=== PATIENT | female | born 1945 | race Caucasian/White ===

== ENCOUNTER 2018-11-18 08:35 | Emergency (ER) | payer MEDICARE, OTHER ==
[~2018-11-18] VITALS: Ht 157.5 cm; Wt 64.9 kg
--- NOTE | 2018-11-18 09:03 | ED General ---
General Chief Complaint: Dizziness/Syncope Stated Complaint: DIZZINESS,HIGH BP - SENT FROM [facility] Source of Information: Patient History of Present Illness Date Seen by Provider: Nov 18, 2018 Time Seen by Provider: 08:45 Initial Comments 73 yo female who presents with "dizziness" pt describes dizziness as being off balance. she reports she awoke with it. worse with standing. improves with sitting/lying. not changed by rapid head movement. no associated vision changes, focal weakness, chest pain or other systemic complaints. Allergies and Home Medications Allergies Coded Allergies: Sulfa (Sulfonamide Antibiotics) (Verified Allergy, Unknown, ITCHING, ) codeine (Verified Allergy, Unknown, HALLUCINATION, 11/18/18) Patient Home Medication List Home Medication List Reviewed: Yes Review of Systems Review of Systems Constitutional: No chills, No diaphoresis; dizziness; No fever EENTM: No hearing loss, No ear pain, No blurred vision, No double vision, No eye pain, No vision loss Respiratory: No cough, No short of breath Cardiovascular: No chest pain, No edema, No palpitations Gastrointestinal: no symptoms reported; No abdominal pain, No diarrhea, No nausea, No vomiting Genitourinary: no symptoms reported Musculoskeletal: no symptoms reported Skin: no symptoms reported Psychiatric/Neurological: No Symptoms Reported Past Zezdzgh-Uscltn-Cazcdk Hx Past Med/Social Hx: Reviewed Nursing Past Med/Soc Hx Patient Social History Recent Foreign Travel: No (N) Contact w/Someone Who Travel: No (N) Physical Exam Vital Signs Vital Signs - First Documented 11/18/18 08:40 Temp 98.5 Pulse 95 Resp 18 B/P (MAP) 184/86 (118) Pulse Ox 98 Capillary Refill : Height, Weight, BMI Height: '" Weight: lbs. oz. kg; BMI Method: General Appearance: No Apparent Distress, WD/WN Eyes: Bilateral Eye Normal Inspection HEENT: PERRL/EOMI, TMs Normal Neck: Full Range of Motion, Normal Inspection, Non Tender Respiratory: Lungs Clear, Normal Breath Sounds Cardiovascular: Regular Rate, Rhythm, No Edema, Normal Peripheral Pulses Gastrointestinal: Normal Bowel Sounds, Non Tender, Soft Back: Normal Inspection Extremity: Normal Capillary Refill, Normal Range of Motion, Non Tender Neurologic/Psychiatric: Oriented x3, No Motor/Sensory Deficits, Normal Mood/ Affect, intensive care nurse II-XII Norm as Tested Skin: Normal Color, Warm/Dry Focused Exam Lactate Level 11/18/18 09:23: Lactic Acid Level 1.12 Lactic Acid Level Laboratory Tests Test 11/18/18 09:23 Lactic Acid Level 1.12 MMOL/L (0.50-2.00) Progress/Results/Core Measures Suspected Sepsis SIRS Temperature: Pulse: Respiratory Rate: Laboratory Tests 11/18/18 08:57: White Blood Count 6.7 Blood Pressure / Mean: 11/18/18 09:23: Lactic Acid Level 1.12 Laboratory Tests 11/18/18 08:57: Creatinine 0.78, Platelet Count 252, Total Bilirubin 1.0 Results/Orders Lab Results Laboratory Tests Test 11/18/18 08:57 11/18/18 09:09 11/18/18 09:23 Range/Units White Blood Count 6.7 4.3-11.0 10^3/uL Red Blood Count 4.88 4.35-5.85 10^6/uL Hemoglobin 15.1 11.5-16.0 G/DL Hematocrit 45 35-52 % Mean Corpuscular Volume 91 80-99 FL Mean Corpuscular Hemoglobin 31 25-34 PG Mean Corpuscular Hemoglobin Concent 34 32-36 G/DL Red Cell Distribution Width 12.3 10.0-14.5 % Platelet Count 252 130-400 10^3/uL Mean Platelet Volume 8.3 7.4-10.4 FL Sodium Level 141 135-145 MMOL/L Potassium Level 4.1 3.6-5.0 MMOL/L Chloride Level 104 98-107 MMOL/L Carbon Dioxide Level 17 L 21-32 MMOL/L Anion Gap 20 H 5-14 MMOL/L Blood Urea Nitrogen 9 7-18 MG/DL Creatinine 0.78 0.60-1.30 MG/DL Estimat Glomerular Filtration Rate > 60 BUN/Creatinine Ratio 12 Glucose Level 123 H 70-105 MG/DL Calcium Level 9.9 8.5-10.1 MG/DL Corrected Calcium 9.6 8.5-10.1 MG/DL Magnesium Level 1.8 1.8-2.4 MG/DL Total Bilirubin 1.0 0.1-1.0 MG/DL Aspartate Amino Transf (AST/SGOT) 15 5-34 U/L Alanine Aminotransferase (ALT/SGPT) 17 0-55 U/L Alkaline Phosphatase 67 40-136 U/L Troponin T < 10 <=10 NG/L Total Protein 7.0 6.4-8.2 GM/DL Albumin 4.4 3.2-4.5 GM/DL Urine Color YELLOW Urine Clarity CLEAR Urine pH 6.0 5-9 Urine Specific [place] 1.015 L 1.016-1.022 Urine Protein NEGATIVE NEGATIVE Urine Glucose (UA) NEGATIVE NEGATIVE Urine Ketones NEGATIVE NEGATIVE Urine Nitrite NEGATIVE NEGATIVE Urine Bilirubin NEGATIVE NEGATIVE Urine Urobilinogen 0.2 NORMAL MG/DL Urine Leukocyte Esterase NEGATIVE NEGATIVE Urine RBC (Auto) NEGATIVE NEGATIVE Urine RBC NONE /HPF Urine WBC NONE /HPF Urine Squamous Epithelial Cells 2-5 /HPF Urine Crystals NONE /LPF Urine Bacteria NONE /HPF Urine Casts NONE /LPF Urine Mucus NEGATIVE /LPF Urine Culture Indicated NO Lactic Acid Level 1.12 0.50-2.00 MMOL/L My Orders Orders - JANUSZ SANCHEZ L DO Ct Head Wo (11/18/18 08:47) Ekg Tracing (11/18/18 08:47) Cbc No Diff (11/18/18 08:47) Comprehensive Metabolic Panel (11/18/18 08:47) Lactic Acid Analyzer (11/18/18 08:47) Magnesium (11/18/18 08:47) Ua Culture If Indicated (11/18/18 08:47) Troponin T (11/18/18 08:47) Vital Signs/I&O 11/18/18 08:40 Temp 98.5 Pulse 95 Resp 18 B/P (MAP) 184/86 (118) Pulse Ox 98 Capillary Refill : ECG Initial ECG Impression Date: Nov 18, 2018 Initial ECG Impression Time: 08:57 Initial ECG Rate: 89 Initial ECG Rhythm: Normal Sinus, PVC (occasional ) Initial ECG Intervals: Normal Initial ECG Intervals pr 136ms, qrs 86 Initial ECG Impression: Normal Consults Consults : Consults Notes Called and discussed case with neurology doctors Ashley, neurologist and neurosurgeon. After they reviewed the CT imaging, they requested the patient be transferred to for further management. Discussed risk and benefits with patient who agrees to transfer. Patient will be transferred in stable condition to . Departure Impression Primary Impression: Abnormal head CT Additional Impressions: Mass, brain Dizziness Disposition: 02 XFER SHT-TRM HOSP Condition: Stable Transfer Time Spoke to Accepting Phy: 10:30 Transfer Progress Notes Patient accepted for transfer to to the neurosurgeon Dr Jimenez Method of Transfer: EMS Departure-Patient Inst. Referrals: LANDY MARQUEZ DO (PCP/Family) Primary Care Physician JANUSZ SANCHEZ DO Nov 18, 2018 09:03
[2018-11-18 09:06] LABS: HEMOGLOBIN 15.1 G/DL (11.5-16.0); WHITE BLOOD COUNT 6.7 10^3/uL (4.3-11.0)
[2018-11-18 09:07] LABS: MEAN PLATELET VOLUME 8.3 FL (7.4-10.4); RED CELL DISTRIBUTION WIDTH 12.3 % (10.0-14.5)
[2018-11-18 09:19] LABS: BILIRUBIN,URINE NEGATIVE (NEGATIVE); CLARITY,URINE CLEAR; COLOR,URINE YELLOW; GLUCOSE, URINE (UA) NEGATIVE (NEGATIVE); KETONES,URINE NEGATIVE (NEGATIVE); LEUKOCYTE ESTERASE ,URINE NEGATIVE (NEGATIVE); NITRITE,URINE NEGATIVE (NEGATIVE); PROTEIN,URINE NEGATIVE (NEGATIVE); UROBILINOGEN,URINE 0.2 MG/DL (NORMAL)
[2018-11-18] MEDS ORDERED: LISI10TA2 (09:19)
[2018-11-18] MEDS ORDERED: VENL75CA93 (09:19)
[2018-11-18] MEDS ORDERED: ATOR20TA66 (09:19)
[2018-11-18 09:27] LABS: ALKALINE PHOSPHATASE 67 U/L (40-136); BUN/CREATININE RATIO 12; CALCIUM 9.9 MG/DL (8.5-10.1); CARBON DIOXIDE 17 MMOL/L (21-32); CHLORIDE 104 MMOL/L (98-107); CREATININE SERUM 0.78 MG/DL (0.60-1.30); GFR ESTIMATED > 60; GLUCOSE 123 MG/DL (70-105); MAGNESIUM 1.8 MG/DL (1.8-2.4); POTASSIUM 4.1 MMOL/L (3.6-5.0); SODIUM 141 MMOL/L (135-145)
--- NOTE | 2018-11-18 09:27 | Diagnostic Imaging Report ---
PROCEDURE: CT head without contrast. TECHNIQUE: Multiple contiguous axial images were obtained through the brain without the use of intravenous contrast. Auto Exposure Controls were utilized during the CT exam to meet ALARA standards for radiation dose reduction. DATE: November 18, 2018. COMPARISON: None. INDICATION: 73-year-old female, dizziness. FINDINGS: There is a partially calcified round mass adjacent to the left cerebellum which may be extra-axial in location measuring 4.0 x 4.1 cm in axial dimension. There is associated mass effect and adjacent areas of low attenuation in the left cerebellum. Comparison imaging is not available to assess for possible stability. There is no identified abnormal extra-axial fluid collection. There is no evidence of acute intracranial hemorrhage. The visualized portions of the mastoid air cells, middle ears, and paranasal sinuses are well aerated. There is pneumatization of the Maged apices. IMPRESSION: 1. Partially calcified mass adjacent to the left cerebellum which measures 4.1 x 4.0 cm in size. This appears likely extra-axial in location and may relate to meningioma. Comparison imaging is not available to assess for stability. Recommend dedicated MRI brain without and with intravenous contrast for further assessment in comparison to prior imaging if available. Dictated by: Dictated on workstation # [id number]
[2018-11-18 09:28] LABS: ALANINE AMINOTRANSFERASE 17 U/L (0-55); ALBUMIN 4.4 GM/DL (3.2-4.5)
--- NOTE | 2018-11-18 10:50 | NUR ---
Vitals, labs, and CT report faxed to [facility] at this time.
[2018-11-18 11:40] VITALS: BP 171/87
--- NOTE | 2018-11-18 12:25 | NUR ---
Report given to Kareen ARZOLA at this time.
--- NOTE | 2018-11-18 13:39 | NUR ---
patient transferred at this time via [facility].
== END 2018-11-18 13:39 | disposition short-term general hospital (02) ==
LOC: EDUNIT# 08:35 → ER FS 08:37
DX: R93.0 Abnormal findings on diagnostic imaging of skull and head, not elsewhere classified (principal); G93.9 Disorder of brain, unspecified; R42 Dizziness and giddiness; Z88.2 Allergy status to sulfonamides; Z88.5 Allergy status to narcotic agent
CPT/HCPCS: 36415; 70450; 80053; 81000; 83605; 83735; 84484; 85027; 93005

== ENCOUNTER → 2019-01-22 | Outpatient (CLI) | payer MEDICARE, OTHER ==
[~2019-01-22] VITALS: Ht 157.5 cm; Wt 68.9 kg
[~2019-01-22] MED LIST: ATOR20TA66; DENOSUMAB 60 MG/1 ML (PROLIA) SQ ONE; LISI10TA2; VENL75CA93
[2019-01-22 09:42] VITALS: BP 146/76
== END ==
LOC: SDC 08:59
PROVIDERS: ATTEND Family Medicine
DX: M81.0 Age-related osteoporosis without current pathological fracture (principal)
CPT/HCPCS: 96372

== ENCOUNTER 2019-02-15 06:07 | Emergency (ER) | payer MEDICARE, OTHER ==
[~2019-02-15] VITALS: Ht 157.5 cm; Wt 64.9 kg
[~2019-02-15 06:07] MED LIST changes: -DENOSUMAB 60 MG/1 ML (PROLIA) SQ ONE
--- OUTSIDE RECORDS SUMMARY | 2019-02-15 06:12 | XMS REPORT | Continuity of Care Document ---
Author Organization Unknown Address Unknown Allergies Active Description Code Type Severity Reaction Onset Reported/Identified Relationship to Patient Clinical Status Yes codeine [id number] Drug Allergy Unknown HALLUCINATION 11/18/2018 Yes Sulfa (Sulfonamide Antibiotics) [id number] Drug Allergy Unknown ITCHING 11/18/2018 Medications There is no data. Problems Date Dx Coded Attending Type Code Diagnosis Diagnosed By 11/18/2018 SANCHEZ DO, JANUSZ L Ot G93.9 DISORDER OF BRAIN, UNSPECIFIED 11/18/2018 SANCHEZ DO, JANUSZ L Ot R42 DIZZINESS AND GIDDINESS 11/18/2018 SANCHEZ DO, JANUSZ L Ot R93.0 ABNORMAL FINDINGS ON DX IMAGING OF SKULL 11/18/2018 SANCHEZ DO, JANUSZ L Ot Z88.2 ALLERGY STATUS TO SULFONAMIDES STATUS 11/18/2018 SANCHEZ DO, JANUSZ L Ot Z88.5 ALLERGY STATUS TO NARCOTIC AGENT STATUS 11/20/2018 SANCHEZ DO, JANUSZ L Ot G93.9 DISORDER OF BRAIN, UNSPECIFIED 11/20/2018 SANCHEZ DO, JANUSZ L Ot R42 DIZZINESS AND GIDDINESS 11/20/2018 SANCHEZ DO, JANUSZ L Ot R93.0 ABNORMAL FINDINGS ON DX IMAGING OF SKULL 11/20/2018 SANCHEZ DO, JANUSZ L Ot Z88.2 ALLERGY STATUS TO SULFONAMIDES STATUS 11/20/2018 SANCHEZ DO, JANUSZ L Ot Z88.5 ALLERGY STATUS TO NARCOTIC AGENT STATUS 12/23/2018 SANCHEZ DO, JANUSZ L Ot G93.9 DISORDER OF BRAIN, UNSPECIFIED 12/23/2018 SANCHEZ DO, JANUSZ L Ot R42 DIZZINESS AND GIDDINESS 12/23/2018 SANCHEZ DO, JANUSZ L Ot R93.0 ABNORMAL FINDINGS ON DX IMAGING OF SKULL 12/23/2018 SANCHEZ DO, JANUSZ L Ot Z88.2 ALLERGY STATUS TO SULFONAMIDES STATUS 12/23/2018 SANCHEZ DO, JANUSZ L Ot Z88.5 ALLERGY STATUS TO NARCOTIC AGENT STATUS 01/23/2019 LANDY MARQUEZ DO Ot M81.0 AGE-RELATED OSTEOPOROSIS W/O CURRENT PAT Procedures There is no data. Results Test Result Range Automated blood complete blood count (hemogram) panel - 11/18/18 08:57 Blood leukocytes automated count (number/volume) 6.7 10*3/uL 4.3-11.0 Blood erythrocytes automated count (number/volume) 4.88 10*6/uL 4.35-5.85 Venous blood hemoglobin measurement (mass/volume) 15.1 g/dL 11.5-16.0 Blood hematocrit (volume fraction) 45 % 35-52 Automated erythrocyte mean corpuscular volume 91 [foz_us] 80-99 Automated erythrocyte mean corpuscular hemoglobin (mass per erythrocyte) 31 pg 25-34 Automated erythrocyte mean corpuscular hemoglobin concentration measurement (mass/volume) 34 g/dL 32-36 Automated erythrocyte distribution width ratio 12.3 % 10.0- 14.5 Automated blood platelet count (count/volume) 252 10*3/uL 130-400 Automated blood platelet mean volume measurement 8.3 [foz_us] 7.4-10.4 Comprehensive metabolic panel - 11/18/18 08:57 Serum or plasma sodium measurement (moles/volume) 141 mmol/L 135-145 Serum or plasma potassium measurement (moles/volume) 4.1 mmol/L 3.6-5.0 Serum or plasma chloride measurement (moles/volume) 104 mmol/L 98-107 Carbon dioxide 17 mmol/L 21-32 Serum or plasma anion gap determination (moles/volume) 20 mmol/L 5-14 Serum or plasma urea nitrogen measurement (mass/volume) 9 mg/dL 7-18 Serum or plasma creatinine measurement (mass/volume) 0.78 mg/dL 0.60-1.30 Serum or plasma urea nitrogen/creatinine mass ratio 12 NRG Serum or plasma creatinine measurement with calculation of estimated glomerular filtration rate > NRG Serum or plasma glucose measurement (mass/volume) 123 mg/dL 70-105 Serum or plasma calcium measurement (mass/volume) 9.9 mg/dL 8.5-10.1 Serum or plasma total bilirubin measurement (mass/volume) 1.0 mg/dL 0.1-1.0 Serum or plasma alkaline phosphatase measurement (enzymatic activity/volume) 67 U/L 40-136 Serum or plasma aspartate aminotransferase measurement (enzymatic activity/volume) 15 U/L 5-34 Serum or plasma alanine aminotransferase measurement (enzymatic activity/volume) 17 U/L 0-55 Serum or plasma protein measurement (mass/volume) 7.0 g/dL 6.4-8.2 Serum or plasma albumin measurement (mass/volume) 4.4 g/dL 3.2-4.5 CALCIUM CORRECTED 9.6 mg/dL 8.5-10.1 Magnesium - 11/18/18 08:57 Magnesium 1.8 mg/dL 1.8-2.4 TROPONIN T - 11/18/18 08:57 TROPONIN T < 10 <=10 Complete urinalysis with reflex to culture - 11/18/18 09:09 Urine color determination YELLOW NRG Urine clarity determination CLEAR NRG Urine pH measurement by test strip 6.0 5-9 Specific gravity of urine by test strip 1.015 1.016-1.022 Urine protein assay by test strip, semi-quantitative NEGATIVE NEGATIVE Urine glucose detection by automated test strip NEGATIVE NEGATIVE Erythrocytes detection in urine sediment by light microscopy NEGATIVE NEGATIVE Urine ketones detection by automated test strip NEGATIVE NEGATIVE Urine nitrite detection by test strip NEGATIVE NEGATIVE Urine total bilirubin detection by test strip NEGATIVE NEGATIVE Urine urobilinogen measurement by automated test strip (mass/volume) 0.2 mg/dL NORMAL Urine leukocyte esterase detection by dipstick NEGATIVE NEGATIVE Automated urine sediment erythrocyte count by microscopy (number/high power field) NONE NRG Automated urine sediment leukocyte count by microscopy (number/high power field) NONE NRG Bacteria detection in urine sediment by light microscopy NONE NRG Squamous epithelial cells detection in urine sediment by light microscopy 2-5 NRG Crystals detection in urine sediment by light microscopy NONE NRG Casts detection in urine sediment by light microscopy NONE NRG Mucus detection in urine sediment by light microscopy NEGATIVE NRG Complete urinalysis with reflex to culture NO NRG Blood lactic acid measurement (moles/volume) - 11/18/18 09:23 Blood lactic acid measurement (moles/volume) 1.12 mmol/L 0.50- 2.00 Encounters ACCT No. Visit Date/Time Discharge Status Pt. Type Provider Facility Loc./Unit Complaint [id number] 02/04/2019 07:00:00 02/04/2019 23:59:59 [facility] Outpatient Landy Marquez [facility] [id number] 01/27/2019 00:15:06 01/27/2019 23:59:59 [facility] Outpatient [id number] 01/22/2019 08:59:00 01/22/2019 23:59:59 [facility] Outpatient LANDY MARQUEZ DO Via [facility] SEVERE OSTEOPOROSIS OF FEMURS [id number] 11/18/2018 08:37:00 11/18/2018 13:39:00 DIS Emergency JANUSZ SANCHEZ DO Via [facility] ER FS DIZZINESS,HIGH BP - SENT FROM [facility] [id number] 11/18/2018 08:51:00 Document Registration
--- NOTE | 2019-02-15 06:45 | ED Fall/Injury ---
General Chief Complaint: Trauma-Non Activation Stated Complaint: FELL HIT HEAD;POSSIBLE SPRAIN RT ANKLE Nursing Triage Note: FALL, WITH INJURY TO THE RIGHT ANKLE, RIGHT KNEE, AND THE BACK OF HER HEAD. Source: patient, RN notes reviewed Exam Limitations: no limitations History of Present Illness Date Seen by Provider: Feb 15, 2019 Time Seen by Provider: 06:32 Initial Comments Patient presents c/ c/o injuries to her head and RLE p/ slipping and falling last PM. Was reportedly wearing Crocs that got wet causing her to slip and fall forward (injuring her RLE), and then backwards causing her to hit the back of her head. Denies any LOC. Neck is a little sore. Also sustained some abrasions to her right knee and ankle as well. States her tetanus is UTD. Location Injury Occurred: HOME Occurred: yesterday Severity: moderate Injuries/Pain Location: head, lower extremity (right knee and ankl) Context: slipped Loss of Consciousness: no loss of consciousness Modifying Factors: Worse With Movement; Improves With Rest Associated Symptoms (Fall): Denies Symptoms (x/ as noted.), Neck Pain (slight), Trouble Walking (secondary to right knee and ankle injury/pain) Allergies and Home Medications Allergies Coded Allergies: Sulfa (Sulfonamide Antibiotics) (Verified Allergy, Unknown, ITCHING, 02/15/19) codeine (Verified Allergy, Unknown, HALLUCINATION, 02/15/19) Patient Home Medication List Home Medication List Reviewed: Yes Review of Systems Review of Systems Constitutional: see HPI : No Musculoskeletal: see HPI, other (right knee and ankle pain/swelling) Skin: see HPI, other (abrasion right knee and ankle) All Other Systems Reviewed Negative Unless Noted: Yes (Negative excepted noted.) Past Vfjkweh-Uckunm-Waoogv Hx Patient Social History 2nd Hand Smoke Exposure: No Recent Foreign Travel: No Contact w/Someone Who Travel: No Recent Infectious Disease Expo: No Recent Hopitalizations: No Physical Abuse: No Sexual Abuse: No Mistreated: No Fear: No Seasonal Allergies Seasonal Allergies: No Past Medical History Surgeries: Yes (D&C) Tonsillectomy Cardiac: Yes High Cholesterol, Hypertension Psychosocial: Yes Anxiety Integumentary: No Physical Exam Vital Signs Vital Signs - First Documented 02/15/19 06:22 Temp 98.6 Pulse 97 Resp 20 B/P (MAP) 163/92 (115) Pulse Ox 95 O2 Delivery Room Air Capillary Refill : Less Than 3 Seconds Height, Weight, BMI Height: 5'2.00" Weight: 143lbs. 0.0oz. 64.424637ug; BMI Method:Stated General Appearance: WD/WN, mild distress HEENT: normal ENT inspection, other (tender just to right of her occipital apex) Neck: normal inspection Cardiovascular: regular rate, rhythm Respiratory: no respiratory distress Rectal: deferred Extremities: pelvis stable, other (right knee is tender and a little swollen appearing, but has FROM. (+) abrasion noted as well. Right ankle is the same as her right knee. No obvious visual, or palpable deformity, or pathos. ) Neurologic/Psychiatric: no motor/sensory deficits, alert, normal mood/affect, oriented x 3 Skin: warm/dry, other (abrasions to both her right knee and ankles) Estefania Coma Score Best Eye Response: (4) Open Spontaneously Best Verbal Response: (5) Oriented Best Motor Response: (6) Obeys Commands [place] Total: 15 Progress/Results/Core Measures Results/Orders My Orders Orders - GINGER MEDRANO DO Ct Head/Cervical Spine Wo (02/15/19 06:42) Ankle 3 View Right (02/15/19 06:42) Knee 3 View Right (02/15/19 06:42) Edwin Bandage (02/15/19 08:31) Vital Signs/I&O 02/15/19 06:22 Temp 98.6 Pulse 97 Resp 20 B/P (MAP) 163/92 (115) Pulse Ox 95 O2 Delivery Room Air Blood Pressure Mean: 115 Diagnostic Imaging Diagonstic Imaging: Xray, CT Plain Films/CT/US/NM/MRI: c-spine (NAD), knee (right- no Fx.), ankle (right- no Fx), head (NAD) Departure Impression Primary Impression: Fall Additional Impressions: Sprain of ankle, right Sprain of right knee Multiple abrasions Contusion of head Disposition: HOME, SELF-CARE Condition: Stable Departure-Patient Inst. Referrals: LANDY MARQUEZ DO (PCP/Family) Primary Care Physician Patient Instructions: Minor Head Injury (DC), Ankle Sprain (DC), Knee Sprain (DC), Skin Abrasions (DC) Add. Discharge Instructions: All discharge instructions reviewed with patient and/or family. Voiced understanding. RECOMMEND 400 mg OF IBUPROFEN AND/ OR 1000 mg OF TYLENOL EVERY 6 HOURS NEEDED FOR PAIN. DO NOT EXCEED 4000 mg OF TYLENOL IN A 24 HOUR PERIOD. DO NEED TO CONTACT YOUR PCP IN ORDER TO GET SET UP FOR AN OUTPATIENT ULTRASOUND OF YOUR THYROID RECOMMENDED BY THE RADIOLOGIST. GINGER MEDRANO DO Feb 15, 2019 06:45
--- NOTE | 2019-02-15 07:57 | Diagnostic Imaging Report ---
Indication: Fall, pain. Comparison: None available. Technique: Three radiographs of the right ankle dated 02/15/2019. Findings: No acute fracture or dislocation. No destructive osseous process. Talar dome is unremarkable. Ankle mortise is symmetric. Tiny posterior and plantar calcaneal enthesophytes. Impression: No acute osseous abnormality with mild degenerative changes. Dictated by: Dictated on workstation # [id number]
--- NOTE | 2019-02-15 08:00 | Diagnostic Imaging Report ---
PROCEDURE: CT head and CT cervical spine without contrast. TECHNIQUE: Multiple contiguous axial images were obtained through the brain and cervical spine without the use of intravenous contrast. Sagittal and coronal reformations through the cervical spine were then performed. Auto Exposure Controls were utilized during the CT exam to meet ALARA standards for radiation dose reduction. INDICATION: Fall COMPARISON: 11/18/2018 FINDINGS: No intracranial hemorrhage. 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 No new intracranial mass, mass effect, midline shift, herniation, hydrocephalus, or suspicious extra-axial fluid collection. The bilateral ocular lenses are absent. Otherwise, the orbits are unremarkable. The paranasal sinuses are clear. Besides the postsurgical changes, the calvarium and extracalvarial soft tissues are unremarkable. Alignment of the cervical spine is well maintained. Alignment of the atlantooccipital joint is well maintained. Vertebral body heights and disc spaces are well-maintained. No acute fracture or dislocation. No destructive osseous process. Scattered facet joint degenerative changes and uncovertebral joint hypertrophy. No high-grade osseous central canal stenosis. Multilevel neuroforaminal stenosis, greatest on the right at C4/C5 and C5/C6 where it is moderate in severity. Biapical pleural parenchymal scarring. Nodularity and heterogeneity of the thyroid gland. The paraspinal soft tissues are otherwise unremarkable. IMPRESSION: No acute intracranial abnormality. No acute osseous abnormalities within the cervical spine with scattered degenerative changes. Interval postsurgical changes involving the left cerebellar region with removal of previously noted meningioma. Additional findings as above, including heterogeneity and nodularity of the thyroid gland for which a thyroid ultrasound is recommended. Dictated by: Dictated on workstation # [id number]
--- NOTE | 2019-02-15 08:20 | Diagnostic Imaging Report ---
Indication: Fall, pain Comparison: None available. Technique: Three radiographs of the right knee dated 02/15/2019. Findings: No acute fracture or dislocation. No destructive osseous process. Minimal chondrocalcinosis involving the medial and lateral menisci. Linear sclerotic regions are noted within the distal femoral shaft as well as proximal tibia. No joint effusion. No suspicious radiopaque foreign body. Impression: No acute osseous abnormality. Small regions of sclerosis, particularly within the distal femoral shaft, likely related to prior bone infarction versus low-grade chondroid lesion. Minimal chondrocalcinosis of menisci which may relate to CPPD deposition disease or simply osteoarthritis. Dictated by: Dictated on workstation # [id number]
[2019-02-15 08:50] VITALS: BP 163/92
== END 2019-02-15 08:50 | disposition home or self-care (01) ==
LOC: EDUNIT# 06:07 → ER FS 06:09
DX: S00.93XA Contusion of unspecified part of head, initial encounter (principal); S83.92XA Sprain of unspecified site of left knee, initial encounter; S93.401A Sprain of unspecified ligament of right ankle, initial encounter; I10 Essential (primary) hypertension; E78.00 Pure hypercholesterolemia, unspecified; F41.9 Anxiety disorder, unspecified; R40.2142 Coma scale, eyes open, spontaneous, at arrival to emergency department; R40.2252 Coma scale, best verbal response, oriented, at arrival to emergency department; R40.2362 Coma scale, best motor response, obeys commands, at arrival to emergency department; Z88.2 Allergy status to sulfonamides; Z88.5 Allergy status to narcotic agent; Z90.89 Acquired absence of other organs; W01.198A Fall on same level from slipping, tripping and stumbling with subsequent striking against other object, initial encounter
CPT/HCPCS: 70450; 72125; 73562; 73610

== ENCOUNTER → 2019-04-08 | Outpatient (CLI) | payer MEDICARE, OTHER ==
[~2019-04-08] VITALS: Ht 157.5 cm; Wt 66.2 kg
[~2019-04-08] MED LIST changes: +LIDOCAINE 1% INJ 20 ML 20 ML VIAL INJ ONE
--- NOTE | 2019-04-08 09:59 | Diagnostic Imaging Report ---
INDICATION: Right thyroid nodule. Patient presents for ultrasound-guided fine needle aspiration. DETAILS OF PROCEDURE: Patient was brought to the procedure room and placed on the table in supine position. Ultrasound imaging over the right neck was performed to evaluate appropriate entry site. The right neck was then prepped and draped in usual sterile fashion. Small amount of 1% lidocaine was utilized for local anesthesia. A total of four passes were made into the solid nodule in the upper pole of right lobe of the thyroid utilizing 25-gauge needles. Fine-needle aspiration technique was utilized. Hemostasis was obtained using manual compression. Patient tolerated the procedure well and left the department in stable condition. IMPRESSION: Ultrasound-guided fine needle aspiration of a solid nodule in upper pole of right lobe of the thyroid. Cytology results are currently pending. Dictated by: Dictated on workstation # [id number]
== END ==
LOC: RAD 08:42
PROVIDERS: ATTEND Family Medicine
DX: E04.1 Nontoxic single thyroid nodule (principal)

== ENCOUNTER 2019-04-14 22:18 | Emergency (ER) | payer MEDICARE, OTHER ==
[~2019-04-14] VITALS: Ht 157.5 cm; Wt 65.8 kg
[~2019-04-14 22:18] MED LIST changes: -LIDOCAINE 1% INJ 20 ML 20 ML VIAL INJ ONE
--- NOTE | 2019-04-14 22:43 | ED Headache ---
General Stated Complaint: HIGH BLOOD PRESSURE Source: patient, other Exam Limitations: no limitations History of Present Illness Date Seen by Provider: Apr 14, 2019 Time Seen by Provider: 22:25 Initial Comments The patient presents to the ER by private conveyance with chief complaint that all day she's felt a little cough she describes it as dizzy but says that she feels off like she is just not well. No fevers or chills. She said she felt like the orifice she is to get before she had a migraine headache back in her 30s. She's been expressing a lot of stress lately with a friend of hers recently being diagnosed with cancer and she herself had a biopsy of a nodule on her thyroid and has not received the results yet. She has a lot of anxiety. She says the symptoms of her headache started around 11:00 this morning it's occipital mom pulsating and nonradiating and she has not had migraine headache for several decades. She took Tylenol and Benadryl fell sleep for 4 hours and when she woke up again the headache began to come back. By [facility] she checked her blood pressure and found that it was high 190/100. She called her friend who is a nurse who came over who did some breathing exercises some meditation and went through her blood pressure medications with her. She swells to be taking 40 mg of lisinopril as per her visit last week with her primary care doctor. At that time her blood pressure was running in the 140s systolic range. After they reviewed her medications her friend the nurse decided that she was probably only taking 20 mg of lisinopril instead of 40 so they called the on-call doctor for Dr. Garcia and were instructed to take another 20 mg and if the blood pressure did not come down within an hour below 180 systolic they were to go to the ER. The blood pressure did not change in 1 hour. The patient is not expressing any chest pain shortness of breath. She says her headache has pretty much resolved to a 1 out of 10 at this time. She is not having any imbalance, falls, near-syn cope, weakness, numbness, tingling, slurred speech, facial droop, cough, fevers, chills, dysuria, discharge, constipation or diarrhea. Allergies and Home Medications Allergies Coded Allergies: Sulfa (Sulfonamide Antibiotics) (Verified Allergy, Unknown, ITCHING, 02/15/19) codeine (Verified Allergy, Unknown, HALLUCINATION, 02/15/19) Patient Home Medication List Home Medication List Reviewed: Yes Review of Systems Review of Systems Constitutional: see HPI; No chills, No diaphoresis; dizziness; No fever, No malaise Eyes: Denies Blindness, Denies Blurred Vision, Denies Drainage, Denies Pain Ears, Nose, Mouth, Throat: denies ear pain, denies ear discharge, denies nose pain, denies nose discharge, denies throat pain, denies throat swelling Respiratory: No cough, No dyspnea on exertion, No phlegm Cardiovascular: No chest pain, No Hx of Intervention, No palpitations, No syncope, No vascular heart diseas Gastrointestinal: No abdominal pain, No constipation, No nausea, No vomiting Genitourinary: No discharge, No dysuria Musculoskeletal: No back pain, No joint pain Past Exqfmvs-Buknik-Pmytdi Hx Patient Social History Alcohol Use: Denies Use Recreational Drug Use: No Smoking Status: Never a Smoker 2nd Hand Smoke Exposure: No Recent Foreign Travel: No Contact w/Someone Who Travel: No Recent Hopitalizations: No Seasonal Allergies Seasonal Allergies: No Past Medical History Surgeries: Yes (D&C) Tonsillectomy Cardiac: Yes High Cholesterol, Hypertension Genitourinary: No Gastrointestinal: No Musculoskeletal: No Endocrine: No HEENT: No Cancer: No Psychosocial: Yes Anxiety Integumentary: No Blood Disorders: No Physical Exam Vital Signs Vital Signs - First Documented 04/14/19 22:44 Temp 97.0 Pulse 94 Resp 20 B/P (MAP) 199/102 (134) Pulse Ox 96 O2 Delivery Room Air Capillary Refill : Height, Weight, BMI Height: 5'2.00" Weight: 146lbs. 0.0oz. 66.216551ol; 26.7 BMI Method:Stated General Appearance: WD/WN, other (anxious affect) HEENT: PERRL/EOMI, normal ENT inspection, TMs normal, pharynx normal Neck: non-tender, full range of motion, supple, normal inspection Cardiovascular: normal peripheral pulses, regular rate, rhythm, no edema, no gallop, no murmur Respiratory: lungs clear, normal breath sounds, no respiratory distress, no accessory muscle use Extremities: normal range of motion, normal inspection, no pedal edema, normal capillary refill Psychiatric: alert, oriented x 3, other (anxious affect) Crainal Nerves: normal hearing, normal speech, PERRL Coordination/Gait: normal gait Motor/Sensory: no motor deficit, no sensory deficit Skin: normal color, warm/dry Lymphatic: no adenopathy Progress/Results/Core Measures Results/Orders Lab Results Laboratory Tests Test 04/14/19 22:44 Range/Units White Blood Count 8.8 4.3-11.0 10^3/uL Red Blood Count 4.78 4.35-5.85 10^6/uL Hemoglobin 14.6 11.5-16.0 G/DL Hematocrit 44 35-52 % Mean Corpuscular Volume 91 80-99 FL Mean Corpuscular Hemoglobin 31 25-34 PG Mean Corpuscular Hemoglobin Concent 34 32-36 G/DL Red Cell Distribution Width 12.2 10.0-14.5 % Platelet Count 305 130-400 10^3/uL Mean Platelet Volume 8.1 7.4-10.4 FL Neutrophils (%) (Auto) 74 42-75 % Lymphocytes (%) (Auto) 19 12-44 % Monocytes (%) (Auto) 5 0-12 % Eosinophils (%) (Auto) 1 0-10 % Basophils (%) (Auto) 1 0-10 % Neutrophils # (Auto) 6.5 1.8-7.8 X 10^3 Lymphocytes # (Auto) 1.7 1.0-4.0 X 10^3 Monocytes # (Auto) 0.5 0.0-1.0 X 10^3 Eosinophils # (Auto) 0.0 0.0-0.3 10^3/uL Basophils # (Auto) 0.0 0.0-0.1 10^3/uL Sodium Level 139 135-145 MMOL/L Potassium Level 4.0 3.6-5.0 MMOL/L Chloride Level 99 98-107 MMOL/L Carbon Dioxide Level 24 21-32 MMOL/L Anion Gap 16 H 5-14 MMOL/L Blood Urea Nitrogen 9 7-18 MG/DL Creatinine 0.74 0.60-1.30 MG/DL Estimat Glomerular Filtration Rate > 60 BUN/Creatinine Ratio 12 Glucose Level 125 H 70-105 MG/DL Calcium Level 10.1 8.5-10.1 MG/DL Corrected Calcium 8.5-10.1 MG/DL Total Bilirubin 0.6 0.1-1.0 MG/DL Aspartate Amino Transf (AST/SGOT) 15 5-34 U/L Alanine Aminotransferase (ALT/SGPT) 16 0-55 U/L Alkaline Phosphatase 68 40-136 U/L Total Protein 7.1 6.4-8.2 GM/DL Albumin 4.6 H 3.2-4.5 GM/DL My Orders Orders - SHERRILL BRAVO Cbc With Automated Diff (04/14/19 22:38) Comprehensive Metabolic Panel (04/14/19 22:38) Ct Head Wo (04/14/19 22:38) Ed Iv/Invasive Line Start (04/14/19 22:38) Acetaminophen Tablet (Tylenol Tablet) (04/14/19 22:45) Medications Given in ED Current Medications Medications Dose Ordered Sig/Jr Route Start Time Stop Time Status Last Admin Dose Admin Acetaminophen 1,000 mg ONCE ONCE PO 04/14/19 22:45 04/14/19 22:46 DC 04/14/19 22:56 1,000 MG Vital Signs/I&O 04/14/19 22:44 Temp 97.0 Pulse 94 Resp 20 B/P (MAP) 199/102 (134) Pulse Ox 96 O2 Delivery Room Air Progress Progress Note : Time: 22:52 Progress Note Hypertension, asymptomatic. Could be from the headache which is resolving or could be from her anxiety about all of her recent life stressors. We'll obtain a basic set of labs and CT scan and observe her. Already her blood pressure has dropped significantly to 160 systolic just after we talked to her and distracting her. Could also be her lisinopril finally kicking in. Either way it seems like this blood pressure probably has gone up over a day or 2 so we probably shouldn't work to get it down over a day or 2. We'll give her Tylenol for her headache and see if that plus some rest in a darkened room will help her blood pressure and anxiety. Diagnostic Imaging Diagonstic Imaging: CT (noncontrast) Plain Films/CT/US/NM/MRI: head Comments No acute findings. Evidence of prior suboccipital craniotomy. Reviewed: Reviewed [place] Study, Reviewed by Me Departure Impression Primary Impression: Hypertension Qualified Codes: I10 - Essential (primary) hypertension Additional Impression: Headache, occipital Disposition: 01 HOME, SELF-CARE Condition: Improved Departure-Patient Inst. Decision time for Depature: 23:15 Referrals: LANDY GARCIA DO (PCP/Family) Primary Care Physician Patient Instructions: High Blood Pressure (DC), Headache, Adult Add. Discharge Instructions: You may use Tylenol 1000 mg every 8 hours in addition to ibuprofen 600 mg every 8 hours for headache. Trying get some sleep and continue to take the medications as they're prescribed you. If you have further concerns about your high blood pressure then you should follow-up with your primary care doctor within the next 1-2 weeks. SHERRILL BRAVO Apr 14, 2019 22:43
[2019-04-14] MEDS ORDERED: ACETAMINOPHEN 500 MG TAB (TYLENOL) PO ONE (22:45)
[2019-04-14 23:00] LABS: BASOPHILS % (AUTO) 1 % (0-10); EOSINOPHILS % (AUTO) 1 % (0-10); HEMATOCRIT 44 % (35-52); HEMOGLOBIN 14.6 G/DL (11.5-16.0); LYMPHOCYTES % (AUTO) 19 % (12-44); MEAN CORPUSCULAR HEMOGLOBIN 31 PG (25-34); MEAN CORPUSCULAR HGB CONC 34 G/DL (32-36); MEAN CORPUSCULAR VOLUME 91 FL (80-99); MEAN PLATELET VOLUME 8.1 FL (7.4-10.4); MONOCYTES % (AUTO) 5 % (0-12); NEUTROPHILS % (AUTO) 74 % (42-75); PLATELET COUNT 305 10^3/uL (130-400); RED CELL DISTRIBUTION WIDTH 12.2 % (10.0-14.5); WHITE BLOOD COUNT 8.8 10^3/uL (4.3-11.0)
[2019-04-14 23:01] LABS: LYMPHOCYTES # (AUTO) 1.7 X 10^3 (1.0-4.0); MONOCYTES # (AUTO) 0.5 X 10^3 (0.0-1.0); NEUTROPHILS # (AUTO) 6.5 X 10^3 (1.8-7.8)
[2019-04-14 23:13] LABS: ALANINE AMINOTRANSFERASE 16 U/L (0-55); ALKALINE PHOSPHATASE 68 U/L (40-136); BILIRUBIN,TOTAL 0.6 MG/DL (0.1-1.0); BUN/CREATININE RATIO 12; CALCIUM 10.1 MG/DL (8.5-10.1); CARBON DIOXIDE 24 MMOL/L (21-32); CHLORIDE 99 MMOL/L (98-107); CREATININE SERUM 0.74 MG/DL (0.60-1.30); GFR ESTIMATED > 60; GLUCOSE 125 MG/DL (70-105); SODIUM 139 MMOL/L (135-145); TOTAL PROTEIN 7.1 GM/DL (6.4-8.2)
[2019-04-14 23:14] LABS: ALBUMIN 4.6 GM/DL (3.2-4.5)
[2019-04-14 23:23] VITALS: BP 183/99
--- NOTE | 2019-04-15 06:06 | Diagnostic Imaging Report ---
PROCEDURE: CT head without contrast. TECHNIQUE: Multiple contiguous axial images were obtained through the brain without the use of intravenous contrast. Auto Exposure Controls were utilized during the CT exam to meet ALARA standards for radiation dose reduction. INDICATION: Headache with nausea and hypertension. Comparison is made to study of 02/15/2019. FINDINGS: Ventricles and sulci are within normal limits for size. Surgical findings are again noted in the left posterior fossa without evidence of hemorrhage in the surgical bed. There is no evidence of intracranial hemorrhage seen elsewhere. There is no evidence of calvarial fracture. IMPRESSION: Stable surgical findings in left posterior fossa without acute intracranial abnormality detected. Dictated by: Dictated on workstation # [id number]
== END 2019-04-14 23:23 | disposition home or self-care (01) ==
LOC: EDUNIT# 22:18 → ER FS 22:19
DX: I10 Essential (primary) hypertension (principal); R51 Headache; E78.00 Pure hypercholesterolemia, unspecified; F41.9 Anxiety disorder, unspecified; Z88.5 Allergy status to narcotic agent; Z88.2 Allergy status to sulfonamides; Z90.89 Acquired absence of other organs
CPT/HCPCS: 36415; 70450; 80053; 85025

== ENCOUNTER 2019-06-09 09:14 | Emergency (ER) | payer MEDICARE, OTHER ==
[~2019-06-09] VITALS: Ht 157.4 cm; Wt 68.7 kg
[~2019-06-09 09:14] MED LIST changes: -ATOR20TA66; +ATOR20TA66 PO
[2019-06-09] MEDS ORDERED: NS IV 1000 ML 1,000 ML IV ONE (09:27)
[2019-06-09 09:38] LABS: BASOPHILS % (AUTO) 1 % (0-10); EOSINOPHILS % (AUTO) 3 % (0-10); HEMATOCRIT 43 % (35-52); HEMOGLOBIN 14.6 G/DL (11.5-16.0); LYMPHOCYTES % (AUTO) 23 % (12-44); MEAN CORPUSCULAR HEMOGLOBIN 31 PG (25-34); MEAN CORPUSCULAR HGB CONC 34 G/DL (32-36); MEAN CORPUSCULAR VOLUME 92 FL (80-99); MEAN PLATELET VOLUME 8.2 FL (7.4-10.4); MONOCYTES % (AUTO) 6 % (0-12); NEUTROPHILS % (AUTO) 67 % (42-75); PLATELET COUNT 277 10^3/uL (130-400); RED CELL DISTRIBUTION WIDTH 12.9 % (10.0-14.5)
[2019-06-09 09:39] LABS: BASOPHILS # (AUTO) 0.1 10^3/uL (0.0-0.1); EOSINOPHILS # (AUTO) 0.2 10^3/uL (0.0-0.3); LYMPHOCYTES # (AUTO) 1.4 X 10^3 (1.0-4.0); MONOCYTES # (AUTO) 0.4 X 10^3 (0.0-1.0)
--- NOTE | 2019-06-09 09:41 | ED General ---
General Chief Complaint: Dizziness/Syncope Stated Complaint: DIZZINESS Nursing Triage Note: Pt ambulatory to ED reporting feeling dizzy when awakened and walking to toilet began to loose balance to the side. Pt reports on new BP medication but began drinking less fluids lately and concerned if BP is now too low. Pt reports she is very anxious in light up having brain surgery for a tumor this yr. Nursing Sepsis Screen: No Definite Risk History of Present Illness Date Seen by Provider: Jun 09, 2019 Time Seen by Provider: 09:30 Initial Comments 74-year-old female presents with an episode of dizziness. Patient reports that when she got up this morning she had a little bit dizzy and fell little bit to the side. Patient reports that she is on a new blood pressure medication and that she hasn't drank as much fluids lately. She is concerned her blood pressure may be getting a little bit too low. The last few home blood pressure readings have been around a systolic to 100 206. Patient also reports significant amount of anxiety and is very anxious at this time. Patient had a surgery to remove a brain tumor earlier this year. She is not having any focal weaknesses, no slurred speech, difficulty swallowing or any other systemic complaints. Allergies and Home Medications Allergies Coded Allergies: Sulfa (Sulfonamide Antibiotics) (Verified Allergy, Unknown, ITCHING, 02/15/19) codeine (Verified Allergy, Unknown, HALLUCINATION, 02/15/19) Home Medications Atorvastatin Calcium 20 Mg Tablet, 20 MG PO HS, (Reported) Lisinopril 40 Mg Tablet, 40 MG PO DAILY, (Reported) Venlafaxine HCl 150 Mg Cap.er.24h, 150 MG PO DAILY, (Reported) Patient Home Medication List Home Medication List Reviewed: Yes Review of Systems Review of Systems Constitutional: No chills; dizziness; No fever EENTM: no symptoms reported Respiratory: no symptoms reported; No cough Cardiovascular: No chest pain, No edema, No palpitations Gastrointestinal: no symptoms reported Genitourinary: no symptoms reported Skin: no symptoms reported Psychiatric/Neurological: Anxiety Past Rnieiqa-Jjztqb-Tzbcxn Hx Past Med/Social Hx: Reviewed Nursing Past Med/Soc Hx Patient Social History Alcohol Use: Denies Use Recreational Drug Use: No Smoking Status: Never a Smoker 2nd Hand Smoke Exposure: No Recent Foreign Travel: No Contact w/Someone Who Travel: No Recent Infectious Disease Expo: No Recent Hopitalizations: No Physical Abuse: No Sexual Abuse: No Mistreated: No Fear: No Seasonal Allergies Seasonal Allergies: No Past Medical History Surgeries: Yes (Suboccipital craniotomy, Meningioma removal, Thyroid needle biopsy) Tonsillectomy Respiratory: No Cardiac: Yes Hypertension Neurological: Yes Headaches /Migraines Genitourinary: No Gastrointestinal: No Musculoskeletal: No Endocrine: No HEENT: No Cancer: No Psychosocial: Yes Anxiety Integumentary: No Blood Disorders: No Physical Exam Vital Signs Vital Signs - First Documented 06/09/19 09:15 Temp 36.1 Pulse 97 Resp 22 B/P (MAP) 191/100 (130) Pulse Ox 98 O2 Delivery Room Air Capillary Refill : Less Than 3 Seconds Height, Weight, BMI Height: 5'2.00" Weight: 145lbs. 0oz. 65.212489mc; 27.00 BMI Method:Stated General Appearance: Anxious Eyes: Bilateral Eye Normal Inspection, Bilateral Eye PERRL, Bilateral Eye EOMI HEENT: Pharynx Normal Neck: Full Range of Motion, Normal Inspection, Supple Respiratory: Chest Non Tender, Lungs Clear, Normal Breath Sounds Cardiovascular: Regular Rate, Rhythm Gastrointestinal: Non Tender, Soft Extremity: Normal Capillary Refill, Normal Inspection Neurologic/Psychiatric: Alert, Oriented x3, No Motor/Sensory Deficits, instrument checker II- XII Norm as Tested, Other (Visibly very anxious) Skin: Normal Color, Warm/Dry Progress/Results/Core Measures Suspected Sepsis Recent Fever Within 48 Hours: No Infection Criteria Present: None New/Unexplained Altered Menta: No Sepsis Screen: No Definite Risk SIRS Temperature: Pulse: 97 Respiratory Rate: 22 Laboratory Tests 06/09/19 09:30: White Blood Count 6.0 Blood Pressure 191 /100 Mean: 130 Laboratory Tests 06/09/19 09:30: Creatinine 0.69, Platelet Count 277, Total Bilirubin 0.5 Results/Orders Lab Results Laboratory Tests Test 06/09/19 09:30 06/09/19 10:03 Range/Units White Blood Count 6.0 4.3-11.0 10^3/uL Red Blood Count 4.67 4.35-5.85 10^6/uL Hemoglobin 14.6 11.5-16.0 G/DL Hematocrit 43 35-52 % Mean Corpuscular Volume 92 80-99 FL Mean Corpuscular Hemoglobin 31 25-34 PG Mean Corpuscular Hemoglobin Concent 34 32-36 G/DL Red Cell Distribution Width 12.9 10.0-14.5 % Platelet Count 277 130-400 10^3/uL Mean Platelet Volume 8.2 7.4-10.4 FL Neutrophils (%) (Auto) 67 42-75 % Lymphocytes (%) (Auto) 23 12-44 % Monocytes (%) (Auto) 6 0-12 % Eosinophils (%) (Auto) 3 0-10 % Basophils (%) (Auto) 1 0-10 % Neutrophils # (Auto) 4.0 1.8-7.8 X 10^3 Lymphocytes # (Auto) 1.4 1.0-4.0 X 10^3 Monocytes # (Auto) 0.4 0.0-1.0 X 10^3 Eosinophils # (Auto) 0.2 0.0-0.3 10^3/uL Basophils # (Auto) 0.1 0.0-0.1 10^3/uL Sodium Level 140 135-145 MMOL/L Potassium Level 4.3 3.6-5.0 MMOL/L Chloride Level 107 98-107 MMOL/L Carbon Dioxide Level 22 21-32 MMOL/L Anion Gap 11 5-14 MMOL/L Blood Urea Nitrogen 8 7-18 MG/DL Creatinine 0.69 0.60-1.30 MG/DL Estimat Glomerular Filtration Rate > 60 BUN/Creatinine Ratio 12 Glucose Level 121 H 70-105 MG/DL Calcium Level 9.3 8.5-10.1 MG/DL Corrected Calcium 9.2 8.5-10.1 MG/DL Magnesium Level 2.0 1.6-2.4 MG/DL Total Bilirubin 0.5 0.1-1.0 MG/DL Aspartate Amino Transf (AST/SGOT) 18 5-34 U/L Alanine Aminotransferase (ALT/SGPT) 18 0-55 U/L Alkaline Phosphatase 67 40-136 U/L Troponin I < 0.30 <0.30 NG/ML Total Protein 6.6 6.4-8.2 GM/DL Albumin 4.1 3.2-4.5 GM/DL Urine Color YELLOW Urine Clarity CLEAR Urine pH 7.0 5-9 Urine Specific [place] 1.010 L 1.016-1.022 Urine Protein NEGATIVE NEGATIVE Urine Glucose (UA) NEGATIVE NEGATIVE Urine Ketones NEGATIVE NEGATIVE Urine Nitrite NEGATIVE NEGATIVE Urine Bilirubin NEGATIVE NEGATIVE Urine Urobilinogen 0.2 NORMAL MG/DL Urine Leukocyte Esterase NEGATIVE NEGATIVE Urine RBC (Auto) NEGATIVE NEGATIVE Urine RBC NONE /HPF Urine WBC 0-2 /HPF Urine Squamous Epithelial Cells 0-2 /HPF Urine Crystals NONE /LPF Urine Bacteria NEGATIVE /HPF Urine Casts NONE /LPF Urine Mucus NONE /LPF Urine Culture Indicated NO My Orders Orders - SANCHEZ,JANUSZ L DO Ed Iv/Invasive Line Start (06/09/19 09:27) Ekg Tracing (06/09/19:27) Orthostatic Vital Signs (Adult (06/09/19 09:27) Cbc With Automated Diff (06/09/19:) Comprehensive Metabolic Panel (06/09/19:) Magnesium (06/09/19:) Ua Culture If Indicated (06/09/19:) Troponin I Fs (06/09/19:27) Ed Iv/Invasive Line Start (06/09/19 09:27) Ns Iv 1000 Ml (Sodium Chloride 0.9%) (06/09/19 09:27) Medications Given in ED Current Medications Medications Dose Ordered Sig/Jr Route Start Time Stop Time Status Last Admin Dose Admin Sodium Chloride 1,000 ml @ 0 mls/hr Q0M ONCE IV 06/09/19 09:27 06/09/19 09:30 DC 06/09/19 09:51 999 MLS/HR Vital Signs/I&O 06/09/19 06/09/19 09:15 09:47 Temp 36.1 Pulse 97 91 96 101 Resp 22 B/P (MAP) 191/100 (130) 174/90 (118) 176/98 (124) 182/105 (130) Pulse Ox 98 O2 Delivery Room Air Capillary Refill : Less Than 3 Seconds Blood Pressure Mean: 130 Progress Note : Progress Note Patient with severe anxiousness during her stay. However there is no acute findings on EKG her labs. Her blood pressure is elevated here but is because she is extremely anxious. We discussed CT versus no CT. At this time felt that no CT was warranted since she had a negative CT back in March. She has no symptoms at this time. She denies any focal weakness or other indications indicate a stroke. Patient may be having issues with her blood pressure medication. I recommend she continues to keep her blood pressure log, follows up with her primary care provider in the next few days for medication review. Patient is otherwise stabl e. She should return to the ER if needed. Patient is stable upon discharge. ECG Initial ECG Impression Date: Jun 09, 2019 Initial ECG Impression Time: 09:41 Initial ECG Rhythm: Normal Sinus Initial ECG Intervals: Normal Initial ECG Impression: Normal Departure Impression Primary Impression: Dizziness Disposition: 01 HOME, SELF-CARE Condition: Stable Departure-Patient Inst. Referrals: LANDY MARQUEZ DO (PCP/Family) Primary Care Physician Follow up 2-3 days Add. Discharge Instructions: Drink plenty of fluids to ensure that your hydrated. Follow-up with her primary care provider in the next 2 or 3 days for recheck of symptoms and medication review Return to the ER as needed All discharge instructions reviewed with patient and/or family. Voiced understanding. JANUSZ SANCHEZ DO Jun 09, 2019 09:41
[2019-06-09 09:47] VITALS: BP_SYST 174; BP_SYST 176; BP_SYST 182; BP_DIAS 105; BP_DIAS 90; BP_DIAS 98
[2019-06-09 10:01] LABS: ALANINE AMINOTRANSFERASE 18 U/L (0-55); ALKALINE PHOSPHATASE 67 U/L (40-136); BILIRUBIN,TOTAL 0.5 MG/DL (0.1-1.0); BUN/CREATININE RATIO 12; CALCIUM 9.3 MG/DL (8.5-10.1); CARBON DIOXIDE 22 MMOL/L (21-32); CHLORIDE 107 MMOL/L (98-107); CREATININE SERUM 0.69 MG/DL (0.60-1.30); GFR ESTIMATED > 60; GLUCOSE 121 MG/DL (70-105); POTASSIUM 4.3 MMOL/L (3.6-5.0); SODIUM 140 MMOL/L (135-145)
[2019-06-09 10:02] LABS: ALBUMIN 4.1 GM/DL (3.2-4.5); TOTAL PROTEIN 6.6 GM/DL (6.4-8.2)
[2019-06-09 10:14] LABS: BACTERIA,URINE NEGATIVE /HPF; BILIRUBIN,URINE NEGATIVE (NEGATIVE); CLARITY,URINE CLEAR; COLOR,URINE YELLOW; GLUCOSE, URINE (UA) NEGATIVE (NEGATIVE); KETONES,URINE NEGATIVE (NEGATIVE); LEUKOCYTE ESTERASE ,URINE NEGATIVE (NEGATIVE); NITRITE,URINE NEGATIVE (NEGATIVE); PROTEIN,URINE NEGATIVE (NEGATIVE); SQUAMOUS EPITHELIAL CELL,UR 0-2 /HPF; UROBILINOGEN,URINE 0.2 MG/DL (NORMAL); WBC,URINE 0-2 /HPF
[2019-06-09] MEDS ORDERED: VENL150C98 PO (10:35)
[2019-06-09] MEDS ORDERED: LISI40TA PO (10:35)
[2019-06-09 10:45] VITALS: BP 171/86
== END 2019-06-09 10:45 | disposition home or self-care (01) ==
LOC: EDUNIT# 09:14 → ER FS 09:15
DX: R42 Dizziness and giddiness (principal); I10 Essential (primary) hypertension; G43.909 Migraine, unspecified, not intractable, without status migrainosus; F41.9 Anxiety disorder, unspecified; Z88.2 Allergy status to sulfonamides; Z88.5 Allergy status to narcotic agent; Z90.89 Acquired absence of other organs
CPT/HCPCS: 36415; 80053; 81000; 83735; 84484; 85025; 93005

== ENCOUNTER → 2019-07-01 | Outpatient (CLI) | payer MEDICARE, OTHER ==
[~2019-07-01] MED LIST changes: +LISI40TA PO; +VENL150C98 PO
== END ==
LOC: CARD 08:24
PROVIDERS: ATTEND Family Medicine
DX: I08.0 Rheumatic disorders of both mitral and aortic valves (principal); I10 Essential (primary) hypertension
CPT/HCPCS: 93306

== ENCOUNTER → 2019-07-22 | Outpatient (CLI) | payer MEDICARE, OTHER ==
[~2019-07-22] MED LIST changes: +DENOSUMAB 60 MG/1 ML (PROLIA) SQ SCH
[2019-07-22 10:12] VITALS: BP 134/84
== END ==
LOC: SDC 09:43
PROVIDERS: ATTEND Family Medicine
DX: M81.0 Age-related osteoporosis without current pathological fracture (principal)
CPT/HCPCS: 96372

== ENCOUNTER → 2019-10-17 | Outpatient (CLI) | payer MEDICARE, OTHER ==
[~2019-10-17] MED LIST changes: -DENOSUMAB 60 MG/1 ML (PROLIA) SQ SCH
--- NOTE | 2019-10-18 10:21 | Diagnostic Imaging Report ---
PROCEDURE: US Thyroid. TECHNIQUE: Multiple real-time grayscale images were obtained of the thyroid in various projections. INDICATION: Thyroid nodules The previous thyroid ultrasound exam performed on 03/29/2019 noted that both lobes of the thyroid were heterogeneous. In the right lobe of the thyroid there was a solid nodule measuring 1.9 x 1.7 x 1.1 cm. There was a second solid nodule in the inferior portion of the right lobe measuring 0.8 x 0.9 x 0.6 cm. The larger of the 2 nodules was subsequently biopsied using ultrasound guidance on 04/08/2019. The results of that biopsy are not known to me. On this study, both of the nodules involving the right lobe of the thyroid seen on the prior study are again evident and appear stable. The larger nodule now measures 1.6 x 0.9 x 1.7 cm while the smaller nodule measures 0.8 x 0.5 x 0.8 cm. The right lobe of the thyroid itself is also similar in size measuring 4.2 x 2.3 x 1.9 cm. The left lobe of the thyroid remains heterogeneous without a discrete nodule. The left lobe is also unchanged in size measuring 4.4 x 2.2 x 2.0 cm. IMPRESSION: The appearance of the thyroid gland is stable when compared to the previous study. Specifically, the 2 nodules in the right lobe do not appear to have changed. Correlation with the patient's biopsy results would be recommended. Dictated by: Dictated on workstation # [id number]
== END ==
LOC: RAD 09:53
PROVIDERS: ATTEND Family Medicine
DX: Z12.31 Encounter for screening mammogram for malignant neoplasm of breast (principal); E04.2 Nontoxic multinodular goiter
CPT/HCPCS: 76536; 77067

== ENCOUNTER 2020-04-07 08:59 | Outpatient (CLI) | payer MEDICARE, OTHER ==
[2020-04-07] MEDS ORDERED: DENOSUMAB 60 MG/1 ML (PROLIA) SQ ONE (09:45)
[2020-04-07 11:26] VITALS: BP 142/89
== END 2020-04-07 10:06 | disposition home or self-care (01) ==
LOC: SDC 08:59
PROVIDERS: ATTEND Family Medicine
DX: M81.0 Age-related osteoporosis without current pathological fracture (principal); Z78.0 Asymptomatic menopausal state
CPT/HCPCS: 96372

== ENCOUNTER → 2020-10-05 | Outpatient (CLI) | payer MEDICARE, OTHER ==
--- NOTE | 2020-10-05 09:11 | Diagnostic Imaging Report ---
EXAMINATION: US Thyroid. TECHNIQUE: Multiple real-time grayscale images were obtained of the thyroid in various projections. HISTORY: MULTINODULAR GOITER COMPARISON: Thyroid ultrasound 10/17/2019 FINDINGS: The right lobe of the thyroid measures 5.0 x 2.4 x 1.7 cm. The right lobe is heterogeneous and hypervascular in appearance. There is a 1.3 x 1.2 x 1.0 cm solid, isoechoic, taller than wide nodule with indistinct margins which was not identified on the prior exam. There is a stable 1.7 x 1.3 x 0.7 cm solid, isoechoic, wider than tall nodule with smooth margins. There is also a stable subcentimeter solid, hypoechoic, wider than tall nodule with smooth margins. The left lobe of the thyroid measures 5.1 x 1.9 x 1.5 cm. The left lobe is heterogeneous and hypervascular without focal nodule. The isthmus is normal and measures 0.3 cm. No suspicious adenopathy within the visualized neck. IMPRESSION: 1. A newly visualized 1.3 cm solid nodule within the right lobe of the thyroid gland, TI-RADS 4. Recommend ultrasound followup at 1, 2, 3, and 5 years. 2. Stable 1.7 cm right thyroid nodule, TI-RADS 3. Recommend continued followup. 3. Stable subcentimeter solid right thyroid nodule, TI-RADS 4. No specific followup or fine-needle aspiration of this lesion is indicated based on size. TIRADS 1: Benign No FNA or follow-up required TIRADS 2: Not Suspicious No FNA or follow-up required TIRADS 3: Mildly Suspicious FNA if ? 2.5 cm Follow if ? 1.5 cm (At 1, 3 and 5 years from initial scan) TIRADS 4: Moderately Suspicious FNA if ? 1.5 cm Follow if ? 1 cm (At 1, 2, 3 and 5 years from initial scan) TIRADS 5: Highly Suspicious FNA if ? 1 cm Follow if ? 0.5 cm (Annually for 5 years from initial scan) Dictated by: Dictated on workstation # [id number]
== END ==
LOC: RAD FS 07:56
PROVIDERS: ATTEND Otolaryngology Otolaryngology/Facial Plastic Surgery
DX: E04.2 Nontoxic multinodular goiter (principal)
CPT/HCPCS: 76536

== ENCOUNTER → 2021-01-12 | Outpatient (CLI) | payer MEDICARE, OTHER ==
[~2021-01-12] MED LIST changes: -LISI10TA2; +LISI10TA25; -LISI40TA PO; +LISI40TA9 PO
--- NOTE | 2021-01-12 16:09 | Diagnostic Imaging Report ---
INDICATION: Routine screening. COMPARISON: 10/17/2019 and 09/19/2017. TECHNIQUE: 2D and 3D bilateral screening mammography was performed with CAD. FINDINGS: Scattered fibroglandular densities are identified bilaterally. There are benign calcifications scattered throughout both breasts. The benign nodular density in the retroareolar left breast appears stable. No spiculated mass or malignant appearing microcalcifications are seen. The axillae are unremarkable. IMPRESSION: No mammographic features suspicious for malignancy are identified. ACR BI-RADS Category 2: Benign findings. Result letter will be mailed to the patient. Note: At least 10% of breast cancer is not imaged by mammography. Dictated by: Dictated on workstation # [id number]
== END ==
LOC: RAD 09:48
PROVIDERS: ATTEND Family Medicine
DX: Z12.31 Encounter for screening mammogram for malignant neoplasm of breast (principal)
CPT/HCPCS: 77063; 77067

== ENCOUNTER → 2021-07-05 | Outpatient (CLI) | payer MEDICARE, OTHER ==
--- NOTE | 2021-07-05 09:55 | Diagnostic Imaging Report ---
PROCEDURE: US Thyroid. TECHNIQUE: Multiple real-time grayscale images were obtained of the thyroid in various projections. INDICATION: Followup thyroid nodules. COMPARISON: 10/05/2020. FINDINGS: Both thyroid lobes demonstrate heterogeneous background echotexture. Increased color Doppler flow is seen throughout the thyroid. The right lobe measures 4.4 cm in length , 1.6 cm AP, and 1.8 cm transverse. The left lobe measures 5.4 cm in length , 1.3 cm AP, and 1.5 cm transverse. The isthmus measures 0.3 cm. A heterogeneous solid nodule seen in the superior pole of the right lobe of the thyroid measuring 1.3 x 0.9 x 1.0 cm, similar in size to the prior exam. A 2nd similar-appearing nodule in the mid aspect of the right lobe of the thyroid is stable measuring 1.6 x 1.3 x 0.8 cm. A new solid hyperechoic nodule seen in the inferior pole of the left lobe of the thyroid measuring 0.9 x 0.7 x 0.8 cm. IMPRESSION: 1. Stable dominant nodules in the right lobe of the thyroid which remain consistent with a TI RADS 4 nodules. Recommend continued followup with thyroid ultrasound in 12 months. 2. New solid nodule in the inferior pole of the left lobe of the thyroid representing a TI RADS 4 nodule. Recommend attention on followup. Dictated by: Dictated on workstation # [id number]
== END ==
LOC: RAD 08:00
PROVIDERS: ATTEND Otolaryngology Otolaryngology/Facial Plastic Surgery
DX: E04.2 Nontoxic multinodular goiter (principal)
CPT/HCPCS: 76536

== ENCOUNTER 2021-08-06 09:22 | Inpatient (IN) | payer MEDICARE, OTHER ==
[~2021-08-06] VITALS: Ht 157.4 cm; Wt 68.7 kg
[2021-08-06] VITALS (9 sets, daily range): BP systolic 145–167; BP diastolic 77–95
--- OUTSIDE RECORDS SUMMARY | 2021-08-06 09:30 | XMS REPORT | Clinical Summary ---
Author Author [facility] Organization [facility] Address Unknown Phone Unavailable Care Team Providers Care Ground Crew Linesman Name Role Phone Shayy Garcia MD PCP Source Comments Some departments are not documenting in the electronic medical record. If you d o not see the information that you expected, contact Release of Information in [facility] Information Management department at [phone] for further assistan ce in locating additional records.[facility] Allergies Comments Active Allergy Reactions Severity Noted Date Codeine HALLUCINATION High 11/18/2018 S Sulfa (Sulfonamide ITCHING Low 11/18/2018 Antibiotics) Medications End Date Status Medication Sig Dispensed Refills Start Date Active cholecalciferol(+) Take 5,000 0 (VITAMIN D-3) 5,000 unit Units by tablet mouth daily. Active atorvastatin (LIPITOR) 20 Take 20 mg by 0 mg tablet mouth daily. Active melatonin 5 mg tab Take by 0 mouth. Active levothyroxine (SYNTHROID) Take 25 mcg 0 02/26 25 mcg tablet by mouth 0 daily. Active lisinopriL (ZESTRIL) 20 Take 20 mg by 0 mg tablet mouth daily. 0 Active venlafaxine XR (EFFEXOR Take 150 mg 0 XR) 150 mg capsule by mouth 0 daily. Active metoprolol XL (TOPROL XL) Take 25 mg by 0 25 mg extended release mouth daily. tablet Active Problems Problem Noted Date Anxiety 11/22/2018 Meningioma 11/18/2018 Hypertension 11/18/2018 Hyperlipidemia 11/18/2018 Encounters Care Team Description Date Type Specialty Emery Jimenez MD Meningioma (HCC) (Primary Dx) 05/27/2021 Office Visit Neurosurgery Emery Jimenez MD 05/27/2021 Hospital Radiology Encounter 05/27/2021 Travel from Last 3 Months Surgical History Surgery Date Site/Laterality Comments TONSILLECTOMY at age 7 DILATION AND CURETTAGE in her 30s CRANIECTOMY 11/21/2018 Head/Left LEFT SUBOCCIPIT AL CRANIOTOMY WITH RESECTION OF POSTEIROR FOSSA TUMOR performed by Emery Veloz MD at [facility] OR/Periop Medical devices from this surgery are i n the Implants section. Medical History Medical History Date Comments HTN (hypertension) HLD (hyperlipidemia) Osteoporosis Anxiety Depression Family History Medical History Relation Name Comments Other Father heart issues Stroke Father Other Mother Heart issues Relation Name Status Comments Father Mother Social History Date Tobacco Use Types Packs/Day Years Used Never Smoker Smokeless Tobacco: Never Used Comments Alcohol Use Standard Drinks/Week Not Currently 0 (1 standard drink = 0.6 o z pure alcohol) Sex Assigned at Date Recorded Not on file Last Filed Vital Signs Reading Time Taken Comments Vital Sign 130/75 05/27/2021 2:29 PM CDT Blood Pressure 95 05/27/2021 2:29 PM CDT Pulse 36.6 C (97.8 F) 04/13/2020 3:02 PM CDT Temperature - - Respiratory Rate 99% 11/24/2018 7:58 AM CDT Oxygen Saturation - - Inhaled Oxygen Concentration 67.8 kg (149 lb 6.4 oz) 05/27/2021 2:29 PM CDT Weight 157.5 cm (5' 2") 05/27/2021 2:29 PM CDT Height 27.33 05/27/2021 2:29 PM CDT Body Mass Index Plan of Treatment Health Maintenance Due Date Last Done Comments MEDICARE ANNUAL WELLNESS 1945 VISIT DTAP/TDAP VACCINES (1 - 1964 Tdap) HEPATITIS C SCREENING 1964 PHYSICAL (COMPREHENSIVE) 1964 EXAM COLORECTAL CANCER 1996 SCREENING OSTEOPOROSIS 2011 SCREENING/MONITORING PNEUMONIA (PPSV23) 2011 VACCINE (1 of 1 - PPSV23) INFLUENZA VACCINE 03/28/2021 04/18/2018 SHINGLES RECOMBINANT Completed 02/25/2018, VACCINE 12/26/2017 Implants Device Identifier Shelf Expiration Date Model / Serial / L ot Implanted Type Area Manufactur er 06/27/2023 106 70 / [id number] / [id number] Patch Dural 2x2in Lyoplant Cranial Left: Cranial AE SCULAP Bovine Pericardium Onlay - [id number] Implanted: Qty: 1 on 11/21/2018 by DIVISION Emery Jimenez MD at [facility] Description: Lyoplant Onlay DIM 5x5cm [id number] [facility] [id number] / N/A / N/A Screw Bone Level One Titanium Left: Cranial KLS MAR TIN Craniomaxillofacial Drill Free - CMF Sn/A IMPLANTS Implanted: Qty: 4 on 11/21/2018 by Emery Jimenez MD at [facility] Description: Par 35 Description 1.5 x 4.0mm [id number] / N/A / N/A Mesh Cranial .6mm Large Temporal Left: Cranial UNID ENTIFI Titanium Latex Free - Sn/A ED MFG Implanted: Qty: 1 on 11/21/2018 by Emery Jimenez MD at [facility] Description: Plate 25 [id number] Procedures Comments Procedure Name Priority Date/Time Associated Diag nosis MRI HEAD WO/W CONTRAST Routine 05/27/2021 Meningi dale (HCC) 1:00 PM CDT from Last 3 Months Results * MRI HEAD WO/W CONTRAST (05/27/2021 1:00 PM CDT) Modality Anatomical Region Laterality Magnetic Resonance Head Specimen Impressions [facility] RESULTS - 05/27/2021 3:39 PM CDT 1. Prior left posterior fossa extra-ax ial mass resection without recurrent mass. 2. Unchanged right infratentorial meni ngioma. Approved by Kevan Slade MD on 05/27/2021 3:05 PM By my electronic signature, I attest that I have personally reviewed the images for this examination and formulated the interpretations and opinions expressed in this report Finalized by Diamond Shrestha D.O. on 05/27/2021 3:39 PM. Dictated by Kevan Slade MD on 05/27/2021 2:40 PM. Narrative [facility] RESULTS - 05/27/2021 3:39 PM CDT EXAM: MRI BRAIN HISTORY: Meningioma, follow-up TECHNIQUE: Multiplanar and multisequence MR imaging of the head was performed. This was done both before and after the administration of MultiHancecontrast. COMPARISON: MRI brain 04/13/2020 and 11/18/2018 FINDINGS: Prior left suboccipital craniectomy and posterior fossa mass resection. Unchanged left lateral cerebellar encephalomalacia, gliosis, and hemosiderin staining. No evidence of residual/recurrent extra-axial enhancing mass. Unchanged small enhancing dural based nodule inferiorly projecting along the right lateral tentorium again measuring 6 mm (series 16, image 50). The ventricles are normal in size. Major intracranial flow voids are preserved, with attention to the left transverse sinus and sigmoid sinus. No midline shift. Diffusion-weighted imaging is negative of acute or recent infarct. Unchanged mi ld supratentorial white matter and pontine FLAIR hyperintensities, likely chronic microvascular ischemic change. Prior bilateral lens surgery increase in mild nonobstructive left sphenoid mucosal thickening. The mastoid air cells are clear. Procedure Note Diamond Shrestha, DO - 05/27/2021 EXAM: MRI BRAIN HISTORY: Meningioma, follow-up TECHNIQUE: Multiplanar and multisequence MR imaging of the head was performed. This was done both before and after the administration of MultiHancecontrast. COMPARISON: MRI brain 04/13/2020 and 11/18/2018 FINDINGS: Prior left suboccipital craniectomy and posterior fossa mass resection. Unchanged left lateral cerebellar encephalomalacia, gliosis, and hemosiderin staining. No evidence of residual/recurrent extra-axial enhancing mass. Unchanged small enhancing dural based nodule inferiorly projecting along the right lateral tentorium again measuring 6 mm (series 16, image 50). The ventricles are normal in size. Major intracranial flow voids are preserved, with attention to the left transverse sinus and sigmoid sinus. No midline shift. Diffusion-weighted imaging is negative of acute or recent infarct. Unchanged mild supratentorial white matter and pontine FLAIR hyperintensities, likely chronic microvascular ischemic change. Prior bilateral lens surgery increase in mild nonobstructive left sphenoid mucosal thickening. The mastoid air cells are clear. IMPRESSION 1. Prior left posterior fossa extra-axi al mass resection without recurrent mass. 2. Unchanged right infratentorial menin gioma. Approved by Kevan Slade MD on 05/27/2021 3:05 PM By my electronic signature, I attest that I have personally reviewed the images for this examination and formulated the interpretations and opinions expressed in this report Finalized by Diamond Shrestha D.O. on 05/27/2021 3:39 PM. Dictated by Kevan Slade MD on 05/27/2021 2:40 PM. Performing Organization Address City/State/ZIP Code P kofi Number [facility] RESULTS from Last 3 Months Insurance Type Payer Benefit Subscriber ID Effective Phone Address Plan / Dates Group Medicare MEDICARE MEDICARE [id number] 2011-P [phone] [address] [place] [address] [employer] [id number] 2017- [phone] [employer] [place] [address] [id number] 1 Advance Directives Patient Center Maker Hand Explanation Type Date Recorded Advance 11/19/2018 1:59 PM Directive/DPOA Date Inactivated Comments Code Status Date Activated 11/24/2018 12:30 PM Full Code 11/23/2018 9:27 AM Provider has discussed Code Status Yes w/Patient or Family? 11/23/2018 9:27 AM Full Code 11/18/2018 9:20 PM Provider has discussed Code Status No, more discussi on w/Patient or Family? needed 11/18/2018 9:20 PM Full Code 11/18/2018 4:59 PM Provider has discussed Code Status Yes w/Patient or Family? Care Teams Start Date End Date Ground Crew Linesman Relationship Specialty 11/18/18 Shayy Garcia MD PCP - General Family [address] [place] [address]
--- OUTSIDE RECORDS SUMMARY | 2021-08-06 09:30 | XMS REPORT | CCD ---
Author Author Va Garcia D.O. Organization [facility] Address [address] [place] [address] Phone Care Team Providers Care Physician General Practice Name Role Phone PP Unavailable CCM Unavailable Summary Purpose Interface Exchange Insurance Providers Payer name Policy type / Coverage type Covered green party ID Effective Begin Date Effective End Date WPS MEDICARE PART B [place] Medicare Part B [id number] 2018 Unknown [employer] Medicare Part B [id number] 2018 Unknown Family History Family History data not found Social History Social History Element Codes Description Effective Dates Marital status Unknown 10/01/2018 Number of children Unknown 1 10/01/2018 Employment Unknown Retired [employer] 10/01/[address]: 7848529 Former smoker 10/01/[address]: 357254562 Never drinks alcohol 2018 Has the patient ever used illegal drugs? Unknown Has nev er used illegal drugs 10/01/2018 Allergies, Adverse Reactions, Alerts Substance Reaction Codes Entered Date Inactivated Date Status * NO KNOWN ENVIRONMENTAL ALLERGIES Unknown 10/01/2018 N o Inactive Date Active SULFA (SULFONAMIDES) reaction Unknown 10/01/2018 No Inactive Chris e Active CODEINE reaction, Unknown 10/01/2018 No Inactive Date Active * NO KNOWN FOOD ALLERGIES Unknown 10/01/2018 No Inactiv e Date Active Problems Condition Codes Effective Dates Condition Status Encounter for general adult medical examination withou t abnormal findings ICD- 10: Z00.00 ICD-9: V70.9 07/01/2021 Active Essential (primary) hypertension ICD-10: I10 ICD-9: 401.9 10/01/2018 Active Hypothyroidism ICD-10: E03.9 ICD-9: 244.9 07/07/2020 Active Mixed hyperlipidemia ICD-10: E78.2 ICD-9: 272.4 10/01/2018 Active 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 ICD-9: 225.2 12/27/2018 Active Hyperglycemia, unspecified ICD-10: R73.9 ICD-9: 790.29 03/27/2019 Active Thyroid nodule ICD-10: E04.1 ICD-9: 241.0 04/04/2019 Active Upper arm pain ICD-10: M79.629 ICD-9: 729.5 07/16/2020 Active Upper leg pain ICD-10: M79.659 ICD-9: 729.5 07/16/2020 Active Vitamin D deficiency ICD-10: E55.9 ICD-9: 268.9 07/16/2020 Active Muscle cramping ICD-10: R25.2 ICD-9: 729.82 07/07/2020 Active Dizziness and giddiness ICD-10: R42 ICD-9: 780.4 06/13/2019 Active Generalized anxiety disorder ICD-10: F41.1 ICD-9: 300.02 03/27/2019 Active Disorder of thyroid, unspecified ICD-10: E07.9 ICD-9: 246.9 03/27/2019 Active Headache ICD-10: R51 ICD-9: 784.0 03/27/2019 Active Other fatigue ICD-10: R53.83 ICD-9: 780.79 12/27/2018 Active Other specified abnormal findings of blood chemistry I CD-10: R79.89 ICD-9: 794.5 10/29/2018 Active Age-related osteoporosis without current pathological fracture ICD-10: M81.0 ICD-9: 733.00 10/01/2018 Active Follicular cyst of the skin and subcutaneous tissue, u nspecified ICD-10: L72.9 ICD-9: 706.2 10/02/2018 Active Hypertension Unknown 10/01/2018 Active Medications Medication Codes Instructions Start Date Stop Date Status Fill Instructions venlafaxine ER 150 mg capsule,extended release 24 hr RxNorm: 411770 Take 1 Capsule(s) Oral QD 06/17/2021 09/14/2021 Active atorvastatin 20 mg tablet RxNorm: 174906 Take 1 Tablet(s) Oral QD 1 09/06/2021 Active levothyroxine 50 mcg tablet RxNorm: 848039 Take 1 Tablet(s) Oral QD 06/09/2021 09/06/2021 Active metoprolol succinate ER 25 mg tablet,extended release 24 hr RxNorm: 743875 TAKE 1 TABLET BY MOUTH EVERY EVENING 06/09/2021 09/06/2021 Active lisinopril 20 mg tablet RxNorm: 386987 Take 1 Tablet(s) Oral QAM 06/25/2021 Inactive metoprolol succinate ER 25 mg tablet,extended release 24 hr RxNorm: 464165 TAKE 1 TABLET BY MOUTH EVERY EVENING 03/15/2021 03/15/2021 Inactive atorvastatin 20 mg tablet RxNorm: 115457 Take 1 Tablet(s) Oral QD 0 03/12/2021 03/12/2021 Inactive levothyroxine 50 mcg tablet RxNorm: 093926 Take 1 Tablet(s) Oral QD 2021 2021 Inactive venlafaxine ER 150 mg capsule,extended release 24 hr RxNorm: 718167 1 Capsule(s) Oral QD 12/23/2020 12/23/2020 Inactive atorvastatin 20 mg tablet RxNorm: 585925 TAKE 1 TABLET BY MOUTH EVERY DAY 12/14/2020 12/14/2020 Inactive levothyroxine 50 mcg tablet RxNorm: 831666 TAKE 1 TABLE T BY MOUTH DAILY. TO REPLACE THE 25MCG. NEED UPDATED LABS 12/10/2020 12/10/2020 Inactive Patient requests 90 days supply levothyroxine 50 mcg tablet RxNorm: 325454 TAKE 1 TABLE T BY MOUTH DAILY: TO REPLACE THE 25MCG Need updated Labs 12/10/2020 12/09/2020 Inactive lisinopril 20 mg tablet RxNorm: 399522 1 Tablet(s) Oral QAM Patient needs appointment before next refill 12/02/2020 12/02/2020 Inactive N eeds follow up appointment/updated fasting labs lisinopril 20 mg tablet RxNorm: 904082 1 Tablet(s) Oral QAM Patient needs appointment before next refill 12/02/2020 12/01/2020 Inactive N eeds follow up appointment/updated fasting labs lisinopril 20 mg tablet RxNorm: 419273 1 Tablet(s) Oral QAM Patient needs appointment before next refill 10/30/2020 12/01/2020 Inactive baclofen 10 mg tablet RxNorm: 358521 TAKE 1/2 TABLET BY MOUTH EVERY EVENING NEEDED FOR MUSCLE SPASM 10/23/2020 12/21/2020 Inactive baclofen 10 mg tablet RxNorm: 467606 TAKE 1/2 TABLET BY MOUTH EVERY EVENING NEEDED FOR MUSCLE SPASM 09/27/2020 10/22/2020 Inactive venlafaxine ER 150 mg capsule,extended release 24 hr RxNorm: 853240 TAKE 1 CAPSULE BY MOUTH EVERY DAY 09/24/2020 12/22/2020 Inactive meloxicam 7.5 mg tablet RxNorm: 443183 TAKE 1 TABLET BY MOUTH DAILY NEEDED FOR PAIN; REPLACES 15 MG DOSE 09/22/2020 12/20/2020 Inactive metoprolol succinate ER 25 mg tablet,extended release 24 hr RxNorm: 644198 TAKE 1 TABLET BY MOUTH EVERY EVENING 09/21/2020 09/21/2020 Inactive levothyroxine 50 mcg tablet RxNorm: 390251 TAKE 1 TABLE T BY MOUTH DAILY: TO REPLACE THE 25MCG 09/14/2020 12/09/2020 Inactive atorvastatin 20 mg tablet RxNorm: 469593 TAKE 1 TABLET BY MOUTH EVERY DAY 09/11/2020 12/09/2020 Inactive baclofen 10 mg tablet RxNorm: 873479 TAKE 1/2 TABLET BY MOUTH EVERY EVENING NEEDED FOR MUSCLE SPASM 08/30/2020 09/26/2020 Inactive meloxicam 7.5 mg tablet RxNorm: 136679 1 Tablet(s) Oral QD as needed for pain replaces 15mg dose 08/25/2020 08/24/2020 Inactive meloxicam 7.5 mg tablet RxNorm: 487956 1 Tablet(s) Oral QD as needed for pain replaces 15mg dose 08/25/2020 08/25/2020 Inactive baclofen 10 mg tablet RxNorm: 733436 TAKE 1/2 TABLET BY MOUTH EVERY EVENING NEEDED FOR MUSCLE SPASM 08/03/2020 08/29/2020 Inactive meloxicam 15 mg tablet RxNorm: 435216 TAKE 1 TABLET BY MOUTH EVERY MORNING FOR PAIN 08/03/2020 08/24/2020 Inactive baclofen 10 mg tablet RxNorm: 257489 1/2 Tablet(s) Oral QPM as needed for muscle spasm 07/07/2020 08/02/2020 Inactive meloxicam 15 mg tablet RxNorm: 545542 1 Tablet(s) Oral QAM for pain 07/07/2020 08/02/2020 Inactive venlafaxine ER 150 mg capsule,extended release 24 hr RxNorm: 887681 TAKE 1 CAPSULE BY MOUTH EVERY DAY 06/29/2020 09/23/2020 Inactive metoprolol succinate ER 25 mg tablet,extended release 24 hr RxNorm: 512933 TAKE 1 TABLET BY MOUTH EVERY EVENING 06/23/2020 09/20/2020 Inactive levothyroxine 50 mcg tablet RxNorm: 531467 TAKE 1 TABLE T BY MOUTH DAILY: TO REPLACE THE 25MCG 06/19/2020 09/13/2020 Inactive atorvastatin 20 mg tablet RxNorm: 673984 TAKE 1 TABLET BY MOUTH EVERY DAY 06/15/2020 09/10/2020 Inactive levothyroxine 50 mcg tablet RxNorm: 431112 1 Tablet(s) Oral QD replaces 25mcg 03/25/2020 06/18/2020 Inactive atorvastatin 20 mg tablet RxNorm: 429349 TAKE 1 TABLET BY MOUTH EVERY DAY 03/16/2020 06/13/2020 Inactive lisinopril 20 mg tablet RxNorm: 318807 1 Tablet(s) Oral QAM 020 10/29/2020 Inactive venlafaxine ER 150 mg capsule,extended release 24 hr RxNorm: 468537 TAKE 1 CAPSULE BY MOUTH EVERY DAY 01/06/2020 06/28/2020 Inactive metoprolol succinate ER 25 mg tablet,extended release 24 hr RxNorm: 664922 TAKE 1 TABLET BY MOUTH EVERY EVENING 12/30/2019 06/22/2020 Inactive atorvastatin 20 mg tablet RxNorm: 007000 1 Tablet(s) Oral QD 201907/06/2020 Inactive levothyroxine 25 mcg tablet RxNorm: 825233 1 Tablet(s) Oral QD 11/2703/24/2020 Inactive lisinopril 20 mg tablet RxNorm: 030056 1 Tablet(s) Oral QAM rep laces 40mg dose 11/18/2019 02/11/2020 Inactive levothyroxine 25 mcg tablet RxNorm: 273360 1 Tablet(s) Oral QD 12/201912/22/2019 Inactive levothyroxine 25 mcg tablet RxNorm: 983767 1 Tablet(s) Oral QD 12/201910/30/2019 Inactive lisinopril 20 mg tablet RxNorm: 848842 1 Tablet(s) Oral QAM rep laces 40mg dose 09/11/2019 02/12/2020 Inactive venlafaxine ER 150 mg capsule,extended release 24 hr RxNorm: 321727 1 CAPSULE(S) PO QD 07/15/2019 01/05/2020 Inactive atorvastatin 20 mg tablet RxNorm: 142469 1 Tablet(s) Oral QD 201812/22/2019 Inactive atorvastatin 20 mg tablet RxNorm: 126587 1 Tablet(s) Oral QD 201806/24/2019 Inactive metoprolol succinate ER 25 mg tablet,extended release 24 hr RxNorm: 415976 1 Tablet(s) Oral QPM 06/13/2019 06/12/2019 Inactive metoprolol succinate ER 25 mg tablet,extended release 24 hr RxNorm: 019434 1 TABLET(S) ORAL QPM 06/13/2019 12/10/2019 Inactive Patient req uests 90 days supply lisinopril 20 mg tablet RxNorm: 367475 1 Tablet(s) Oral QAM rep laces 40mg dose 06/13/2019 09/10/2019 Inactive lisinopril 40 mg tablet RxNorm: 978675 1 Tablet(s) PO QD 04/16/2019 1 Inactive venlafaxine ER 150 mg capsule,extended release 24 hr RxNorm: 912740 1 Capsule(s) PO QD 04/16/2019 07/14/2019 Inactive atorvastatin 20 mg tablet RxNorm: 740244 1 Tablet(s) PO QD 12/28/1912/26/2018 Inactive lisinopril 20 mg tablet RxNorm: 700049 1 Tablet(s) PO QD replac es 10mg dose 12/27/2018 04/03/2019 Inactive atorvastatin 20 mg tablet RxNorm: 149160 1 Tablet(s) PO QD 12/28/19 19 06/23/2019 Inactive venlafaxine ER 75 mg capsule,extended release 24 hr RxNorm: 120700 1 Capsule(s) PO QD 12/27/2018 04/15/2019 Inactive lisinopril 20 mg tablet RxNorm: 774694 1 Tablet(s) PO QD replac es 10mg dose 12/27/2018 12/26/2018 Inactive venlafaxine ER 75 mg capsule,extended release 24 hr RxNorm: 401389 1 Capsule(s) PO QD 12/27/2018 12/26/2018 Inactive Benadryl 25 mg capsule RxNorm: 8971999 Capsule(s) PO as needed 2018 Active melatonin 5 mg tablet RxNorm: 255111 1 Tablet(s) PO QHS 01/28/2019 Active docusate sodium 100 mg tablet RxNorm: 5584341 Tablet(s) PO as neede d 10/01/2018 Active Vitamin D3 5,000 unit tablet RxNorm: 243847 1 Tablet(s) PO QD 019 Active Prolia 60 mg/mL subcutaneous syringe RxNorm: 230831 1 M illiliter(s) SQ every 6 months 10/01/2018 Active lisinopril 10 mg tablet RxNorm: 865326 1 Tablet(s) PO QD 12/27/2018 0 12/26/2018 Inactive venlafaxine ER 75 mg capsule,extended release 24 hr RxNorm: 757033 1 Capsule(s) PO QD 12/27/2018 12/26/2018 Inactive lisinopril 20 mg tablet RxNorm: 538023 2 Tablet(s) PO QD 04/16/2019 0 04/15/2019 Inactive atorvastatin 20 mg tablet RxNorm: 901392 1 Tablet(s) PO QD 12/28/19 19 12/26/2018 Inactive Medication Administered No Medication Administered data Immunizations Vaccine Codes Date Status Shingrix CVX: 141 04/05/2019 Results Observation Observation Code Item Item Code Result Date S ervice Location COMPREHENSIVE METABOLIC 18629 AST 12 U/L 2019 Unknown COMPREHENSIVE METABOLIC 61995 ALT 11 U/L 2019 Unknown COMPREHENSIVE METABOLIC 69886 BUN 11 mg/dL 2019 Unknown COMPREHENSIVE METABOLIC 26277 ALBUMIN 4.3 g/dL 2019 Unknown COMPREHENSIVE METABOLIC 75694 CHLORIDE 100 mmol/L 07/16 Unknown COMPREHENSIVE METABOLIC 73640 Bili Total 0.4 mg/dL 07/16 Unknown COMPREHENSIVE METABOLIC 67710 ALK PHOS 75 U/L 2019 Unknown COMPREHENSIVE METABOLIC 04430 SODIUM 136 mmol/L 07/16 Unknown COMPREHENSIVE METABOLIC 76743 CREATININE 0.79 mg/dL 06/28 Unknown COMPREHENSIVE METABOLIC 39048 CALCIUM 9.6 mg/dL 2019 Unknown COMPREHENSIVE METABOLIC 22632 POTASSIUM 4.5 mmol/L 07/16 Unknown COMPREHENSIVE METABOLIC 33747 Total Protein 6.7 g/dL Unknown COMPREHENSIVE METABOLIC 41150 Glucose 74 mg/dL 2019 Unknown COMPREHENSIVE METABOLIC 94615 Bicarbonate 26 mmol/L 06/28 Unknown COMPREHENSIVE METABOLIC 06224 AGAP 10 mmol/L 2019 Unknown COMPLETE BLOOD COUNT 5634354 WBC 7.4 10e9/L 07/16/20 20 Unknown COMPLETE BLOOD COUNT [id number] RBC 4.29 10e12/L 2019 Unknown COMPLETE BLOOD COUNT [id number] HEMOGLOBIN 13.2 g/dL 07/16/20 20 Unknown COMPLETE BLOOD COUNT 9732541 HEMATOCRIT 40.2 % 07/16/20 20 Unknown COMPLETE BLOOD COUNT 0979228 MCV 93.7 fL 0 Unknown COMPLETE BLOOD COUNT 7050535 MCH 30.8 pg 0 Unknown COMPLETE BLOOD COUNT 1537287 MCHC 32.8 g/dL 0 Unknown COMPLETE BLOOD COUNT 5543771 PLATELET COUNT 294 10e9/L Unknown COMPLETE BLOOD COUNT 8690849 Mean Plt Volume 8.3 fL Unknown COMPLETE BLOOD COUNT 2499686 Neut Auto 64.6 % 0 Unknown COMPLETE BLOOD COUNT [id number] Lymph Auto 24.0 % 07/16/20 20 Unknown COMPLETE BLOOD COUNT 2928116 [place] Auto 9.5 % 0 Unknown COMPLETE BLOOD COUNT 4363931 RDW 12.6 % 0 Unknown COMPLETE BLOOD COUNT 1734101 Eos Auto 1.5 % 0 Unknown COMPLETE BLOOD COUNT 6547828 Baso Auto 0.4 % 0 Unknown COMPLETE BLOOD COUNT [id number] Neutrophil Abs 4.78 10e9/L Unknown COMPLETE BLOOD COUNT 4487096 Lymphocyte Abs 1.78 10e9/L Unknown COMPLETE BLOOD COUNT 7570804 Monocyte Abs 0.70 10e9/L 06/28 Unknown COMPLETE BLOOD COUNT 8045528 Eosinophil Abs 0.11 10e9/L Unknown COMPLETE BLOOD COUNT 2120543 RDW-SD 42.5 fL 0 Unknown COMPLETE BLOOD COUNT [id number] Basophil Abs 0.03 10e9/L 06/28 Unknown GFR CALC 1504778 GFR Non Afr Amr >60 mL/min 07/16/2020 Un known GFR CALC 5799394 GFR Afr Amr >60 mL/min 07/16/2020 Unknow n C-REACTIVE PROTEIN (CRP) QUANT 30587 C-Reactive Prot 0.3 mg/dL 07/16/2020 Unknown ERYTHROCYTE SEDIMENTATION RATE 00625 Sed Rate 9 mm/hr 07/16/2020 Unknown VITAMIN D TOTAL (25 HYDROXY) 87340 Vitamin D 25 [place] 72.1 ng/mL 07/16/2020 Unknown GLYCOSYLATED HEMOGLOBIN TEST 77614 Hgb A1c 78306-2 5.9 % 0 03/28/2019 Unknown MEAN GLUC 6622572 Calc Mean Gluc 123 mg/dL 03/28/2019 Unkn own GFR CALC 5921265 GFR Non Afr Amr >60 mL/min 03/27/2019 Un known GFR CALC 5936133 GFR Afr Amr >60 mL/min 03/27/2019 Unknow n ASSAY TRIIODOTHYRONINE (T3) 77032 T3 Total 0.98 ng/mL 0 03/27/2019 Unknown LIPID GROUP 73030 Cholesterol 175 mg/dL 03/27/2019 Unkno wn LIPID GROUP 43996 Triglyceride 61 mg/dL 03/27/2019 Unkn own LIPID GROUP 95206 HDL CHOLESTEROL 67 mg/dL 03/27/2019 U nknown LIPID GROUP 36287 Chol/HDL Ratio 2.61 ratio 03/27/2019 U nknown LIPID GROUP 44675 NON-HDL Chol 108 mg/dL 03/27/2019 Unkn own LIPID GROUP 92393 LDL Cholesterol 96 mg/dL 03/27/2019 U nknown FREE T4 33002 T4 Free 0.85 ng/dL 03/27/2019 Unknown COMPLETE BLOOD COUNT 4619027 WBC 8.8 10e9/L 03/27/20 19 Unknown COMPLETE BLOOD COUNT 6041317 RBC 4.76 10e12/L 2018 Unknown COMPLETE BLOOD COUNT 2222275 HEMOGLOBIN 14.7 g/dL 03/27/20 19 Unknown COMPLETE BLOOD COUNT 6787640 HEMATOCRIT 43.9 % 07/31/20 19 Unknown COMPLETE BLOOD COUNT 0082585 MCV 92.2 fL 9 Unknown COMPLETE BLOOD COUNT 1539032 MCH 30.9 pg 9 Unknown COMPLETE BLOOD COUNT 3318260 MCHC 33.5 g/dL 9 Unknown COMPLETE BLOOD COUNT 7528415 PLATELET COUNT 245 10e9/L Unknown COMPLETE BLOOD COUNT 6461501 Mean Plt Volume 8.3 fL Unknown COMPLETE BLOOD COUNT 3146844 Neut Auto 86.8 % 9 Unknown COMPLETE BLOOD COUNT 1989901 Lymph Auto 10.8 % 03/27/20 19 Unknown COMPLETE BLOOD COUNT 8299843 [place] Auto 2.1 % 9 Unknown COMPLETE BLOOD COUNT 6224058 RDW 12.9 % 9 Unknown COMPLETE BLOOD COUNT 7383675 Eos Auto 0.1 % 9 Unknown COMPLETE BLOOD COUNT 0386075 Baso Auto 0.2 % 9 Unknown COMPLETE BLOOD COUNT [id number] Neutrophil Abs 7.64 10e9/L Unknown COMPLETE BLOOD COUNT 9719173 Lymphocyte Abs 0.95 10e9/L Unknown COMPLETE BLOOD COUNT [id number] Monocyte Abs 0.18 10e9/L 02/27 Unknown COMPLETE BLOOD COUNT 7182737 Eosinophil Abs 0.01 10e9/L Unknown COMPLETE BLOOD COUNT 0210813 RDW-SD 42.6 fL 9 Unknown COMPLETE BLOOD COUNT [id number] Basophil Abs 0.02 10e9/L 02/27 Unknown COMPREHENSIVE METABOLIC 37811 AST 16 U/L 2018 Unknown COMPREHENSIVE METABOLIC 85469 ALT 17 U/L 2018 Unknown COMPREHENSIVE METABOLIC 01941 BUN 8 mg/dL 2018 Unknown COMPREHENSIVE METABOLIC 55439 ALBUMIN 4.5 g/dL 2018 Unknown COMPREHENSIVE METABOLIC 54975 CHLORIDE 105 mmol/L 03/27 Unknown COMPREHENSIVE METABOLIC 65983 Bili Total 1.0 mg/dL 03/27 Unknown COMPREHENSIVE METABOLIC 85373 ALK PHOS 64 U/L 2018 Unknown COMPREHENSIVE METABOLIC 64459 SODIUM 139 mmol/L 03/27 Unknown COMPREHENSIVE METABOLIC 79915 CREATININE 0.70 mg/dL 02/27 Unknown COMPREHENSIVE METABOLIC 14128 CALCIUM 9.8 mg/dL 2018 Unknown COMPREHENSIVE METABOLIC 39557 POTASSIUM 4.0 mmol/L 03/27 Unknown COMPREHENSIVE METABOLIC 47097 Total Protein 6.7 g/dL Unknown COMPREHENSIVE METABOLIC 48753 Glucose 134 mg/dL 2018 Unknown COMPREHENSIVE METABOLIC 21867 Bicarbonate 26 mmol/L 02/27 Unknown COMPREHENSIVE METABOLIC 67692 AGAP 8 mmol/L 2018 Unknown THYROID STIMULATING HORMONE 46639 TSH 3.564 uIU/mL 03/27/2019 Unknown FREE T4 54826 T4 Free 0.80 ng/dL 10/29/2018 Unknown THYROID STIMULATING HORMONE 90429 TSH 5.703 uIU/mL 10/29/2018 Unknown THYROID STIMULATING HORMONE 48306 TSH 4.956 uIU/mL 10/02/2018 Unknown LIPID GROUP 28261 Cholesterol 164 mg/dL 10/02/2018 Unkno wn LIPID GROUP 58720 Triglyceride 71 mg/dL 10/02/2018 Unkn own LIPID GROUP 65072 HDL CHOLESTEROL 65 mg/dL 10/02/2018 U nknown LIPID GROUP 53022 Chol/HDL Ratio 2.52 ratio 10/02/2018 U nknown LIPID GROUP 14136 NON-HDL Chol 99 mg/dL 10/02/2018 Unkn own LIPID GROUP 60539 LDL Cholesterol 85 mg/dL 10/02/2018 U nknown GFR CALC 1254856 GFR Non Afr Amr >60 mL/min 10/02/2018 Un known GFR CALC 9328031 GFR Afr Amr >60 mL/min 10/02/2018 Unknow n COMPREHENSIVE METABOLIC 28407 AST 16 U/L 2018 Unknown COMPREHENSIVE METABOLIC 47013 ALT 15 U/L 2018 Unknown COMPREHENSIVE METABOLIC 31780 BUN 13 mg/dL 2018 Unknown COMPREHENSIVE METABOLIC 07487 ALBUMIN 4.5 g/dL 2018 Unknown COMPREHENSIVE METABOLIC 56091 CHLORIDE 107 mmol/L 10/02 Unknown COMPREHENSIVE METABOLIC 44743 Bili Total 0.8 mg/dL 10/02 Unknown COMPREHENSIVE METABOLIC 40566 ALK PHOS 57 U/L 2018 Unknown COMPREHENSIVE METABOLIC 09011 SODIUM 143 mmol/L 10/02 Unknown COMPREHENSIVE METABOLIC 14146 CREATININE 0.79 mg/dL 12/2018 Unknown COMPREHENSIVE METABOLIC 94072 CALCIUM 9.6 mg/dL 2018 Unknown COMPREHENSIVE METABOLIC 75809 POTASSIUM 4.3 mmol/L 10/02 Unknown COMPREHENSIVE METABOLIC 93933 Total Protein 6.4 g/dL Unknown COMPREHENSIVE METABOLIC 67907 Glucose 86 mg/dL 2018 Unknown COMPREHENSIVE METABOLIC 08734 Bicarbonate 28 mmol/L 12/2018 Unknown COMPREHENSIVE METABOLIC 99456 AGAP 8 mmol/L 2018 Unknown FREE T4 31880 T4 Free 0.91 ng/dL 10/02/2018 Unknown COMPLETE BLOOD COUNT 9098443 WBC 6.1 10e9/L 10/02/19 19 Unknown COMPLETE BLOOD COUNT 7413276 RBC 4.80 10e12/L 2018 Unknown COMPLETE BLOOD COUNT 4447043 HEMOGLOBIN 14.8 g/dL 10/02/19 19 Unknown COMPLETE BLOOD COUNT 0487838 HEMATOCRIT 44.0 % 10/02/19 19 Unknown COMPLETE BLOOD COUNT 2175140 MCV 91.7 fL 9 Unknown COMPLETE BLOOD COUNT 6582195 MCH 30.8 pg 9 Unknown COMPLETE BLOOD COUNT 2779816 MCHC 33.6 g/dL 9 Unknown COMPLETE BLOOD COUNT 2996787 PLATELET COUNT 203 10e9/L 12/2018 Unknown COMPLETE BLOOD COUNT 1763826 Mean Plt Volume 8.9 fL 12/2018 Unknown COMPLETE BLOOD COUNT 9601766 Neut Auto 66.7 % 9 Unknown COMPLETE BLOOD COUNT 3719307 Lymph Auto 24.8 % 10/02/19 19 Unknown COMPLETE BLOOD COUNT 8590422 [place] Auto 4.4 % 9 Unknown COMPLETE BLOOD COUNT 6753942 RDW 12.8 % 9 Unknown COMPLETE BLOOD COUNT 3185725 Eos Auto 3.8 % 9 Unknown COMPLETE BLOOD COUNT 8102894 Baso Auto 0.3 % 9 Unknown COMPLETE BLOOD COUNT 8076301 Neutrophil Abs 4.07 10e9/L Unknown COMPLETE BLOOD COUNT 5038153 Lymphocyte Abs 1.51 10e9/L Unknown COMPLETE BLOOD COUNT 9925241 Monocyte Abs 0.27 10e9/L 12/2018 Unknown COMPLETE BLOOD COUNT 1572796 Eosinophil Abs 0.23 10e9/L Unknown COMPLETE BLOOD COUNT 3052825 RDW-SD 41.7 fL 02/05/201 9 Unknown COMPLETE BLOOD COUNT [id number] Basophil Abs 0.02 10e9/L 0 12/2018 Unknown VITAMIN D TOTAL (25 HYDROXY) 85653 Vitamin D 25 [place] 54.1 ng/mL 10/02/2018 Unknown Procedures Procedure Codes Date PPPS, subseq visit CPT-4: G0439 07/01/2021 ROUTINE VENIPUNCTURE CPT-4: 04543 07/16/2020 COMPREHEN METABOLIC PANEL CPT-4: 16684 07/16/2020 COMPLETE CBC W/AUTO DIFF WBC CPT-4: 57241 07/16/2020 RBC SED RATE AUTOMATED CPT-4: 98016 07/16/2020 VITAMIN D TOTAL (25 HYDROXY) CPT-4: 83387 07/16/2020 C-REACTIVE PROTEIN CPT-4: 76432 07/16/2020 ROUTINE VENIPUNCTURE CPT-4: 35681 03/27/2019 COMPLETE CBC W/AUTO DIFF WBC CPT-4: 90249 03/27/2019 COMPREHEN METABOLIC PANEL CPT-4: 56764 03/27/2019 ASSAY THYROID STIM HORMONE CPT-4: 20680 03/27/2019 ASSAY OF FREE THYROXINE CPT-4: 64927 03/27/2019 LIPID PANEL CPT-4: 45834 03/27/2019 ASSAY TRIIODOTHYRONINE (T3) CPT-4: 22148 03/27/2019 A1C HPLC CPT-4: 99590 03/27/2019 ROUTINE VENIPUNCTURE CPT-4: 67349 12/27/2018 ASSAY OF FREE THYROXINE CPT-4: 26501 12/27/2018 ASSAY THYROID STIM HORMONE CPT-4: 40167 12/27/2018 ROUTINE VENIPUNCTURE CPT-4: 41067 10/29/2018 ASSAY THYROID STIM HORMONE CPT-4: 33352 10/29/2018 ASSAY OF FREE THYROXINE CPT-4: 58868 10/29/2018 ROUTINE VENIPUNCTURE CPT-4: 89738 10/02/2018 ASSAY OF FREE THYROXINE CPT-4: 64919 10/02/2018 ASSAY THYROID STIM HORMONE CPT-4: 46952 10/02/2018 COMPREHEN METABOLIC PANEL CPT-4: 15480 10/02/2018 COMPLETE CBC W/AUTO DIFF WBC CPT-4: 26017 10/02/2018 LIPID PANEL CPT-4: 39359 10/02/2018 VITAMIN D TOTAL (25 HYDROXY) CPT-4: 83858 10/02/2018 Vital Signs Date Vital 07/01/2021 Blood Pressure 1: 126/72 Code: 8480-6 Heart Rate 1: 68 bpm Respiratory Rate: 20 bpm Temperature: 36.8 (C) / 98.2 (F) Weight: 150 lbs Code : 06742-5 12/22/2020 Blood Pressure 1: 125/62 Code: 8480-6 Heart Rate 1: 72 bpm Respiratory Rate: 15 bpm SpO2: 98% Temperature: 36.2 (C) / 97.1 (F) We ight: 150 lbs Code: 32341-0 07/16/2020 Blood Pressure 1: 136/82 Code: 8480-6 Heart Rate 1: 76 bpm Respiratory Rate: 20 bpm SpO2: 96% Temperature: 36.2 (C) / 97.2 (F) We ight: 152 lbs Code: 93798-3 03/25/2020 Blood Pressure 1: 116/76 Code: 8480-6 He art Rate 1: 79 bpm 10/08/2019 Blood Pressure 1: 124/80 Code: 8480-6 Heart Rate 1: 84 bpm Respiratory Rate: 20 bpm SpO2: 98% Temperature: 36.9 (C) / 98.4 (F) We ight: 158 lbs Code: 21224-4 08/19/2019 Blood Pressure 1: 126/80 Code: 8480-6 Heart Rate 1: 72 bpm Respiratory Rate: 20 bpm SpO2: 98% Temperature: 36.7 (C) / 98.1 (F) We ight: 156 lbs Code: 29113-0 07/22/2019 Blood Pressure 1: 126/76 Code: 8480-6 Heart Rate 1: 80 bpm Respiratory Rate: 18 bpm SpO2: 95% Temperature: 36.8 (C) / 98.2 (F) We ight: 153 lbs Code: 69073-7 07/01/2019 Blood Pressure 1: 124/82 Code: 8480-6 Heart Rate 1: 74 bpm SpO2: 99% 06/13/2019 Blood Pressure 1: 144/90 Code: 8480-6 Heart Rate 1: 96 bpm Respiratory Rate: 18 bpm SpO2: 96% Temperature: 36.8 (C) / 98.2 (F) We ight: 152 lbs Code: 74237-7 05/28/2019 Blood Pressure 1: 114/66 Code: 8480-6 Heart Rate 1: 100 bpm Respiratory Rate: 20 bpm SpO2: 95% Temperature: 36.7 (C) / 98.1 (F) We ight: 150 lbs Code: 47876-7 04/24/2019 Blood Pressure 1: 134/80 Code: 8480-6 Heart Rate 1: 96 bpm Respiratory Rate: 20 bpm SpO2: 97% Temperature: 36.6 (C) / 97.8 (F) We ight: 152 lbs Code: 03710-7 04/16/2019 Blood Pressure 1: 162/98 Code: 8480-6 Heart Rate 1: 95 bpm SpO2: 97% Temperature: 36.4 (C) / 97.6 (F) Weight: 149 lbs Code: 50381-6 04/04/2019 Blood Pressure 1: 142/78 Code: 8480-6 Heart Rate 1: 92 bpm Respiratory Rate: 20 bpm SpO2: 96% Temperature: 36.8 (C) / 98.2 (F) We ight: 152 lbs Code: 98013-7 03/29/2019 Blood Pressure 1: 142/98 Code: 8480-6 Heart Rate 1: 113 bpm SpO2: 97% Temperature: 36.8 (C) / 98.2 (F) 03/27/2019 Blood Pressure 1: 158/100 Code: 8480-6 Heart Rat e 1: 115 bpm SpO2: 93% Temperature: 36.8 (C) / 98.3 (F) Weight: 150 lbs Code : 72414-5 01/28/2019 Blood Pressure 1: 134/84 Code: 8480-6 Heart Rate 1: 92 bpm Respiratory Rate: 20 bpm SpO2: 96% Temperature: 36.7 (C) / 98.0 (F) We ight: 153 lbs Code: 03449-0 12/27/2018 Blood Pressure 1: 148/86 Code: 8480-6 Heart Rate 1: 84 bpm Respiratory Rate: 20 bpm SpO2: 95% Temperature: 36.7 (C) / 98.0 (F) We ight: 154 lbs Code: 61210-8 10/02/2018 Blood Pressure 1: 150/90 Code: 8480-6 Heart Rate 1: 93 bpm Respiratory Rate: 18 bpm SpO2: 98% Temperature: 36.2 (C) / 97.1 (F) We ight: 150 lbs Code: 43547-3 10/01/2018 Blood Pressure 1: 136/74 Code: 8480-6 BMI: 27.4 Code: 55907-9 Heart Rate 1: 92 bpm Height: 5'2" Code: 8302-2 Respiratory Rate: 20 bpm SpO2: 96% Temperature: 36.9 (C) / 98.4 (F) Weight: 150 lbs Code: 90210-3 Functional Status No Functional Status data Reason For Visit Reason For Visit Effective Dates Notes well woman exam (65+ years) 07/01/2021 Medicare Wel lness follow up 12/22/2020 follow up 07/16/2020 arthralgia(s) 07/07/2020 follow up 03/25/2020 follow up 12/23/2019 follow up 10/08/2019 follow up 08/19/2019 follow up 07/22/2019 blood pressure check 07/01/2019 follow up 06/13/2019 ER fwup follow up 05/28/2019 follow up 04/24/2019 follow up 04/16/2019 follow up 04/04/2019 blood pressure check 03/29/2019 headache 03/27/2019 follow up 01/28/2019 follow up 12/27/2018 Hospital fwup lab draw 10/29/2018 mole check 10/02/2018 unsure if this is a mole or just benign ~generic 10/01/2018 New Patient---establ ishing visit Encounters Encounter Performer Location Codes Date ([id number]) OFFICE/OUTPATIENT VISIT EST Diagnosis: Essential (primary) hypertension[ICD10: I10] Diagnosis: Hypothyroidism[ICD10: E03.9] Diagnosis: Hyperglycemia, unspecified[ICD10: R73.9] Diagnosis: Mixed hyperlipidemia[ICD10: E78.2] Diagnosis: Thyroid nodule[ICD10: E04.1] 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] Landy Dominguez [employer] CPT-4: 69994 12/22/2020 ([id number]) OFFICE/OUTPATIENT VISIT EST Diagnosis: Upper leg pain[ICD10: M79.659] Diagnosis: Upper arm pain[ICD10: M79.629] Diagnosis: Vitamin D deficiency[ICD10: E55.9] Landy Dominguez [employer] CPT-4: 35788 07/16/2020 ([id number]) OFFICE/OUTPATIENT VISIT EST Diagnosis: Muscle cramping[ICD10: R25.2] Diagnosis: Hypothyroidism[ICD10: E03.9] Landy GARCIA DO [facility] CPT-4: 37894 07/07/2020 ([id number]) OFFICE/OUTPATIENT VISIT EST Diagnosis: Essential hypertension[ICD10: I10] Diagnosis: Mixed hyperlipidemia[ICD10: E78.2] Landy Garcia [facility] CPT-4: 12599 03/25/2020 ([id number]) OFFICE/OUTPATIENT VISIT EST Diagnosis: Essential (primary) hypertension[ICD10: I10] Diagnosis: 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] Landy Garcia [facility] CPT-4: 34463 12/23/2019 ([id number]) OFFICE/OUTPATIENT VISIT EST Diagnosis: Essential (primary) hypertension[ICD10: I10] Diagnosis: Thyroid nodule[ICD10: E04.1] Landy GARCIA DO [facility] CPT-4: 00700 10/08/2019 ([id number]) OFFICE/OUTPATIENT VISIT EST Diagnosis: Essential (primary) hypertension[ICD10: I10] Landy GARCIA DO [facility] CPT-4: 19409 08/19/2019 ([id number]) OFFICE/OUTPATIENT VISIT EST Diagnosis: Essential (primary) hypertension[ICD10: I10] Landy GARCIA DO [facility] CPT-4: 09267 07/22/2019 ([id number]) NURSE/OUTPATIENT VISIT EST Diagnosis: Essential (primary) hypertension[ICD10: I10] Landy GARCIA DO [facility] CPT-4: 88974 07/01/2019 ([id number]) OFFICE/OUTPATIENT VISIT EST Diagnosis: Essential (primary) hypertension[ICD10: I10] Diagnosis: Dizziness and giddiness[ICD10: R42] Landy GARCIA DO [facility] CPT-4: 48347 06/13/2019 ([id number]) OFFICE/OUTPATIENT VISIT EST Diagnosis: Essential (primary) hypertension[ICD10: I10] Landy GARCIA DO [facility] CPT-4: 21033 05/28/2019 ([id number]) OFFICE/OUTPATIENT VISIT EST Diagnosis: Essential (primary) hypertension[ICD10: I10] Diagnosis: 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] Landy GARCIA DO [facility] CPT-4: 56278 04/24/2019 ([id number]) OFFICE/OUTPATIENT VISIT EST Diagnosis: Essential (primary) hypertension[ICD10: I10] Diagnosis: Generalized anxiety disorder[ICD10: F41.1] Alexia GARCIA DO [facility] CPT-4: 25427 04/16/2019 ([id number]) OFFICE/OUTPATIENT VISIT EST Diagnosis: Essential (primary) hypertension[ICD10: I10] Diagnosis: 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] Landy GARCIA DO [facility] CPT-4: 58056 04/04/2019 ([id number]) NURSE/OUTPATIENT VISIT EST Diagnosis: Essential (primary) hypertension[ICD10: I10] Landy GARCIA DO [facility] CPT-4: 15903 03/29/2019 ([id number]) OFFICE/OUTPATIENT VISIT EST Diagnosis: Essential (primary) hypertension[ICD10: I10] 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] Diagnosis: Mixed hyperlipidemia[ICD10: E78.2] Diagnosis: Headache[ICD10: R51] Diagnosis: Generalized anxiety disorder[ICD10: F41.1] Diagnosis: Disorder of thyroid, unspecified[ICD10: E07.9] Diagnosis: Hyperglycemia, unspecified[ICD10: R73.9] Alexia Theodore PIO KOHLI Alberto GARCIA [employer] [facility] CPT-4: 70306 03/27/2019 ([id number]) OFFICE/OUTPATIENT VISIT EST Diagnosis: Essential (primary) hypertension[ICD10: I10] Diagnosis: Mixed hyperlipidemia[ICD10: E78.2] Landy HERMOSILLO TEA Alberto GARCIA [employer] [facility] CPT-4: 59862 01/28/2019 ([id number]) OFFICE/OUTPATIENT VISIT EST Diagnosis: Essential (primary) hypertension[ICD10: I10] 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] Diagnosis: Other fatigue[ICD10: R53.83] Landy [employer] CPT-4: 83838 12/27/2018 ([id number]) NURSE/OUTPATIENT VISIT EST Diagnosis: Other specified abnormal findings of blood chemistry[ICD10: R79.89] Landy BILL [employer] CPT-4: 26431 10/29/2018 ([id number]) OFFICE/OUTPATIENT VISIT EST Diagnosis: Mixed hyperlipidemia[ICD10: E78.2] Diagnosis: Essential (primary) hypertension[ICD10: I10] Diagnosis: Age-related osteoporosis without current pathological fracture[ICD10: M81.0] Diagnosis: Follicular cyst of the skin and subcutaneous tissue, unspecified[ICD10: L72.9] Landy BILL [employer] CPT-4 : 03226 10/02/2018 OFFICE/OUTPATIENT VISIT NEW Diagnosis: Essential (primary) hypertension[ICD10: I10] Diagnosis: Mixed hyperlipidemia[ICD10: E78.2] Diagnosis: Age-related osteoporosis without current pathological fracture[ICD10: M81.0] Landy [employer] CPT-4: 13211 10/01/2018 Plan of Care Planned Activity Notes Codes Status Date Visit Diagnosis Plan: Essential (primary) hypertension Discussion: Stable ICD-9 : 401.9 ICD-10 : I10 07/01/2021 Visit Diagnosis Plan: Hypothyroidism Discussion: Incre ase levothyroxine to 50mcg daily and repeat labs in 3mos ICD-9 : 244.9 ICD-10 : E03.9 07/01/2021 Visit Diagnosis Plan: Encounter for gene [facility] adult medical examination without abnormal findings Discussion: Mediterranean diet Combinati on of cardio and weight bearing exercise Had COVID booster and flu shot Lab discussed ICD-9 : V70.9 ICD-10 : Z00.00 07/01/2021 Visit Diagnosis Plan: Mixed hyperlipidemia Discussion: Lifestyle change and continue current meds Follow Up: 6 months ICD-9 : 272.4 ICD-10 : E78.2 07/01/2021 Visit Diagnosis Plan: Hypothyroidism Discussion: Stabl e Repeat lab in 6mos ICD-9 : 244.9 ICD-10 : E03.9 12/22/2020 Visit Diagnosis Plan: Essential (primary) hypertension Discussion: Stable Follow Up: 6 months ICD-9 : 401.9 ICD-10 : I10 12/22/2020 Visit Diagnosis Plan: Hyperglycemia, unspecified Discu ssion: Mediterranean diet Combination of cardio and weight bearing exercise Check CMP and HbA1C in 6mos ICD-9 : 790.29 ICD-10 : R73.9 12/22/2020 Visit Diagnosis Plan: Benign neoplasm of cerebral junei ngwaldo Discussion: Following with doctor in --next fwup in February ICD-9 : 225.2 ICD-10 : D32.0 12/22/2020 Visit Diagnosis Plan: Thyroid nodule Discussion: Ranjana price with Dr. Munguia ICD-9 : 241.0 ICD-10 : E04.1 12/22/2020 Visit Diagnosis Plan: Mixed hyperlipidemia Discussion: Continue atorvastatin and repeat CMP, lipids in 6mos ICD-9 : 272.4 ICD-10 : E78.2 12/22/2020 Appointment: Landy Garcia WPtel: [address] [place] [address] US MEDICATION REVIEW 12/22/2020 Appointment: Landy Garcia WPtel: [address] [place], [place] [address] US RESCHEDULED 07/20/2020 Visit Diagnosis Plan: Upper leg pain Discussion: Updat e lab--CBC, CMP, ESR, CRP, Vitamin D ICD-9 : 729.5 ICD-10 : M79.659 07/16/2020 Appointment: Landy Garcia WPtel: [address] [place] [address] ACUTE ILLNESS 07/16/2020 Visit Diagnosis Plan: Muscle cramping Discussion: Tele phone visit completed due to unable to connect via video Baclofen low dose q PM Hydrate Mobic q AM Call if not improving and will need further lab ICD-9 : 729.82 ICD-10 : R25.2 07/07/2020 Visit Diagnosis Plan: Hypothyroidism Discussion: Decre ase levothyroxine to 50mcg 6 days a week and repeat thyroid lab in 2mos ICD-9 : 244.9 ICD-10 : E03.9 07/07/2020 Appointment: Landy Garcia WPtel: [address] [place] [address] TELEMEDICINE 07/07/2020 Patient Education: meloxicam- [employer] Coupon [phone] https://www.NeGoBuY/sampleBid Nerd/resources/getResource/61/3q17buja-t675-4834-m7 Completed 07/07/2020 Patient Education: baclofen- [employer] Coupon [phone] [id number] https://www.NeGoBuY/Screwpulp/resources/getResource/61/23915747-5ag7-0195-rx Completed 07/07/2020 Visit Diagnosis Plan: Mixed hyperlipidemia Discussion: Mediterranean diet Combination of cardio and weight bearing exercise Recheck lipids in 6mos ICD-9 : 272.4 ICD-10 : E78.2 03/25/2020 Visit Diagnosis Plan: Essential hypertension Discussio n: Stable Lab discussed ICD-9 : 401.9 ICD-10 : I10 03/25/2020 Appointment: Landy Garcia WPtel: [address] [place] [address] TELEMEDICINE 03/25/2020 Patient Education: levothyroxine- [employer] Coupon [id number] [phone] https://www.NeGoBuY/Screwpulp/resources/getResource/61/22699911-00u5-1905-xw Completed 03/25/2020 Visit Diagnosis Plan: Essential (primary) hypertension Discussion: Doxy.me video visit done Stable on current meds Follow Up: 3 months ICD-9 : 401.9 ICD-10 : I10 12/23/2019 Visit Diagnosis Plan: Nontoxic single thyroid nodule D iscussion: Feels better with the low dose thyroid--will check lab and fwup in 3mos ICD-9 : 241.0 ICD-10 : E04.1 12/23/2019 Appointment: Landy Garcia WPtel: [address] [place] [address] confirmed TELEMEDICINE 12/23/2019 Patient Education: levothyroxine- [employer] Coupon [id number] [phone] https://www.NeGoBuY/samplemd/resources/getResource/61/j0152792-au2z-4e3l-e7 Completed 12/23/2019 Referral: Mike Munguia WPtel: [address] [address] [place] Referral Initiated 10/26/2019 Visit Diagnosis Plan: Essential (primary) hypertension Discussion: Stable Recheck 2mos with lab ICD-9 : 401.9 ICD-10 : I10 10/08/2019 Visit Diagnosis Plan: Thyroid nodule Discussion: Updat e thyroid nodule ICD-9 : 241.0 ICD-10 : E04.1 10/08/2019 Appointment: Landy Garcia WPtel: [address] [place] [address] US MEDICATION REVIEW 10/08/2019 Care Plan: MAMMOGRAM SCREENING LOINC : 2 6347-5 Pending 10/08/2019 Appointment: Landy Garcia WPtel: [address] [place] [address] US CANCELED 09/09/2019 Visit Diagnosis Plan: Essential (primary) hypertension Discussion: Stable on current meds Lab in 2mos then fwup Follow Up: 2 months Discussion: Stable on current meds Follow Up: 2 months ICD-9 : 401.9 ICD-10 : I10 08/19/2019 Appointment: Landy Garcia WPtel: [address] [place] [address] US FOLLOW UP 08/19/2019 Visit Diagnosis Plan: Essential (primary) hypertension Discussion: Stable on current meds Recheck 1month ICD-9 : 401.9 ICD-10 : I10 07/22/2019 Appointment: Landy Garcia WPtel: [address] [place], [place] [phone] US FOLLOW UP 07/22/2019 Appointment: Landy Garcia WPtel: [address] [place] [address] US CANCELED 07/08/2019 Appointment: Landy Garciatel: [address] [place], [place] [address] US BP CHECK 07/01/2019 Visit Diagnosis Plan: Dizziness and giddiness Discussi on: 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 Discussed possible vestibular therapy ICD-9 : 780.4 ICD-10 : R42 06/13/2019 Visit Diagnosis Plan: Essential (primary) hypertension Discussion: Decrease Lisinopril 20mg q AM Add Metoprolol ER 25mg q PM Check 2-D ECHO BP Check when in town for ECHO ICD-9 : 401.9 ICD-10 : I10 06/13/2019 Appointment: Landy Garcia WPtel: [address] [place] [address] US ACUTE ILLNESS 06/13/2019 Patient Education: metoprolol succinate- [employer] Co upon [phone] https://www.NeGoBuY/Screwpulp/resources/getResource/61/tu9189v0-j0gq-9005-t3 Completed 06/13/2019 Visit Diagnosis Plan: Essential (primary) hypertension Discussion: Stable Monitor BP Recheck 3mos ICD-9 : 401.9 ICD-10 : I10 05/28/2019 Appointment: Landy Garcia WPtel: [address] [place] [address] US FOLLOW UP 05/28/2019 Visit Diagnosis Plan: Essential (primary) hypertension Discussion: Stable with increased dose Follow Up: 1 months ICD-9 : 401.9 ICD-10 : I10 04/24/2019 Visit Diagnosis Plan: Nontoxic single thyroid nodule D iscussion: Recheck US in 6mos ICD-9 : 241.0 ICD-10 : E04.1 04/24/2019 Appointment: Landy Garcia WPtel: [address] [place], [place] [address] US FOLLOW UP 04/24/2019 Appointment: [facility] [address] [facility] [place] [place] CANCELED 04/23/2019 Visit Diagnosis Plan: Essential (primary) hypertension Discussion: monitor bp once a day at home and keep a log. bring log in to f/u appt in 2 weeks. continue with lisinopril 40 mg. call office if bp remains high when at home and will add medication. discussed with patient that most likely caused from recent stressors of life and being in the ED recently. patient's bp check a couple weeks ago was wnl but patient is under high stress right now. will increase effexor dose to assist with stress. ICD-9 : 401.9 ICD-10 : I10 04/16/2019 Visit Diagnosis Plan: Generalized anxiety disorder Dis cussion: Effexor increased to 150 mg capsule. schedule f/u with dr in 2 weeks. ICD-9 : 300.02 ICD-10 : F41.1 04/16/2019 Appointment: Ladny Garcia [facility]el[facility] [address] [facility] [place] [place] CANCELED 04/16/2019 Appointment: Alexia Theodore [address] [facility] Follow Up 04/16/2019 Patient Education: venlafaxine- [employer] Coupon [phone] https://www.NeGoBuY/samplemd/resources/getResource/61/1g1n6336-215e-44ms-38 Completed 04/16/2019 Patient Education: lisinopril- [employer] Coupon [phone] https://www.Screwpulp.hubbuzz.com/samplemd/resources/getResource/61/cd733ytt-380t-41fu-pw Completed 04/16/2019 Patient Education: High Blood Pressure Co mpleted 04/16/2019 Visit Diagnosis Plan: Essential (primary) hypertension Discussion: Stable on higher dose of lisinopril Follow Up: 3 months ICD-9 : 401.9 ICD-10 : I10 04/04/2019 Visit Diagnosis Plan: Nontoxic single thyroid nodule D iscussion: Has thyroid biopsy scheduled next week Discussed that if is negative then will recheck thyroid US in 6mos to ascertain stability ICD-9 : 241.0 ICD-10 : E04.1 04/04/2019 Appointment: Landy Garcia WPtel: [phone] [facility] US FOLLOW UP 04/04/2019 Appointment: Landy Garcia WPtel: [address] [facility] US BP CHECK 03/29/2019 Visit Diagnosis Plan: Headache Discussion: discussed w ith patient that headache could be r/t htn vs anxiety but since headache is improved at visit, will continue to monitor. instructed patient to notify office tomorrow or later this week if headache returns or worsens and will proceed with updated ct. ICD-9 : 784.0 ICD-10 : R51 03/27/2019 Visit Diagnosis Plan: Mixed hyperlipidemia Discussion: updated labs to be completed. ICD-9 : 272.4 ICD-10 : E78.2 03/27/2019 Visit Diagnosis Plan: Essential (primary) hypertension Discussion: increase lisinopril to 40 mg daily. has scheduled follow up next week so will re-evaluate bp at that visit and assess if other medication is needed. instructed to notify office with any concerns. updated labs to be completed today ICD-9 : 401.9 ICD-10 : I10 03/27/2019 Visit Diagnosis Plan: Disorder of thyroid, unspecified Discussion: updated tsh, free t4, tt3 ordered. per patient's last ct scan, there was a thyroid nodule seen that should be evaluated by ultrasound. ultrasound ordered to be completed. ICD-9 : 246.9 ICD-10 : E07.9 03/27/2019 Appointment: Alexia Theodore [address] [place], [place] [id number] ACUTE ILLNESS 03/27/2019 Patient Education: High Blood Pressure Co mpleted 03/27/2019 Care Plan: US EXAM OF HEAD AND NECK thyroid NANI C : 53604-9 Pending 03/27/2019 Visit Diagnosis Plan: Essential (primary) hypertension Discussion: Stable ICD-9 : 401.9 ICD-10 : I10 01/28/2019 Visit Diagnosis Plan: Mixed hyperlipidemia Discussion: Mediterranean diet Combination of cardio and weight bearing exercise Check lipids with fwup in 2mos ICD-9 : 272.4 ICD-10 : E78.2 01/28/2019 Appointment: Landy Garcia WPtel: [address] [place] [address] FOLLOW UP 01/28/2019 Visit Diagnosis Plan: Essential (primary) hypertension Discussion: Increase lisinopril to 20mg daily Recheck 4 weeks ICD-9 : 401.9 ICD-10 : I10 12/27/2018 Visit Diagnosis Plan: Benign neoplasm of cerebral meni nges Discussion: Will be following with neurosurgery at ICD-9 : 225.2 ICD-10 : D32.0 12/27/2018 Appointment: Landy Garcia WPtel: [address] [place] [address] Follow Up 12/27/2018 Patient Education: venlafaxine- [employer] Coupon [phone] https://www.NeGoBuY/Screwpulp/resources/getResource/61/be6i8z61-2991-9b3k-04 Completed 12/27/2018 Appointment: Landy Garcia WPtel: [address] [place] [address] US CANCELED 12/24/2018 Appointment: Landy Garcia WPtel: [address] [place], [place] [phone] US LAB 10/29/2018 Visit Diagnosis Plan: Follicular cyst of the skin and subcutaneous tissue, unspecified Discussion: Reassurance given Will monit or Did offer dermatology referral ICD-9 : 706.2 ICD-10 : L72.9 10/02/2018 Appointment: Landy Garcia WPtel: [address] [place], [place] [phone] US LAB 10/02/2018 Appointment: Landy Garcia WPtel: [address] [place] [address] ACUTE ILLNESS 10/02/2018 Visit Diagnosis Plan: Mixed hyperlipidemia Discussion: Will return in AM for fasting lab ICD-9 : 272.4 ICD-10 : E78.2 10/01/2018 Visit Diagnosis Plan: Age-related osteop orosis without current pathological fracture Discussion: Continue prolia--next dose i n October and then 6mos later and recheck bone density in 1 year ICD-9 : 733.00 ICD-10 : M81.0 10/01/2018 Visit Diagnosis Plan: Essential (primary) hypertension Discussion: Stable on lisinopril Follow Up: 6 months ICD-9 : 401.9 ICD-10 : I10 10/01/2018 Appointment: Landy Garcia [facility] [phone] [facility] [place] NEW PATIENT 10/01/2018 Instructions No Instructions Medical Equipment No Medical Equipment data Health Concerns Section Health Concerns data not found Goals Section Goals data not found Interventions Section Interventions data not found Health Status Evaluations/Outcomes Section Health Status Evaluations/Outcomes data not found Advance Directives No Advance Directive data
--- OUTSIDE RECORDS SUMMARY | 2021-08-06 09:30 | XMS REPORT | CCD ---
Author Author Va Garcia D.O. 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 Name Role Phone PP Unavailable CCM Unavailable Summary Purpose Interface Exchange Insurance Providers Payer name Policy type / Coverage type Covered green party ID Effective Begin Date Effective End Date WPS MEDICARE PART B [place] Medicare Part B [id number] 2018 Unknown [employer] Medicare Part B [id number] 2018 Unknown Family History Family History data not found Social History Social History Element Codes Description Effective Dates Marital status Unknown 10/01/2018 Number of children Unknown 1 10/01/2018 Employment Unknown Retired [employer] classes 10/01/[address]: 4343394 Former smoker 10/01/[address]: 490733010 Never drinks alcohol 2018 Has the patient [...] 150 mg capsule,extended release 24 hr RxNorm: 592456 Take 1 Capsule(s) Oral QD 06/17/2021 09/14/2021 Active atorvastatin 20 mg tablet RxNorm: 848329 Take 1 Tablet(s) Oral QD 1 09/06/2021 Active levothyroxine 50 mcg tablet RxNorm: 440031 Take 1 Tablet(s) Oral QD 06/09/2021 09/06/2021 Active metoprolol succinate ER 25 mg tablet,extended release 24 hr RxNorm: 311216 TAKE 1 TABLET BY MOUTH EVERY EVENING 06/09/2021 09/06/2021 Active lisinopril 20 mg tablet RxNorm: 834013 Take 1 Tablet(s) Oral QAM 06/25/2021 Inactive metoprolol succinate ER 25 mg tablet,extended release 24 hr RxNorm: 379872 TAKE 1 TABLET BY MOUTH EVERY EVENING 03/15/2021 03/15/2021 Inactive atorvastatin 20 mg tablet RxNorm: 463906 Take 1 Tablet(s) Oral QD 0 03/12/2021 03/12/2021 Inactive levothyroxine 50 mcg tablet RxNorm: 707242 Take 1 Tablet(s) Oral QD 2021 2021 Inactive venlafaxine ER 150 mg capsule,extended release 24 hr RxNorm: 743445 1 Capsule(s) Oral QD 12/23/2020 12/23/2020 Inactive atorvastatin 20 mg tablet RxNorm: 754896 TAKE 1 TABLET BY MOUTH EVERY DAY 12/14/2020 12/14/2020 Inactive levothyroxine 50 mcg tablet RxNorm: 755175 TAKE 1 TABLE T BY MOUTH DAILY. TO REPLACE THE 25MCG. NEED UPDATED LABS 12/10/2020 12/10/2020 Inactive Patient requests 90 days supply levothyroxine 50 mcg tablet RxNorm: 998418 TAKE 1 TABLE T BY MOUTH DAILY: TO REPLACE THE 25MCG Need updated Labs 12/10/2020 12/09/2020 Inactive lisinopril 20 mg tablet RxNorm: 175576 1 Tablet(s) Oral QAM Patient needs appointment before next refill 12/02/2020 12/02/2020 Inactive N eeds follow up appointment/updated fasting labs lisinopril 20 mg tablet RxNorm: 253865 1 Tablet(s) Oral QAM Patient needs appointment before next refill 12/02/2020 12/01/2020 Inactive N eeds follow up appointment/updated fasting labs lisinopril 20 mg tablet RxNorm: 158478 1 Tablet(s) Oral QAM Patient needs appointment before next refill 10/30/2020 12/01/2020 Inactive baclofen 10 mg tablet RxNorm: 287364 TAKE 1/2 TABLET BY MOUTH EVERY EVENING NEEDED FOR MUSCLE SPASM 10/23/2020 12/21/2020 Inactive baclofen 10 mg tablet RxNorm: 332643 TAKE 1/2 TABLET BY MOUTH EVERY EVENING NEEDED FOR MUSCLE SPASM 09/27/2020 10/22/2020 Inactive venlafaxine ER 150 mg capsule,extended release 24 hr RxNorm: 123029 TAKE 1 CAPSULE BY MOUTH EVERY DAY 09/24/2020 12/22/2020 Inactive meloxicam 7.5 mg tablet RxNorm: 442573 TAKE 1 TABLET BY MOUTH DAILY NEEDED FOR PAIN; REPLACES 15 MG DOSE 09/22/2020 12/20/2020 Inactive metoprolol succinate ER 25 mg tablet,extended release 24 hr RxNorm: 075775 TAKE 1 TABLET BY MOUTH EVERY EVENING 09/21/2020 09/21/2020 Inactive levothyroxine 50 mcg tablet RxNorm: 240729 TAKE 1 TABLE T BY MOUTH DAILY: TO REPLACE THE 25MCG 09/14/2020 12/09/2020 Inactive atorvastatin 20 mg tablet RxNorm: 355688 TAKE 1 TABLET BY MOUTH EVERY DAY 09/11/2020 12/09/2020 Inactive baclofen 10 mg tablet RxNorm: 139400 TAKE 1/2 TABLET BY MOUTH EVERY EVENING NEEDED FOR MUSCLE SPASM 08/30/2020 09/26/2020 Inactive meloxicam 7.5 mg tablet RxNorm: 633874 1 Tablet(s) Oral QD as needed for pain replaces 15mg dose 08/25/2020 08/24/2020 Inactive meloxicam 7.5 mg tablet RxNorm: 942223 1 Tablet(s) Oral QD as needed for pain replaces 15mg dose 08/25/2020 08/25/2020 Inactive baclofen 10 mg tablet RxNorm: 150767 TAKE 1/2 TABLET BY MOUTH EVERY EVENING NEEDED FOR MUSCLE SPASM 08/03/2020 08/29/2020 Inactive meloxicam 15 mg tablet RxNorm: 746621 TAKE 1 TABLET BY MOUTH EVERY MORNING FOR PAIN 08/03/2020 08/24/2020 Inactive baclofen 10 mg tablet RxNorm: 987703 1/2 Tablet(s) Oral QPM as needed for muscle spasm 07/07/2020 08/02/2020 Inactive meloxicam 15 mg tablet RxNorm: 481630 1 Tablet(s) Oral QAM for pain 07/07/2020 08/02/2020 Inactive venlafaxine ER 150 mg capsule,extended release 24 hr RxNorm: 084927 TAKE 1 CAPSULE BY MOUTH EVERY DAY 06/29/2020 09/23/2020 Inactive metoprolol succinate ER 25 mg tablet,extended release 24 hr RxNorm: 712236 TAKE 1 TABLET BY MOUTH EVERY EVENING 06/23/2020 09/20/2020 Inactive levothyroxine 50 mcg tablet RxNorm: 460204 TAKE 1 TABLE T BY MOUTH DAILY: TO REPLACE THE 25MCG 06/19/2020 09/13/2020 Inactive atorvastatin 20 mg tablet RxNorm: 398750 TAKE 1 TABLET BY MOUTH EVERY DAY 06/15/2020 09/10/2020 Inactive levothyroxine 50 mcg tablet RxNorm: 345655 1 Tablet(s) Oral QD replaces 25mcg 03/25/2020 06/18/2020 Inactive atorvastatin 20 mg tablet RxNorm: 451451 TAKE 1 TABLET BY MOUTH EVERY DAY 03/16/2020 06/13/2020 Inactive lisinopril 20 mg tablet RxNorm: 671025 1 Tablet(s) Oral QAM 020 10/29/2020 Inactive venlafaxine ER 150 mg capsule,extended release 24 hr RxNorm: 224179 TAKE 1 CAPSULE BY MOUTH EVERY DAY 01/06/2020 06/28/2020 Inactive metoprolol succinate ER 25 mg tablet,extended release 24 hr RxNorm: 314023 TAKE 1 TABLET BY MOUTH EVERY EVENING 12/30/2019 06/22/2020 Inactive atorvastatin 20 mg tablet RxNorm: 932511 1 Tablet(s) Oral QD 201907/06/2020 Inactive levothyroxine 25 mcg tablet RxNorm: 577350 1 Tablet(s) Oral QD 11/2703/24/2020 Inactive lisinopril 20 mg tablet RxNorm: 252933 1 Tablet(s) Oral QAM rep laces 40mg dose 11/18/2019 02/11/2020 Inactive levothyroxine 25 mcg tablet RxNorm: 658212 1 Tablet(s) Oral QD 12/201912/22/2019 Inactive levothyroxine 25 mcg tablet RxNorm: 912726 1 Tablet(s) Oral QD 12/201910/30/2019 Inactive lisinopril 20 mg tablet RxNorm: 889066 1 Tablet(s) Oral QAM rep laces 40mg dose 09/11/2019 02/12/2020 Inactive venlafaxine ER 150 mg capsule,extended release 24 hr RxNorm: 238421 1 CAPSULE(S) PO QD 07/15/2019 01/05/2020 Inactive atorvastatin 20 mg tablet RxNorm: 786720 1 Tablet(s) Oral QD 201812/22/2019 Inactive atorvastatin 20 mg tablet RxNorm: 374847 1 Tablet(s) Oral QD 201806/24/2019 Inactive metoprolol succinate ER 25 mg tablet,extended release 24 hr RxNorm: 575389 1 Tablet(s) Oral QPM 06/13/2019 06/12/2019 Inactive metoprolol succinate ER 25 mg tablet,extended release 24 hr RxNorm: 847921 1 TABLET(S) ORAL QPM 06/13/2019 12/10/2019 Inactive Patient req uests 90 days supply lisinopril 20 mg tablet RxNorm: 113774 1 Tablet(s) Oral QAM rep laces 40mg dose 06/13/2019 09/10/2019 Inactive lisinopril 40 mg tablet RxNorm: 617959 1 Tablet(s) PO QD 04/16/2019 1 Inactive venlafaxine ER 150 mg capsule,extended release 24 hr RxNorm: 497977 1 Capsule(s) PO QD 04/16/2019 07/14/2019 Inactive atorvastatin 20 mg tablet RxNorm: 828253 1 Tablet(s) PO QD 12/28/1912/26/2018 Inactive lisinopril 20 mg tablet RxNorm: 139248 1 Tablet(s) PO QD replac es 10mg dose 12/27/2018 04/03/2019 Inactive atorvastatin 20 mg tablet RxNorm: 564496 1 Tablet(s) PO QD 12/28/19 19 06/23/2019 Inactive venlafaxine ER 75 mg capsule,extended release 24 hr RxNorm: 895267 1 Capsule(s) PO QD 12/27/2018 04/15/2019 Inactive lisinopril 20 mg tablet RxNorm: 082732 1 Tablet(s) PO QD replac es 10mg dose 12/27/2018 12/26/2018 Inactive venlafaxine ER 75 mg capsule,extended release 24 hr RxNorm: 462477 1 Capsule(s) PO QD 12/27/2018 12/26/2018 Inactive Benadryl 25 mg capsule RxNorm: 0570616 Capsule(s) PO as needed 2018 Active melatonin 5 mg tablet RxNorm: 174542 1 Tablet(s) PO QHS 01/28/2019 Active docusate sodium 100 mg tablet RxNorm: 9940767 Tablet(s) PO as neede d 10/01/2018 Active Vitamin D3 5,000 unit tablet RxNorm: 440075 1 Tablet(s) PO QD 019 Active Prolia 60 mg/mL subcutaneous syringe RxNorm: 206546 1 M illiliter(s) SQ every 6 months 10/01/2018 Active lisinopril 10 mg tablet RxNorm: 442755 1 Tablet(s) PO QD 12/27/2018 0 12/26/2018 Inactive venlafaxine ER 75 mg capsule,extended release 24 hr RxNorm: 766315 1 Capsule(s) PO QD 12/27/2018 12/26/2018 Inactive lisinopril 20 mg tablet RxNorm: 507885 2 Tablet(s) PO QD 04/16/2019 0 04/15/2019 Inactive atorvastatin 20 mg tablet RxNorm: 096730 1 Tablet(s) PO QD 12/28/19 19 12/26/2018 Inactive Medication Administered No Medication Administered data Immunizations Vaccine Codes Date Status Shingrix CVX: 141 04/05/2019 Results Observation Observation Code Item Item Code Result Date S ervice Location COMPREHENSIVE METABOLIC 70394 AST 12 U/L 2019 Unknown COMPREHENSIVE METABOLIC 64196 ALT 11 U/L 2019 Unknown COMPREHENSIVE METABOLIC 40414 BUN 11 mg/dL 2019 Unknown COMPREHENSIVE METABOLIC 84036 ALBUMIN 4.3 g/dL 2019 Unknown COMPREHENSIVE METABOLIC 62779 CHLORIDE 100 mmol/L 07/16 Unknown COMPREHENSIVE METABOLIC 74348 Bili Total 0.4 mg/dL 07/16 Unknown COMPREHENSIVE METABOLIC 44974 ALK PHOS 75 U/L 2019 Unknown COMPREHENSIVE METABOLIC 80028 SODIUM 136 mmol/L 07/16 Unknown COMPREHENSIVE METABOLIC 95801 CREATININE 0.79 mg/dL 06/28 Unknown COMPREHENSIVE METABOLIC 94602 CALCIUM 9.6 mg/dL 2019 Unknown COMPREHENSIVE METABOLIC 41915 POTASSIUM 4.5 mmol/L 07/16 Unknown COMPREHENSIVE METABOLIC 75817 Total Protein 6.7 g/dL Unknown COMPREHENSIVE METABOLIC 19681 Glucose 74 mg/dL 2019 Unknown COMPREHENSIVE METABOLIC 52241 Bicarbonate 26 mmol/L 06/28 Unknown COMPREHENSIVE METABOLIC 95478 AGAP 10 mmol/L 2019 Unknown COMPLETE BLOOD COUNT 9115933 WBC 7.4 10e9/L 07/16/20 20 Unknown COMPLETE BLOOD COUNT [id number] RBC 4.29 10e12/L 2019 Unknown COMPLETE BLOOD COUNT 9945011 HEMOGLOBIN 13.2 g/dL 07/16/20 20 Unknown COMPLETE BLOOD COUNT 0961531 HEMATOCRIT 40.2 % 07/16/20 20 Unknown COMPLETE BLOOD COUNT [id number] MCV 93.7 fL 0 Unknown COMPLETE BLOOD COUNT 2603791 MCH 30.8 pg 0 Unknown COMPLETE BLOOD COUNT 6189140 MCHC 32.8 g/dL 0 Unknown COMPLETE BLOOD COUNT 9375806 PLATELET COUNT 294 10e9/L Unknown COMPLETE BLOOD COUNT 2662741 Mean Plt Volume 8.3 fL Unknown COMPLETE BLOOD COUNT 4559214 Neut Auto 64.6 % 0 Unknown COMPLETE BLOOD COUNT 1313901 Lymph Auto 24.0 % 07/16/20 20 Unknown COMPLETE BLOOD COUNT 9204962 Mcminn Auto 9.5 % 0 Unknown COMPLETE BLOOD COUNT 1108125 RDW 12.6 % 0 Unknown COMPLETE BLOOD COUNT 0913451 Eos Auto 1.5 % 0 Unknown COMPLETE BLOOD COUNT 9596792 Baso Auto 0.4 % 0 Unknown COMPLETE BLOOD COUNT 3433483 Neutrophil Abs 4.78 10e9/L Unknown COMPLETE BLOOD COUNT 0147913 Lymphocyte Abs 1.78 10e9/L Unknown COMPLETE BLOOD COUNT 6205248 Monocyte Abs 0.70 10e9/L 06/28 Unknown COMPLETE BLOOD COUNT 3757090 Eosinophil Abs 0.11 10e9/L Unknown COMPLETE BLOOD COUNT 9161551 RDW-SD 42.5 fL 0 Unknown COMPLETE BLOOD COUNT 1247352 Basophil Abs 0.03 10e9/L 06/28 Unknown GFR CALC 6440950 GFR Non Afr Amr >60 mL/min 07/16/2020 Un known GFR CALC 1792649 GFR Afr Amr >60 mL/min 07/16/2020 Unknow n C-REACTIVE PROTEIN (CRP) QUANT 38861 C-Reactive Prot 0.3 mg/dL 07/16/2020 Unknown ERYTHROCYTE SEDIMENTATION RATE 93839 Sed Rate 9 mm/hr 07/16/2020 Unknown VITAMIN D TOTAL (25 HYDROXY) 77028 Vitamin D 25 [place] 72.1 ng/mL 07/16/2020 Unknown GLYCOSYLATED HEMOGLOBIN TEST 29974 Hgb A1c 33932-3 5.9 % 0 03/28/2019 Unknown MEAN GLUC 0130832 Calc Mean Gluc 123 mg/dL 03/28/2019 Unkn own GFR CALC 5129709 GFR Non Afr Amr >60 mL/min 03/27/2019 Un known GFR CALC 4199568 GFR Afr Amr >60 mL/min 03/27/2019 Unknow n ASSAY TRIIODOTHYRONINE (T3) 78116 T3 Total 0.98 ng/mL 0 03/27/2019 Unknown LIPID GROUP 64271 Cholesterol 175 mg/dL 03/27/2019 Unkno wn LIPID GROUP 50498 Triglyceride 61 mg/dL 03/27/2019 Unkn own LIPID GROUP 12676 HDL CHOLESTEROL 67 mg/dL 03/27/2019 U nknown LIPID GROUP 77261 Chol/HDL Ratio 2.61 ratio 03/27/2019 U nknown LIPID GROUP 70265 NON-HDL Chol 108 mg/dL 03/27/2019 Unkn own LIPID GROUP 51223 LDL Cholesterol 96 mg/dL 03/27/2019 U nknown FREE T4 74190 T4 Free 0.85 ng/dL 03/27/2019 Unknown COMPLETE BLOOD COUNT 0796308 WBC 8.8 10e9/L 03/27/20 19 Unknown COMPLETE BLOOD COUNT 2481388 RBC 4.76 10e12/L 2018 Unknown COMPLETE BLOOD COUNT 7924226 HEMOGLOBIN 14.7 g/dL 03/27/20 19 Unknown COMPLETE BLOOD COUNT 7554938 HEMATOCRIT 43.9 % 07/31/20 19 Unknown COMPLETE BLOOD COUNT 8457285 MCV 92.2 fL 9 Unknown COMPLETE BLOOD COUNT 9433122 MCH 30.9 pg 9 Unknown COMPLETE BLOOD COUNT 7755644 MCHC 33.5 g/dL 9 Unknown COMPLETE BLOOD COUNT 3695893 PLATELET COUNT 245 10e9/L Unknown COMPLETE BLOOD COUNT 0052981 Mean Plt Volume 8.3 fL Unknown COMPLETE BLOOD COUNT 6362591 Neut Auto 86.8 % 9 Unknown COMPLETE BLOOD COUNT 2650317 Lymph Auto 10.8 % 03/27/20 19 Unknown COMPLETE BLOOD COUNT 3114987 Mcminn Auto 2.1 % 9 Unknown COMPLETE BLOOD COUNT 7582157 RDW 12.9 % 9 Unknown COMPLETE BLOOD COUNT 6811553 Eos Auto 0.1 % 9 Unknown COMPLETE BLOOD COUNT 8139648 Baso Auto 0.2 % 9 Unknown COMPLETE BLOOD COUNT 2689292 Neutrophil Abs 7.64 10e9/L Unknown COMPLETE BLOOD COUNT 7584358 Lymphocyte Abs 0.95 10e9/L Unknown COMPLETE BLOOD COUNT 8981216 Monocyte Abs 0.18 10e9/L 02/27 Unknown COMPLETE BLOOD COUNT 2996367 Eosinophil Abs 0.01 10e9/L Unknown COMPLETE BLOOD COUNT 1440834 RDW-SD 42.6 fL 9 Unknown COMPLETE BLOOD COUNT 0100906 Basophil Abs 0.02 10e9/L 02/27 Unknown COMPREHENSIVE METABOLIC 14378 AST 16 U/L 2018 Unknown COMPREHENSIVE METABOLIC 64814 ALT 17 U/L 2018 Unknown COMPREHENSIVE METABOLIC 83785 BUN 8 mg/dL 2018 Unknown COMPREHENSIVE METABOLIC 16632 ALBUMIN 4.5 g/dL 2018 Unknown COMPREHENSIVE METABOLIC 44419 CHLORIDE 105 mmol/L 03/27 Unknown COMPREHENSIVE METABOLIC 88312 Bili Total 1.0 mg/dL 03/27 Unknown COMPREHENSIVE METABOLIC 84914 ALK PHOS 64 U/L 2018 Unknown COMPREHENSIVE METABOLIC 00760 SODIUM 139 mmol/L 03/27 Unknown COMPREHENSIVE METABOLIC 00172 CREATININE 0.70 mg/dL 02/27 Unknown COMPREHENSIVE METABOLIC 19895 CALCIUM 9.8 mg/dL 2018 Unknown COMPREHENSIVE METABOLIC 43985 POTASSIUM 4.0 mmol/L 03/27 Unknown COMPREHENSIVE METABOLIC 12698 Total Protein 6.7 g/dL Unknown COMPREHENSIVE METABOLIC 36132 Glucose 134 mg/dL 2018 Unknown COMPREHENSIVE METABOLIC 45255 Bicarbonate 26 mmol/L 02/27 Unknown COMPREHENSIVE METABOLIC 46283 AGAP 8 mmol/L 2018 Unknown THYROID STIMULATING HORMONE 21416 TSH 3.564 uIU/mL 03/27/2019 Unknown FREE T4 11235 T4 Free 0.80 ng/dL 10/29/2018 Unknown THYROID STIMULATING HORMONE 47378 TSH 5.703 uIU/mL 10/29/2018 Unknown THYROID STIMULATING HORMONE 89847 TSH 4.956 uIU/mL 10/02/2018 Unknown LIPID GROUP 66359 Cholesterol 164 mg/dL 10/02/2018 Unkno wn LIPID GROUP 29768 Triglyceride 71 mg/dL 10/02/2018 Unkn own LIPID GROUP 61460 HDL CHOLESTEROL 65 mg/dL 10/02/2018 U nknown LIPID GROUP 71745 Chol/HDL Ratio 2.52 ratio 10/02/2018 U nknown LIPID GROUP 95345 NON-HDL Chol 99 mg/dL 10/02/2018 Unkn own LIPID GROUP 35002 LDL Cholesterol 85 mg/dL 10/02/2018 U nknown GFR CALC 2618050 GFR Non Afr Amr >60 mL/min 10/02/2018 Un known GFR CALC 8067911 GFR Afr Amr >60 mL/min 10/02/2018 Unknow n COMPREHENSIVE METABOLIC 25016 AST 16 U/L 2018 Unknown COMPREHENSIVE METABOLIC 74013 ALT 15 U/L 2018 Unknown COMPREHENSIVE METABOLIC 39672 BUN 13 mg/dL 2018 Unknown COMPREHENSIVE METABOLIC 73754 ALBUMIN 4.5 g/dL 2018 Unknown COMPREHENSIVE METABOLIC 29902 CHLORIDE 107 mmol/L 10/02 Unknown COMPREHENSIVE METABOLIC 55888 Bili Total 0.8 mg/dL 10/02 Unknown COMPREHENSIVE METABOLIC 73107 ALK PHOS 57 U/L 2018 Unknown COMPREHENSIVE METABOLIC 88841 SODIUM 143 mmol/L 10/02 Unknown COMPREHENSIVE METABOLIC 79035 CREATININE 0.79 mg/dL 12/2018 Unknown COMPREHENSIVE METABOLIC 18927 CALCIUM 9.6 mg/dL 2018 Unknown COMPREHENSIVE METABOLIC 83989 POTASSIUM 4.3 mmol/L 10/02 Unknown COMPREHENSIVE METABOLIC 70179 Total Protein 6.4 g/dL Unknown COMPREHENSIVE METABOLIC 19609 Glucose 86 mg/dL 2018 Unknown COMPREHENSIVE METABOLIC 29309 Bicarbonate 28 mmol/L 12/2018 Unknown COMPREHENSIVE METABOLIC 06890 AGAP 8 mmol/L 2018 Unknown FREE T4 16176 T4 Free 0.91 ng/dL 10/02/2018 Unknown COMPLETE BLOOD COUNT 7430763 WBC 6.1 10e9/L 10/02/19 19 Unknown COMPLETE BLOOD COUNT 9159391 RBC 4.80 10e12/L 2018 Unknown COMPLETE BLOOD COUNT 7350425 HEMOGLOBIN 14.8 g/dL 10/02/19 19 Unknown COMPLETE BLOOD COUNT 0657980 HEMATOCRIT 44.0 % 10/02/19 19 Unknown COMPLETE BLOOD COUNT 9513985 MCV 91.7 fL 9 Unknown COMPLETE BLOOD COUNT 2438406 MCH 30.8 pg 9 Unknown COMPLETE BLOOD COUNT 9178593 MCHC 33.6 g/dL 9 Unknown COMPLETE BLOOD COUNT 0199944 PLATELET COUNT 203 10e9/L 12/2018 Unknown COMPLETE BLOOD COUNT 8878170 Mean Plt Volume 8.9 fL 12/2018 Unknown COMPLETE BLOOD COUNT 8007033 Neut Auto 66.7 % 9 Unknown COMPLETE BLOOD COUNT 4298724 Lymph Auto 24.8 % 10/02/19 19 Unknown COMPLETE BLOOD COUNT 4867548 Mcminn Auto 4.4 % 9 Unknown COMPLETE BLOOD COUNT 0082935 RDW 12.8 % 9 Unknown COMPLETE BLOOD COUNT 3510063 Eos Auto 3.8 % 9 Unknown COMPLETE BLOOD COUNT 5420967 Baso Auto 0.3 % 9 Unknown COMPLETE BLOOD COUNT 1831209 Neutrophil Abs 4.07 10e9/L Unknown COMPLETE BLOOD COUNT 0906039 Lymphocyte Abs 1.51 10e9/L Unknown COMPLETE BLOOD COUNT 5055427 Monocyte Abs 0.27 10e9/L 12/2018 Unknown COMPLETE BLOOD COUNT 3858232 Eosinophil Abs 0.23 10e9/L Unknown COMPLETE BLOOD COUNT 2971524 RDW-SD 41.7 fL 02/05/201 9 Unknown COMPLETE BLOOD COUNT 5233518 Basophil Abs 0.02 10e9/L 0 12/2018 Unknown VITAMIN D TOTAL (25 HYDROXY) 77380 Vitamin D 25 [place] 54.1 ng/mL 10/02/2018 Unknown Procedures Procedure Codes Date PPPS, subseq visit CPT-4: G0439 07/01/2021 ROUTINE VENIPUNCTURE CPT-4: 53086 07/16/2020 COMPREHEN METABOLIC PANEL CPT-4: 91405 07/16/2020 COMPLETE CBC W/AUTO DIFF WBC CPT-4: 35391 07/16/2020 RBC SED RATE AUTOMATED CPT-4: 60742 07/16/2020 VITAMIN D TOTAL (25 HYDROXY) CPT-4: 65878 07/16/2020 C-REACTIVE PROTEIN CPT-4: 59007 07/16/2020 ROUTINE VENIPUNCTURE CPT-4: 44520 03/27/2019 COMPLETE CBC W/AUTO DIFF WBC CPT-4: 26218 03/27/2019 COMPREHEN METABOLIC PANEL CPT-4: 70040 03/27/2019 ASSAY THYROID STIM HORMONE CPT-4: 85581 03/27/2019 ASSAY OF FREE THYROXINE CPT-4: 33075 03/27/2019 LIPID PANEL CPT-4: 22000 03/27/2019 ASSAY TRIIODOTHYRONINE (T3) CPT-4: 94826 03/27/2019 A1C HPLC CPT-4: 46033 03/27/2019 ROUTINE VENIPUNCTURE CPT-4: 55795 12/27/2018 ASSAY OF FREE THYROXINE CPT-4: 33154 12/27/2018 ASSAY THYROID STIM HORMONE CPT-4: 84839 12/27/2018 ROUTINE VENIPUNCTURE CPT-4: 94471 10/29/2018 ASSAY THYROID STIM HORMONE CPT-4: 60332 10/29/2018 ASSAY OF FREE THYROXINE CPT-4: 53257 10/29/2018 ROUTINE VENIPUNCTURE CPT-4: 08263 10/02/2018 ASSAY OF FREE THYROXINE CPT-4: 49940 10/02/2018 ASSAY THYROID STIM HORMONE CPT-4: 90907 10/02/2018 COMPREHEN METABOLIC PANEL CPT-4: 13066 10/02/2018 COMPLETE CBC W/AUTO DIFF WBC CPT-4: 34085 10/02/2018 LIPID PANEL CPT-4: 03437 10/02/2018 VITAMIN D TOTAL (25 HYDROXY) CPT-4: 64304 10/02/2018 Vital Signs Date Vital 07/01/2021 Blood Pressure 1: 126/72 Code: 8480-6 Heart Rate 1: 68 bpm Respiratory Rate: 20 bpm Temperature: 36.8 (C) / 98.2 (F) Weight: 150 lbs Code : 33815-7 12/22/2020 Blood Pressure 1: 125/62 Code: 8480-6 Heart Rate 1: 72 bpm Respiratory Rate: 15 bpm SpO2: 98% Temperature: 36.2 (C) / 97.1 (F) We ight: 150 lbs Code: 59408-8 07/16/2020 Blood Pressure 1: 136/82 Code: 8480-6 Heart Rate 1: 76 bpm Respiratory Rate: 20 bpm SpO2: 96% Temperature: 36.2 (C) / 97.2 (F) We ight: 152 lbs Code: 41868-0 03/25/2020 Blood Pressure 1: 116/76 Code: 8480-6 He art Rate 1: 79 bpm 10/08/2019 Blood Pressure 1: 124/80 Code: 8480-6 Heart Rate 1: 84 bpm Respiratory Rate: 20 bpm SpO2: 98% Temperature: 36.9 (C) / 98.4 (F) We ight: 158 lbs Code: 42321-2 08/19/2019 Blood Pressure 1: 126/80 Code: 8480-6 Heart Rate 1: 72 bpm Respiratory Rate: 20 bpm SpO2: 98% Temperature: 36.7 (C) / 98.1 (F) We ight: 156 lbs Code: 30510-6 07/22/2019 Blood Pressure 1: 126/76 Code: 8480-6 Heart Rate 1: 80 bpm Respiratory Rate: 18 bpm SpO2: 95% Temperature: 36.8 (C) / 98.2 (F) We ight: 153 lbs Code: 40281-9 07/01/2019 Blood Pressure 1: 124/82 Code: 8480-6 Heart Rate 1: 74 bpm SpO2: 99% 06/13/2019 Blood Pressure 1: 144/90 Code: 8480-6 Heart Rate 1: 96 bpm Respiratory Rate: 18 bpm SpO2: 96% Temperature: 36.8 (C) / 98.2 (F) We ight: 152 lbs Code: 49756-5 05/28/2019 Blood Pressure 1: 114/66 Code: 8480-6 Heart Rate 1: 100 bpm Respiratory Rate: 20 bpm SpO2: 95% Temperature: 36.7 (C) / 98.1 (F) We ight: 150 lbs Code: 31717-9 04/24/2019 Blood Pressure 1: 134/80 Code: 8480-6 Heart Rate 1: 96 bpm Respiratory Rate: 20 bpm SpO2: 97% Temperature: 36.6 (C) / 97.8 (F) We ight: 152 lbs Code: 53419-5 04/16/2019 Blood Pressure 1: 162/98 Code: 8480-6 Heart Rate 1: 95 bpm SpO2: 97% Temperature: 36.4 (C) / 97.6 (F) Weight: 149 lbs Code: 73410-8 04/04/2019 Blood Pressure 1: 142/78 Code: 8480-6 Heart Rate 1: 92 bpm Respiratory Rate: 20 bpm SpO2: 96% Temperature: 36.8 (C) / 98.2 (F) We ight: 152 lbs Code: 27125-0 03/29/2019 Blood Pressure 1: 142/98 Code: 8480-6 Heart Rate 1: 113 bpm SpO2: 97% Temperature: 36.8 (C) / 98.2 (F) 03/27/2019 Blood Pressure 1: 158/100 Code: 8480-6 Heart Rat e 1: 115 bpm SpO2: 93% Temperature: 36.8 (C) / 98.3 (F) Weight: 150 lbs Code : 61624-5 01/28/2019 Blood Pressure 1: 134/84 Code: 8480-6 Heart Rate 1: 92 bpm Respiratory Rate: 20 bpm SpO2: 96% Temperature: 36.7 (C) / 98.0 (F) We ight: 153 lbs Code: 99663-1 12/27/2018 Blood Pressure 1: 148/86 Code: 8480-6 Heart Rate 1: 84 bpm Respiratory Rate: 20 bpm SpO2: 95% Temperature: 36.7 (C) / 98.0 (F) We ight: 154 lbs Code: 93903-8 10/02/2018 Blood Pressure 1: 150/90 Code: 8480-6 Heart Rate 1: 93 bpm Respiratory Rate: 18 bpm SpO2: 98% Temperature: 36.2 (C) / 97.1 (F) We ight: 150 lbs Code: 98461-7 10/01/2018 Blood Pressure 1: 136/74 Code: 8480-6 BMI: 27.4 Code: 97373-5 Heart Rate 1: 92 bpm Height: 5'2" Code: 8302-2 Respiratory Rate: 20 bpm SpO2: 96% Temperature: 36.9 (C) / 98.4 (F) Weight: 150 lbs Code: 96776-4 Functional Status No Functional Status data Reason [...] visit Encounters Encounter Performer Location Codes Date ([id number]) OFFICE/OUTPATIENT VISIT EST Diagnosis: Essential (primary) hypertension[ICD10: I10] Diagnosis: Hypothyroidism[ICD10: E03.9] Diagnosis: Hyperglycemia, unspecified[ICD10: R73.9] Diagnosis: Mixed hyperlipidemia[ICD10: E78.2] Diagnosis: Thyroid nodule[ICD10: E04.1] 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] Landy Doming[facility] CPT-4: 39827 12/22/2020 ([id number]) OFFICE/OUTPATIENT VISIT EST Diagnosis: Upper leg pain[ICD10: M79.659] Diagnosis: Upper arm pain[ICD10: M79.629] Diagnosis: Vitamin D deficiency[ICD10: E55.9] Landy Dominguez [facility] CPT-4: 30384 07/16/2020 ([id number]) OFFICE/OUTPATIENT VISIT EST Diagnosis: Muscle cramping[ICD10: R25.2] Diagnosis: Hypothyroidism[ICD10: E03.9] Landy GARCIA DO [facility] CPT-4: 69277 07/07/2020 ([id number]) OFFICE/OUTPATIENT VISIT EST Diagnosis: Essential hypertension[ICD10: I10] Diagnosis: Mixed hyperlipidemia[ICD10: E78.2] Landy Garcia [facility] CPT-4: 36749 03/25/2020 ([id number]) OFFICE/OUTPATIENT VISIT EST Diagnosis: Essential (primary) hypertension[ICD10: I10] Diagnosis: 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] Landy Garcia [facility] CPT-4: 60400 12/23/2019 ([id number]) OFFICE/OUTPATIENT VISIT EST Diagnosis: Essential (primary) hypertension[ICD10: I10] Diagnosis: Thyroid nodule[ICD10: E04.1] Landy GARCIA DO [facility] CPT-4: 74569 10/08/2019 ([id number]) OFFICE/OUTPATIENT VISIT EST Diagnosis: Essential (primary) hypertension[ICD10: I10] Landy GARCIA DO [facility] CPT-4: 09143 08/19/2019 ([id number]) OFFICE/OUTPATIENT VISIT EST Diagnosis: Essential (primary) hypertension[ICD10: I10] Landy GARCIA DO [facility] CPT-4: 13264 07/22/2019 ([id number]) NURSE/OUTPATIENT VISIT EST Diagnosis: Essential (primary) hypertension[ICD10: I10] Landy GARCIA DO [facility] CPT-4: 05793 07/01/2019 ([id number]) OFFICE/OUTPATIENT VISIT EST Diagnosis: Essential (primary) hypertension[ICD10: I10] Diagnosis: Dizziness and giddiness[ICD10: R42] Landy GARCIA DO [facility] CPT-4: 96406 06/13/2019 ([id number]) OFFICE/OUTPATIENT VISIT EST Diagnosis: Essential (primary) hypertension[ICD10: I10] Landy GARCIA DO [facility] CPT-4: 52534 05/28/2019 ([id number]) OFFICE/OUTPATIENT VISIT EST Diagnosis: Essential (primary) hypertension[ICD10: I10] Diagnosis: 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] Landy GARCIA DO [facility] CPT-4: 76183 04/24/2019 ([id number]) OFFICE/OUTPATIENT VISIT EST Diagnosis: Essential (primary) hypertension[ICD10: I10] Diagnosis: Generalized anxiety disorder[ICD10: F41.1] Alexia GARCIA DO [facility] CPT-4: 05714 04/16/2019 ([id number]) OFFICE/OUTPATIENT VISIT EST Diagnosis: Essential (primary) hypertension[ICD10: I10] Diagnosis: 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] Landy GARCIA DO [facility] CPT-4: 99233 04/04/2019 ([id number]) NURSE/OUTPATIENT VISIT EST Diagnosis: Essential (primary) hypertension[ICD10: I10] Landy GARCIA DO [facility] CPT-4: 85491 03/29/2019 ([id number]) OFFICE/OUTPATIENT VISIT EST Diagnosis: Essential (primary) hypertension[ICD10: I10] 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] Diagnosis: Mixed hyperlipidemia[ICD10: E78.2] Diagnosis: Headache[ICD10: R51] Diagnosis: Generalized anxiety disorder[ICD10: F41.1] Diagnosis: Disorder of thyroid, unspecified[ICD10: E07.9] Diagnosis: Hyperglycemia, unspecified[ICD10: R73.9] Alexia Theodore PIO KOHLI Alberto GARCIA [employer] [facility] CPT-4: 48374 03/27/2019 ([id number]) OFFICE/OUTPATIENT VISIT EST Diagnosis: Essential (primary) hypertension[ICD10: I10] Diagnosis: Mixed hyperlipidemia[ICD10: E78.2] Landy HERMOSILLO TEA Alberto GARCIA [employer] [facility] CPT-4: 15270 01/28/2019 ([id number]) OFFICE/OUTPATIENT VISIT EST Diagnosis: Essential (primary) hypertension[ICD10: I10] 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] Diagnosis: Other fatigue[ICD10: R53.83] Landy [employer] CPT-4: 63295 12/27/2018 ([id number]) NURSE/OUTPATIENT VISIT EST Diagnosis: Other specified abnormal findings of blood chemistry[ICD10: R79.89] Landy BILL Kira [employer] CPT-4: 24093 10/29/2018 ([id number]) OFFICE/OUTPATIENT VISIT EST Diagnosis: Mixed hyperlipidemia[ICD10: E78.2] Diagnosis: Essential (primary) hypertension[ICD10: I10] Diagnosis: Age-related osteoporosis without current pathological fracture[ICD10: M81.0] Diagnosis: Follicular cyst of the skin and subcutaneous tissue, unspecified[ICD10: L72.9] Landy BILL [employer] CPT-4 : 66863 10/02/2018 OFFICE/OUTPATIENT VISIT NEW Diagnosis: Essential (primary) hypertension[ICD10: I10] Diagnosis: Mixed hyperlipidemia[ICD10: E78.2] Diagnosis: Age-related osteoporosis without current pathological fracture[ICD10: M81.0] Landy [employer] CPT-4: 84820 10/01/2018 Plan of Care Planned Activity Notes Codes Status Date Visit Diagnosis Plan: Essential (primary) hypertension Discussion: Stable ICD-9 : 401.9 ICD-10 : I10 07/01/2021 Visit Diagnosis Plan: Hypothyroidism Discussion: Incre ase levothyroxine to 50mcg daily and repeat labs in 3mos ICD-9 : 244.9 ICD-10 : E03.9 07/01/2021 Visit Diagnosis Plan: Encounter for gene [facility] adult medical examination without abnormal findings Discussion: [...] : E78.2 12/22/2020 Appointment: Landy Garcia WPtel: [address] [place] [address] US MEDICATION REVIEW 12/22/2020 Appointment: Landy Garcia WPtel: [address] [place], [place] [address] US RESCHEDULED 07/20/2020 Visit Diagnosis Plan: Upper leg pain Discussion: Updat e lab--CBC, CMP, ESR, CRP, Vitamin D ICD-9 : 729.5 ICD-10 : M79.659 07/16/2020 Appointment: Landy Garcia WPtel: [address] [place] [address] ACUTE ILLNESS 07/16/2020 Visit Diagnosis Plan: Muscle [...] : E03.9 07/07/2020 Appointment: Landy Garcia WPtel: [address] [place] [address] TELEMEDICINE 07/07/2020 Patient Education: meloxicam- [employer] Coupon [phone] https://www.[employer]/resources/getResource/61/3a95ayxw-v281-3348-u3 Completed 07/07/2020 Patient Education: baclofen- [employer] Coupon [phone] [id number] https://www.[employer]/resources/getResource/61/98639372-0bf5-4833-od Completed 07/07/2020 Visit Diagnosis Plan: Mixed hyperlipidemia Discussion: Mediterranean diet Combination of cardio and weight bearing exercise Recheck lipids in 6mos ICD-9 : 272.4 ICD-10 : E78.2 03/25/2020 Visit Diagnosis Plan: Essential hypertension Discussio n: Stable Lab discussed ICD-9 : 401.9 ICD-10 : I10 03/25/2020 Appointment: Landy Garcia WPtel: [address] [place] [address] TELEMEDICINE 03/25/2020 Patient Education: levothyroxine- [employer] Coupon 12 [id number] https://www.[employer]/resources/getResource/61/69490274-69e9-1023-ho Completed 03/25/2020 Visit Diagnosis Plan: Essential (primary) hypertension Discussion: Doxy.me video visit done Stable on current meds Follow Up: 3 months ICD-9 : 401.9 ICD-10 : I10 12/23/2019 Visit Diagnosis Plan: Nontoxic single thyroid nodule D iscussion: Feels better with the low dose thyroid--will check lab and fwup in 3mos ICD-9 : 241.0 ICD-10 : E04.1 12/23/2019 Appointment: Landy Garcia WPtel: [address] [place] [address] confirmed TELEMEDICINE 12/23/2019 Patient Education: levothyroxine- [employer] Coupon 10 [id number] https://www.[employer]/samplemd/resources/getResource/61/y6342654-gr8x-5a2o-y5 Completed 12/23/2019 Referral: Mike Munguia WPtel: [address] [address] [place] Referral Initiated 10/26/2019 Visit Diagnosis Plan: Essential (primary) hypertension Discussion: Stable Recheck 2mos with lab ICD-9 : 401.9 ICD-10 : I10 10/08/2019 Visit Diagnosis Plan: Thyroid nodule Discussion: Updat e thyroid nodule ICD-9 : 241.0 ICD-10 : E04.1 10/08/2019 Appointment: Landy Garcia WPtel: [address] [place] [address] US MEDICATION REVIEW 10/08/2019 Care Plan: MAMMOGRAM SCREENING LOINC : 2 6347-5 Pending 10/08/2019 Appointment: Landy Garcia WPtel: [address] [place] [address] US CANCELED 09/09/2019 Visit Diagnosis Plan: Essential (primary) hypertension Discussion: Stable on current meds Lab in 2mos then fwup Follow Up: 2 months Discussion: Stable on current meds Follow Up: 2 months ICD-9 : 401.9 ICD-10 : I10 08/19/2019 Appointment: Landy Garcia WPtel: [address] [place] [address] US FOLLOW UP 08/19/2019 Visit Diagnosis Plan: Essential (primary) hypertension Discussion: Stable on current meds Recheck 1month ICD-9 : 401.9 ICD-10 : I10 07/22/2019 Appointment: Landy Garcia WPtel: [address] [place], [place] [phone] US FOLLOW UP 07/22/2019 Appointment: Landy Garcia WPtel: [address] [place] [address] US CANCELED 07/08/2019 Appointment: Landy Garciatel: [address] [place], [place] [phone] US BP CHECK 07/01/2019 Visit Diagnosis Plan: [...] : I10 06/13/2019 Appointment: Landy Garcia WPtel: [address] [place] [address] US ACUTE ILLNESS 06/13/2019 Patient Education: metoprolol succinate- OptimizeRX Co upon [id number] https://www.[employer]/resources/getResource/61/dj5291p8-c3qb-8740-m6 Completed 06/13/2019 Visit Diagnosis Plan: Essential (primary) hypertension Discussion: Stable Monitor BP Recheck 3mos ICD-9 : 401.9 ICD-10 : I10 05/28/2019 Appointment: Landy Garcia WPtel: [address] [place] [address] US FOLLOW UP 05/28/2019 Visit Diagnosis Plan: Essential (primary) hypertension Discussion: Stable with increased dose Follow Up: 1 months ICD-9 : 401.9 ICD-10 : I10 04/24/2019 Visit Diagnosis Plan: Nontoxic single thyroid nodule D iscussion: Recheck US in 6mos ICD-9 : 241.0 ICD-10 : E04.1 04/24/2019 Appointment: Landy Garcia WPtel: [address] [place], [place] [phone] US FOLLOW UP 04/24/2019 Appointment: [facility] [address] [facility] [place] CANCELED 04/23/2019 Visit Diagnosis Plan: Essential [...] : 300.02 ICD-10 : F41.1 04/16/2019 Appointment: Landy Garcia [facility]el[facility] [address] [facility] [place] CANCELED 04/16/2019 Appointment: Alexia Theodore [address] [facility] Hospital Follow Up 04/16/2019 Patient Education: venlafaxine- [employer] Coupon [phone] https://www.[employer]/samplemd/resources/getResource/61/2i7o1506-745b-24cg-00 Completed 04/16/2019 Patient Education: lisinopril- [employer] Coupon [phone] https://www.[employer]/samplemd/resources/getResource/61/wj341mkn-709o-14ug-jh Completed 04/16/2019 Patient Education: High Blood Pressure [...] E04.1 04/04/2019 Appointment: Landy Garcia WPtel: [address] [facility] US FOLLOW UP 04/04/2019 Appointment: Landy Garcia WPtel: [address] [facility] US BP CHECK 03/29/2019 Visit Diagnosis [...] ICD-10 : E07.9 03/27/2019 Appointment: Alexia Theodore [address] [place], [place] [id number] ACUTE ILLNESS 03/27/2019 Patient Education: High Blood Pressure Co mpleted 03/27/2019 Care Plan: US EXAM OF HEAD AND NECK thyroid NANI C : 81509-4 Pending 03/27/2019 Visit Diagnosis Plan: Essential (primary) hypertension Discussion: Stable ICD-9 : 401.9 ICD-10 : I10 01/28/2019 Visit Diagnosis Plan: Mixed hyperlipidemia Discussion: Mediterranean diet Combination of cardio and weight bearing exercise Check lipids with fwup in 2mos ICD-9 : 272.4 ICD-10 : E78.2 01/28/2019 Appointment: Landy Garcia WPtel: [address] [place] [address] FOLLOW UP 01/28/2019 Visit Diagnosis Plan: Essential (primary) hypertension Discussion: Increase lisinopril to 20mg daily Recheck 4 weeks ICD-9 : 401.9 ICD-10 : I10 12/27/2018 Visit Diagnosis Plan: Benign neoplasm of cerebral meni nges Discussion: Will be following with neurosurgery at ICD-9 : 225.2 ICD-10 : D32.0 12/27/2018 Appointment: Landy Garcia WPtel: [address] [place] [address] Follow Up 12/27/2018 Patient Education: venlafaxine- [employer] Coupon [phone] https://www.[employer]/resources/getResource/61/[email or web address]-94 Completed 12/27/2018 Appointment: Landy Garcia WPtel: [address] [place] [address] US CANCELED 12/24/2018 Appointment: Landy Garcia WPtel: [address] [place], [place] [id number] US LAB 10/29/2018 Visit Diagnosis Plan: Follicular cyst of the skin and subcutaneous tissue, unspecified Discussion: Reassurance given Will monit or Did offer dermatology referral ICD-9 : 706.2 ICD-10 : L72.9 10/02/2018 Appointment: Landy Garcia WPtel: [address] [place], [place] [phone] US LAB 10/02/2018 Appointment: Landy Garcia WPtel: [address] [place] [address] ACUTE ILLNESS 10/02/2018 Visit Diagnosis Plan: Mixed [...] I10 10/01/2018 Appointment: Landy Garcia [facility] [address] [facility] NEW PATIENT 10/01/2018 Instructions No Instructions Medical Equipment No Medical Equipment data Health Concerns Section Health Concerns data not found Goals Section Goals data not found Interventions Section Interventions data not found Health Status Evaluations/Outcomes Section Health Status Evaluations/Outcomes data not found Advance Directives No Advance Directive data
--- OUTSIDE RECORDS SUMMARY | 2021-08-06 09:30 | XMS REPORT | CCD ---
Author Author Va Garcia D.O. 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 Name Role Phone PP Unavailable CCM Unavailable Summary Purpose Interface Exchange Insurance Providers Payer name Policy type / Coverage type Covered constitution party ID Effective Begin Date Effective End Date WPS MEDICARE PART [place] Medicare Part B [id number] 2018 Unknown [employer] Medicare Part B [id number] 2018 Unknown Family History Family History data not found Social History Social History Element Codes Description Effective Dates Marital status Unknown 10/01/2018 Number of children Unknown 1 10/01/2018 Employment Unknown 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/01/[address]: 3979205 Former smoker 10/01/[address]: 472536647 Never drinks alcohol 2018 Has the patient [...] Start Date Stop Date Status Fill Instructions lisinopril 20 mg tablet RxNorm: 300191 Take 1 Tablet(s) Oral QAM 01/30/2022 Active venlafaxine ER 150 mg capsule,extended release 24 hr RxNorm: 226706 Take 1 Capsule(s) Oral QD 06/17/2021 09/14/2021 Active atorvastatin 20 mg tablet RxNorm: 221851 Take 1 Tablet(s) Oral QD 1 09/06/2021 Active levothyroxine 50 mcg tablet RxNorm: 781213 Take 1 Tablet(s) Oral QD 06/09/2021 09/06/2021 Active metoprolol succinate ER 25 mg tablet,extended release 24 hr RxNorm: 764763 TAKE 1 TABLET BY MOUTH EVERY EVENING 06/09/2021 09/06/2021 Active lisinopril 20 mg tablet RxNorm: 626584 Take 1 Tablet(s) Oral QAM 03/28/2021 Inactive metoprolol succinate ER 25 mg tablet,extended release 24 hr RxNorm: 085137 TAKE 1 TABLET BY MOUTH EVERY EVENING 03/15/2021 03/15/2021 Inactive atorvastatin 20 mg tablet RxNorm: 757782 Take 1 Tablet(s) Oral QD 0 03/12/2021 03/12/2021 Inactive levothyroxine 50 mcg tablet RxNorm: 524779 Take 1 Tablet(s) Oral QD 2021 2021 Inactive venlafaxine ER 150 mg capsule,extended release 24 hr RxNorm: 452718 1 Capsule(s) Oral QD 12/23/2020 12/23/2020 Inactive atorvastatin 20 mg tablet RxNorm: 751047 TAKE 1 TABLET BY MOUTH EVERY DAY 12/14/2020 12/14/2020 Inactive levothyroxine 50 mcg tablet RxNorm: 113269 TAKE 1 TABLE T BY MOUTH DAILY. TO REPLACE THE 25MCG. NEED UPDATED LABS 12/10/2020 12/10/2020 Inactive Patient requests 90 days supply levothyroxine 50 mcg tablet RxNorm: 045111 TAKE 1 TABLE T BY MOUTH DAILY: TO REPLACE THE 25MCG Need updated Labs 12/10/2020 12/09/2020 Inactive lisinopril 20 mg tablet RxNorm: 438181 1 Tablet(s) Oral QAM Patient needs appointment before next refill 12/02/2020 12/02/2020 Inactive N eeds follow up appointment/updated fasting labs lisinopril 20 mg tablet RxNorm: 538642 1 Tablet(s) Oral QAM Patient needs appointment before next refill 12/02/2020 12/01/2020 Inactive N eeds follow up appointment/updated fasting labs lisinopril 20 mg tablet RxNorm: 390979 1 Tablet(s) Oral QAM Patient needs appointment before next refill 10/30/2020 12/01/2020 Inactive baclofen 10 mg tablet RxNorm: 344791 TAKE 1/2 TABLET BY MOUTH EVERY EVENING NEEDED FOR MUSCLE SPASM 10/23/2020 12/21/2020 Inactive baclofen 10 mg tablet RxNorm: 599945 TAKE 1/2 TABLET BY MOUTH EVERY EVENING NEEDED FOR MUSCLE SPASM 09/27/2020 10/22/2020 Inactive venlafaxine ER 150 mg capsule,extended release 24 hr RxNorm: 240247 TAKE 1 CAPSULE BY MOUTH EVERY DAY 09/24/2020 12/22/2020 Inactive meloxicam 7.5 mg tablet RxNorm: 368592 TAKE 1 TABLET BY MOUTH DAILY NEEDED FOR PAIN; REPLACES 15 MG DOSE 09/22/2020 12/20/2020 Inactive metoprolol succinate ER 25 mg tablet,extended release 24 hr RxNorm: 140979 TAKE 1 TABLET BY MOUTH EVERY EVENING 09/21/2020 09/21/2020 Inactive levothyroxine 50 mcg tablet RxNorm: 980637 TAKE 1 TABLE T BY MOUTH DAILY: TO REPLACE THE 25MCG 09/14/2020 12/09/2020 Inactive atorvastatin 20 mg tablet RxNorm: 623406 TAKE 1 TABLET BY MOUTH EVERY DAY 09/11/2020 12/09/2020 Inactive baclofen 10 mg tablet RxNorm: 546160 TAKE 1/2 TABLET BY MOUTH EVERY EVENING NEEDED FOR MUSCLE SPASM 08/30/2020 09/26/2020 Inactive meloxicam 7.5 mg tablet RxNorm: 155270 1 Tablet(s) Oral QD as needed for pain replaces 15mg dose 08/25/2020 08/24/2020 Inactive meloxicam 7.5 mg tablet RxNorm: 896997 1 Tablet(s) Oral QD as needed for pain replaces 15mg dose 08/25/2020 08/25/2020 Inactive baclofen 10 mg tablet RxNorm: 733957 TAKE 1/2 TABLET BY MOUTH EVERY EVENING NEEDED FOR MUSCLE SPASM 08/03/2020 08/29/2020 Inactive meloxicam 15 mg tablet RxNorm: 254433 TAKE 1 TABLET BY MOUTH EVERY MORNING FOR PAIN 08/03/2020 08/24/2020 Inactive baclofen 10 mg tablet RxNorm: 343054 1/2 Tablet(s) Oral QPM as needed for muscle spasm 07/07/2020 08/02/2020 Inactive meloxicam 15 mg tablet RxNorm: 224754 1 Tablet(s) Oral QAM for pain 07/07/2020 08/02/2020 Inactive venlafaxine ER 150 mg capsule,extended release 24 hr RxNorm: 198543 TAKE 1 CAPSULE BY MOUTH EVERY DAY 06/29/2020 09/23/2020 Inactive metoprolol succinate ER 25 mg tablet,extended release 24 hr RxNorm: 265238 TAKE 1 TABLET BY MOUTH EVERY EVENING 06/23/2020 09/20/2020 Inactive levothyroxine 50 mcg tablet RxNorm: 366159 TAKE 1 TABLE T BY MOUTH DAILY: TO REPLACE THE 25MCG 06/19/2020 09/13/2020 Inactive atorvastatin 20 mg tablet RxNorm: 535599 TAKE 1 TABLET BY MOUTH EVERY DAY 06/15/2020 09/10/2020 Inactive levothyroxine 50 mcg tablet RxNorm: 693677 1 Tablet(s) Oral QD replaces 25mcg day 03/25/2020 06/18/2020 Inactive atorvastatin 20 mg tablet RxNorm: 771850 TAKE 1 TABLET BY MOUTH EVERY DAY 03/16/2020 06/13/2020 Inactive lisinopril 20 mg tablet RxNorm: 692306 1 Tablet(s) Oral QAM 020 10/29/2020 Inactive venlafaxine ER 150 mg capsule,extended release 24 hr RxNorm: 236004 TAKE 1 CAPSULE BY MOUTH EVERY DAY 01/06/2020 06/28/2020 Inactive metoprolol succinate ER 25 mg tablet,extended release 24 hr RxNorm: 962640 TAKE 1 TABLET BY MOUTH EVERY EVENING 12/30/2019 06/22/2020 Inactive atorvastatin 20 mg tablet RxNorm: 379486 1 Tablet(s) Oral QD 201907/06/2020 Inactive levothyroxine 25 mcg tablet RxNorm: 082271 1 Tablet(s) Oral QD 11/2703/24/2020 Inactive lisinopril 20 mg tablet RxNorm: 672305 1 Tablet(s) Oral QAM rep laces 40mg dose 11/18/2019 02/11/2020 Inactive levothyroxine 25 mcg tablet RxNorm: 817206 1 Tablet(s) Oral QD 12/201912/22/2019 Inactive levothyroxine 25 mcg tablet RxNorm: 164426 1 Tablet(s) Oral QD 12/201910/30/2019 Inactive lisinopril 20 mg tablet RxNorm: 299727 1 Tablet(s) Oral QAM rep laces 40mg dose 09/11/2019 02/12/2020 Inactive venlafaxine ER 150 mg capsule,extended release 24 hr RxNorm: 085504 1 CAPSULE(S) PO QD 07/15/2019 01/05/2020 Inactive atorvastatin 20 mg tablet RxNorm: 464821 1 Tablet(s) Oral QD 201812/22/2019 Inactive atorvastatin 20 mg tablet RxNorm: 125925 1 Tablet(s) Oral QD 201806/24/2019 Inactive metoprolol succinate ER 25 mg tablet,extended release 24 hr RxNorm: 876894 1 Tablet(s) Oral QPM 06/13/2019 06/12/2019 Inactive metoprolol succinate ER 25 mg tablet,extended release 24 hr RxNorm: 987302 1 TABLET(S) ORAL QPM 06/13/2019 12/10/2019 Inactive Patient req uests 90 days supply lisinopril 20 mg tablet RxNorm: 702118 1 Tablet(s) Oral QAM rep laces 40mg dose 06/13/2019 09/10/2019 Inactive lisinopril 40 mg tablet RxNorm: 607554 1 Tablet(s) PO QD 04/16/2019 1 Inactive venlafaxine ER 150 mg capsule,extended release 24 hr RxNorm: 530293 1 Capsule(s) PO QD 04/16/2019 07/14/2019 Inactive atorvastatin 20 mg tablet RxNorm: 110263 1 Tablet(s) PO QD 12/28/1912/26/2018 Inactive lisinopril 20 mg tablet RxNorm: 965008 1 Tablet(s) PO QD replac es 10mg dose 12/27/2018 04/03/2019 Inactive atorvastatin 20 mg tablet RxNorm: 211837 1 Tablet(s) PO QD 05/0206/23/2019 Inactive venlafaxine ER 75 mg capsule,extended release 24 hr RxNorm: 464622 1 Capsule(s) PO QD 12/27/2018 04/15/2019 Inactive lisinopril 20 mg tablet RxNorm: 551687 1 Tablet(s) PO QD replac es 10mg dose 12/27/2018 12/26/2018 Inactive venlafaxine ER 75 mg capsule,extended release 24 hr RxNorm: 610462 1 Capsule(s) PO QD 12/27/2018 12/26/2018 Inactive Benadryl 25 mg capsule RxNorm: 0623449 Capsule(s) PO as needed 2018 Active melatonin 5 mg tablet RxNorm: 696101 1 Tablet(s) PO QHS 01/28/2019 Active docusate sodium 100 mg tablet RxNorm: 8900611 Tablet(s) PO as neede d 10/01/2018 Active Vitamin D3 5,000 unit tablet RxNorm: 604492 1 Tablet(s) PO QD 019 Active Prolia 60 mg/mL subcutaneous syringe RxNorm: 072423 1 M illiliter(s) SQ every 6 months 10/01/2018 Active lisinopril 10 mg tablet RxNorm: 349588 1 Tablet(s) PO QD 12/27/2018 0 12/26/2018 Inactive venlafaxine ER 75 mg capsule,extended release 24 hr RxNorm: 117816 1 Capsule(s) PO QD 12/27/2018 12/26/2018 Inactive lisinopril 20 mg tablet RxNorm: 756095 2 Tablet(s) PO QD 04/16/2019 0 04/15/2019 Inactive atorvastatin 20 mg tablet RxNorm: 885618 1 Tablet(s) PO QD 12/28/19 19 12/26/2018 Inactive Medication Administered No Medication Administered data Immunizations Vaccine Codes Dose Date Status Shingrix CVX: 141 04/05/2019 Results Observation Observation Code Item Item Code Result Date S ervice Location COMPREHENSIVE METABOLIC 20455 AST 12 U/L 2019 Unknown COMPREHENSIVE METABOLIC 42096 ALT 11 U/L 2019 Unknown COMPREHENSIVE METABOLIC 71275 BUN 11 mg/dL 2019 Unknown COMPREHENSIVE METABOLIC 31437 ALBUMIN 4.3 g/dL 2019 Unknown COMPREHENSIVE METABOLIC 38638 CHLORIDE 100 mmol/L 07/16 Unknown COMPREHENSIVE METABOLIC 90776 Bili Total 0.4 mg/dL 07/16 Unknown COMPREHENSIVE METABOLIC 99508 ALK PHOS 75 U/L 2019 Unknown COMPREHENSIVE METABOLIC 79038 SODIUM 136 mmol/L 07/16 Unknown COMPREHENSIVE METABOLIC 81459 CREATININE 0.79 mg/dL 06/28 Unknown COMPREHENSIVE METABOLIC 26476 CALCIUM 9.6 mg/dL 2019 Unknown COMPREHENSIVE METABOLIC 51759 POTASSIUM 4.5 mmol/L 07/16 Unknown COMPREHENSIVE METABOLIC 20564 Total Protein 6.7 g/dL Unknown COMPREHENSIVE METABOLIC 90170 Glucose 74 mg/dL 2019 Unknown COMPREHENSIVE METABOLIC 94523 Bicarbonate 26 mmol/L 06/28 Unknown COMPREHENSIVE METABOLIC 25372 AGAP 10 mmol/L 2019 Unknown COMPLETE BLOOD COUNT 7145321 WBC 7.4 10e9/L 07/16/20 20 Unknown COMPLETE BLOOD COUNT 4775624 RBC 4.29 10e12/L 2019 Unknown COMPLETE BLOOD COUNT 2171816 HEMOGLOBIN 13.2 g/dL 07/16/20 20 Unknown COMPLETE BLOOD COUNT 5265985 HEMATOCRIT 40.2 % 07/16/20 20 Unknown COMPLETE BLOOD COUNT 0519920 MCV 93.7 fL 0 Unknown COMPLETE BLOOD COUNT [id number] MCH 30.8 pg 0 Unknown COMPLETE BLOOD COUNT 7444496 MCHC 32.8 g/dL 0 Unknown COMPLETE BLOOD COUNT 5726393 PLATELET COUNT 294 10e9/L Unknown COMPLETE BLOOD COUNT 4783807 Mean Plt Volume 8.3 fL Unknown COMPLETE BLOOD COUNT 6302281 Neut Auto 64.6 % 0 Unknown COMPLETE BLOOD COUNT 1874717 Lymph Auto 24.0 % 07/16/20 20 Unknown COMPLETE BLOOD COUNT 1683773 [place] Auto 9.5 % 0 Unknown COMPLETE BLOOD COUNT 2637455 Eos Auto 1.5 % 0 Unknown COMPLETE BLOOD COUNT 6466586 RDW 12.6 % 0 Unknown COMPLETE BLOOD COUNT 7072532 Baso Auto 0.4 % 0 Unknown COMPLETE BLOOD COUNT 8071583 Neutrophil Abs 4.78 10e9/L Unknown COMPLETE BLOOD COUNT 6157503 Lymphocyte Abs 1.78 10e9/L Unknown COMPLETE BLOOD COUNT 4372752 Monocyte Abs 0.70 10e9/L 06/28 Unknown COMPLETE BLOOD COUNT 8916438 Eosinophil Abs 0.11 10e9/L Unknown COMPLETE BLOOD COUNT 4961702 RDW-SD 42.5 fL 0 Unknown COMPLETE BLOOD COUNT 1443779 Basophil Abs 0.03 10e9/L 06/28 Unknown GFR CALC [id number] GFR Non Afr Amr >60 mL/min 07/16/2020 Un known GFR CALC 0834222 GFR Afr Amr >60 mL/min 07/16/2020 Unknow n C-REACTIVE PROTEIN (CRP) QUANT 46853 C-Reactive Prot 0.3 mg/dL 07/16/2020 Unknown ERYTHROCYTE SEDIMENTATION RATE 41915 Sed Rate 9 mm/hr 07/16/2020 Unknown VITAMIN D TOTAL (25 HYDROXY) 58011 Vitamin D 25 [place] 72.1 ng/mL 07/16/2020 Unknown GLYCOSYLATED HEMOGLOBIN TEST 30653 Hgb A1c 85841-9 5.9 % 0 03/28/2019 Unknown MEAN GLUC 9741085 Calc Mean Gluc 123 mg/dL 03/28/2019 Unkn own GFR CALC 5173340 GFR Afr Amr >60 mL/min 03/27/2019 Unknow n GFR CALC 3877699 GFR Non Afr Amr >60 mL/min 03/27/2019 Un known ASSAY TRIIODOTHYRONINE (T3) 57054 T3 Total 0.98 ng/mL 0 03/27/2019 Unknown LIPID GROUP 12282 Cholesterol 175 mg/dL 03/27/2019 Unkno wn LIPID GROUP 24471 Triglyceride 61 mg/dL 03/27/2019 Unkn own LIPID GROUP 48177 HDL CHOLESTEROL 67 mg/dL 03/27/2019 U nknown LIPID GROUP 60416 Chol/HDL Ratio 2.61 ratio 03/27/2019 U nknown LIPID GROUP 44532 NON-HDL Chol 108 mg/dL 03/27/2019 Unkn own LIPID GROUP 12743 LDL Cholesterol 96 mg/dL 03/27/2019 U nknown FREE T4 61395 T4 Free 0.85 ng/dL 03/27/2019 Unknown COMPLETE BLOOD COUNT 4157413 WBC 8.8 10e9/L 03/27/20 19 Unknown COMPLETE BLOOD COUNT 8621141 RBC 4.76 10e12/L 2018 Unknown COMPLETE BLOOD COUNT 7598890 HEMOGLOBIN 14.7 g/dL 03/27/20 19 Unknown COMPLETE BLOOD COUNT 9308821 HEMATOCRIT 43.9 % 03/27/20 19 Unknown COMPLETE BLOOD COUNT 5310646 MCV 92.2 fL 9 Unknown COMPLETE BLOOD COUNT 8097227 MCH 30.9 pg 9 Unknown COMPLETE BLOOD COUNT 4794248 MCHC 33.5 g/dL 9 Unknown COMPLETE BLOOD COUNT 7879019 PLATELET COUNT 245 10e9/L Unknown COMPLETE BLOOD COUNT 8259929 Mean Plt Volume 8.3 fL Unknown COMPLETE BLOOD COUNT 1035267 Neut Auto 86.8 % 9 Unknown COMPLETE BLOOD COUNT 8027007 Lymph Auto 10.8 % 03/27/20 19 Unknown COMPLETE BLOOD COUNT 6624699 [place] Auto 2.1 % 9 Unknown COMPLETE BLOOD COUNT 6205055 RDW 12.9 % 9 Unknown COMPLETE BLOOD COUNT 6641798 Eos Auto 0.1 % 9 Unknown COMPLETE BLOOD COUNT 2818863 Baso Auto 0.2 % 9 Unknown COMPLETE BLOOD COUNT 8349864 Neutrophil Abs 7.64 10e9/L Unknown COMPLETE BLOOD COUNT 2058512 Lymphocyte Abs 0.95 10e9/L Unknown COMPLETE BLOOD COUNT 5025552 Monocyte Abs 0.18 10e9/L 02/27 Unknown COMPLETE BLOOD COUNT 1418578 Eosinophil Abs 0.01 10e9/L Unknown COMPLETE BLOOD COUNT 8723949 Basophil Abs 0.02 10e9/L 02/27 Unknown COMPLETE BLOOD COUNT 8169166 RDW-SD 42.6 fL 9 Unknown COMPREHENSIVE METABOLIC 73921 AST 16 U/L 2018 Unknown COMPREHENSIVE METABOLIC 68761 ALT 17 U/L 2018 Unknown COMPREHENSIVE METABOLIC 54951 BUN 8 mg/dL 2018 Unknown COMPREHENSIVE METABOLIC 27723 ALBUMIN 4.5 g/dL 2018 Unknown COMPREHENSIVE METABOLIC 04860 CHLORIDE 105 mmol/L 03/27 Unknown COMPREHENSIVE METABOLIC 00718 Bili Total 1.0 mg/dL 03/27 Unknown COMPREHENSIVE METABOLIC 25499 ALK PHOS 64 U/L 2018 Unknown COMPREHENSIVE METABOLIC 92988 SODIUM 139 mmol/L 03/27 Unknown COMPREHENSIVE METABOLIC 02373 CREATININE 0.70 mg/dL 02/27 Unknown COMPREHENSIVE METABOLIC 26629 CALCIUM 9.8 mg/dL 2018 Unknown COMPREHENSIVE METABOLIC 73765 POTASSIUM 4.0 mmol/L 03/27 Unknown COMPREHENSIVE METABOLIC 01263 Total Protein 6.7 g/dL Unknown COMPREHENSIVE METABOLIC 67058 Glucose 134 mg/dL 2018 Unknown COMPREHENSIVE METABOLIC 48812 Bicarbonate 26 mmol/L 02/27 Unknown COMPREHENSIVE METABOLIC 60238 AGAP 8 mmol/L 2018 Unknown THYROID STIMULATING HORMONE 72845 TSH 3.564 uIU/mL 03/27/2019 Unknown FREE T4 81979 T4 Free 0.80 ng/dL 10/29/2018 Unknown THYROID STIMULATING HORMONE 96600 TSH 5.703 uIU/mL 10/29/2018 Unknown THYROID STIMULATING HORMONE 09695 TSH 4.956 uIU/mL 10/02/2018 Unknown LIPID GROUP 65591 Cholesterol 164 mg/dL 10/02/2018 Unkno wn LIPID GROUP 31442 Triglyceride 71 mg/dL 10/02/2018 Unkn own LIPID GROUP 71146 HDL CHOLESTEROL 65 mg/dL 10/02/2018 U nknown LIPID GROUP 45639 Chol/HDL Ratio 2.52 ratio 10/02/2018 U nknown LIPID GROUP 56846 NON-HDL Chol 99 mg/dL 10/02/2018 Unkn own LIPID GROUP 41173 LDL Cholesterol 85 mg/dL 10/02/2018 U nknown GFR CALC 2166691 GFR Non Afr Amr >60 mL/min 10/02/2018 Un known GFR CALC 7138756 GFR Afr Amr >60 mL/min 10/02/2018 Unknow n COMPREHENSIVE METABOLIC 45623 AST 16 U/L 2018 Unknown COMPREHENSIVE METABOLIC 33730 ALT 15 U/L 2018 Unknown COMPREHENSIVE METABOLIC 62014 BUN 13 mg/dL 2018 Unknown COMPREHENSIVE METABOLIC 07328 ALBUMIN 4.5 g/dL 2018 Unknown COMPREHENSIVE METABOLIC 06545 CHLORIDE 107 mmol/L 10/02 Unknown COMPREHENSIVE METABOLIC 74261 Bili Total 0.8 mg/dL 10/02 Unknown COMPREHENSIVE METABOLIC 80335 ALK PHOS 57 U/L 2018 Unknown COMPREHENSIVE METABOLIC 01510 SODIUM 143 mmol/L 10/02 Unknown COMPREHENSIVE METABOLIC 93825 CREATININE 0.79 mg/dL 12/2018 Unknown COMPREHENSIVE METABOLIC 01454 CALCIUM 9.6 mg/dL 2018 Unknown COMPREHENSIVE METABOLIC 61156 POTASSIUM 4.3 mmol/L 10/02 Unknown COMPREHENSIVE METABOLIC 13519 Total Protein 6.4 g/dL Unknown COMPREHENSIVE METABOLIC 97845 Glucose 86 mg/dL 2018 Unknown COMPREHENSIVE METABOLIC 52471 Bicarbonate 28 mmol/L 12/2018 Unknown COMPREHENSIVE METABOLIC 95742 AGAP 8 mmol/L 2018 Unknown FREE T4 36502 T4 Free 0.91 ng/dL 10/02/2018 Unknown COMPLETE BLOOD COUNT 8236807 WBC 6.1 10e9/L 10/02/19 19 Unknown COMPLETE BLOOD COUNT 9182480 RBC 4.80 10e12/L 2018 Unknown COMPLETE BLOOD COUNT 1644624 HEMOGLOBIN 14.8 g/dL 10/02/19 19 Unknown COMPLETE BLOOD COUNT 7748213 HEMATOCRIT 44.0 % 10/02/19 19 Unknown COMPLETE BLOOD COUNT 6144510 MCV 91.7 fL 9 Unknown COMPLETE BLOOD COUNT 3452114 MCH 30.8 pg 9 Unknown COMPLETE BLOOD COUNT 2945535 MCHC 33.6 g/dL 9 Unknown COMPLETE BLOOD COUNT 6229746 PLATELET COUNT 203 10e9/L 12/2018 Unknown COMPLETE BLOOD COUNT 2439534 Mean Plt Volume 8.9 fL 12/2018 Unknown COMPLETE BLOOD COUNT 0976103 Neut Auto 66.7 % 9 Unknown COMPLETE BLOOD COUNT 6277012 Lymph Auto 24.8 % 10/02/19 19 Unknown COMPLETE BLOOD COUNT 8591214 [place] Auto 4.4 % 9 Unknown COMPLETE BLOOD COUNT 6831242 Eos Auto 3.8 % 9 Unknown COMPLETE BLOOD COUNT 2144167 RDW 12.8 % 9 Unknown COMPLETE BLOOD COUNT 4052802 Baso Auto 0.3 % 9 Unknown COMPLETE BLOOD COUNT 0316289 Neutrophil Abs 4.07 10e9/L Unknown COMPLETE BLOOD COUNT 8904837 Lymphocyte Abs 1.51 10e9/L Unknown COMPLETE BLOOD COUNT 6324649 Monocyte Abs 0.27 10e9/L 12/2018 Unknown COMPLETE BLOOD COUNT 6896293 Eosinophil Abs 0.23 10e9/L Unknown COMPLETE BLOOD COUNT 9123289 RDW-SD 41.7 fL 9 Unknown COMPLETE BLOOD COUNT 7796277 Basophil Abs 0.02 10e9/L 12/2018 Unknown VITAMIN D TOTAL (25 HYDROXY) 37386 Vitamin D 25 [place] 54.1 ng/mL 10/02/2018 Unknown Procedures Procedure Codes Date PPPS, subseq visit CPT-4: G0439 07/01/2021 ROUTINE VENIPUNCTURE CPT-4: 45984 07/16/2020 COMPREHEN METABOLIC PANEL CPT-4: 65591 07/16/2020 COMPLETE CBC W/AUTO DIFF WBC CPT-4: 84873 07/16/2020 RBC SED RATE AUTOMATED CPT-4: 18642 07/16/2020 VITAMIN D TOTAL (25 HYDROXY) CPT-4: 17063 07/16/2020 C-REACTIVE PROTEIN CPT-4: 01217 07/16/2020 ROUTINE VENIPUNCTURE CPT-4: 18953 03/27/2019 COMPLETE CBC W/AUTO DIFF WBC CPT-4: 74608 03/27/2019 COMPREHEN METABOLIC PANEL CPT-4: 73005 03/27/2019 ASSAY THYROID STIM HORMONE CPT-4: 12985 03/27/2019 ASSAY OF FREE THYROXINE CPT-4: 91310 03/27/2019 LIPID PANEL CPT-4: 68565 03/27/2019 ASSAY TRIIODOTHYRONINE (T3) CPT-4: 91707 03/27/2019 A1C HPLC CPT-4: 55177 03/27/2019 ROUTINE VENIPUNCTURE CPT-4: 96960 12/27/2018 ASSAY OF FREE THYROXINE CPT-4: 01410 12/27/2018 ASSAY THYROID STIM HORMONE CPT-4: 00854 12/27/2018 ROUTINE VENIPUNCTURE CPT-4: 64139 10/29/2018 ASSAY THYROID STIM HORMONE CPT-4: 25078 10/29/2018 ASSAY OF FREE THYROXINE CPT-4: 86562 10/29/2018 ROUTINE VENIPUNCTURE CPT-4: 94146 10/02/2018 ASSAY OF FREE THYROXINE CPT-4: 99539 10/02/2018 ASSAY THYROID STIM HORMONE CPT-4: 34208 10/02/2018 COMPREHEN METABOLIC PANEL CPT-4: 40879 10/02/2018 COMPLETE CBC W/AUTO DIFF WBC CPT-4: 14535 10/02/2018 LIPID PANEL CPT-4: 92273 10/02/2018 VITAMIN D TOTAL (25 HYDROXY) CPT-4: 17664 10/02/2018 Vital Signs Date Vital 07/01/2021 Blood Pressure 1: 126/72 Code: 8480-6 Heart Rate 1: 68 bpm Respiratory Rate: 20 bpm Temperature: 36.8 (C) / 98.2 (F) Weight: 150 lbs Code : 82439-2 12/22/2020 Blood Pressure 1: 125/62 Code: 8480-6 Heart Rate 1: 72 bpm Respiratory Rate: 15 bpm SpO2: 98% Temperature: 36.2 (C) / 97.1 (F) We ight: 150 lbs Code: 96633-6 07/16/2020 Blood Pressure 1: 136/82 Code: 8480-6 Heart Rate 1: 76 bpm Respiratory Rate: 20 bpm SpO2: 96% Temperature: 36.2 (C) / 97.2 (F) We ight: 152 lbs Code: 09314-0 03/25/2020 Blood Pressure 1: 116/76 Code: 8480-6 He art Rate 1: 79 bpm 10/08/2019 Blood Pressure 1: 124/80 Code: 8480-6 Heart Rate 1: 84 bpm Respiratory Rate: 20 bpm SpO2: 98% Temperature: 36.9 (C) / 98.4 (F) We ight: 158 lbs Code: 97755-8 08/19/2019 Blood Pressure 1: 126/80 Code: 8480-6 Heart Rate 1: 72 bpm Respiratory Rate: 20 bpm SpO2: 98% Temperature: 36.7 (C) / 98.1 (F) We ight: 156 lbs Code: 62870-6 07/22/2019 Blood Pressure 1: 126/76 Code: 8480-6 Heart Rate 1: 80 bpm Respiratory Rate: 18 bpm SpO2: 95% Temperature: 36.8 (C) / 98.2 (F) We ight: 153 lbs Code: 95049-3 07/01/2019 Blood Pressure 1: 124/82 Code: 8480-6 Heart Rate 1: 74 bpm SpO2: 99% 06/13/2019 Blood Pressure 1: 144/90 Code: 8480-6 Heart Rate 1: 96 bpm Respiratory Rate: 18 bpm SpO2: 96% Temperature: 36.8 (C) / 98.2 (F) We ight: 152 lbs Code: 03587-7 05/28/2019 Blood Pressure 1: 114/66 Code: 8480-6 Heart Rate 1: 100 bpm Respiratory Rate: 20 bpm SpO2: 95% Temperature: 36.7 (C) / 98.1 (F) We ight: 150 lbs Code: 36936-0 04/24/2019 Blood Pressure 1: 134/80 Code: 8480-6 Heart Rate 1: 96 bpm Respiratory Rate: 20 bpm SpO2: 97% Temperature: 36.6 (C) / 97.8 (F) We ight: 152 lbs Code: 86475-8 04/16/2019 Blood Pressure 1: 162/98 Code: 8480-6 Heart Rate 1: 95 bpm SpO2: 97% Temperature: 36.4 (C) / 97.6 (F) Weight: 149 lbs Code: 83420-0 04/04/2019 Blood Pressure 1: 142/78 Code: 8480-6 Heart Rate 1: 92 bpm Respiratory Rate: 20 bpm SpO2: 96% Temperature: 36.8 (C) / 98.2 (F) We ight: 152 lbs Code: 20973-3 03/29/2019 Blood Pressure 1: 142/98 Code: 8480-6 Heart Rate 1: 113 bpm SpO2: 97% Temperature: 36.8 (C) / 98.2 (F) 03/27/2019 Blood Pressure 1: 158/100 Code: 8480-6 Heart Rat e 1: 115 bpm SpO2: 93% Temperature: 36.8 (C) / 98.3 (F) Weight: 150 lbs Code : 44203-3 01/28/2019 Blood Pressure 1: 134/84 Code: 8480-6 Heart Rate 1: 92 bpm Respiratory Rate: 20 bpm SpO2: 96% Temperature: 36.7 (C) / 98.0 (F) We ight: 153 lbs Code: 65335-4 12/27/2018 Blood Pressure 1: 148/86 Code: 8480-6 Heart Rate 1: 84 bpm Respiratory Rate: 20 bpm SpO2: 95% Temperature: 36.7 (C) / 98.0 (F) We ight: 154 lbs Code: 23166-7 10/02/2018 Blood Pressure 1: 150/90 Code: 8480-6 Heart Rate 1: 93 bpm Respiratory Rate: 18 bpm SpO2: 98% Temperature: 36.2 (C) / 97.1 (F) We ight: 150 lbs Code: 09514-1 10/01/2018 Blood Pressure 1: 136/74 Code: 8480-6 BMI: 27.4 Code: 74087-1 Heart Rate 1: 92 bpm Height: 5'2" Code: 8302-2 Respiratory Rate: 20 bpm SpO2: 96% Temperature: 36.9 (C) / 98.4 (F) Weight: 150 lbs Code: 95608-0 Functional Status No Functional Status data Reason For Visit Reason For Visit Effective Dates Notes well woman exam (65+ years) 07/01/2021 Medicare Wel lness follow up 12/22/2020 follow up 07/16/2020 arthralgia(s) 07/07/2020 follow up 03/25/2020 follow up 12/23/2019 follow up 10/08/2019 follow up 08/19/2019 follow up 07/22/2019 blood pressure check 07/01/2019 follow up 06/13/2019 fwup follow up 05/28/2019 follow up 04/24/2019 follow up 04/16/2019 follow up 04/04/2019 blood pressure check 03/29/2019 headache 03/27/2019 follow up 01/28/2019 follow up 12/27/2018 Hospital [facility] lab draw 10/29/2018 mole check 10/02/2018 unsure if this is a mole or just benign ~generic 10/01/2018 New Patient---establ ishing visit Encounters Encounter Performer Location Codes Date ([id number]) OFFICE/OUTPATIENT VISIT EST Diagnosis: Essential (primary) hypertension[ICD10: I10] Diagnosis: Hypothyroidism[ICD10: E03.9] Diagnosis: Hyperglycemia, unspecified[ICD10: R73.9] Diagnosis: Mixed hyperlipidemia[ICD10: E78.2] Diagnosis: Thyroid nodule[ICD10: E04.1] 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] Landy GARCIA DO [facility] CPT-4: 71044 12/22/2020 ([id number]) OFFICE/OUTPATIENT VISIT EST Diagnosis: Upper leg pain[ICD10: M79.659] Diagnosis: Upper arm pain[ICD10: M79.629] Diagnosis: Vitamin D deficiency[ICD10: E55.9] Landy HERMOSILLO TEA Alberto GARCIA [facility] CPT-4: 53668 07/16/2020 ([id number]) OFFICE/OUTPATIENT VISIT EST Diagnosis: Muscle cramping[ICD10: R25.2] Diagnosis: Hypothyroidism[ICD10: E03.9] Landy GARCIA DO [facility] CPT-4: 95264 07/07/2020 ([id number]) OFFICE/OUTPATIENT VISIT EST Diagnosis: Essential hypertension[ICD10: I10] Diagnosis: Mixed hyperlipidemia[ICD10: E78.2] Landy Garcia [facility] CPT-4: 61040 03/25/2020 ([id number]) OFFICE/OUTPATIENT VISIT EST Diagnosis: Essential (primary) hypertension[ICD10: I10] Diagnosis: 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] Landy Garcia [facility] CPT-4: 43365 12/23/2019 ([id number]) OFFICE/OUTPATIENT VISIT EST Diagnosis: Essential (primary) hypertension[ICD10: I10] Diagnosis: Thyroid nodule[ICD10: E04.1] Landy HERZOGLINE Alberto GARCIA HALFPOPS [facility] CPT-4: 52824 10/08/2019 ([id number]) OFFICE/OUTPATIENT VISIT EST Diagnosis: Essential (primary) hypertension[ICD10: I10] Landy GARCIA DO [facility] CPT-4: 53748 08/19/2019 ([id number]) OFFICE/OUTPATIENT VISIT EST Diagnosis: Essential (primary) hypertension[ICD10: I10] Landy GARCIA DO [facility] CPT-4: 39986 07/22/2019 ([id number]) NURSE/OUTPATIENT VISIT EST Diagnosis: Essential (primary) hypertension[ICD10: I10] Landy GARCIA DO [facility] CPT-4: 63957 07/01/2019 ([id number]) OFFICE/OUTPATIENT VISIT EST Diagnosis: Essential (primary) hypertension[ICD10: I10] Diagnosis: Dizziness and giddiness[ICD10: R42] Landy NOVAK Alberto GARCIA [facility] CPT-4: 57262 06/13/2019 ([id number]) OFFICE/OUTPATIENT VISIT EST Diagnosis: Essential (primary) hypertension[ICD10: I10] Landy GARCIA [facility] CPT-4: 06387 05/28/2019 ([id number]) OFFICE/OUTPATIENT VISIT EST Diagnosis: Essential (primary) hypertension[ICD10: I10] Diagnosis: 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] Landy GARCIA [facility] CPT-4: 60340 04/24/2019 ([id number]) OFFICE/OUTPATIENT VISIT EST Diagnosis: Essential (primary) hypertension[ICD10: I10] Diagnosis: Generalized anxiety disorder[ICD10: F41.1] Alexia GARCIA [facility] CPT-4: 86644 04/16/2019 ([id number]) OFFICE/OUTPATIENT VISIT EST Diagnosis: Essential (primary) hypertension[ICD10: I10] Diagnosis: 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] Landy GARCIA [facility] CPT-4: 39736 04/04/2019 ([id number]) NURSE/OUTPATIENT VISIT EST Diagnosis: Essential (primary) hypertension[ICD10: I10] Landy GARCIA [facility] CPT-4: 72965 03/29/2019 ([id number]) OFFICE/OUTPATIENT VISIT EST Diagnosis: Essential (primary) hypertension[ICD10: I10] 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] Diagnosis: Mixed hyperlipidemia[ICD10: E78.2] Diagnosis: Headache[ICD10: R51] Diagnosis: Generalized anxiety disorder[ICD10: F41.1] Diagnosis: Disorder of thyroid, unspecified[ICD10: E07.9] Diagnosis: Hyperglycemia, unspecified[ICD10: R73.9] Alexia Theodore PIO KOHLI Alberto GARCIA [facility] CPT-4: 42260 03/27/2019 ([id number]) OFFICE/OUTPATIENT VISIT EST Diagnosis: Essential (primary) hypertension[ICD10: I10] Diagnosis: Mixed hyperlipidemia[ICD10: E78.2] Landysindy [facility]AN[facility]reball CPT-4: 59493 01/28/2019 ([id number]) OFFICE/OUTPATIENT VISIT EST Diagnosis: Essential (primary) hypertension[ICD10: I10] 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] Diagnosis: Other fatigue[ICD10: R53.83] Landy GARCIA [facility] CPT-4: 69412 12/27/2018 ([id number]) NURSE/OUTPATIENT VISIT EST Diagnosis: Other specified abnormal findings of blood chemistry[ICD10: R79.89] Landy GARCIA [facility] CPT-4: 02689 10/29/2018 ([id number]) OFFICE/OUTPATIENT VISIT EST Diagnosis: Mixed hyperlipidemia[ICD10: E78.2] Diagnosis: Essential (primary) hypertension[ICD10: I10] Diagnosis: Age-related osteoporosis without current pathological fracture[ICD10: M81.0] Diagnosis: Follicular cyst of the skin and subcutaneous tissue, unspecified[ICD10: L72.9] Landy Dominguez JoMaJaSIDDHARTH[facility]reball CPT-4 : 61146 10/02/2018 OFFICE/OUTPATIENT VISIT NEW Diagnosis: Essential (primary) hypertension[ICD10: I10] Diagnosis: Mixed hyperlipidemia[ICD10: E78.2] Diagnosis: Age-related osteoporosis without current pathological fracture[ICD10: M81.0] Landy CORCORANFyreball CPT-4: 00688 10/01/2018 Plan of Care Planned Activity Notes Codes Status Date Visit Diagnosis Plan: Essential (primary) hypertension Discussion: Stable ICD-9 : 401.9 ICD-10 : I10 07/01/2021 Visit Diagnosis Plan: Hypothyroidism Discussion: Incre ase levothyroxine to 50mcg daily and repeat labs in 3mos ICD-9 : 244.9 ICD-10 : E03.9 07/01/2021 Visit Diagnosis Plan: Encounter for [facility] adult medical examination without abnormal findings Discussion: Mediterranean diet Combinati on of cardio and weight bearing exercise Had COVID booster and flu shot Lab discussed ICD-9 : V70.9 ICD-10 : Z00.00 07/01/2021 Visit Diagnosis Plan: Mixed hyperlipidemia Discussion: Lifestyle change and continue current meds Follow Up: 6 months ICD-9 : 272.4 ICD-10 : E78.2 07/01/2021 Appointment: Landy Garciatel: [address] [place] [address] Annual Well Visit 07/01/2021 Visit Diagnosis Plan: Hypothyroidism Discussion: Stabl [...] Diagnosis Plan: Benign neoplasm of cerebral junei megan Discussion: Following with doctor in --next fwup in February ICD-9 : 225.2 ICD-10 : D32.0 12/22/2020 Visit Diagnosis Plan: Thyroid nodule Discussion: Ranjana price with Dr. Munguia ICD-9 : 241.0 ICD-10 : E04.1 12/22/2020 Visit Diagnosis Plan: Mixed hyperlipidemia Discussion: Continue atorvastatin and repeat CMP, lipids in 6mos ICD-9 : 272.4 ICD-10 : E78.2 12/22/2020 Appointment: Landy Garciatel: [address] [place], [place] [phone] [place] MEDICATION REVIEW 12/22/2020 Appointment: Landy Garciatel: [address] [place] [address] [place] RESCHEDULED 07/20/2020 Visit Diagnosis Plan: Upper leg pain Discussion: Updat e lab--CBC, CMP, ESR, CRP, Vitamin D ICD-9 : 729.5 ICD-10 : M79.659 07/16/2020 Appointment: Landy Garciatel: [address] [place] [address] ACUTE ILLNESS 07/16/2020 Visit Diagnosis Plan: Muscle [...] : E03.9 07/07/2020 Appointment: Landy Garcia WPtel: [facility]9 [facility] TELEMEDICINE 07/07/2020 Patient Education: meloxicam- [employer] Coupon [id number] https://www.Vend/samplemd/resources/getResource/61/4k03gxdn-v890-3884-o5 Completed 07/07/2020 Patient Education: baclofen- [employer] Coupon [id number] https://www.Vend/samplemd/resources/getResource/61/23349334-8zt5-5726-rz Completed 07/07/2020 Visit Diagnosis Plan: Mixed hyperlipidemia Discussion: Mediterranean diet Combination of cardio and weight bearing exercise Recheck lipids in 6mos ICD-9 : 272.4 ICD-10 : E78.2 03/25/2020 Visit Diagnosis Plan: Essential hypertension Discussio n: Stable Lab discussed ICD-9 : 401.9 ICD-10 : I10 03/25/2020 Appointment: Landy Garcia WPtel: [facility]9 [facility] TELEMEDICINE 03/25/2020 Patient Education: levothyroxine- [employer] Coupon 12 [id number] https://www.compareit4me.[facility]/samplemd/resources/getResource/61/49115795-09p3-3220-gk Completed 03/25/2020 Visit Diagnosis Plan: Essential (primary) hypertension Discussion: Hawk[employer]me video visit done Stable on current meds Follow Up: 3 months ICD-9 : 401.9 ICD-10 : I10 12/23/2019 Visit Diagnosis Plan: Nontoxic single thyroid nodule D iscussion: Feels better with the low dose thyroid--will check lab and fwup in 3mos ICD-9 : 241.0 ICD-10 : E04.1 12/23/2019 Appointment: Landy Garcia WPtel: [address] [place] [address] [place] confirmed TELEMEDICINE 12/23/2019 Patient Education: levothyroxine- [employer] Coupon 10 [id number] https://www.Vend/sampleHYLA Mobile/resources/getResource/61/c7256743-wj1l-5b4z-c4 Completed 12/23/2019 Referral: Mike Munguia WPtel: [address] [place] [address] [place] Referral Initiated 10/26/2019 Visit Diagnosis Plan: Essential (primary) hypertension Discussion: Stable Recheck 2mos with lab ICD-9 : 401.9 ICD-10 : I10 10/08/2019 Visit Diagnosis Plan: Thyroid nodule Discussion: Updat e thyroid nodule ICD-9 : 241.0 ICD-10 : E04.1 10/08/2019 Appointment: Landy Garcia WPtel: [address] [place] [address] [place] MEDICATION REVIEW 10/08/2019 Care Plan: MAMMOGRAM SCREENING LOINC : 2 6347-5 Pending 10/08/2019 Appointment: Landy Garcia WPtel: [address] [place] [address] US CANCELED 09/09/2019 Visit Diagnosis Plan: Essential (primary) hypertension Discussion: Stable on current meds Lab in 2mos then fwup Follow Up: 2 months Discussion: Stable on current meds Follow Up: 2 months ICD-9 : 401.9 ICD-10 : I10 08/19/2019 Appointment: Landy Garcia WPtel: [address] [place] [address] US FOLLOW UP 08/19/2019 Visit Diagnosis Plan: Essential (primary) hypertension Discussion: Stable on current meds Recheck 1month ICD-9 : 401.9 ICD-10 : I10 07/22/2019 Appointment: Landy Garcia WPtel: [address] [place] [address] US FOLLOW UP 07/22/2019 Appointment: Landy Garcia WPtel: [address] [place], [place] [phone] [place] CANCELED 07/08/2019 Appointment: Landy Garcia WPtel: [address] [place], [place] [phone] US BP CHECK 07/01/2019 Visit Diagnosis Plan: [...] : I10 06/13/2019 Appointment: Landy Garcia WPtel: [address] [place] [address] ACUTE ILLNESS 06/13/2019 Patient Education: metoprolol succinate- OptimizeRX Co upon [id number] https://www.Vend/ExpertFlyernv/resources/getResource/61/gm7125w7-c4wn-6509-e3 Completed 06/13/2019 Visit Diagnosis Plan: Essential (primary) hypertension Discussion: Stable Monitor BP Recheck 3mos ICD-9 : 401.9 ICD-10 : I10 05/28/2019 Appointment: Landy Garcia WPtel: [address] [place], [place] [phone] US FOLLOW UP 05/28/2019 Visit Diagnosis Plan: Essential (primary) hypertension Discussion: Stable with increased dose Follow Up: 1 months ICD-9 : 401.9 ICD-10 : I10 04/24/2019 Visit Diagnosis Plan: Nontoxic single thyroid nodule D iscussion: Recheck US in 6mos ICD-9 : 241.0 ICD-10 : E04.1 04/24/2019 Appointment: Landy Garcia WPtel: [address] [place], [place] [phone] FOLLOW UP 04/24/2019 Appointment: Landy Garcia WPtel: [address] [place], [place] [phone] US CANCELED 04/23/2019 Visit Diagnosis Plan: Essential [...] : F41.1 04/16/2019 Appointment: Landy Garcia WPtel: [address] [place], [place] [phone] US CANCELED 04/16/2019 Appointment: Alexia Theodore [address] [place] [address] Hospital Follow Up 04/16/2019 Patient Education: venlafaxine- Opt[employer] Coupon [phone] https://www.compareit4me.[facility]/samplemd/resources/getResource/61/5v6i7393-681i-83ei-26 Completed 04/16/2019 Patient Education: lisinopril- Optimize[employer] Coupon [phone] https://www.compareit4me.com/samplemd/resources/getResource/61/zq165msk-632r-93rl-dp Completed 04/16/2019 Patient Education: High Blood Pressure [...] E04.1 04/04/2019 Appointment: Landy Garcia WPtel: [address] [facility] US FOLLOW UP 04/04/2019 Appointment: Landy Garcia WPtel: [address] [address] [place] BP CHECK 03/29/2019 Visit Diagnosis Plan: [...] ICD-10 : E07.9 03/27/2019 Appointment: [facility] AC[facility] I[facility] 03/27/2019 Patient Education: High Blood Pressure Co mpleted 03/27/2019 Care Plan: US EXAM OF HEAD AND NECK thyroid LOIN C : 92713-8 Pending 03/27/2019 Visit Diagnosis Plan: Essential (primary) hypertension Discussion: Stable ICD-9 : 401.9 ICD-10 : I10 01/28/2019 Visit Diagnosis Plan: Mixed hyperlipidemia Discussion: Mediterranean diet Combination of cardio and weight bearing exercise Check lipids with fwup in 2mos ICD-9 : 272.4 ICD-10 : E78.2 01/28/2019 Appointment: Landy Garcia WPtel: [address] [place], [place] [phone] US FOLLOW UP 01/28/2019 Visit Diagnosis Plan: Essential (primary) hypertension Discussion: Increase lisinopril to 20mg daily Recheck 4 weeks ICD-9 : 401.9 ICD-10 : I10 12/27/2018 Visit Diagnosis Plan: Benign neoplasm of cerebral meni nges Discussion: Will be following with neurosurgery at ICD-9 : 225.2 ICD-10 : D32.0 12/27/2018 Appointment: Landy Garcia WPtel: [address] [place], [place] [phone] [facility] Follow Up 12/27/2018 Patient Education: venlafaxine- OptimizeRX Coupon [phone] https://www.compareit4me.[facility]/samplemd/resources/getResource/61/gf6x6e00-2125-8a4n-13 Completed 12/27/2018 Appointment: Landy Garcia WPtel: [address] [place], [place] [phone] US CANCELED 12/24/2018 Appointment: Landy Garcia WPtel: [address] [place], [place] [phone] US LAB 10/29/2018 Visit Diagnosis Plan: Follicular cyst of the skin and subcutaneous tissue, unspecified Discussion: Reassurance given Will monit or Did offer dermatology referral ICD-9 : 706.2 ICD-10 : L72.9 10/02/2018 Appointment: Landy Garcia WPtel: [address] [place], [place] [phone] US LAB 10/02/2018 [facility]ment[facility] [facility] [facility] 10/02/2018 Visit Diagnosis Plan: Mixed [...] I10 10/01/2018 Appointment: [facility] [facility] NEW [facility]IENT 10/01/2018 Instructions No Instructions Medical Equipment No Medical Equipment data Health Concerns Section Health Concerns data not found Goals Section Goals data not found Interventions Section Interventions data not found Health Status Evaluations/Outcomes Section Health Status Evaluations/Outcomes data not found Advance Directives No Advance Directive data
--- OUTSIDE RECORDS SUMMARY | 2021-08-06 09:30 | XMS REPORT | CCD ---
Author Author Va Garcia D.O. Organization [facility] Address [address] [place] [address] Phone Care Team Providers Care Logistics Technician Name Role Phone PP Unavailable CCM Unavailable Summary Purpose Interface Exchange Insurance Providers Payer name Policy type / Coverage type Covered libertarian ID Effective Begin Date Effective End Date WPS MEDICARE PART B [place] Medicare Part B [id number] 2018 Unknown [employer] Medicare Part B [id number] 2018 Unknown Family History Family History data not found Social History Social History Element Codes Description Effective Dates Marital status Unknown 10/01/2018 Number of children Unknown 1 10/01/2018 Employment Unknown Retired [employer] 10/01/[address]: 1368333 Former smoker 10/01/[address]: 705631689 Never drinks alcohol 2018 Has the patient [...] 150 mg capsule,extended release 24 hr RxNorm: 486616 Take 1 Capsule(s) Oral QD 06/17/2021 09/14/2021 Active atorvastatin 20 mg tablet RxNorm: 436581 Take 1 Tablet(s) Oral QD 1 09/06/2021 Active levothyroxine 50 mcg tablet RxNorm: 639047 Take 1 Tablet(s) Oral QD 06/09/2021 09/06/2021 Active metoprolol succinate ER 25 mg tablet,extended release 24 hr RxNorm: 633585 TAKE 1 TABLET BY MOUTH EVERY EVENING 06/09/2021 09/06/2021 Active lisinopril 20 mg tablet RxNorm: 969490 Take 1 Tablet(s) Oral QAM 06/25/2021 Inactive metoprolol succinate ER 25 mg tablet,extended release 24 hr RxNorm: 551799 TAKE 1 TABLET BY MOUTH EVERY EVENING 03/15/2021 03/15/2021 Inactive atorvastatin 20 mg tablet RxNorm: 150063 Take 1 Tablet(s) Oral QD 0 03/12/2021 03/12/2021 Inactive levothyroxine 50 mcg tablet RxNorm: 366902 Take 1 Tablet(s) Oral QD 2021 2021 Inactive venlafaxine ER 150 mg capsule,extended release 24 hr RxNorm: 192589 1 Capsule(s) Oral QD 12/23/2020 12/23/2020 Inactive atorvastatin 20 mg tablet RxNorm: 022127 TAKE 1 TABLET BY MOUTH EVERY DAY 12/14/2020 12/14/2020 Inactive levothyroxine 50 mcg tablet RxNorm: 318628 TAKE 1 TABLE T BY MOUTH DAILY. TO REPLACE THE 25MCG. NEED UPDATED LABS 12/10/2020 12/10/2020 Inactive Patient requests 90 days supply levothyroxine 50 mcg tablet RxNorm: 932082 TAKE 1 TABLE T BY MOUTH DAILY: TO REPLACE THE 25MCG Need updated Labs 12/10/2020 12/09/2020 Inactive lisinopril 20 mg tablet RxNorm: 904729 1 Tablet(s) Oral QAM Patient needs appointment before next refill 12/02/2020 12/02/2020 Inactive N eeds follow up appointment/updated fasting labs lisinopril 20 mg tablet RxNorm: 263776 1 Tablet(s) Oral QAM Patient needs appointment before next refill 12/02/2020 12/01/2020 Inactive N eeds follow up appointment/updated fasting labs lisinopril 20 mg tablet RxNorm: 596983 1 Tablet(s) Oral QAM Patient needs appointment before next refill 10/30/2020 12/01/2020 Inactive baclofen 10 mg tablet RxNorm: 100266 TAKE 1/2 TABLET BY MOUTH EVERY EVENING NEEDED FOR MUSCLE SPASM 10/23/2020 12/21/2020 Inactive baclofen 10 mg tablet RxNorm: 358765 TAKE 1/2 TABLET BY MOUTH EVERY EVENING NEEDED FOR MUSCLE SPASM 09/27/2020 10/22/2020 Inactive venlafaxine ER 150 mg capsule,extended release 24 hr RxNorm: 109863 TAKE 1 CAPSULE BY MOUTH EVERY DAY 09/24/2020 12/22/2020 Inactive meloxicam 7.5 mg tablet RxNorm: 889850 TAKE 1 TABLET BY MOUTH DAILY NEEDED FOR PAIN; REPLACES 15 MG DOSE 09/22/2020 12/20/2020 Inactive metoprolol succinate ER 25 mg tablet,extended release 24 hr RxNorm: 078810 TAKE 1 TABLET BY MOUTH EVERY EVENING 09/21/2020 09/21/2020 Inactive levothyroxine 50 mcg tablet RxNorm: 992831 TAKE 1 TABLE T BY MOUTH DAILY: TO REPLACE THE 25MCG 09/14/2020 12/09/2020 Inactive atorvastatin 20 mg tablet RxNorm: 723333 TAKE 1 TABLET BY MOUTH EVERY DAY 09/11/2020 12/09/2020 Inactive baclofen 10 mg tablet RxNorm: 917471 TAKE 1/2 TABLET BY MOUTH EVERY EVENING NEEDED FOR MUSCLE SPASM 08/30/2020 09/26/2020 Inactive meloxicam 7.5 mg tablet RxNorm: 652160 1 Tablet(s) Oral QD as needed for pain replaces 15mg dose 08/25/2020 08/24/2020 Inactive meloxicam 7.5 mg tablet RxNorm: 318691 1 Tablet(s) Oral QD as needed for pain replaces 15mg dose 08/25/2020 08/25/2020 Inactive baclofen 10 mg tablet RxNorm: 046554 TAKE 1/2 TABLET BY MOUTH EVERY EVENING NEEDED FOR MUSCLE SPASM 08/03/2020 08/29/2020 Inactive meloxicam 15 mg tablet RxNorm: 057988 TAKE 1 TABLET BY MOUTH EVERY MORNING FOR PAIN 08/03/2020 08/24/2020 Inactive baclofen 10 mg tablet RxNorm: 030576 1/2 Tablet(s) Oral QPM as needed for muscle spasm 07/07/2020 08/02/2020 Inactive meloxicam 15 mg tablet RxNorm: 531440 1 Tablet(s) Oral QAM for pain 07/07/2020 08/02/2020 Inactive venlafaxine ER 150 mg capsule,extended release 24 hr RxNorm: 210251 TAKE 1 CAPSULE BY MOUTH EVERY DAY 06/29/2020 09/23/2020 Inactive metoprolol succinate ER 25 mg tablet,extended release 24 hr RxNorm: 175426 TAKE 1 TABLET BY MOUTH EVERY EVENING 06/23/2020 09/20/2020 Inactive levothyroxine 50 mcg tablet RxNorm: 267112 TAKE 1 TABLE T BY MOUTH DAILY: TO REPLACE THE 25MCG 06/19/2020 09/13/2020 Inactive atorvastatin 20 mg tablet RxNorm: 283676 TAKE 1 TABLET BY MOUTH EVERY DAY 06/15/2020 09/10/2020 Inactive levothyroxine 50 mcg tablet RxNorm: 445007 1 Tablet(s) Oral QD replaces 25mcg 03/25/2020 06/18/2020 Inactive atorvastatin 20 mg tablet RxNorm: 986549 TAKE 1 TABLET BY MOUTH EVERY DAY 03/16/2020 06/13/2020 Inactive lisinopril 20 mg tablet RxNorm: 186444 1 Tablet(s) Oral QAM 020 10/29/2020 Inactive venlafaxine ER 150 mg capsule,extended release 24 hr RxNorm: 539941 TAKE 1 CAPSULE BY MOUTH EVERY DAY 01/06/2020 06/28/2020 Inactive metoprolol succinate ER 25 mg tablet,extended release 24 hr RxNorm: 943443 TAKE 1 TABLET BY MOUTH EVERY EVENING 12/30/2019 06/22/2020 Inactive atorvastatin 20 mg tablet RxNorm: 130490 1 Tablet(s) Oral QD 201907/06/2020 Inactive levothyroxine 25 mcg tablet RxNorm: 993055 1 Tablet(s) Oral QD 11/2703/24/2020 Inactive lisinopril 20 mg tablet RxNorm: 850607 1 Tablet(s) Oral QAM rep laces 40mg dose 11/18/2019 02/11/2020 Inactive levothyroxine 25 mcg tablet RxNorm: 524204 1 Tablet(s) Oral QD 12/201912/22/2019 Inactive levothyroxine 25 mcg tablet RxNorm: 118113 1 Tablet(s) Oral QD 12/201910/30/2019 Inactive lisinopril 20 mg tablet RxNorm: 096595 1 Tablet(s) Oral QAM rep laces 40mg dose 09/11/2019 02/12/2020 Inactive venlafaxine ER 150 mg capsule,extended release 24 hr RxNorm: 783800 1 CAPSULE(S) PO QD 07/15/2019 01/05/2020 Inactive atorvastatin 20 mg tablet RxNorm: 464650 1 Tablet(s) Oral QD 201812/22/2019 Inactive atorvastatin 20 mg tablet RxNorm: 755659 1 Tablet(s) Oral QD 201806/24/2019 Inactive metoprolol succinate ER 25 mg tablet,extended release 24 hr RxNorm: 952538 1 Tablet(s) Oral QPM 06/13/2019 06/12/2019 Inactive metoprolol succinate ER 25 mg tablet,extended release 24 hr RxNorm: 218856 1 TABLET(S) ORAL QPM 06/13/2019 12/10/2019 Inactive Patient req uests 90 days supply lisinopril 20 mg tablet RxNorm: 383115 1 Tablet(s) Oral QAM rep laces 40mg dose 06/13/2019 09/10/2019 Inactive lisinopril 40 mg tablet RxNorm: 097893 1 Tablet(s) PO QD 04/16/2019 1 Inactive venlafaxine ER 150 mg capsule,extended release 24 hr RxNorm: 531370 1 Capsule(s) PO QD 04/16/2019 07/14/2019 Inactive atorvastatin 20 mg tablet RxNorm: 998422 1 Tablet(s) PO QD 12/28/1912/26/2018 Inactive lisinopril 20 mg tablet RxNorm: 244127 1 Tablet(s) PO QD replac es 10mg dose 12/27/2018 04/03/2019 Inactive atorvastatin 20 mg tablet RxNorm: 835282 1 Tablet(s) PO QD 12/28/19 19 06/23/2019 Inactive venlafaxine ER 75 mg capsule,extended release 24 hr RxNorm: 415515 1 Capsule(s) PO QD 12/27/2018 04/15/2019 Inactive lisinopril 20 mg tablet RxNorm: 092680 1 Tablet(s) PO QD replac es 10mg dose 12/27/2018 12/26/2018 Inactive venlafaxine ER 75 mg capsule,extended release 24 hr RxNorm: 129117 1 Capsule(s) PO QD 12/27/2018 12/26/2018 Inactive Benadryl 25 mg capsule RxNorm: 1065287 Capsule(s) PO as needed 2018 Active melatonin 5 mg tablet RxNorm: 521127 1 Tablet(s) PO QHS 01/28/2019 Active docusate sodium 100 mg tablet RxNorm: 5080319 Tablet(s) PO as neede d 10/01/2018 Active Vitamin D3 5,000 unit tablet RxNorm: 111237 1 Tablet(s) PO QD 019 Active Prolia 60 mg/mL subcutaneous syringe RxNorm: 503606 1 M illiliter(s) SQ every 6 months 10/01/2018 Active lisinopril 10 mg tablet RxNorm: 024476 1 Tablet(s) PO QD 12/27/2018 0 12/26/2018 Inactive venlafaxine ER 75 mg capsule,extended release 24 hr RxNorm: 594501 1 Capsule(s) PO QD 12/27/2018 12/26/2018 Inactive lisinopril 20 mg tablet RxNorm: 338121 2 Tablet(s) PO QD 04/16/2019 0 04/15/2019 Inactive atorvastatin 20 mg tablet RxNorm: 012951 1 Tablet(s) PO QD 12/28/19 19 12/26/2018 Inactive Medication Administered No Medication Administered data Immunizations Vaccine Codes Date Status Shingrix CVX: 141 04/05/2019 Results Observation Observation Code Item Item Code Result Date S ervice Location COMPREHENSIVE METABOLIC 54138 AST 12 U/L 2019 Unknown COMPREHENSIVE METABOLIC 96294 ALT 11 U/L 2019 Unknown COMPREHENSIVE METABOLIC 07052 BUN 11 mg/dL 2019 Unknown COMPREHENSIVE METABOLIC 81638 ALBUMIN 4.3 g/dL 2019 Unknown COMPREHENSIVE METABOLIC 30522 CHLORIDE 100 mmol/L 07/16 Unknown COMPREHENSIVE METABOLIC 88747 Bili Total 0.4 mg/dL 07/16 Unknown COMPREHENSIVE METABOLIC 68740 ALK PHOS 75 U/L 2019 Unknown COMPREHENSIVE METABOLIC 94559 SODIUM 136 mmol/L 07/16 Unknown COMPREHENSIVE METABOLIC 83001 CREATININE 0.79 mg/dL 06/28 Unknown COMPREHENSIVE METABOLIC 51719 CALCIUM 9.6 mg/dL 2019 Unknown COMPREHENSIVE METABOLIC 60135 POTASSIUM 4.5 mmol/L 07/16 Unknown COMPREHENSIVE METABOLIC 57169 Total Protein 6.7 g/dL Unknown COMPREHENSIVE METABOLIC 29591 Glucose 74 mg/dL 2019 Unknown COMPREHENSIVE METABOLIC 72654 Bicarbonate 26 mmol/L 06/28 Unknown COMPREHENSIVE METABOLIC 71339 AGAP 10 mmol/L 2019 Unknown COMPLETE BLOOD COUNT 2744452 WBC 7.4 10e9/L 07/16/20 20 Unknown COMPLETE BLOOD COUNT 0995397 RBC 4.29 10e12/L 2019 Unknown COMPLETE BLOOD COUNT [id number] HEMOGLOBIN 13.2 g/dL 07/16/20 20 Unknown COMPLETE BLOOD COUNT 3500952 HEMATOCRIT 40.2 % 07/16/20 20 Unknown COMPLETE BLOOD COUNT 1132679 MCV 93.7 fL 0 Unknown COMPLETE BLOOD COUNT 7188187 MCH 30.8 pg 0 Unknown COMPLETE BLOOD COUNT 4916004 MCHC 32.8 g/dL 0 Unknown COMPLETE BLOOD COUNT 0505686 PLATELET COUNT 294 10e9/L Unknown COMPLETE BLOOD COUNT 7871587 Mean Plt Volume 8.3 fL Unknown COMPLETE BLOOD COUNT 5101348 Neut Auto 64.6 % 0 Unknown COMPLETE BLOOD COUNT 7772234 Lymph Auto 24.0 % 07/16/20 20 Unknown COMPLETE BLOOD COUNT 6625282 [place] Auto 9.5 % 0 Unknown COMPLETE BLOOD COUNT 9076212 RDW 12.6 % 0 Unknown COMPLETE BLOOD COUNT 0634621 Eos Auto 1.5 % 0 Unknown COMPLETE BLOOD COUNT 7498615 Baso Auto 0.4 % 0 Unknown COMPLETE BLOOD COUNT 6117426 Neutrophil Abs 4.78 10e9/L Unknown COMPLETE BLOOD COUNT 2689721 Lymphocyte Abs 1.78 10e9/L Unknown COMPLETE BLOOD COUNT 1676370 Monocyte Abs 0.70 10e9/L 06/28 Unknown COMPLETE BLOOD COUNT 2551315 Eosinophil Abs 0.11 10e9/L Unknown COMPLETE BLOOD COUNT 5736125 RDW-SD 42.5 fL 0 Unknown COMPLETE BLOOD COUNT 5870589 Basophil Abs 0.03 10e9/L 06/28 Unknown GFR CALC 0443523 GFR Non Afr Amr >60 mL/min 07/16/2020 Un known GFR CALC 7327159 GFR Afr Amr >60 mL/min 07/16/2020 Unknow n C-REACTIVE PROTEIN (CRP) QUANT 62484 C-Reactive Prot 0.3 mg/dL 07/16/2020 Unknown ERYTHROCYTE SEDIMENTATION RATE 58162 Sed Rate 9 mm/hr 07/16/2020 Unknown VITAMIN D TOTAL (25 HYDROXY) 31524 Vitamin D 25 [place] 72.1 ng/mL 07/16/2020 Unknown GLYCOSYLATED HEMOGLOBIN TEST 86801 Hgb A1c 35117-4 5.9 % 0 03/28/2019 Unknown MEAN GLUC 9757638 Calc Mean Gluc 123 mg/dL 03/28/2019 Unkn own GFR CALC 8549769 GFR Non Afr Amr >60 mL/min 03/27/2019 Un known GFR CALC 7783026 GFR Afr Amr >60 mL/min 03/27/2019 Unknow n ASSAY TRIIODOTHYRONINE (T3) 43854 T3 Total 0.98 ng/mL 0 03/27/2019 Unknown LIPID GROUP 87960 Cholesterol 175 mg/dL 03/27/2019 Unkno wn LIPID GROUP 23570 Triglyceride 61 mg/dL 03/27/2019 Unkn own LIPID GROUP 68212 HDL CHOLESTEROL 67 mg/dL 03/27/2019 U nknown LIPID GROUP 11691 Chol/HDL Ratio 2.61 ratio 03/27/2019 U nknown LIPID GROUP 48830 NON-HDL Chol 108 mg/dL 03/27/2019 Unkn own LIPID GROUP 24718 LDL Cholesterol 96 mg/dL 03/27/2019 U nknown FREE T4 34398 T4 Free 0.85 ng/dL 03/27/2019 Unknown COMPLETE BLOOD COUNT 4138346 WBC 8.8 10e9/L 03/27/20 19 Unknown COMPLETE BLOOD COUNT 5152437 RBC 4.76 10e12/L 2018 Unknown COMPLETE BLOOD COUNT 8040497 HEMOGLOBIN 14.7 g/dL 03/27/20 19 Unknown COMPLETE BLOOD COUNT 0713135 HEMATOCRIT 43.9 % 07/31/20 19 Unknown COMPLETE BLOOD COUNT 8230545 MCV 92.2 fL 9 Unknown COMPLETE BLOOD COUNT 0460526 MCH 30.9 pg 9 Unknown COMPLETE BLOOD COUNT 3560930 MCHC 33.5 g/dL 9 Unknown COMPLETE BLOOD COUNT 9654732 PLATELET COUNT 245 10e9/L Unknown COMPLETE BLOOD COUNT 7719160 Mean Plt Volume 8.3 fL Unknown COMPLETE BLOOD COUNT 5025739 Neut Auto 86.8 % 9 Unknown COMPLETE BLOOD COUNT 7282238 Lymph Auto 10.8 % 03/27/20 19 Unknown COMPLETE BLOOD COUNT 8631554 [place] Auto 2.1 % 9 Unknown COMPLETE BLOOD COUNT 4638987 RDW 12.9 % 9 Unknown COMPLETE BLOOD COUNT 1782978 Eos Auto 0.1 % 9 Unknown COMPLETE BLOOD COUNT 3902284 Baso Auto 0.2 % 9 Unknown COMPLETE BLOOD COUNT 2727213 Neutrophil Abs 7.64 10e9/L Unknown COMPLETE BLOOD COUNT 5590779 Lymphocyte Abs 0.95 10e9/L Unknown COMPLETE BLOOD COUNT 1323830 Monocyte Abs 0.18 10e9/L 02/27 Unknown COMPLETE BLOOD COUNT 9466720 Eosinophil Abs 0.01 10e9/L Unknown COMPLETE BLOOD COUNT 3853373 RDW-SD 42.6 fL 9 Unknown COMPLETE BLOOD COUNT 0688466 Basophil Abs 0.02 10e9/L 02/27 Unknown COMPREHENSIVE METABOLIC 25635 AST 16 U/L 2018 Unknown COMPREHENSIVE METABOLIC 43632 ALT 17 U/L 2018 Unknown COMPREHENSIVE METABOLIC 08045 BUN 8 mg/dL 2018 Unknown COMPREHENSIVE METABOLIC 13862 ALBUMIN 4.5 g/dL 2018 Unknown COMPREHENSIVE METABOLIC 03959 CHLORIDE 105 mmol/L 03/27 Unknown COMPREHENSIVE METABOLIC 42630 Bili Total 1.0 mg/dL 03/27 Unknown COMPREHENSIVE METABOLIC 57943 ALK PHOS 64 U/L 2018 Unknown COMPREHENSIVE METABOLIC 17346 SODIUM 139 mmol/L 03/27 Unknown COMPREHENSIVE METABOLIC 91097 CREATININE 0.70 mg/dL 02/27 Unknown COMPREHENSIVE METABOLIC 88612 CALCIUM 9.8 mg/dL 2018 Unknown COMPREHENSIVE METABOLIC 89648 POTASSIUM 4.0 mmol/L 03/27 Unknown COMPREHENSIVE METABOLIC 18694 Total Protein 6.7 g/dL Unknown COMPREHENSIVE METABOLIC 31492 Glucose 134 mg/dL 2018 Unknown COMPREHENSIVE METABOLIC 41890 Bicarbonate 26 mmol/L 02/27 Unknown COMPREHENSIVE METABOLIC 77955 AGAP 8 mmol/L 2018 Unknown THYROID STIMULATING HORMONE 43587 TSH 3.564 uIU/mL 03/27/2019 Unknown FREE T4 14463 T4 Free 0.80 ng/dL 10/29/2018 Unknown THYROID STIMULATING HORMONE 27810 TSH 5.703 uIU/mL 10/29/2018 Unknown THYROID STIMULATING HORMONE 75752 TSH 4.956 uIU/mL 10/02/2018 Unknown LIPID GROUP 62189 Cholesterol 164 mg/dL 10/02/2018 Unkno wn LIPID GROUP 31928 Triglyceride 71 mg/dL 10/02/2018 Unkn own LIPID GROUP 52096 HDL CHOLESTEROL 65 mg/dL 10/02/2018 U nknown LIPID GROUP 37718 Chol/HDL Ratio 2.52 ratio 10/02/2018 U nknown LIPID GROUP 98056 NON-HDL Chol 99 mg/dL 10/02/2018 Unkn own LIPID GROUP 61531 LDL Cholesterol 85 mg/dL 10/02/2018 U nknown GFR CALC 2262956 GFR Non Afr Amr >60 mL/min 10/02/2018 Un known GFR CALC 2305421 GFR Afr Amr >60 mL/min 10/02/2018 Unknow n COMPREHENSIVE METABOLIC 73654 AST 16 U/L 2018 Unknown COMPREHENSIVE METABOLIC 32086 ALT 15 U/L 2018 Unknown COMPREHENSIVE METABOLIC 13327 BUN 13 mg/dL 2018 Unknown COMPREHENSIVE METABOLIC 61953 ALBUMIN 4.5 g/dL 2018 Unknown COMPREHENSIVE METABOLIC 45557 CHLORIDE 107 mmol/L 10/02 Unknown COMPREHENSIVE METABOLIC 39746 Bili Total 0.8 mg/dL 10/02 Unknown COMPREHENSIVE METABOLIC 59402 ALK PHOS 57 U/L 2018 Unknown COMPREHENSIVE METABOLIC 09112 SODIUM 143 mmol/L 10/02 Unknown COMPREHENSIVE METABOLIC 59330 CREATININE 0.79 mg/dL 12/2018 Unknown COMPREHENSIVE METABOLIC 93052 CALCIUM 9.6 mg/dL 2018 Unknown COMPREHENSIVE METABOLIC 44072 POTASSIUM 4.3 mmol/L 10/02 Unknown COMPREHENSIVE METABOLIC 93826 Total Protein 6.4 g/dL Unknown COMPREHENSIVE METABOLIC 01694 Glucose 86 mg/dL 2018 Unknown COMPREHENSIVE METABOLIC 32479 Bicarbonate 28 mmol/L 12/2018 Unknown COMPREHENSIVE METABOLIC 23089 AGAP 8 mmol/L 2018 Unknown FREE T4 96571 T4 Free 0.91 ng/dL 10/02/2018 Unknown COMPLETE BLOOD COUNT 3659303 WBC 6.1 10e9/L 10/02/19 19 Unknown COMPLETE BLOOD COUNT 8043773 RBC 4.80 10e12/L 2018 Unknown COMPLETE BLOOD COUNT 6305570 HEMOGLOBIN 14.8 g/dL 10/02/19 19 Unknown COMPLETE BLOOD COUNT 4138776 HEMATOCRIT 44.0 % 10/02/19 19 Unknown COMPLETE BLOOD COUNT 2591718 MCV 91.7 fL 9 Unknown COMPLETE BLOOD COUNT 1267112 MCH 30.8 pg 9 Unknown COMPLETE BLOOD COUNT 8599239 MCHC 33.6 g/dL 9 Unknown COMPLETE BLOOD COUNT 0055900 PLATELET COUNT 203 10e9/L 12/2018 Unknown COMPLETE BLOOD COUNT 2812835 Mean Plt Volume 8.9 fL 12/2018 Unknown COMPLETE BLOOD COUNT 2346678 Neut Auto 66.7 % 9 Unknown COMPLETE BLOOD COUNT 8227295 Lymph Auto 24.8 % 10/02/19 19 Unknown COMPLETE BLOOD COUNT 4898819 [place] Auto 4.4 % 9 Unknown COMPLETE BLOOD COUNT 1453597 RDW 12.8 % 9 Unknown COMPLETE BLOOD COUNT 6476278 Eos Auto 3.8 % 9 Unknown COMPLETE BLOOD COUNT 7488634 Baso Auto 0.3 % 9 Unknown COMPLETE BLOOD COUNT 3274847 Neutrophil Abs 4.07 10e9/L Unknown COMPLETE BLOOD COUNT 3521424 Lymphocyte Abs 1.51 10e9/L Unknown COMPLETE BLOOD COUNT 9618917 Monocyte Abs 0.27 10e9/L 12/2018 Unknown COMPLETE BLOOD COUNT 6796360 Eosinophil Abs 0.23 10e9/L Unknown COMPLETE BLOOD COUNT 8256521 RDW-SD 41.7 fL 02/05/201 9 Unknown COMPLETE BLOOD COUNT 6963678 Basophil Abs 0.02 10e9/L 0 12/2018 Unknown VITAMIN D TOTAL (25 HYDROXY) 77651 Vitamin D 25 [place] 54.1 ng/mL 10/02/2018 Unknown Procedures Procedure Codes Date PPPS, subseq visit CPT-4: G0439 07/01/2021 ROUTINE VENIPUNCTURE CPT-4: 13147 07/16/2020 COMPREHEN METABOLIC PANEL CPT-4: 81534 07/16/2020 COMPLETE CBC W/AUTO DIFF WBC CPT-4: 47312 07/16/2020 RBC SED RATE AUTOMATED CPT-4: 01276 07/16/2020 VITAMIN D TOTAL (25 HYDROXY) CPT-4: 27822 07/16/2020 C-REACTIVE PROTEIN CPT-4: 66015 07/16/2020 ROUTINE VENIPUNCTURE CPT-4: 54912 03/27/2019 COMPLETE CBC W/AUTO DIFF WBC CPT-4: 15269 03/27/2019 COMPREHEN METABOLIC PANEL CPT-4: 13660 03/27/2019 ASSAY THYROID STIM HORMONE CPT-4: 87099 03/27/2019 ASSAY OF FREE THYROXINE CPT-4: 31602 03/27/2019 LIPID PANEL CPT-4: 21821 03/27/2019 ASSAY TRIIODOTHYRONINE (T3) CPT-4: 00245 03/27/2019 A1C HPLC CPT-4: 24662 03/27/2019 ROUTINE VENIPUNCTURE CPT-4: 89011 12/27/2018 ASSAY OF FREE THYROXINE CPT-4: 85817 12/27/2018 ASSAY THYROID STIM HORMONE CPT-4: 68068 12/27/2018 ROUTINE VENIPUNCTURE CPT-4: 28453 10/29/2018 ASSAY THYROID STIM HORMONE CPT-4: 66691 10/29/2018 ASSAY OF FREE THYROXINE CPT-4: 85968 10/29/2018 ROUTINE VENIPUNCTURE CPT-4: 58862 10/02/2018 ASSAY OF FREE THYROXINE CPT-4: 68721 10/02/2018 ASSAY THYROID STIM HORMONE CPT-4: 10340 10/02/2018 COMPREHEN METABOLIC PANEL CPT-4: 90712 10/02/2018 COMPLETE CBC W/AUTO DIFF WBC CPT-4: 17076 10/02/2018 LIPID PANEL CPT-4: 93746 10/02/2018 VITAMIN D TOTAL (25 HYDROXY) CPT-4: 43740 10/02/2018 Vital Signs Date Vital 07/01/2021 Blood Pressure 1: 126/72 Code: 8480-6 Heart Rate 1: 68 bpm Respiratory Rate: 20 bpm Temperature: 36.8 (C) / 98.2 (F) Weight: 150 lbs Code : 58756-9 12/22/2020 Blood Pressure 1: 125/62 Code: 8480-6 Heart Rate 1: 72 bpm Respiratory Rate: 15 bpm SpO2: 98% Temperature: 36.2 (C) / 97.1 (F) We ight: 150 lbs Code: 57582-0 07/16/2020 Blood Pressure 1: 136/82 Code: 8480-6 Heart Rate 1: 76 bpm Respiratory Rate: 20 bpm SpO2: 96% Temperature: 36.2 (C) / 97.2 (F) We ight: 152 lbs Code: 19004-7 03/25/2020 Blood Pressure 1: 116/76 Code: 8480-6 He art Rate 1: 79 bpm 10/08/2019 Blood Pressure 1: 124/80 Code: 8480-6 Heart Rate 1: 84 bpm Respiratory Rate: 20 bpm SpO2: 98% Temperature: 36.9 (C) / 98.4 (F) We ight: 158 lbs Code: 10357-6 08/19/2019 Blood Pressure 1: 126/80 Code: 8480-6 Heart Rate 1: 72 bpm Respiratory Rate: 20 bpm SpO2: 98% Temperature: 36.7 (C) / 98.1 (F) We ight: 156 lbs Code: 33016-4 07/22/2019 Blood Pressure 1: 126/76 Code: 8480-6 Heart Rate 1: 80 bpm Respiratory Rate: 18 bpm SpO2: 95% Temperature: 36.8 (C) / 98.2 (F) We ight: 153 lbs Code: 80372-3 07/01/2019 Blood Pressure 1: 124/82 Code: 8480-6 Heart Rate 1: 74 bpm SpO2: 99% 06/13/2019 Blood Pressure 1: 144/90 Code: 8480-6 Heart Rate 1: 96 bpm Respiratory Rate: 18 bpm SpO2: 96% Temperature: 36.8 (C) / 98.2 (F) We ight: 152 lbs Code: 65492-4 05/28/2019 Blood Pressure 1: 114/66 Code: 8480-6 Heart Rate 1: 100 bpm Respiratory Rate: 20 bpm SpO2: 95% Temperature: 36.7 (C) / 98.1 (F) We ight: 150 lbs Code: 95196-2 04/24/2019 Blood Pressure 1: 134/80 Code: 8480-6 Heart Rate 1: 96 bpm Respiratory Rate: 20 bpm SpO2: 97% Temperature: 36.6 (C) / 97.8 (F) We ight: 152 lbs Code: 15512-9 04/16/2019 Blood Pressure 1: 162/98 Code: 8480-6 Heart Rate 1: 95 bpm SpO2: 97% Temperature: 36.4 (C) / 97.6 (F) Weight: 149 lbs Code: 08036-1 04/04/2019 Blood Pressure 1: 142/78 Code: 8480-6 Heart Rate 1: 92 bpm Respiratory Rate: 20 bpm SpO2: 96% Temperature: 36.8 (C) / 98.2 (F) We ight: 152 lbs Code: 21338-2 03/29/2019 Blood Pressure 1: 142/98 Code: 8480-6 Heart Rate 1: 113 bpm SpO2: 97% Temperature: 36.8 (C) / 98.2 (F) 03/27/2019 Blood Pressure 1: 158/100 Code: 8480-6 Heart Rat e 1: 115 bpm SpO2: 93% Temperature: 36.8 (C) / 98.3 (F) Weight: 150 lbs Code : 69475-8 01/28/2019 Blood Pressure 1: 134/84 Code: 8480-6 Heart Rate 1: 92 bpm Respiratory Rate: 20 bpm SpO2: 96% Temperature: 36.7 (C) / 98.0 (F) We ight: 153 lbs Code: 06067-3 12/27/2018 Blood Pressure 1: 148/86 Code: 8480-6 Heart Rate 1: 84 bpm Respiratory Rate: 20 bpm SpO2: 95% Temperature: 36.7 (C) / 98.0 (F) We ight: 154 lbs Code: 09498-7 10/02/2018 Blood Pressure 1: 150/90 Code: 8480-6 Heart Rate 1: 93 bpm Respiratory Rate: 18 bpm SpO2: 98% Temperature: 36.2 (C) / 97.1 (F) We ight: 150 lbs Code: 64663-7 10/01/2018 Blood Pressure 1: 136/74 Code: 8480-6 BMI: 27.4 Code: 60213-6 Heart Rate 1: 92 bpm Height: 5'2" Code: 8302-2 Respiratory Rate: 20 bpm SpO2: 96% Temperature: 36.9 (C) / 98.4 (F) Weight: 150 lbs Code: 70108-4 Functional Status No Functional Status data Reason [...] visit Encounters Encounter Performer Location Codes Date (91861) OFFICE/OUTPATIENT VISIT EST Diagnosis: Essential (primary) hypertension[ICD10: I10] Diagnosis: Hypothyroidism[ICD10: E03.9] Diagnosis: Hyperglycemia, unspecified[ICD10: R73.9] Diagnosis: Mixed hyperlipidemia[ICD10: E78.2] Diagnosis: Thyroid nodule[ICD10: E04.1] 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] Landy Dominguez [employer] CPT-4: 64786 12/22/2020 ([id number]) OFFICE/OUTPATIENT VISIT EST Diagnosis: Upper leg pain[ICD10: M79.659] Diagnosis: Upper arm pain[ICD10: M79.629] Diagnosis: Vitamin D deficiency[ICD10: E55.9] Landy Dominguez [employer] CPT-4: 29619 07/16/2020 ([id number]) OFFICE/OUTPATIENT VISIT EST Diagnosis: Muscle cramping[ICD10: R25.2] Diagnosis: Hypothyroidism[ICD10: E03.9] Landy GARCIA DO [facility] CPT-4: 61050 07/07/2020 ([id number]) OFFICE/OUTPATIENT VISIT EST Diagnosis: Essential hypertension[ICD10: I10] Diagnosis: Mixed hyperlipidemia[ICD10: E78.2] Landy Garcia [facility] CPT-4: 84309 03/25/2020 ([id number]) OFFICE/OUTPATIENT VISIT EST Diagnosis: Essential (primary) hypertension[ICD10: I10] Diagnosis: 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] Landy Garcia [facility] CPT-4: 73347 12/23/2019 ([id number]) OFFICE/OUTPATIENT VISIT EST Diagnosis: Essential (primary) hypertension[ICD10: I10] Diagnosis: Thyroid nodule[ICD10: E04.1] Landy GARCIA DO [facility] CPT-4: 50034 10/08/2019 ([id number]) OFFICE/OUTPATIENT VISIT EST Diagnosis: Essential (primary) hypertension[ICD10: I10] Landy GARCIA DO [facility] CPT-4: 92494 08/19/2019 ([id number]) OFFICE/OUTPATIENT VISIT EST Diagnosis: Essential (primary) hypertension[ICD10: I10] Landy GARCIA DO [facility] CPT-4: 47063 07/22/2019 ([id number]) NURSE/OUTPATIENT VISIT EST Diagnosis: Essential (primary) hypertension[ICD10: I10] Landy GARCIA DO [facility] CPT-4: 94921 07/01/2019 ([id number]) OFFICE/OUTPATIENT VISIT EST Diagnosis: Essential (primary) hypertension[ICD10: I10] Diagnosis: Dizziness and giddiness[ICD10: R42] Landy GARCIA DO [facility] CPT-4: 28445 06/13/2019 ([id number]) OFFICE/OUTPATIENT VISIT EST Diagnosis: Essential (primary) hypertension[ICD10: I10] Landy GARCIA DO [facility] [facility] CPT-4: 58012 05/28/2019 ([id number]) OFFICE/OUTPATIENT VISIT EST Diagnosis: Essential (primary) hypertension[ICD10: I10] Diagnosis: 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] Landy GARCIA DO [facility] CPT-4: 87759 04/24/2019 ([id number]) OFFICE/OUTPATIENT VISIT EST Diagnosis: Essential (primary) hypertension[ICD10: I10] Diagnosis: Generalized anxiety disorder[ICD10: F41.1] Alexia GARCIA DO [facility] CPT-4: 76437 04/16/2019 ([id number]) OFFICE/OUTPATIENT VISIT EST Diagnosis: Essential (primary) hypertension[ICD10: I10] Diagnosis: 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] Landy GARCIA DO [facility] CPT-4: 00164 04/04/2019 ([id number]) NURSE/OUTPATIENT VISIT EST Diagnosis: Essential (primary) hypertension[ICD10: I10] Landy GARCIA DO [facility] CPT-4: 55027 03/29/2019 ([id number]) OFFICE/OUTPATIENT VISIT EST Diagnosis: Essential (primary) hypertension[ICD10: I10] 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] Diagnosis: Mixed hyperlipidemia[ICD10: E78.2] Diagnosis: Headache[ICD10: R51] Diagnosis: Generalized anxiety disorder[ICD10: F41.1] Diagnosis: Disorder of thyroid, unspecified[ICD10: E07.9] Diagnosis: Hyperglycemia, unspecified[ICD10: R73.9] Alexia Theodore PIO KOHLI Alberto GARCIA [email or web address] [facility] CPT-4: 82475 03/27/2019 ([id number]) OFFICE/OUTPATIENT VISIT EST Diagnosis: Essential (primary) hypertension[ICD10: I10] Diagnosis: Mixed hyperlipidemia[ICD10: E78.2] Landy HERMOSILLO TEA Alberto GARCIA [employer] [facility] CPT-4: 15922 01/28/2019 ([id number]) OFFICE/OUTPATIENT VISIT EST Diagnosis: Essential (primary) hypertension[ICD10: I10] 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] Diagnosis: Other fatigue[ICD10: R53.83] Landy [employer] CPT-4: 71134 12/27/2018 ([id number]) NURSE/OUTPATIENT VISIT EST Diagnosis: Other specified abnormal findings of blood chemistry[ICD10: R79.89] Landy BILL [facility] CPT-4: 81694 10/29/2018 ([id number]) OFFICE/OUTPATIENT VISIT EST Diagnosis: Mixed hyperlipidemia[ICD10: E78.2] Diagnosis: Essential (primary) hypertension[ICD10: I10] Diagnosis: Age-related osteoporosis without current pathological fracture[ICD10: M81.0] Diagnosis: Follicular cyst of the skin and subcutaneous tissue, unspecified[ICD10: L72.9] Landy BILL [email or web address] CPT-4 : 41593 10/02/2018 OFFICE/OUTPATIENT VISIT NEW Diagnosis: Essential (primary) hypertension[ICD10: I10] Diagnosis: Mixed hyperlipidemia[ICD10: E78.2] Diagnosis: Age-related osteoporosis without current pathological fracture[ICD10: M81.0] Landy [employer] CPT-4: 14995 10/01/2018 Plan of Care Planned Activity Notes Codes Status Date Visit Diagnosis Plan: Essential (primary) hypertension Discussion: Stable ICD-9 : 401.9 ICD-10 : I10 07/01/2021 Visit Diagnosis Plan: Hypothyroidism Discussion: Incre ase levothyroxine to 50mcg daily and repeat labs in 3mos ICD-9 : 244.9 ICD-10 : E03.9 07/01/2021 Visit Diagnosis Plan: Encounter for [facility] adult medical examination without abnormal findings Discussion: [...] : E78.2 12/22/2020 Appointment: Landy Garcia WPtel: [address] [place] [address] US MEDICATION REVIEW 12/22/2020 Appointment: Landy Garcia WPtel: [address] [place], [place] [address] US RESCHEDULED 07/20/2020 Visit Diagnosis Plan: Upper leg pain Discussion: Updat e lab--CBC, CMP, ESR, CRP, Vitamin D ICD-9 : 729.5 ICD-10 : M79.659 07/16/2020 Appointment: Landy Garcia WPtel: [address] [place] [address] ACUTE ILLNESS 07/16/2020 Visit Diagnosis Plan: Muscle [...] : E03.9 07/07/2020 Appointment: Landy Garcia WPtel: [address] [place] [address] TELEMEDICINE 07/07/2020 Patient Education: meloxicam- [employer] Coupon [phone] https://www.[employer]/resources/getResource/61/[email or web address]-[email or web address] Completed 07/07/2020 Patient Education: baclofen- [employer] Coupon [phone] [id number] https://www.[employer]/resources/getResource/61/87060257-1fm7-9901-lm Completed 07/07/2020 Visit Diagnosis Plan: Mixed hyperlipidemia Discussion: Mediterranean diet Combination of cardio and weight bearing exercise Recheck lipids in 6mos ICD-9 : 272.4 ICD-10 : E78.2 03/25/2020 Visit Diagnosis Plan: Essential hypertension Discussio n: Stable Lab discussed ICD-9 : 401.9 ICD-10 : I10 03/25/2020 Appointment: Landy Garcia WPtel: [address] [place] [address] TELEMEDICINE 03/25/2020 Patient Education: levothyroxine- [employer] Coupon 12 [id number] https://www.[employer]/resources/getResource/61/34650601-67w7-0919-ow Completed 03/25/2020 Visit Diagnosis Plan: Essential (primary) hypertension Discussion: [employer] video visit done Stable on current meds Follow Up: 3 months ICD-9 : 401.9 ICD-10 : I10 12/23/2019 Visit Diagnosis Plan: Nontoxic single thyroid nodule D iscussion: Feels better with the low dose thyroid--will check lab and fwup in 3mos ICD-9 : 241.0 ICD-10 : E04.1 12/23/2019 Appointment: Landy Garcia WPtel: [address] [place] [address] confirmed TELEMEDICINE 12/23/2019 Patient Education: levothyroxine- [employer] Coupon 10 [id number] https://www.[employer]/resources/getResource/61/[email or web address] Completed 12/23/2019 Referral: Mike Munguia WPtel: [address] [address] [place] Referral Initiated 10/26/2019 Visit Diagnosis Plan: Essential (primary) hypertension Discussion: Stable Recheck 2mos with lab ICD-9 : 401.9 ICD-10 : I10 10/08/2019 Visit Diagnosis Plan: Thyroid nodule Discussion: Updat e thyroid nodule ICD-9 : 241.0 ICD-10 : E04.1 10/08/2019 Appointment: Landy Garcia WPtel: [address] [place] [address] US MEDICATION REVIEW 10/08/2019 Care Plan: MAMMOGRAM SCREENING LOINC : 2 6347-5 Pending 10/08/2019 Appointment: Landy Garcia WPtel: [address] [place] [address] US CANCELED 09/09/2019 Visit Diagnosis Plan: Essential (primary) hypertension Discussion: Stable on current meds Lab in 2mos then fwup Follow Up: 2 months Discussion: Stable on current meds Follow Up: 2 months ICD-9 : 401.9 ICD-10 : I10 08/19/2019 Appointment: Landy Garcia WPtel: [address] [place] [address] US FOLLOW UP 08/19/2019 Visit Diagnosis Plan: Essential (primary) hypertension Discussion: Stable on current meds Recheck 1month ICD-9 : 401.9 ICD-10 : I10 07/22/2019 Appointment: Landy Garcia WPtel: [address] [place], [place] [phone] US FOLLOW UP 07/22/2019 Appointment: Landy Garcia WPtel: [address] [place] [address] US CANCELED 07/08/2019 Appointment: Landy Garciatel: [address] [place], [place] [address] US BP CHECK 07/01/2019 Visit Diagnosis Plan: [...] : I10 06/13/2019 Appointment: Landy Garcia WPtel: [address] [place] [address] US ACUTE ILLNESS 06/13/2019 Patient Education: metoprolol succinate- [employer] Co upon [id number] https://www.[employer]/resources/getResource/61/[email or web address] Completed 06/13/2019 Visit Diagnosis Plan: Essential (primary) hypertension Discussion: Stable Monitor BP Recheck 3mos ICD-9 : 401.9 ICD-10 : I10 05/28/2019 Appointment: Landy Garcia WPtel: [address] [place] [address] US FOLLOW UP 05/28/2019 Visit Diagnosis Plan: Essential (primary) hypertension Discussion: Stable with increased dose Follow Up: 1 months ICD-9 : 401.9 ICD-10 : I10 04/24/2019 Visit Diagnosis Plan: Nontoxic single thyroid nodule D iscussion: Recheck US in 6mos ICD-9 : 241.0 ICD-10 : E04.1 04/24/2019 Appointment: Landy Garcia WPtel: [address] [place], [place] [address] US FOLLOW UP 04/24/2019 Appointment: [facility] [phone] [facility] [place] CANCELED 04/23/2019 Visit Diagnosis Plan: Essential [...] : F41.1 04/16/2019 Appointment: Land[facility] Garcia [facility]el[facility] [phone] [facility] [place] CANCELED 04/16/2019 Appointment: Alexia Theodore [address] [facility] Follow Up 04/16/2019 Patient Education: venlafaxine- [employer] Coupon [phone] https://www.[employer]/samplemd/resources/getResource/61/8w0m6734-840t-51jw-36 Completed 04/16/2019 Patient Education: lisinopril- [employer] Coupon [phone] https://www.[employer]/samplemd/resources/getResource/61/me994dzs-576k-73ch-ce Completed 04/16/2019 Patient Education: High Blood Pressure [...] E04.1 04/04/2019 Appointment: Landy Garcia WPtel: [address] [facility] US FOLLOW UP 04/04/2019 Appointment: Landy Garcia WPtel: [address] [facility] US BP CHECK 03/29/2019 Visit Diagnosis Plan: [...] ICD-10 : E07.9 03/27/2019 Appointment: Alexia Theodore [address] [place], [place] [id number] ACUTE ILLNESS 03/27/2019 Patient Education: High Blood Pressure Co mpleted 03/27/2019 Care Plan: US EXAM OF HEAD AND NECK thyroid NANI C : 26900-0 Pending 03/27/2019 Visit Diagnosis Plan: Essential (primary) hypertension Discussion: Stable ICD-9 : 401.9 ICD-10 : I10 01/28/2019 Visit Diagnosis Plan: Mixed hyperlipidemia Discussion: Mediterranean diet Combination of cardio and weight bearing exercise Check lipids with fwup in 2mos ICD-9 : 272.4 ICD-10 : E78.2 01/28/2019 Appointment: Landy Garcia WPtel: [address] [place] [address] FOLLOW UP 01/28/2019 Visit Diagnosis Plan: Essential (primary) hypertension Discussion: Increase lisinopril to 20mg daily Recheck 4 weeks ICD-9 : 401.9 ICD-10 : I10 12/27/2018 Visit Diagnosis Plan: Benign neoplasm of cerebral meni nges Discussion: Will be following with neurosurgery at ICD-9 : 225.2 ICD-10 : D32.0 12/27/2018 Appointment: Landy Garcia WPtel: [address] [place] [address] Follow Up 12/27/2018 Patient Education: venlafaxine- [employer] Coupon [phone] https://www.[employer]/resources/getResource/61/[email or web address] Completed 12/27/2018 Appointment: Landy Garcia WPtel: [address] [place] [address] US CANCELED 12/24/2018 Appointment: Landy Garcia WPtel: [address] [place], [place] [phone] [place] LAB 10/29/2018 Visit Diagnosis Plan: Follicular cyst of the skin and subcutaneous tissue, unspecified Discussion: Reassurance given Will monit or Did offer dermatology referral ICD-9 : 706.2 ICD-10 : L72.9 10/02/2018 Appointment: Landy Garcia WPtel: [address] [place], [place] [phone] US LAB 10/02/2018 Appointment: Landy Garcia WPtel: [address] [place] [address] ACUTE ILLNESS 10/02/2018 Visit Diagnosis Plan: Mixed [...] I10 10/01/2018 Appointment: Landy Garcia [facility]Ptel: [phone] [facility] NEW PATIENT 10/01/2018 Instructions No Instructions Medical Equipment No Medical Equipment data Health Concerns Section Health Concerns data not found Goals Section Goals data not found Interventions Section Interventions data not found Health Status Evaluations/Outcomes Section Health Status Evaluations/Outcomes data not found Advance Directives No Advance Directive data
--- OUTSIDE RECORDS SUMMARY | 2021-08-06 09:31 | XMS REPORT | CCD ---
Author Author Va Garcia D.O. 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 Name Role Phone PP Unavailable CCM Unavailable Summary Purpose Interface Exchange Insurance Providers Payer name Policy type / Coverage type Covered republican ID Effective Begin Date Effective End Date WPS MEDIC[place] PART [place] Medicare Part B [id number] 2018 Unknown [employer] Medicare Part B [id number] 2018 Unknown Family History Family History data not found Social History Social History Element Codes Description Effective Dates Marital status Unknown 10/01/2018 Number of children Unknown 1 10/01/2018 Employment Unknown Retired [employer] 10/01/[address]: 1563031 Former smoker 10/01/[address]: 727958167 Never drinks alcohol 2018 Has the patient [...] Problems Condition Codes Effective Dates Condition Status 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 ICD-9: 225.2 12/27/2018 Active Essential (primary) hypertension ICD-10: I10 ICD-9: 401.9 10/01/2018 Active Hyperglycemia, unspecified ICD-10: R73.9 ICD-9: 790.29 03/27/2019 Active Hypothyroidism ICD-10: E03.9 ICD-9: 244.9 07/07/2020 Active Mixed hyperlipidemia ICD-10: E78.2 ICD-9: 272.4 10/01/2018 Active Thyroid nodule ICD-10: E04.1 ICD-9: 241.0 [...] 150 mg capsule,extended release 24 hr RxNorm: 863215 Take 1 Capsule(s) Oral QD 06/17/2021 09/14/2021 Active atorvastatin 20 mg tablet RxNorm: 039166 Take 1 Tablet(s) Oral QD 1 09/06/2021 Active levothyroxine 50 mcg tablet RxNorm: 952590 Take 1 Tablet(s) Oral QD 06/09/2021 09/06/2021 Active metoprolol succinate ER 25 mg tablet,extended release 24 hr RxNorm: 001827 TAKE 1 TABLET BY MOUTH EVERY EVENING 06/09/2021 09/06/2021 Active lisinopril 20 mg tablet RxNorm: 475470 Take 1 Tablet(s) Oral QAM 06/25/2021 Active metoprolol succinate ER 25 mg tablet,extended release 24 hr RxNorm: 847020 TAKE 1 TABLET BY MOUTH EVERY EVENING 03/15/2021 03/15/2021 Inactive atorvastatin 20 mg tablet RxNorm: 625820 Take 1 Tablet(s) Oral QD 0 03/12/2021 03/12/2021 Inactive levothyroxine 50 mcg tablet RxNorm: 287545 Take 1 Tablet(s) Oral QD 2021 2021 Inactive venlafaxine ER 150 mg capsule,extended release 24 hr RxNorm: 078126 1 Capsule(s) Oral QD 12/23/2020 12/23/2020 Inactive atorvastatin 20 mg tablet RxNorm: 562771 TAKE 1 TABLET BY MOUTH EVERY DAY 12/14/2020 12/14/2020 Inactive levothyroxine 50 mcg tablet RxNorm: 658045 TAKE 1 TABLE T BY MOUTH DAILY. TO REPLACE THE 25MCG. NEED UPDATED LABS 12/10/2020 12/10/2020 Inactive Patient requests 90 days supply levothyroxine 50 mcg tablet RxNorm: 872505 TAKE 1 TABLE T BY MOUTH DAILY: TO REPLACE THE 25MCG Need updated Labs 12/10/2020 12/09/2020 Inactive lisinopril 20 mg tablet RxNorm: 750711 1 Tablet(s) Oral QAM Patient needs appointment before next refill 12/02/2020 12/02/2020 Inactive N eeds follow up appointment/updated fasting labs lisinopril 20 mg tablet RxNorm: 432472 1 Tablet(s) Oral QAM Patient needs appointment before next refill 12/02/2020 12/01/2020 Inactive N eeds follow up appointment/updated fasting labs lisinopril 20 mg tablet RxNorm: 722249 1 Tablet(s) Oral QAM Patient needs appointment before next refill 10/30/2020 12/01/2020 Inactive baclofen 10 mg tablet RxNorm: 194091 TAKE 1/2 TABLET BY MOUTH EVERY EVENING NEEDED FOR MUSCLE SPASM 10/23/2020 12/21/2020 Inactive baclofen 10 mg tablet RxNorm: 312424 TAKE 1/2 TABLET BY MOUTH EVERY EVENING NEEDED FOR MUSCLE SPASM 09/27/2020 10/22/2020 Inactive venlafaxine ER 150 mg capsule,extended release 24 hr RxNorm: 097922 TAKE 1 CAPSULE BY MOUTH EVERY DAY 09/24/2020 12/22/2020 Inactive meloxicam 7.5 mg tablet RxNorm: 180610 TAKE 1 TABLET BY MOUTH DAILY NEEDED FOR PAIN; REPLACES 15 MG DOSE 09/22/2020 12/20/2020 Inactive metoprolol succinate ER 25 mg tablet,extended release 24 hr RxNorm: 185683 TAKE 1 TABLET BY MOUTH EVERY EVENING 09/21/2020 09/21/2020 Inactive levothyroxine 50 mcg tablet RxNorm: 513041 TAKE 1 TABLE T BY MOUTH DAILY: TO REPLACE THE 25MCG 09/14/2020 12/09/2020 Inactive atorvastatin 20 mg tablet RxNorm: 907683 TAKE 1 TABLET BY MOUTH EVERY DAY 09/11/2020 12/09/2020 Inactive baclofen 10 mg tablet RxNorm: 817232 TAKE 1/2 TABLET BY MOUTH EVERY EVENING NEEDED FOR MUSCLE SPASM 08/30/2020 09/26/2020 Inactive meloxicam 7.5 mg tablet RxNorm: 050708 1 Tablet(s) Oral QD as needed for pain replaces 15mg dose 08/25/2020 08/24/2020 Inactive meloxicam 7.5 mg tablet RxNorm: 411273 1 Tablet(s) Oral QD as needed for pain replaces 15mg dose 08/25/2020 08/25/2020 Inactive baclofen 10 mg tablet RxNorm: 668458 TAKE 1/2 TABLET BY MOUTH EVERY EVENING NEEDED FOR MUSCLE SPASM 08/03/2020 08/29/2020 Inactive meloxicam 15 mg tablet RxNorm: 438851 TAKE 1 TABLET BY MOUTH EVERY MORNING FOR PAIN 08/03/2020 08/24/2020 Inactive baclofen 10 mg tablet RxNorm: 592579 1/2 Tablet(s) Oral QPM as needed for muscle spasm 07/07/2020 08/02/2020 Inactive meloxicam 15 mg tablet RxNorm: 676845 1 Tablet(s) Oral QAM for pain 07/07/2020 08/02/2020 Inactive venlafaxine ER 150 mg capsule,extended release 24 hr RxNorm: 745672 TAKE 1 CAPSULE BY MOUTH EVERY DAY 06/29/2020 09/23/2020 Inactive metoprolol succinate ER 25 mg tablet,extended release 24 hr RxNorm: 247334 TAKE 1 TABLET BY MOUTH EVERY EVENING 06/23/2020 09/20/2020 Inactive levothyroxine 50 mcg tablet RxNorm: 784297 TAKE 1 TABLE T BY MOUTH DAILY: TO REPLACE THE 25MCG 06/19/2020 09/13/2020 Inactive atorvastatin 20 mg tablet RxNorm: 538533 TAKE 1 TABLET BY MOUTH EVERY DAY 06/15/2020 09/10/2020 Inactive levothyroxine 50 mcg tablet RxNorm: 623510 1 Tablet(s) Oral QD replaces 25mcg day 03/25/2020 06/18/2020 Inactive atorvastatin 20 mg tablet RxNorm: 785581 TAKE 1 TABLET BY MOUTH EVERY DAY 03/16/2020 06/13/2020 Inactive lisinopril 20 mg tablet RxNorm: 462228 1 Tablet(s) Oral QAM 020 10/29/2020 Inactive venlafaxine ER 150 mg capsule,extended release 24 hr RxNorm: 970390 TAKE 1 CAPSULE BY MOUTH EVERY DAY 01/06/2020 06/28/2020 Inactive metoprolol succinate ER 25 mg tablet,extended release 24 hr RxNorm: 309985 TAKE 1 TABLET BY MOUTH EVERY EVENING 12/30/2019 06/22/2020 Inactive atorvastatin 20 mg tablet RxNorm: 236766 1 Tablet(s) Oral QD 201907/06/2020 Inactive levothyroxine 25 mcg tablet RxNorm: 837084 1 Tablet(s) Oral QD 11/2703/24/2020 Inactive lisinopril 20 mg tablet RxNorm: 372650 1 Tablet(s) Oral QAM rep laces 40mg dose 11/18/2019 02/11/2020 Inactive levothyroxine 25 mcg tablet RxNorm: 652163 1 Tablet(s) Oral QD 12/201912/22/2019 Inactive levothyroxine 25 mcg tablet RxNorm: 870696 1 Tablet(s) Oral QD 12/201910/30/2019 Inactive lisinopril 20 mg tablet RxNorm: 517065 1 Tablet(s) Oral QAM rep laces 40mg dose 09/11/2019 02/12/2020 Inactive venlafaxine ER 150 mg capsule,extended release 24 hr RxNorm: 397834 1 CAPSULE(S) PO QD 07/15/2019 01/05/2020 Inactive atorvastatin 20 mg tablet RxNorm: 372035 1 Tablet(s) Oral QD 201812/22/2019 Inactive atorvastatin 20 mg tablet RxNorm: 145140 1 Tablet(s) Oral QD 201806/24/2019 Inactive metoprolol succinate ER 25 mg tablet,extended release 24 hr RxNorm: 913410 1 Tablet(s) Oral QPM 06/13/2019 06/12/2019 Inactive metoprolol succinate ER 25 mg tablet,extended release 24 hr RxNorm: 918798 1 TABLET(S) ORAL QPM 06/13/2019 12/10/2019 Inactive Patient req uests 90 days supply lisinopril 20 mg tablet RxNorm: 040735 1 Tablet(s) Oral QAM rep laces 40mg dose 06/13/2019 09/10/2019 Inactive lisinopril 40 mg tablet RxNorm: 979153 1 Tablet(s) PO QD 04/16/2019 1 Inactive venlafaxine ER 150 mg capsule,extended release 24 hr RxNorm: 046420 1 Capsule(s) PO QD 04/16/2019 07/14/2019 Inactive atorvastatin 20 mg tablet RxNorm: 971113 1 Tablet(s) PO QD 12/28/1912/26/2018 Inactive lisinopril 20 mg tablet RxNorm: 695865 1 Tablet(s) PO QD replac es 10mg dose 12/27/2018 04/03/2019 Inactive atorvastatin 20 mg tablet RxNorm: 956087 1 Tablet(s) PO QD 12/28/1906/23/2019 Inactive venlafaxine ER 75 mg capsule,extended release 24 hr RxNorm: 409447 1 Capsule(s) PO QD 12/27/2018 04/15/2019 Inactive lisinopril 20 mg tablet RxNorm: 244115 1 Tablet(s) PO QD replac es 10mg dose 12/27/2018 12/26/2018 Inactive venlafaxine ER 75 mg capsule,extended release 24 hr RxNorm: 216422 1 Capsule(s) PO QD 12/27/2018 12/26/2018 Inactive Benadryl 25 mg capsule RxNorm: 4049765 Capsule(s) PO as needed 2018 Active melatonin 5 mg tablet RxNorm: 025583 1 Tablet(s) PO QHS 01/28/2019 Active docusate sodium 100 mg tablet RxNorm: 5580787 Tablet(s) PO as neede d 10/01/2018 Active Vitamin D3 5,000 unit tablet RxNorm: 589859 1 Tablet(s) PO QD 019 Active Prolia 60 mg/mL subcutaneous syringe RxNorm: 977789 1 M illiliter(s) SQ every 6 months 10/01/2018 Active lisinopril 10 mg tablet RxNorm: 144316 1 Tablet(s) PO QD 12/27/2018 0 12/26/2018 Inactive venlafaxine ER 75 mg capsule,extended release 24 hr RxNorm: 826880 1 Capsule(s) PO QD 12/27/2018 12/26/2018 Inactive lisinopril 20 mg tablet RxNorm: 782333 2 Tablet(s) PO QD 04/16/2019 0 04/15/2019 Inactive atorvastatin 20 mg tablet RxNorm: 690438 1 Tablet(s) PO QD 12/28/19 19 12/26/2018 Inactive Medication Administered No Medication Administered data Immunizations Vaccine Codes Date Status Shingrix CVX: 141 04/05/2019 Results Observation Observation Code Item Item Code Result Date S ervice Location COMPREHENSIVE METABOLIC 55706 AST 12 U/L 2019 Unknown COMPREHENSIVE METABOLIC 29344 ALT 11 U/L 2019 Unknown COMPREHENSIVE METABOLIC 43534 BUN 11 mg/dL 2019 Unknown COMPREHENSIVE METABOLIC 53739 ALBUMIN 4.3 g/dL 2019 Unknown COMPREHENSIVE METABOLIC 92155 CHLORIDE 100 mmol/L 07/16 Unknown COMPREHENSIVE METABOLIC 36178 Bili Total 0.4 mg/dL 07/16 Unknown COMPREHENSIVE METABOLIC 86855 ALK PHOS 75 U/L 2019 Unknown COMPREHENSIVE METABOLIC 63696 SODIUM 136 mmol/L 07/16 Unknown COMPREHENSIVE METABOLIC 61302 CREATININE 0.79 mg/dL 06/28 Unknown COMPREHENSIVE METABOLIC 98535 CALCIUM 9.6 mg/dL 2019 Unknown COMPREHENSIVE METABOLIC 38859 POTASSIUM 4.5 mmol/L 07/16 Unknown COMPREHENSIVE METABOLIC 97115 Total Protein 6.7 g/dL Unknown COMPREHENSIVE METABOLIC 71318 Glucose 74 mg/dL 2019 Unknown COMPREHENSIVE METABOLIC 95311 Bicarbonate 26 mmol/L 06/28 Unknown COMPREHENSIVE METABOLIC 19826 AGAP 10 mmol/L 2019 Unknown COMPLETE BLOOD COUNT 4306974 WBC 7.4 10e9/L 07/16/20 20 Unknown COMPLETE BLOOD COUNT 8675020 RBC 4.29 10e12/L 2019 Unknown COMPLETE BLOOD COUNT 7564733 HEMOGLOBIN 13.2 g/dL 07/16/20 Unknown COMPLETE BLOOD COUNT 9233852 HEMATOCRIT 40.2 % 07/16/20 Unknown COMPLETE BLOOD COUNT 3493454 MCV 93.7 fL 0 Unknown COMPLETE BLOOD COUNT [id number] MCH 30.8 pg 0 Unknown COMPLETE BLOOD COUNT 4810117 MCHC 32.8 g/dL 0 Unknown COMPLETE BLOOD COUNT 4171466 PLATELET COUNT 294 10e9/L Unknown COMPLETE BLOOD COUNT 9632682 Mean Plt Volume 8.3 fL Unknown COMPLETE BLOOD COUNT 5929430 Neut Auto 64.6 % 0 Unknown COMPLETE BLOOD COUNT [id number] Lymph Auto 24.0 % 07/16/20 Unknown COMPLETE BLOOD COUNT 3395127 [place] Auto 9.5 % 0 Unknown COMPLETE BLOOD COUNT 0057746 RDW 12.6 % 0 Unknown COMPLETE BLOOD COUNT 0909110 Eos Auto 1.5 % 0 Unknown COMPLETE BLOOD COUNT 9949694 Baso Auto 0.4 % 0 Unknown COMPLETE BLOOD COUNT 8806367 Neutrophil Abs 4.78 10e9/L Unknown COMPLETE BLOOD COUNT 5038034 Lymphocyte Abs 1.78 10e9/L Unknown COMPLETE BLOOD COUNT [id number] Monocyte Abs 0.70 10e9/L 06/28 Unknown COMPLETE BLOOD COUNT [id number] Eosinophil Abs 0.11 10e9/L Unknown COMPLETE BLOOD COUNT 5600976 RDW-SD 42.5 fL 0 Unknown COMPLETE BLOOD COUNT 5847099 Basophil Abs 0.03 10e9/L 06/28 Unknown GFR CALC 9877048 GFR Non Afr Amr >60 mL/min 07/16/2020 Un known GFR CALC 6146347 GFR Afr Amr >60 mL/min 07/16/2020 Unknow n C-REACTIVE PROTEIN (CRP) QUANT 19611 C-Reactive Prot 0.3 mg/dL 07/16/2020 Unknown ERYTHROCYTE SEDIMENTATION RATE 12773 Sed Rate 9 mm/hr 07/16/2020 Unknown VITAMIN D TOTAL (25 HYDROXY) 68546 Vitamin D 25 OH 72.1 ng/mL 07/16/2020 Unknown GLYCOSYLATED HEMOGLOBIN TEST 90502 Hgb A1c 05602-3 5.9 % 0 03/28/2019 Unknown MEAN GLUC 6669056 Calc Mean Gluc 123 mg/dL 03/28/2019 Unkn own GFR CALC 5788565 GFR Non Afr Amr >60 mL/min 03/27/2019 Un known GFR CALC 0734789 GFR Afr Amr >60 mL/min 03/27/2019 Unknow n ASSAY TRIIODOTHYRONINE (T3) 16791 T3 Total 0.98 ng/mL 0 03/27/2019 Unknown LIPID GROUP 89594 Cholesterol 175 mg/dL 03/27/2019 Unkno wn LIPID GROUP 14982 Triglyceride 61 mg/dL 03/27/2019 Unkn own LIPID GROUP 92254 HDL CHOLESTEROL 67 mg/dL 03/27/2019 U nknown LIPID GROUP 31896 Chol/HDL Ratio 2.61 ratio 03/27/2019 U nknown LIPID GROUP 55883 NON-HDL Chol 108 mg/dL 03/27/2019 Unkn own LIPID GROUP 12088 LDL Cholesterol 96 mg/dL 03/27/2019 U nknown FREE T4 55615 T4 Free 0.85 ng/dL 03/27/2019 Unknown COMPLETE BLOOD COUNT 9633745 WBC 8.8 10e9/L 03/27/20 19 Unknown COMPLETE BLOOD COUNT 8269988 RBC 4.76 10e12/L 2018 Unknown COMPLETE BLOOD COUNT 8787287 HEMOGLOBIN 14.7 g/dL 03/27/20 19 Unknown COMPLETE BLOOD COUNT 6943211 HEMATOCRIT 43.9 % 03/27/20 19 Unknown COMPLETE BLOOD COUNT 7834982 MCV 92.2 fL 9 Unknown COMPLETE BLOOD COUNT 0355452 MCH 30.9 pg 9 Unknown COMPLETE BLOOD COUNT 3475053 MCHC 33.5 g/dL 9 Unknown COMPLETE BLOOD COUNT 7038187 PLATELET COUNT 245 10e9/L Unknown COMPLETE BLOOD COUNT 0475666 Mean Plt Volume 8.3 fL Unknown COMPLETE BLOOD COUNT 6557951 Neut Auto 86.8 % 9 Unknown COMPLETE BLOOD COUNT 8935516 Lymph Auto 10.8 % 03/27/20 19 Unknown COMPLETE BLOOD COUNT 5412233 [place] Auto 2.1 % 9 Unknown COMPLETE BLOOD COUNT 8895478 Eos Auto 0.1 % 9 Unknown COMPLETE BLOOD COUNT 2547669 RDW 12.9 % 9 Unknown COMPLETE BLOOD COUNT 0365768 Baso Auto 0.2 % 9 Unknown COMPLETE BLOOD COUNT 0227713 Neutrophil Abs 7.64 10e9/L Unknown COMPLETE BLOOD COUNT 5107066 Lymphocyte Abs 0.95 10e9/L Unknown COMPLETE BLOOD COUNT 6371380 Monocyte Abs 0.18 10e9/L 02/27 Unknown COMPLETE BLOOD COUNT 6885892 Eosinophil Abs 0.01 10e9/L Unknown COMPLETE BLOOD COUNT 6792612 RDW-SD 42.6 fL 9 Unknown COMPLETE BLOOD COUNT 7643261 Basophil Abs 0.02 10e9/L 02/27 Unknown COMPREHENSIVE METABOLIC 08677 AST 16 U/L 2018 Unknown COMPREHENSIVE METABOLIC 52714 ALT 17 U/L 2018 Unknown COMPREHENSIVE METABOLIC 98502 BUN 8 mg/dL 2018 Unknown COMPREHENSIVE METABOLIC 01791 ALBUMIN 4.5 g/dL 2018 Unknown COMPREHENSIVE METABOLIC 23096 CHLORIDE 105 mmol/L 03/27 Unknown COMPREHENSIVE METABOLIC 09997 Bili Total 1.0 mg/dL 03/27 Unknown COMPREHENSIVE METABOLIC 72225 ALK PHOS 64 U/L 2018 Unknown COMPREHENSIVE METABOLIC 33852 SODIUM 139 mmol/L 03/27 Unknown COMPREHENSIVE METABOLIC 88645 CREATININE 0.70 mg/dL 02/27 Unknown COMPREHENSIVE METABOLIC 49642 CALCIUM 9.8 mg/dL 2018 Unknown COMPREHENSIVE METABOLIC 15028 POTASSIUM 4.0 mmol/L 03/27 Unknown COMPREHENSIVE METABOLIC 58668 Total Protein 6.7 g/dL Unknown COMPREHENSIVE METABOLIC 46770 Glucose 134 mg/dL 2018 Unknown COMPREHENSIVE METABOLIC 95176 Bicarbonate 26 mmol/L 02/27 Unknown COMPREHENSIVE METABOLIC 88691 AGAP 8 mmol/L 2018 Unknown THYROID STIMULATING HORMONE 44752 TSH 3.564 uIU/mL 03/27/2019 Unknown FREE T4 09144 T4 Free 0.80 ng/dL 10/29/2018 Unknown THYROID STIMULATING HORMONE 92786 TSH 5.703 uIU/mL 10/29/2018 Unknown THYROID STIMULATING HORMONE 46594 TSH 4.956 uIU/mL 10/02/2018 Unknown LIPID GROUP 68033 Cholesterol 164 mg/dL 10/02/2018 Unkno wn LIPID GROUP 04053 Triglyceride 71 mg/dL 10/02/2018 Unkn own LIPID GROUP 43298 HDL CHOLESTEROL 65 mg/dL 10/02/2018 U nknown LIPID GROUP 20674 Chol/HDL Ratio 2.52 ratio 10/02/2018 U nknown LIPID GROUP 43300 NON-HDL Chol 99 mg/dL 10/02/2018 Unkn own LIPID GROUP 98688 LDL Cholesterol 85 mg/dL 10/02/2018 U nknown GFR CALC 4623224 GFR Afr Amr >60 mL/min 10/02/2018 Unknow n GFR CALC 9429990 GFR Non Afr Amr >60 mL/min 10/02/2018 Un known COMPREHENSIVE METABOLIC 28596 AST 16 U/L 2018 Unknown COMPREHENSIVE METABOLIC 89276 ALT 15 U/L 2018 Unknown COMPREHENSIVE METABOLIC 02769 BUN 13 mg/dL 2018 Unknown COMPREHENSIVE METABOLIC 63851 ALBUMIN 4.5 g/dL 2018 Unknown COMPREHENSIVE METABOLIC 99128 CHLORIDE 107 mmol/L 10/02 Unknown COMPREHENSIVE METABOLIC 76766 Bili Total 0.8 mg/dL 10/02 Unknown COMPREHENSIVE METABOLIC 40290 ALK PHOS 57 U/L 2018 Unknown COMPREHENSIVE METABOLIC 54417 SODIUM 143 mmol/L 10/02 Unknown COMPREHENSIVE METABOLIC 19326 CREATININE 0.79 mg/dL 12/2018 Unknown COMPREHENSIVE METABOLIC 41630 CALCIUM 9.6 mg/dL 2018 Unknown COMPREHENSIVE METABOLIC 62682 POTASSIUM 4.3 mmol/L 10/02 Unknown COMPREHENSIVE METABOLIC 11612 Total Protein 6.4 g/dL Unknown COMPREHENSIVE METABOLIC 86347 Glucose 86 mg/dL 2018 Unknown COMPREHENSIVE METABOLIC 34179 Bicarbonate 28 mmol/L 12/2018 Unknown COMPREHENSIVE METABOLIC 13733 AGAP 8 mmol/L 2018 Unknown FREE T4 37899 T4 Free 0.91 ng/dL 10/02/2018 Unknown COMPLETE BLOOD COUNT 4575819 WBC 6.1 10e9/L 10/02/19 19 Unknown COMPLETE BLOOD COUNT 6528612 RBC 4.80 10e12/L 2018 Unknown COMPLETE BLOOD COUNT 8940999 HEMOGLOBIN 14.8 g/dL 10/02/19 19 Unknown COMPLETE BLOOD COUNT 0307665 HEMATOCRIT 44.0 % 10/02/19 19 Unknown COMPLETE BLOOD COUNT 6393127 MCV 91.7 fL 9 Unknown COMPLETE BLOOD COUNT 7138798 MCH 30.8 pg 9 Unknown COMPLETE BLOOD COUNT 3056542 MCHC 33.6 g/dL 9 Unknown COMPLETE BLOOD COUNT 4859234 PLATELET COUNT 203 10e9/L 12/2018 Unknown COMPLETE BLOOD COUNT 7805538 Mean Plt Volume 8.9 fL 12/2018 Unknown COMPLETE BLOOD COUNT 3712535 Neut Auto 66.7 % 9 Unknown COMPLETE BLOOD COUNT 8849855 Lymph Auto 24.8 % 10/02/19 19 Unknown COMPLETE BLOOD COUNT 2817624 [place] Auto 4.4 % 9 Unknown COMPLETE BLOOD COUNT 0212273 Eos Auto 3.8 % 9 Unknown COMPLETE BLOOD COUNT 6208172 RDW 12.8 % 9 Unknown COMPLETE BLOOD COUNT 0032483 Baso Auto 0.3 % 9 Unknown COMPLETE BLOOD COUNT 6148851 Neutrophil Abs 4.07 10e9/L Unknown COMPLETE BLOOD COUNT 8853643 Lymphocyte Abs 1.51 10e9/L Unknown COMPLETE BLOOD COUNT 9373593 Monocyte Abs 0.27 10e9/L 12/2018 Unknown COMPLETE BLOOD COUNT 3576099 Eosinophil Abs 0.23 10e9/L Unknown COMPLETE BLOOD COUNT 4467301 RDW-SD 41.7 fL 9 Unknown COMPLETE BLOOD COUNT 4000617 Basophil Abs 0.02 10e9/L 12/2018 Unknown VITAMIN D TOTAL (25 HYDROXY) 89319 Vitamin D 25 [place] 54.1 ng/mL 10/02/2018 Unknown Procedures Procedure Codes Date ROUTINE VENIPUNCTURE CPT-4: 03232 07/16/2020 COMPREHEN METABOLIC PANEL CPT-4: 85052 07/16/2020 COMPLETE CBC W/AUTO DIFF WBC CPT-4: 34103 07/16/2020 RBC SED RATE AUTOMATED CPT-4: 84803 07/16/2020 VITAMIN D TOTAL (25 HYDROXY) CPT-4: 91245 07/16/2020 C-REACTIVE PROTEIN CPT-4: 83427 07/16/2020 ROUTINE VENIPUNCTURE CPT-4: 92602 03/27/2019 COMPLETE CBC W/AUTO DIFF WBC CPT-4: 42026 03/27/2019 COMPREHEN METABOLIC PANEL CPT-4: 56422 03/27/2019 ASSAY THYROID STIM HORMONE CPT-4: 53755 03/27/2019 ASSAY OF FREE THYROXINE CPT-4: 21839 03/27/2019 LIPID PANEL CPT-4: 38746 03/27/2019 ASSAY TRIIODOTHYRONINE (T3) CPT-4: 37967 03/27/2019 A1C HPLC CPT-4: 60601 03/27/2019 ROUTINE VENIPUNCTURE CPT-4: 96513 12/27/2018 ASSAY OF FREE THYROXINE CPT-4: 88377 12/27/2018 ASSAY THYROID STIM HORMONE CPT-4: 30665 12/27/2018 ROUTINE VENIPUNCTURE CPT-4: 26394 10/29/2018 ASSAY THYROID STIM HORMONE CPT-4: 61578 10/29/2018 ASSAY OF FREE THYROXINE CPT-4: 74311 10/29/2018 ROUTINE VENIPUNCTURE CPT-4: 12944 10/02/2018 ASSAY OF FREE THYROXINE CPT-4: 35852 10/02/2018 ASSAY THYROID STIM HORMONE CPT-4: 31042 10/02/2018 COMPREHEN METABOLIC PANEL CPT-4: 05863 10/02/2018 COMPLETE CBC W/AUTO DIFF WBC CPT-4: 76600 10/02/2018 LIPID PANEL CPT-4: 15370 10/02/2018 VITAMIN D TOTAL (25 HYDROXY) CPT-4: 49799 10/02/2018 Vital Signs Date Vital 12/22/2020 Blood Pressure 1: 125/62 Code: 8480-6 Heart Rate 1: 72 bpm Respiratory Rate: 15 bpm SpO2: 98% Temperature: 36.2 (C) / 97.1 (F) We ight: 150 lbs Code: 58570-7 07/16/2020 Blood Pressure 1: 136/82 Code: 8480-6 Heart Rate 1: 76 bpm Respiratory Rate: 20 bpm SpO2: 96% Temperature: 36.2 (C) / 97.2 (F) We ight: 152 lbs Code: 85250-6 03/25/2020 Blood Pressure 1: 116/76 Code: 8480-6 He art Rate 1: 79 bpm 10/08/2019 Blood Pressure 1: 124/80 Code: 8480-6 Heart Rate 1: 84 bpm Respiratory Rate: 20 bpm SpO2: 98% Temperature: 36.9 (C) / 98.4 (F) We ight: 158 lbs Code: 49338-5 08/19/2019 Blood Pressure 1: 126/80 Code: 8480-6 Heart Rate 1: 72 bpm Respiratory Rate: 20 bpm SpO2: 98% Temperature: 36.7 (C) / 98.1 (F) We ight: 156 lbs Code: 76305-1 07/22/2019 Blood Pressure 1: 126/76 Code: 8480-6 Heart Rate 1: 80 bpm Respiratory Rate: 18 bpm SpO2: 95% Temperature: 36.8 (C) / 98.2 (F) We ight: 153 lbs Code: 96408-9 07/01/2019 Blood Pressure 1: 124/82 Code: 8480-6 Heart Rate 1: 74 bpm SpO2: 99% 06/13/2019 Blood Pressure 1: 144/90 Code: 8480-6 Heart Rate 1: 96 bpm Respiratory Rate: 18 bpm SpO2: 96% Temperature: 36.8 (C) / 98.2 (F) We ight: 152 lbs Code: 20472-4 05/28/2019 Blood Pressure 1: 114/66 Code: 8480-6 Heart Rate 1: 100 bpm Respiratory Rate: 20 bpm SpO2: 95% Temperature: 36.7 (C) / 98.1 (F) We ight: 150 lbs Code: 24546-7 04/24/2019 Blood Pressure 1: 134/80 Code: 8480-6 Heart Rate 1: 96 bpm Respiratory Rate: 20 bpm SpO2: 97% Temperature: 36.6 (C) / 97.8 (F) We ight: 152 lbs Code: 37233-5 04/16/2019 Blood Pressure 1: 162/98 Code: 8480-6 Heart Rate 1: 95 bpm SpO2: 97% Temperature: 36.4 (C) / 97.6 (F) Weight: 149 lbs Code: 39772-2 04/04/2019 Blood Pressure 1: 142/78 Code: 8480-6 Heart Rate 1: 92 bpm Respiratory Rate: 20 bpm SpO2: 96% Temperature: 36.8 (C) / 98.2 (F) We ight: 152 lbs Code: 77657-9 03/29/2019 Blood Pressure 1: 142/98 Code: 8480-6 Heart Rate 1: 113 bpm SpO2: 97% Temperature: 36.8 (C) / 98.2 (F) 03/27/2019 Blood Pressure 1: 158/100 Code: 8480-6 Heart Rat e 1: 115 bpm SpO2: 93% Temperature: 36.8 (C) / 98.3 (F) Weight: 150 lbs Code : 92811-8 01/28/2019 Blood Pressure 1: 134/84 Code: 8480-6 Heart Rate 1: 92 bpm Respiratory Rate: 20 bpm SpO2: 96% Temperature: 36.7 (C) / 98.0 (F) We ight: 153 lbs Code: 21996-4 12/27/2018 Blood Pressure 1: 148/86 Code: 8480-6 Heart Rate 1: 84 bpm Respiratory Rate: 20 bpm SpO2: 95% Temperature: 36.7 (C) / 98.0 (F) We ight: 154 lbs Code: 03598-1 10/02/2018 Blood Pressure 1: 150/90 Code: 8480-6 Heart Rate 1: 93 bpm Respiratory Rate: 18 bpm SpO2: 98% Temperature: 36.2 (C) / 97.1 (F) We ight: 150 lbs Code: 83625-4 10/01/2018 Blood Pressure 1: 136/74 Code: 8480-6 BMI: 27.4 Code: 72039-4 Heart Rate 1: 92 bpm Height: 5'2" Code: 8302-2 Respiratory Rate: 20 bpm SpO2: 96% Temperature: 36.9 (C) / 98.4 (F) Weight: 150 lbs Code: 39363-6 Functional Status No Functional Status data Reason For Visit Reason For Visit Effective Dates Notes follow up 12/22/2020 follow up 07/16/2020 arthralgia(s) 07/07/2020 follow up 03/25/2020 follow up 12/23/2019 follow up 10/08/2019 follow up 08/19/2019 follow up 07/22/2019 blood pressure check 07/01/2019 follow up 06/13/2019 [facility] follow up 05/28/2019 follow up 04/24/2019 follow up 04/16/2019 follow up 04/04/2019 blood pressure check 03/29/2019 headache 03/27/2019 follow up 01/28/2019 follow up 12/27/2018 [facility] lab draw 10/29/2018 mole check 10/02/2018 unsure if this is a mole or just benign ~generic 10/01/2018 New Patient---establ ishing visit Encounters Encounter Performer Location Codes Date ([id number]) OFFICE/OUTPATIENT VISIT EST Diagnosis: Essential (primary) hypertension[ICD10: I10] Diagnosis: Hypothyroidism[ICD10: E03.9] Diagnosis: Hyperglycemia, unspecified[ICD10: R73.9] Diagnosis: Mixed hyperlipidemia[ICD10: E78.2] Diagnosis: Thyroid nodule[ICD10: E04.1] 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] Landy GARCIA [facility] [employer] CPT-4: 58982 12/22/2020 ([id number]) OFFICE/OUTPATIENT VISIT EST Diagnosis: Upper leg pain[ICD10: M79.659] Diagnosis: Upper arm pain[ICD10: M79.629] Diagnosis: Vitamin D deficiency[ICD10: E55.9] Landy GARCIA [facility] [employer] CPT-4: 53009 07/16/2020 ([id number]) OFFICE/OUTPATIENT VISIT EST Diagnosis: Muscle cramping[ICD10: R25.2] Diagnosis: Hypothyroidism[ICD10: E03.9] Landy GARCIA [facility] CPT-4: 60044 07/07/2020 ([id number]) OFFICE/OUTPATIENT VISIT EST Diagnosis: Essential hypertension[ICD10: I10] Diagnosis: Mixed hyperlipidemia[ICD10: E78.2] Landy Garcia [facility] CPT-4: 12616 03/25/2020 ([id number]) OFFICE/OUTPATIENT VISIT EST Diagnosis: Essential (primary) hypertension[ICD10: I10] Diagnosis: 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] [facility]: 28871 12/23/2019 ([id number]) OFFICE/OUTPATIENT VISIT EST Diagnosis: Essential (primary) hypertension[ICD10: I10] Diagnosis: Thyroid nodule[ICD10: E04.1] Landy GARCIA DO XZERES CPT-4: 33426 10/08/2019 ([id number]) OFFICE/OUTPATIENT VISIT EST Diagnosis: Essential (primary) hypertension[ICD10: I10] Landy GARCIA DO XZERES CPT-4: 66136 08/19/2019 ([id number]) OFFICE/OUTPATIENT VISIT EST Diagnosis: Essential (primary) hypertension[ICD10: I10] Landy GARCIA DO [facility] CPT-4: 86745 07/22/2019 ([id number]) NURSE/OUTPATIENT VISIT EST Diagnosis: Essential (primary) hypertension[ICD10: I10] Landy GARCIA DO [employer] CPT-4: 52955 07/01/2019 ([id number]) OFFICE/OUTPATIENT VISIT EST Diagnosis: Essential (primary) hypertension[ICD10: I10] Diagnosis: Dizziness and giddiness[ICD10: R42] Landy GARCIA DO [employer] CPT-4: 00978 06/13/2019 ([id number]) OFFICE/OUTPATIENT VISIT EST Diagnosis: Essential (primary) hypertension[ICD10: I10] Landy GARCIA DO [employer] CPT-4: 30186 05/28/2019 ([id number]) OFFICE/OUTPATIENT VISIT EST Diagnosis: Essential (primary) hypertension[ICD10: I10] Diagnosis: 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] Landy GARCIA DO [facility] CPT-4: 64253 04/24/2019 ([id number]) OFFICE/OUTPATIENT VISIT EST Diagnosis: Essential (primary) hypertension[ICD10: I10] Diagnosis: Generalized anxiety disorder[ICD10: F41.1] Alexia GARCIA DO [facility] CPT-4: 31822 04/16/2019 ([id number]) OFFICE/OUTPATIENT VISIT EST Diagnosis: Essential (primary) hypertension[ICD10: I10] Diagnosis: 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] Landy GARCIA DO [facility] CPT-4: 65727 04/04/2019 ([id number]) NURSE/OUTPATIENT VISIT EST Diagnosis: Essential (primary) hypertension[ICD10: I10] Landy GARCIA DO [facility] CPT-4: 83595 03/29/2019 ([id number]) OFFICE/OUTPATIENT VISIT EST Diagnosis: Essential (primary) hypertension[ICD10: I10] 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] Diagnosis: Mixed hyperlipidemia[ICD10: E78.2] Diagnosis: Headache[ICD10: R51] Diagnosis: Generalized anxiety disorder[ICD10: F41.1] Diagnosis: Disorder of thyroid, unspecified[ICD10: E07.9] Diagnosis: Hyperglycemia, unspecified[ICD10: R73.9] Alexia Theodore PIO VALLEJORONITKISHORE Alberto GARCIA [employer] [facility] CPT-4: 95732 03/27/2019 ([id number]) OFFICE/OUTPATIENT VISIT EST Diagnosis: Essential (primary) hypertension[ICD10: I10] Diagnosis: Mixed hyperlipidemia[ICD10: E78.2] Landy Vicbakari METCALF Alberto GARCIA [employer] [facility] CPT-4: 02029 01/28/2019 ([id number]) OFFICE/OUTPATIENT VISIT EST Diagnosis: Essential (primary) hypertension[ICD10: I10] 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] Diagnosis: Other fatigue[ICD10: R53.83] Landy REDMONDQUELINE Alberto GARCIA DO [facility] CPT-4: 52133 12/27/2018 ([id number]) NURSE/OUTPATIENT VISIT EST Diagnosis: Other specified abnormal findings of blood chemistry[ICD10: R79.89] Landy Vicbakari LANDY Alberto GARCIA DO [facility] CPT-4: 00519 10/29/2018 ([id number]) OFFICE/OUTPATIENT VISIT EST Diagnosis: Mixed hyperlipidemia[ICD10: E78.2] Diagnosis: Essential (primary) hypertension[ICD10: I10] Diagnosis: Age-related osteoporosis without current pathological fracture[ICD10: M81.0] Diagnosis: Follicular cyst of the skin and subcutaneous tissue, unspecified[ICD10: L72.9] Landy GARCIA [employer] CPT-4 : 77590 10/02/2018 OFFICE/OUTPATIENT VISIT NEW Diagnosis: Essential (primary) hypertension[ICD10: I10] Diagnosis: Mixed hyperlipidemia[ICD10: E78.2] Diagnosis: Age-related osteoporosis without current pathological fracture[ICD10: M81.0] Landy [employer] CPT-4: 74667 10/01/2018 Plan of Care Planned Activity Notes Codes Status Date Visit Diagnosis Plan: Hypothyroidism Discussion: Stabl e [...] ICD-10 : E78.2 12/22/2020 Appointment: Landy [facility]iatel[facility] [phone] [id number] MEDICATION REVIEW 12/22/2020 Appointment: Landy Garcia WPtel: [address] [place], [place] [phone] [place] RESCHEDULED 07/20/2020 Visit Diagnosis Plan: Upper leg pain Discussion: Updat e lab--CBC, CMP, ESR, CRP, Vitamin D ICD-9 : 729.5 ICD-10 : M79.659 07/16/2020 Appointment: Landy Garcia WPtel: [address] [place], [place] [phone] ACUTE ILLNESS 07/16/2020 Visit Diagnosis Plan: Muscle [...] : E03.9 07/07/2020 Appointment: Landy Garcia WPtel: [address] [place], [place] [phone] TELEMEDICINE 07/07/2020 Patient Education: meloxicam- [employer] Coupon [phone] https://www.Itineris/samplemd/resources/getResource/61/8n56xbra-s558-9015-x8 Completed 07/07/2020 Patient Education: baclofen- [employer] Coupon [phone] https://www.[employer] ([employer]/samplemd/resources/getResource/61/57424487-7ia8-1029-qp Completed 07/07/2020 Visit Diagnosis Plan: Mixed hyperlipidemia Discussion: Mediterranean diet Combination of cardio and weight bearing exercise Recheck lipids in 6mos ICD-9 : 272.4 ICD-10 : E78.2 03/25/2020 Visit Diagnosis Plan: Essential hypertension Discussio n: Stable Lab discussed ICD-9 : 401.9 ICD-10 : I10 03/25/2020 Appointment: Landy Garcia WPtel: [address] [place], [place] [phone] TELEMEDICINE 03/25/2020 Patient Education: levothyroxine- [employer] Coupon 12 [id number] https://www.[employer]ineris/sampleGameHuddle/resources/getResource/61/47706815-80a9-8966-ld Completed 03/25/2020 Visit Diagnosis Plan: Essential (primary) hypertension Discussion: Hawk.ri video visit done Stable on current meds Follow Up: 3 months ICD-9 : 401.9 ICD-10 : I10 12/23/2019 Visit Diagnosis Plan: Nontoxic single thyroid nodule D iscussion: Feels better with the low dose thyroid--will check lab and fwup in 3mos ICD-9 : 241.0 ICD-10 : E04.1 12/23/2019 Appointment: Landy Garcia WPtel: [address] [place] [address] [place] confirmed TELEMEDICINE 12/23/2019 Patient Education: levothyroxine- [employer] Coupon 10 [id number] https://www.[employer]ineris/[employer] ([employer] united)/resources/getResource/61/q4694929-rt2y-2s9u-g3 Completed 12/23/2019 Referral: Mike Munguia WPtel: [address] [place] [address] [place] Referral Initiated 10/26/2019 Visit Diagnosis Plan: Essential (primary) hypertension Discussion: Stable Recheck 2mos with lab ICD-9 : 401.9 ICD-10 : I10 10/08/2019 Visit Diagnosis Plan: Thyroid nodule Discussion: Updat e thyroid nodule ICD-9 : 241.0 ICD-10 : E04.1 10/08/2019 Appointment: Landy Garcia WPtel: [address] [address] [place] MEDICATION REVIEW 10/08/2019 Care Plan: MAMMOGRAM SCREENING LOINC : 2 6347-5 Pending 10/08/2019 Appointment: Landy Garcia WPtel: [address] [address] [place] CANCELED 09/09/2019 Visit Diagnosis Plan: Essential (primary) hypertension Discussion: Stable on current meds Lab in 2mos then fwup Follow Up: 2 months Discussion: Stable on current meds Follow Up: 2 months ICD-9 : 401.9 ICD-10 : I10 08/19/2019 Appointment: Landy Garciatel: [address] [place], [place] [phone] [place] FOLLOW UP 08/19/2019 Visit Diagnosis Plan: Essential (primary) hypertension Discussion: Stable on current meds Recheck 1month ICD-9 : 401.9 ICD-10 : I10 07/22/2019 Appointment: Landy Garcia WPtel: [address] [place] [address] US FOLLOW UP 07/22/2019 Appointment: Landy Garcia WPtel: [address] [place], [place] [phone] [place] CANCELED 07/08/2019 Appointment: Landy Garciatel: [address] [place], [place] [phone] [place] BP CHECK 07/01/2019 Visit Diagnosis Plan: [...] 401.9 ICD-10 : I10 06/13/2019 Appointment: Landy Garciatel: [address] [place], [place] [phone] [place] ACUTE ILLNESS 06/13/2019 Patient Education: metoprolol succinate- [employer] Co upon [id number] https://www.Pay [employer] (deal united[employer]/samplemd/resources/getResource/61/pu5498g5-s3rg-2518-v3 Completed 06/13/2019 Visit Diagnosis Plan: Essential (primary) hypertension Discussion: Stable Monitor BP Recheck 3mos ICD-9 : 401.9 ICD-10 : I10 05/28/2019 Appointment: Landy Garcia WPtel: [address] [place], [place] [phone] US FOLLOW UP 05/28/2019 Visit Diagnosis Plan: Essential (primary) hypertension Discussion: Stable with increased dose Follow Up: 1 months ICD-9 : 401.9 ICD-10 : I10 04/24/2019 Visit Diagnosis Plan: Nontoxic single thyroid nodule D iscussion: Recheck US in 6mos ICD-9 : 241.0 ICD-10 : E04.1 04/24/2019 Appointment: Landy Garcia WPtel: [address] [place] [address] US FOLLOW UP 04/24/2019 Appointment: Landy Garcia WPtel: [address] [place] [address] US CANCELED 04/23/2019 Visit Diagnosis Plan: Essential [...] : F41.1 04/16/2019 Appointment: Landy Garcia WPtel: [address] [place], [place] [phone] [place] CANCELED 04/16/2019 Appointment: Alexia Theodore [address] [place] [address] Follow Up 04/16/2019 Patient Education: venlafaxine- [employer] Coupon [phone] https://www.Itineris/samplemd/resources/getResource/61/5f6z5905-180h-91yf-87 Completed 04/16/2019 Patient Education: lisinopril- [employer] Coupon [phone] https://www.Itineris/Pay by [employer]pping (deal united)/resources/getResource/61/st173egd-361y-00bh-tn Completed 04/16/2019 Patient Education: High Blood Pressure [...] : E04.1 04/04/2019 Appointment: Landy Garcia WPtel: [address] [place], [place] [phone] US FOLLOW UP 04/04/2019 Appointment: Landy Garcia WPtel: [address] [place] [address] US BP CHECK 03/29/2019 Visit Diagnosis Plan: [...] ICD-10 : E07.9 03/27/2019 Appointment: Alexia Theodore [address] [place], [place] [id number] ACUTE I[facility]NESS 03/27/2019 Patient Education: High Blood Pressure Co mpleted 03/27/2019 Care Plan: US EXAM OF HEAD AND NECK thyroid LOIN C : 98422-6 Pending 03/27/2019 Visit Diagnosis Plan: Essential (primary) hypertension Discussion: Stable ICD-9 : 401.9 ICD-10 : I10 01/28/2019 Visit Diagnosis Plan: Mixed hyperlipidemia Discussion: Mediterranean diet Combination of cardio and weight bearing exercise Check lipids with fwup in 2mos ICD-9 : 272.4 ICD-10 : E78.2 01/28/2019 Appointment: Landy Garcia WPtel: [address] [place] [address] US FOLLOW UP 01/28/2019 Visit Diagnosis Plan: Essential (primary) hypertension Discussion: Increase lisinopril to 20mg daily Recheck 4 weeks ICD-9 : 401.9 ICD-10 : I10 12/27/2018 Visit Diagnosis Plan: Benign neoplasm of cerebral meni nges Discussion: Will be following with neurosurgery at ICD-9 : 225.2 ICD-10 : D32.0 12/27/2018 Appointment: Landy Garcia WPtel: [address] [place] [address] Hospital Follow Up 12/27/2018 Patient Education: venlafaxine- [employer] Coupon [phone] https://www.Pay by Shopping (deal united[employer]com/samplemd/resources/getResource/61/zp5v0y65-3874-3o1r-88 Completed 12/27/2018 Appointment: Landy Garcia WPtel: [address] [place] [address] US CANCELED 12/24/2018 Appointment: Landy Garcia WPtel: [address] [place] [id number] [place] LAB 10/29/2018 Visit Diagnosis Plan: Follicular cyst of the skin and subcutaneous tissue, unspecified Discussion: Reassurance given Will monit or Did offer dermatology referral ICD-9 : 706.2 ICD-10 : L72.9 10/02/2018 Appointment: Landy Garcia WPtel: [address] [place], [place] [phone] [place] LAB 10/02/2018 Appointment: Landy Garcia WPtel: [address] [place], [place] [phone] ACUTE ILL[facility] 10/02/2018 Visit Diagnosis Plan: Mixed [...] : I10 10/01/2018 Appointment: Landy Garcia WPtel: [address] [place], [place] [phone] NEW PATIENT 10/01/2018 Instructions No Instructions Medical Equipment No Medical Equipment data Health Concerns Section Health Concerns data not found Goals Section Goals data not found Interventions Section Interventions data not found Health Status Evaluations/Outcomes Section Health Status Evaluations/Outcomes data not found Advance Directives No Advance Directive data
--- OUTSIDE RECORDS SUMMARY | 2021-08-06 09:31 | XMS REPORT | CCD ---
Author Author Va Garcia D.O. 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 Name Role Phone PP Unavailable CCM Unavailable Summary Purpose Interface Exchange Insurance Providers Payer name Policy type / Coverage type Covered alliance party ID Effective Begin Date Effective End Date WPS MEDICARE PART B [place] Medicare Part B [id number] 2018 Unknown [employer] Medicare Part B [id number] 2018 Unknown Family History Family History data not found Social History Social History Element Codes Description Effective Dates Marital status Unknown 10/01/2018 Number of children Unknown 1 10/01/2018 Employment Unknown 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 10/01/[address]: 4621724 Former smoker 10/01/[address]: 410510030 Never drinks alcohol 2018 Has the patient [...] 150 mg capsule,extended release 24 hr RxNorm: 597462 Take 1 Capsule(s) Oral QD 06/17/2021 09/14/2021 Active atorvastatin 20 mg tablet RxNorm: 752118 Take 1 Tablet(s) Oral QD 1 09/06/2021 Active levothyroxine 50 mcg tablet RxNorm: 604882 Take 1 Tablet(s) Oral QD 06/09/2021 09/06/2021 Active metoprolol succinate ER 25 mg tablet,extended release 24 hr RxNorm: 582973 TAKE 1 TABLET BY MOUTH EVERY EVENING 06/09/2021 09/06/2021 Active lisinopril 20 mg tablet RxNorm: 296380 Take 1 Tablet(s) Oral QAM 06/25/2021 Inactive metoprolol succinate ER 25 mg tablet,extended release 24 hr RxNorm: 261534 TAKE 1 TABLET BY MOUTH EVERY EVENING 03/15/2021 03/15/2021 Inactive atorvastatin 20 mg tablet RxNorm: 264951 Take 1 Tablet(s) Oral QD 0 03/12/2021 03/12/2021 Inactive levothyroxine 50 mcg tablet RxNorm: 446701 Take 1 Tablet(s) Oral QD 2021 2021 Inactive venlafaxine ER 150 mg capsule,extended release 24 hr RxNorm: 536694 1 Capsule(s) Oral QD 12/23/2020 12/23/2020 Inactive atorvastatin 20 mg tablet RxNorm: 012941 TAKE 1 TABLET BY MOUTH EVERY DAY 12/14/2020 12/14/2020 Inactive levothyroxine 50 mcg tablet RxNorm: 213208 TAKE 1 TABLE T BY MOUTH DAILY. TO REPLACE THE 25MCG. NEED UPDATED LABS 12/10/2020 12/10/2020 Inactive Patient requests 90 days supply levothyroxine 50 mcg tablet RxNorm: 451944 TAKE 1 TABLE T BY MOUTH DAILY: TO REPLACE THE 25MCG Need updated Labs 12/10/2020 12/09/2020 Inactive lisinopril 20 mg tablet RxNorm: 737088 1 Tablet(s) Oral QAM Patient needs appointment before next refill 12/02/2020 12/02/2020 Inactive N eeds follow up appointment/updated fasting labs lisinopril 20 mg tablet RxNorm: 491658 1 Tablet(s) Oral QAM Patient needs appointment before next refill 12/02/2020 12/01/2020 Inactive N eeds follow up appointment/updated fasting labs lisinopril 20 mg tablet RxNorm: 902502 1 Tablet(s) Oral QAM Patient needs appointment before next refill 10/30/2020 12/01/2020 Inactive baclofen 10 mg tablet RxNorm: 458302 TAKE 1/2 TABLET BY MOUTH EVERY EVENING NEEDED FOR MUSCLE SPASM 10/23/2020 12/21/2020 Inactive baclofen 10 mg tablet RxNorm: 580019 TAKE 1/2 TABLET BY MOUTH EVERY EVENING NEEDED FOR MUSCLE SPASM 09/27/2020 10/22/2020 Inactive venlafaxine ER 150 mg capsule,extended release 24 hr RxNorm: 059147 TAKE 1 CAPSULE BY MOUTH EVERY DAY 09/24/2020 12/22/2020 Inactive meloxicam 7.5 mg tablet RxNorm: 690252 TAKE 1 TABLET BY MOUTH DAILY NEEDED FOR PAIN; REPLACES 15 MG DOSE 09/22/2020 12/20/2020 Inactive metoprolol succinate ER 25 mg tablet,extended release 24 hr RxNorm: 261164 TAKE 1 TABLET BY MOUTH EVERY EVENING 09/21/2020 09/21/2020 Inactive levothyroxine 50 mcg tablet RxNorm: 023683 TAKE 1 TABLE T BY MOUTH DAILY: TO REPLACE THE 25MCG 09/14/2020 12/09/2020 Inactive atorvastatin 20 mg tablet RxNorm: 326882 TAKE 1 TABLET BY MOUTH EVERY DAY 09/11/2020 12/09/2020 Inactive baclofen 10 mg tablet RxNorm: 711652 TAKE 1/2 TABLET BY MOUTH EVERY EVENING NEEDED FOR MUSCLE SPASM 08/30/2020 09/26/2020 Inactive meloxicam 7.5 mg tablet RxNorm: 801342 1 Tablet(s) Oral QD as needed for pain replaces 15mg dose 08/25/2020 08/24/2020 Inactive meloxicam 7.5 mg tablet RxNorm: 009129 1 Tablet(s) Oral QD as needed for pain replaces 15mg dose 08/25/2020 08/25/2020 Inactive baclofen 10 mg tablet RxNorm: 960265 TAKE 1/2 TABLET BY MOUTH EVERY EVENING NEEDED FOR MUSCLE SPASM 08/03/2020 08/29/2020 Inactive meloxicam 15 mg tablet RxNorm: 855085 TAKE 1 TABLET BY MOUTH EVERY MORNING FOR PAIN 08/03/2020 08/24/2020 Inactive baclofen 10 mg tablet RxNorm: 692236 1/2 Tablet(s) Oral QPM as needed for muscle spasm 07/07/2020 08/02/2020 Inactive meloxicam 15 mg tablet RxNorm: 405152 1 Tablet(s) Oral QAM for pain 07/07/2020 08/02/2020 Inactive venlafaxine ER 150 mg capsule,extended release 24 hr RxNorm: 055307 TAKE 1 CAPSULE BY MOUTH EVERY DAY 06/29/2020 09/23/2020 Inactive metoprolol succinate ER 25 mg tablet,extended release 24 hr RxNorm: 511210 TAKE 1 TABLET BY MOUTH EVERY EVENING 06/23/2020 09/20/2020 Inactive levothyroxine 50 mcg tablet RxNorm: 212052 TAKE 1 TABLE T BY MOUTH DAILY: TO REPLACE THE 25MCG 06/19/2020 09/13/2020 Inactive atorvastatin 20 mg tablet RxNorm: 942591 TAKE 1 TABLET BY MOUTH EVERY DAY 06/15/2020 09/10/2020 Inactive levothyroxine 50 mcg tablet RxNorm: 605211 1 Tablet(s) Oral QD replaces 25mcg 03/25/2020 06/18/2020 Inactive atorvastatin 20 mg tablet RxNorm: 666321 TAKE 1 TABLET BY MOUTH EVERY DAY 03/16/2020 06/13/2020 Inactive lisinopril 20 mg tablet RxNorm: 976636 1 Tablet(s) Oral QAM 020 10/29/2020 Inactive venlafaxine ER 150 mg capsule,extended release 24 hr RxNorm: 114370 TAKE 1 CAPSULE BY MOUTH EVERY DAY 01/06/2020 06/28/2020 Inactive metoprolol succinate ER 25 mg tablet,extended release 24 hr RxNorm: 003522 TAKE 1 TABLET BY MOUTH EVERY EVENING 12/30/2019 06/22/2020 Inactive atorvastatin 20 mg tablet RxNorm: 711560 1 Tablet(s) Oral QD 201907/06/2020 Inactive levothyroxine 25 mcg tablet RxNorm: 032173 1 Tablet(s) Oral QD 11/2703/24/2020 Inactive lisinopril 20 mg tablet RxNorm: 889045 1 Tablet(s) Oral QAM rep laces 40mg dose 11/18/2019 02/11/2020 Inactive levothyroxine 25 mcg tablet RxNorm: 731293 1 Tablet(s) Oral QD 12/201912/22/2019 Inactive levothyroxine 25 mcg tablet RxNorm: 659543 1 Tablet(s) Oral QD 12/201910/30/2019 Inactive lisinopril 20 mg tablet RxNorm: 001727 1 Tablet(s) Oral QAM rep laces 40mg dose 09/11/2019 02/12/2020 Inactive venlafaxine ER 150 mg capsule,extended release 24 hr RxNorm: 748729 1 CAPSULE(S) PO QD 07/15/2019 01/05/2020 Inactive atorvastatin 20 mg tablet RxNorm: 405148 1 Tablet(s) Oral QD 201812/22/2019 Inactive atorvastatin 20 mg tablet RxNorm: 865822 1 Tablet(s) Oral QD 201806/24/2019 Inactive metoprolol succinate ER 25 mg tablet,extended release 24 hr RxNorm: 088903 1 Tablet(s) Oral QPM 06/13/2019 06/12/2019 Inactive metoprolol succinate ER 25 mg tablet,extended release 24 hr RxNorm: 241516 1 TABLET(S) ORAL QPM 06/13/2019 12/10/2019 Inactive Patient req uests 90 days supply lisinopril 20 mg tablet RxNorm: 462490 1 Tablet(s) Oral QAM rep laces 40mg dose 06/13/2019 09/10/2019 Inactive lisinopril 40 mg tablet RxNorm: 193625 1 Tablet(s) PO QD 04/16/2019 1 Inactive venlafaxine ER 150 mg capsule,extended release 24 hr RxNorm: 761961 1 Capsule(s) PO QD 04/16/2019 07/14/2019 Inactive atorvastatin 20 mg tablet RxNorm: 436749 1 Tablet(s) PO QD 12/28/1912/26/2018 Inactive lisinopril 20 mg tablet RxNorm: 950556 1 Tablet(s) PO QD replac es 10mg dose 12/27/2018 04/03/2019 Inactive atorvastatin 20 mg tablet RxNorm: 872160 1 Tablet(s) PO QD 12/28/19 19 06/23/2019 Inactive venlafaxine ER 75 mg capsule,extended release 24 hr RxNorm: 522440 1 Capsule(s) PO QD 12/27/2018 04/15/2019 Inactive lisinopril 20 mg tablet RxNorm: 916649 1 Tablet(s) PO QD replac es 10mg dose 12/27/2018 12/26/2018 Inactive venlafaxine ER 75 mg capsule,extended release 24 hr RxNorm: 969345 1 Capsule(s) PO QD 12/27/2018 12/26/2018 Inactive Benadryl 25 mg capsule RxNorm: 7844971 Capsule(s) PO as needed 2018 Active melatonin 5 mg tablet RxNorm: 017041 1 Tablet(s) PO QHS 01/28/2019 Active docusate sodium 100 mg tablet RxNorm: 1430135 Tablet(s) PO as neede d 10/01/2018 Active Vitamin D3 5,000 unit tablet RxNorm: 392970 1 Tablet(s) PO QD 019 Active Prolia 60 mg/mL subcutaneous syringe RxNorm: 517268 1 M illiliter(s) SQ every 6 months 10/01/2018 Active lisinopril 10 mg tablet RxNorm: 185594 1 Tablet(s) PO QD 12/27/2018 0 12/26/2018 Inactive venlafaxine ER 75 mg capsule,extended release 24 hr RxNorm: 167180 1 Capsule(s) PO QD 12/27/2018 12/26/2018 Inactive lisinopril 20 mg tablet RxNorm: 416111 2 Tablet(s) PO QD 04/16/2019 0 04/15/2019 Inactive atorvastatin 20 mg tablet RxNorm: 028372 1 Tablet(s) PO QD 12/28/19 19 12/26/2018 Inactive Medication Administered No Medication Administered data Immunizations Vaccine Codes Date Status Shingrix CVX: 141 04/05/2019 Results Observation Observation Code Item Item Code Result Date S ervice Location COMPREHENSIVE METABOLIC 80675 AST 12 U/L 2019 Unknown COMPREHENSIVE METABOLIC 65812 ALT 11 U/L 2019 Unknown COMPREHENSIVE METABOLIC 25680 BUN 11 mg/dL 2019 Unknown COMPREHENSIVE METABOLIC 65757 ALBUMIN 4.3 g/dL 2019 Unknown COMPREHENSIVE METABOLIC 61262 CHLORIDE 100 mmol/L 07/16 Unknown COMPREHENSIVE METABOLIC 70518 Bili Total 0.4 mg/dL 07/16 Unknown COMPREHENSIVE METABOLIC 41328 ALK PHOS 75 U/L 2019 Unknown COMPREHENSIVE METABOLIC 93151 SODIUM 136 mmol/L 07/16 Unknown COMPREHENSIVE METABOLIC 63420 CREATININE 0.79 mg/dL 06/28 Unknown COMPREHENSIVE METABOLIC 65098 CALCIUM 9.6 mg/dL 2019 Unknown COMPREHENSIVE METABOLIC 82101 POTASSIUM 4.5 mmol/L 07/16 Unknown COMPREHENSIVE METABOLIC 05827 Total Protein 6.7 g/dL Unknown COMPREHENSIVE METABOLIC 27462 Glucose 74 mg/dL 2019 Unknown COMPREHENSIVE METABOLIC 23181 Bicarbonate 26 mmol/L 06/28 Unknown COMPREHENSIVE METABOLIC 07837 AGAP 10 mmol/L 2019 Unknown COMPLETE BLOOD COUNT 2837661 WBC 7.4 10e9/L 07/16/20 20 Unknown COMPLETE BLOOD COUNT 7056738 RBC 4.29 10e12/L 2019 Unknown COMPLETE BLOOD COUNT 2985172 HEMOGLOBIN 13.2 g/dL 07/16/20 20 Unknown COMPLETE BLOOD COUNT 9747660 HEMATOCRIT 40.2 % 07/16/20 20 Unknown COMPLETE BLOOD COUNT 9774685 MCV 93.7 fL 0 Unknown COMPLETE BLOOD COUNT 9903559 MCH 30.8 pg 0 Unknown COMPLETE BLOOD COUNT 1688421 MCHC 32.8 g/dL 0 Unknown COMPLETE BLOOD COUNT 5154354 PLATELET COUNT 294 10e9/L Unknown COMPLETE BLOOD COUNT 2232504 Mean Plt Volume 8.3 fL Unknown COMPLETE BLOOD COUNT 2899732 Neut Auto 64.6 % 0 Unknown COMPLETE BLOOD COUNT 0260567 Lymph Auto 24.0 % 07/16/20 20 Unknown COMPLETE BLOOD COUNT 4777660 Colbert Auto 9.5 % 0 Unknown COMPLETE BLOOD COUNT 4147176 Eos Auto 1.5 % 0 Unknown COMPLETE BLOOD COUNT 1047643 RDW 12.6 % 0 Unknown COMPLETE BLOOD COUNT 5182495 Baso Auto 0.4 % 0 Unknown COMPLETE BLOOD COUNT 6389723 Neutrophil Abs 4.78 10e9/L Unknown COMPLETE BLOOD COUNT 6969903 Lymphocyte Abs 1.78 10e9/L Unknown COMPLETE BLOOD COUNT 8567504 Monocyte Abs 0.70 10e9/L 06/28 Unknown COMPLETE BLOOD COUNT 2586060 Eosinophil Abs 0.11 10e9/L Unknown COMPLETE BLOOD COUNT 2439034 RDW-SD 42.5 fL 0 Unknown COMPLETE BLOOD COUNT 7507848 Basophil Abs 0.03 10e9/L 06/28 Unknown GFR CALC 4530298 GFR Non Afr Amr >60 mL/min 07/16/2020 Un known GFR CALC 6177693 GFR Afr Amr >60 mL/min 07/16/2020 Unknow n C-REACTIVE PROTEIN (CRP) QUANT 01912 C-Reactive Prot 0.3 mg/dL 07/16/2020 Unknown ERYTHROCYTE SEDIMENTATION RATE 75888 Sed Rate 9 mm/hr 07/16/2020 Unknown VITAMIN D TOTAL (25 HYDROXY) 98372 Vitamin D 25 OH 72.1 ng/mL 07/16/2020 Unknown GLYCOSYLATED HEMOGLOBIN TEST 63565 Hgb A1c 44298-0 5.9 % 0 03/28/2019 Unknown MEAN GLUC 6505409 Calc Mean Gluc 123 mg/dL 03/28/2019 Unkn own GFR CALC 0054027 GFR Non Afr Amr >60 mL/min 03/27/2019 Un known GFR CALC 8291876 GFR Afr Amr >60 mL/min 03/27/2019 Unknow n ASSAY TRIIODOTHYRONINE (T3) 92735 T3 Total 0.98 ng/mL 0 03/27/2019 Unknown LIPID GROUP 27130 Cholesterol 175 mg/dL 03/27/2019 Unkno wn LIPID GROUP 42738 Triglyceride 61 mg/dL 03/27/2019 Unkn own LIPID GROUP 08207 HDL CHOLESTEROL 67 mg/dL 03/27/2019 U nknown LIPID GROUP 14051 Chol/HDL Ratio 2.61 ratio 03/27/2019 U nknown LIPID GROUP 87497 NON-HDL Chol 108 mg/dL 03/27/2019 Unkn own LIPID GROUP 23479 LDL Cholesterol 96 mg/dL 03/27/2019 U nknown FREE T4 64035 T4 Free 0.85 ng/dL 03/27/2019 Unknown COMPLETE BLOOD COUNT 5406755 WBC 8.8 10e9/L 03/27/20 19 Unknown COMPLETE BLOOD COUNT 3261774 RBC 4.76 10e12/L 2018 Unknown COMPLETE BLOOD COUNT 2563320 HEMOGLOBIN 14.7 g/dL 03/27/20 19 Unknown COMPLETE BLOOD COUNT 8209892 HEMATOCRIT 43.9 % 07/31/20 19 Unknown COMPLETE BLOOD COUNT 2784472 MCV 92.2 fL 9 Unknown COMPLETE BLOOD COUNT 7144706 MCH 30.9 pg 9 Unknown COMPLETE BLOOD COUNT 7253316 MCHC 33.5 g/dL 9 Unknown COMPLETE BLOOD COUNT 5789299 PLATELET COUNT 245 10e9/L Unknown COMPLETE BLOOD COUNT 6955883 Mean Plt Volume 8.3 fL Unknown COMPLETE BLOOD COUNT 2135044 Neut Auto 86.8 % 9 Unknown COMPLETE BLOOD COUNT 8953705 Lymph Auto 10.8 % 03/27/20 19 Unknown COMPLETE BLOOD COUNT 8326104 Colbert Auto 2.1 % 9 Unknown COMPLETE BLOOD COUNT 6921261 Eos Auto 0.1 % 9 Unknown COMPLETE BLOOD COUNT 8841612 RDW 12.9 % 9 Unknown COMPLETE BLOOD COUNT 5844611 Baso Auto 0.2 % 9 Unknown COMPLETE BLOOD COUNT 3315406 Neutrophil Abs 7.64 10e9/L Unknown COMPLETE BLOOD COUNT 6880732 Lymphocyte Abs 0.95 10e9/L Unknown COMPLETE BLOOD COUNT 6018950 Monocyte Abs 0.18 10e9/L 02/27 Unknown COMPLETE BLOOD COUNT 6384321 Eosinophil Abs 0.01 10e9/L Unknown COMPLETE BLOOD COUNT 0921351 Basophil Abs 0.02 10e9/L 02/27 Unknown COMPLETE BLOOD COUNT 5131984 RDW-SD 42.6 fL 9 Unknown COMPREHENSIVE METABOLIC 56926 AST 16 U/L 2018 Unknown COMPREHENSIVE METABOLIC 00428 ALT 17 U/L 2018 Unknown COMPREHENSIVE METABOLIC 21108 BUN 8 mg/dL 2018 Unknown COMPREHENSIVE METABOLIC 25141 ALBUMIN 4.5 g/dL 2018 Unknown COMPREHENSIVE METABOLIC 06636 CHLORIDE 105 mmol/L 03/27 Unknown COMPREHENSIVE METABOLIC 33391 Bili Total 1.0 mg/dL 03/27 Unknown COMPREHENSIVE METABOLIC 77974 ALK PHOS 64 U/L 2018 Unknown COMPREHENSIVE METABOLIC 67914 SODIUM 139 mmol/L 03/27 Unknown COMPREHENSIVE METABOLIC 64449 CREATININE 0.70 mg/dL 02/27 Unknown COMPREHENSIVE METABOLIC 36996 CALCIUM 9.8 mg/dL 2018 Unknown COMPREHENSIVE METABOLIC 29986 POTASSIUM 4.0 mmol/L 03/27 Unknown COMPREHENSIVE METABOLIC 68944 Total Protein 6.7 g/dL Unknown COMPREHENSIVE METABOLIC 46685 Glucose 134 mg/dL 2018 Unknown COMPREHENSIVE METABOLIC 91790 Bicarbonate 26 mmol/L 02/27 Unknown COMPREHENSIVE METABOLIC 34334 AGAP 8 mmol/L 2018 Unknown THYROID STIMULATING HORMONE 10105 TSH 3.564 uIU/mL 03/27/2019 Unknown FREE T4 73610 T4 Free 0.80 ng/dL 10/29/2018 Unknown THYROID STIMULATING HORMONE 31534 TSH 5.703 uIU/mL 10/29/2018 Unknown THYROID STIMULATING HORMONE 02870 TSH 4.956 uIU/mL 10/02/2018 Unknown LIPID GROUP 38231 Cholesterol 164 mg/dL 10/02/2018 Unkno wn LIPID GROUP 28538 Triglyceride 71 mg/dL 10/02/2018 Unkn own LIPID GROUP 13783 HDL CHOLESTEROL 65 mg/dL 10/02/2018 U nknown LIPID GROUP 56788 Chol/HDL Ratio 2.52 ratio 10/02/2018 U nknown LIPID GROUP 70011 NON-HDL Chol 99 mg/dL 10/02/2018 Unkn own LIPID GROUP 58696 LDL Cholesterol 85 mg/dL 10/02/2018 U nknown GFR CALC 7541871 GFR Non Afr Amr >60 mL/min 10/02/2018 Un known GFR CALC 4239049 GFR Afr Amr >60 mL/min 10/02/2018 Unknow n COMPREHENSIVE METABOLIC 00800 AST 16 U/L 2018 Unknown COMPREHENSIVE METABOLIC 12559 ALT 15 U/L 2018 Unknown COMPREHENSIVE METABOLIC 35143 BUN 13 mg/dL 2018 Unknown COMPREHENSIVE METABOLIC 29721 ALBUMIN 4.5 g/dL 2018 Unknown COMPREHENSIVE METABOLIC 31084 CHLORIDE 107 mmol/L 10/02 Unknown COMPREHENSIVE METABOLIC 19409 Bili Total 0.8 mg/dL 10/02 Unknown COMPREHENSIVE METABOLIC 46195 ALK PHOS 57 U/L 2018 Unknown COMPREHENSIVE METABOLIC 00665 SODIUM 143 mmol/L 10/02 Unknown COMPREHENSIVE METABOLIC 68081 CREATININE 0.79 mg/dL 12/2018 Unknown COMPREHENSIVE METABOLIC 84937 CALCIUM 9.6 mg/dL 2018 Unknown COMPREHENSIVE METABOLIC 27433 POTASSIUM 4.3 mmol/L 10/02 Unknown COMPREHENSIVE METABOLIC 42319 Total Protein 6.4 g/dL Unknown COMPREHENSIVE METABOLIC 43998 Glucose 86 mg/dL 2018 Unknown COMPREHENSIVE METABOLIC 28379 Bicarbonate 28 mmol/L 12/2018 Unknown COMPREHENSIVE METABOLIC 22828 AGAP 8 mmol/L 2018 Unknown FREE T4 34209 T4 Free 0.91 ng/dL 10/02/2018 Unknown COMPLETE BLOOD COUNT 2767539 WBC 6.1 10e9/L 10/02/19 19 Unknown COMPLETE BLOOD COUNT 8118637 RBC 4.80 10e12/L 2018 Unknown COMPLETE BLOOD COUNT 5786644 HEMOGLOBIN 14.8 g/dL 10/02/19 19 Unknown COMPLETE BLOOD COUNT 3236375 HEMATOCRIT 44.0 % 10/02/19 19 Unknown COMPLETE BLOOD COUNT 8209537 MCV 91.7 fL 9 Unknown COMPLETE BLOOD COUNT 9797595 MCH 30.8 pg 9 Unknown COMPLETE BLOOD COUNT 1025169 MCHC 33.6 g/dL 9 Unknown COMPLETE BLOOD COUNT 2677610 PLATELET COUNT 203 10e9/L 12/2018 Unknown COMPLETE BLOOD COUNT 6017785 Mean Plt Volume 8.9 fL 12/2018 Unknown COMPLETE BLOOD COUNT 2666737 Neut Auto 66.7 % 9 Unknown COMPLETE BLOOD COUNT 7448729 Lymph Auto 24.8 % 10/02/19 19 Unknown COMPLETE BLOOD COUNT 0060401 Colbert Auto 4.4 % 9 Unknown COMPLETE BLOOD COUNT 0796419 RDW 12.8 % 9 Unknown COMPLETE BLOOD COUNT 9758620 Eos Auto 3.8 % 9 Unknown COMPLETE BLOOD COUNT 4491185 Baso Auto 0.3 % 9 Unknown COMPLETE BLOOD COUNT 4197234 Neutrophil Abs 4.07 10e9/L Unknown COMPLETE BLOOD COUNT 3730540 Lymphocyte Abs 1.51 10e9/L Unknown COMPLETE BLOOD COUNT 5178809 Monocyte Abs 0.27 10e9/L 12/2018 Unknown COMPLETE BLOOD COUNT 8348410 Eosinophil Abs 0.23 10e9/L Unknown COMPLETE BLOOD COUNT 3711644 Basophil Abs 0.02 10e9/L 12/2018 Unknown COMPLETE BLOOD COUNT 6124126 RDW-SD 41.7 fL 9 Unknown VITAMIN D TOTAL (25 HYDROXY) 17320 Vitamin D 25 [place] 54.1 ng/mL 10/02/2018 Unknown Procedures Procedure Codes Date PPPS, subseq visit CPT-4: G0439 07/01/2021 ROUTINE VENIPUNCTURE CPT-4: 56255 07/16/2020 COMPREHEN METABOLIC PANEL CPT-4: 22401 07/16/2020 COMPLETE CBC W/AUTO DIFF WBC CPT-4: 11659 07/16/2020 RBC SED RATE AUTOMATED CPT-4: 26483 07/16/2020 VITAMIN D TOTAL (25 HYDROXY) CPT-4: 22220 07/16/2020 C-REACTIVE PROTEIN CPT-4: 80711 07/16/2020 ROUTINE VENIPUNCTURE CPT-4: 41862 03/27/2019 COMPLETE CBC W/AUTO DIFF WBC CPT-4: 38282 03/27/2019 COMPREHEN METABOLIC PANEL CPT-4: 43708 03/27/2019 ASSAY THYROID STIM HORMONE CPT-4: 04532 03/27/2019 ASSAY OF FREE THYROXINE CPT-4: 53192 03/27/2019 LIPID PANEL CPT-4: 49289 03/27/2019 ASSAY TRIIODOTHYRONINE (T3) CPT-4: 30172 03/27/2019 A1C HPLC CPT-4: 27616 03/27/2019 ROUTINE VENIPUNCTURE CPT-4: 39318 12/27/2018 ASSAY OF FREE THYROXINE CPT-4: 25916 12/27/2018 ASSAY THYROID STIM HORMONE CPT-4: 72256 12/27/2018 ROUTINE VENIPUNCTURE CPT-4: 50612 10/29/2018 ASSAY THYROID STIM HORMONE CPT-4: 30882 10/29/2018 ASSAY OF FREE THYROXINE CPT-4: 32483 10/29/2018 ROUTINE VENIPUNCTURE CPT-4: 13790 10/02/2018 ASSAY OF FREE THYROXINE CPT-4: 53967 10/02/2018 ASSAY THYROID STIM HORMONE CPT-4: 71534 10/02/2018 COMPREHEN METABOLIC PANEL CPT-4: 64269 10/02/2018 COMPLETE CBC W/AUTO DIFF WBC CPT-4: 89091 10/02/2018 LIPID PANEL CPT-4: 95505 10/02/2018 VITAMIN D TOTAL (25 HYDROXY) CPT-4: 37680 10/02/2018 Vital Signs Date Vital 07/01/2021 Blood Pressure 1: 126/72 Code: 8480-6 Heart Rate 1: 68 bpm Respiratory Rate: 20 bpm Temperature: 36.8 (C) / 98.2 (F) Weight: 150 lbs Code : 96877-5 12/22/2020 Blood Pressure 1: 125/62 Code: 8480-6 Heart Rate 1: 72 bpm Respiratory Rate: 15 bpm SpO2: 98% Temperature: 36.2 (C) / 97.1 (F) We ight: 150 lbs Code: 30052-0 07/16/2020 Blood Pressure 1: 136/82 Code: 8480-6 Heart Rate 1: 76 bpm Respiratory Rate: 20 bpm SpO2: 96% Temperature: 36.2 (C) / 97.2 (F) We ight: 152 lbs Code: 64523-1 03/25/2020 Blood Pressure 1: 116/76 Code: 8480-6 He art Rate 1: 79 bpm 10/08/2019 Blood Pressure 1: 124/80 Code: 8480-6 Heart Rate 1: 84 bpm Respiratory Rate: 20 bpm SpO2: 98% Temperature: 36.9 (C) / 98.4 (F) We ight: 158 lbs Code: 66583-0 08/19/2019 Blood Pressure 1: 126/80 Code: 8480-6 Heart Rate 1: 72 bpm Respiratory Rate: 20 bpm SpO2: 98% Temperature: 36.7 (C) / 98.1 (F) We ight: 156 lbs Code: 40724-0 07/22/2019 Blood Pressure 1: 126/76 Code: 8480-6 Heart Rate 1: 80 bpm Respiratory Rate: 18 bpm SpO2: 95% Temperature: 36.8 (C) / 98.2 (F) We ight: 153 lbs Code: 92624-8 07/01/2019 Blood Pressure 1: 124/82 Code: 8480-6 Heart Rate 1: 74 bpm SpO2: 99% 06/13/2019 Blood Pressure 1: 144/90 Code: 8480-6 Heart Rate 1: 96 bpm Respiratory Rate: 18 bpm SpO2: 96% Temperature: 36.8 (C) / 98.2 (F) We ight: 152 lbs Code: 46662-3 05/28/2019 Blood Pressure 1: 114/66 Code: 8480-6 Heart Rate 1: 100 bpm Respiratory Rate: 20 bpm SpO2: 95% Temperature: 36.7 (C) / 98.1 (F) We ight: 150 lbs Code: 56531-5 04/24/2019 Blood Pressure 1: 134/80 Code: 8480-6 Heart Rate 1: 96 bpm Respiratory Rate: 20 bpm SpO2: 97% Temperature: 36.6 (C) / 97.8 (F) We ight: 152 lbs Code: 76699-7 04/16/2019 Blood Pressure 1: 162/98 Code: 8480-6 Heart Rate 1: 95 bpm SpO2: 97% Temperature: 36.4 (C) / 97.6 (F) Weight: 149 lbs Code: 08610-7 04/04/2019 Blood Pressure 1: 142/78 Code: 8480-6 Heart Rate 1: 92 bpm Respiratory Rate: 20 bpm SpO2: 96% Temperature: 36.8 (C) / 98.2 (F) We ight: 152 lbs Code: 54894-7 03/29/2019 Blood Pressure 1: 142/98 Code: 8480-6 Heart Rate 1: 113 bpm SpO2: 97% Temperature: 36.8 (C) / 98.2 (F) 03/27/2019 Blood Pressure 1: 158/100 Code: 8480-6 Heart Rat e 1: 115 bpm SpO2: 93% Temperature: 36.8 (C) / 98.3 (F) Weight: 150 lbs Code : 39647-4 01/28/2019 Blood Pressure 1: 134/84 Code: 8480-6 Heart Rate 1: 92 bpm Respiratory Rate: 20 bpm SpO2: 96% Temperature: 36.7 (C) / 98.0 (F) We ight: 153 lbs Code: 14885-0 12/27/2018 Blood Pressure 1: 148/86 Code: 8480-6 Heart Rate 1: 84 bpm Respiratory Rate: 20 bpm SpO2: 95% Temperature: 36.7 (C) / 98.0 (F) We ight: 154 lbs Code: 44339-2 10/02/2018 Blood Pressure 1: 150/90 Code: 8480-6 Heart Rate 1: 93 bpm Respiratory Rate: 18 bpm SpO2: 98% Temperature: 36.2 (C) / 97.1 (F) We ight: 150 lbs Code: 24223-4 10/01/2018 Blood Pressure 1: 136/74 Code: 8480-6 BMI: 27.4 Code: 48752-7 Heart Rate 1: 92 bpm Height: 5'2" Code: 8302-2 Respiratory Rate: 20 bpm SpO2: 96% Temperature: 36.9 (C) / 98.4 (F) Weight: 150 lbs Code: 87894-8 Functional Status No Functional Status data Reason [...] visit Encounters Encounter Performer Location Codes Date (88609) OFFICE/OUTPATIENT VISIT EST Diagnosis: Essential (primary) hypertension[ICD10: I10] Diagnosis: Hypothyroidism[ICD10: E03.9] Diagnosis: Hyperglycemia, unspecified[ICD10: R73.9] Diagnosis: Mixed hyperlipidemia[ICD10: E78.2] Diagnosis: Thyroid nodule[ICD10: E04.1] 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] [facility] CPT-4: 62643 12/22/2020 ([id number]) OFFICE/OUTPATIENT VISIT EST Diagnosis: Upper leg pain[ICD10: M79.659] Diagnosis: Upper arm pain[ICD10: M79.629] Diagnosis: Vitamin D deficiency[ICD10: E55.9] [facility] CPT-4: 08509 07/16/2020 ([id number]) OFFICE/OUTPATIENT VISIT EST Diagnosis: Muscle cramping[ICD10: R25.2] Diagnosis: Hypothyroidism[ICD10: E03.9] Landy GARCIA DO [facility] CPT-4: 60468 07/07/2020 ([id number]) OFFICE/OUTPATIENT VISIT EST Diagnosis: Essential hypertension[ICD10: I10] Diagnosis: Mixed hyperlipidemia[ICD10: E78.2] Landy Garcia [facility] CPT-4: 19592 03/25/2020 ([id number]) OFFICE/OUTPATIENT VISIT EST Diagnosis: Essential (primary) hypertension[ICD10: I10] Diagnosis: 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] Landy Garcia [facility] CPT-4: 64968 12/23/2019 ([id number]) OFFICE/OUTPATIENT VISIT EST Diagnosis: Essential (primary) hypertension[ICD10: I10] Diagnosis: Thyroid nodule[ICD10: E04.1] Landy GARCIA DO [facility] CPT-4: 75595 10/08/2019 ([id number]) OFFICE/OUTPATIENT VISIT EST Diagnosis: Essential (primary) hypertension[ICD10: I10] Landy GARCIA DO [facility] CPT-4: 88799 08/19/2019 ([id number]) OFFICE/OUTPATIENT VISIT EST Diagnosis: Essential (primary) hypertension[ICD10: I10] Landy GARCIA DO [facility] CPT-4: 83073 07/22/2019 ([id number]) NURSE/OUTPATIENT VISIT EST Diagnosis: Essential (primary) hypertension[ICD10: I10] Landy GARCIA DO [facility] CPT-4: 77956 07/01/2019 ([id number]) OFFICE/OUTPATIENT VISIT EST Diagnosis: Essential (primary) hypertension[ICD10: I10] Diagnosis: Dizziness and giddiness[ICD10: R42] Landy GARCIA DO [facility] CPT-4: 92826 06/13/2019 ([id number]) OFFICE/OUTPATIENT VISIT EST Diagnosis: Essential (primary) hypertension[ICD10: I10] Landy GARCIA DO [facility] CPT-4: 57152 05/28/2019 ([id number]) OFFICE/OUTPATIENT VISIT EST Diagnosis: Essential (primary) hypertension[ICD10: I10] Diagnosis: 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] Landy GARCIA DO [facility] CPT-4: 71873 04/24/2019 ([id number]) OFFICE/OUTPATIENT VISIT EST Diagnosis: Essential (primary) hypertension[ICD10: I10] Diagnosis: Generalized anxiety disorder[ICD10: F41.1] Alexia GARCIA DO [facility] CPT-4: 82951 04/16/2019 ([id number]) OFFICE/OUTPATIENT VISIT EST Diagnosis: Essential (primary) hypertension[ICD10: I10] Diagnosis: 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] Landy GARCIA DO [facility] CPT-4: 39180 04/04/2019 ([id number]) NURSE/OUTPATIENT VISIT EST Diagnosis: Essential (primary) hypertension[ICD10: I10] Landy GARCIA DO [facility] CPT-4: 29403 03/29/2019 ([id number]) OFFICE/OUTPATIENT VISIT EST Diagnosis: Essential (primary) hypertension[ICD10: I10] 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] Diagnosis: Mixed hyperlipidemia[ICD10: E78.2] Diagnosis: Headache[ICD10: R51] Diagnosis: Generalized anxiety disorder[ICD10: F41.1] Diagnosis: Disorder of thyroid, unspecified[ICD10: E07.9] Diagnosis: Hyperglycemia, unspecified[ICD10: R73.9] Alexia Theodore PIO KOHLI Alberto GARCIA [employer] [facility] CPT-4: 37929 03/27/2019 ([id number]) OFFICE/OUTPATIENT VISIT EST Diagnosis: Essential (primary) hypertension[ICD10: I10] Diagnosis: Mixed hyperlipidemia[ICD10: E78.2] Landy HERMOSILLO TEA Alberto GARCIA [employer] [facility] CPT-4: 58586 01/28/2019 ([id number]) OFFICE/OUTPATIENT VISIT EST Diagnosis: Essential (primary) hypertension[ICD10: I10] 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] Diagnosis: Other fatigue[ICD10: R53.83] Landy [place] CPT-4: 97412 12/27/2018 ([id number]) NURSE/OUTPATIENT VISIT EST Diagnosis: Other specified abnormal findings of blood chemistry[ICD10: R79.89] Landy BILL [employer] CPT-4: 78879 10/29/2018 ([id number]) OFFICE/OUTPATIENT VISIT EST Diagnosis: Mixed hyperlipidemia[ICD10: E78.2] Diagnosis: Essential (primary) hypertension[ICD10: I10] Diagnosis: Age-related osteoporosis without current pathological fracture[ICD10: M81.0] Diagnosis: Follicular cyst of the skin and subcutaneous tissue, unspecified[ICD10: L72.9] Landy BILL [employer] CPT-4 : 10262 10/02/2018 OFFICE/OUTPATIENT VISIT NEW Diagnosis: Essential (primary) hypertension[ICD10: I10] Diagnosis: Mixed hyperlipidemia[ICD10: E78.2] Diagnosis: Age-related osteoporosis without current pathological fracture[ICD10: M81.0] Landy [employer] CPT-4: 53968 10/01/2018 Plan of Care Planned Activity Notes Codes Status Date Visit Diagnosis Plan: Essential (primary) hypertension Discussion: Stable ICD-9 : 401.9 ICD-10 : I10 07/01/2021 Visit Diagnosis Plan: Hypothyroidism Discussion: Incre ase levothyroxine to 50mcg daily and repeat labs in 3mos ICD-9 : 244.9 ICD-10 : E03.9 07/01/2021 Visit Diagnosis Plan: Encounter for gene [facility] adult medical examination without abnormal findings Discussion: [...] : E78.2 12/22/2020 Appointment: Landy Garcia WPtel: [address] [place] [address] [place] MEDICATION REVIEW 12/22/2020 Appointment: Landy Garcia WPtel: [address] [place], [place] [address] [place] RESCHEDULED 07/20/2020 Visit Diagnosis Plan: Upper leg pain Discussion: Updat e lab--CBC, CMP, ESR, CRP, Vitamin D ICD-9 : 729.5 ICD-10 : M79.659 07/16/2020 Appointment: Landy Garcia WPtel: [address] [place] [address] ACUTE ILLNESS 07/16/2020 Visit Diagnosis Plan: Muscle [...] : E03.9 07/07/2020 Appointment: Landy Garcia WPtel: [address] [place] [address] TELEMEDICINE 07/07/2020 Patient Education: meloxicam- [employer] Coupon [phone] https://www.[employer]/sampleKlip.in/resources/getResource/61/0q58nker-t103-2807-y4 Completed 07/07/2020 Patient Education: baclofen- [employer] Coupon [phone] [id number] https://www.[employer]/Platform Solutions/resources/getResource/61/73197031-2mk0-1494-yk Completed 07/07/2020 Visit Diagnosis Plan: Mixed hyperlipidemia Discussion: Mediterranean diet Combination of cardio and weight bearing exercise Recheck lipids in 6mos ICD-9 : 272.4 ICD-10 : E78.2 03/25/2020 Visit Diagnosis Plan: Essential hypertension Discussio n: Stable Lab discussed ICD-9 : 401.9 ICD-10 : I10 03/25/2020 Appointment: Landy Garcia WPtel: [address] [place] [address] TELEMEDICINE 03/25/2020 Patient Education: levothyroxine- [employer] Coupon 12 [id number] https://www.[employer]/resources/getResource/61/94672716-04v7-3063-gs Completed 03/25/2020 Visit Diagnosis Plan: Essential (primary) hypertension Discussion: Doxy[employer]me video visit done Stable on current meds Follow Up: 3 months ICD-9 : 401.9 ICD-10 : I10 12/23/2019 Visit Diagnosis Plan: Nontoxic single thyroid nodule D iscussion: Feels better with the low dose thyroid--will check lab and fwup in 3mos ICD-9 : 241.0 ICD-10 : E04.1 12/23/2019 Appointment: Landy Garcia WPtel: [address] [place] [address] confirmed TELEMEDICINE 12/23/2019 Patient Education: levothyroxine- [employer] Coupon 10 [id number] https://www.[employer]/samplemd/resources/getResource/61/x3926559-wv4p-3p2c-h1 Completed 12/23/2019 Referral: Mike Munguia WPtel: [address] [address] [place] Referral Initiated 10/26/2019 Visit Diagnosis Plan: Essential (primary) hypertension Discussion: Stable Recheck 2mos with lab ICD-9 : 401.9 ICD-10 : I10 10/08/2019 Visit Diagnosis Plan: Thyroid nodule Discussion: Updat e thyroid nodule ICD-9 : 241.0 ICD-10 : E04.1 10/08/2019 Appointment: Landy Garcia WPtel: [address] [place] [address] [place] MEDICATION REVIEW 10/08/2019 Care Plan: MAMMOGRAM SCREENING LOINC : 2 6347-5 Pending 10/08/2019 Appointment: Landy Garcia WPtel: [address] [place] [address] [place] CANCELED 09/09/2019 Visit Diagnosis Plan: Essential (primary) hypertension Discussion: Stable on current meds Lab in 2mos then fwup Follow Up: 2 months Discussion: Stable on current meds Follow Up: 2 months ICD-9 : 401.9 ICD-10 : I10 08/19/2019 Appointment: Landy Garcia WPtel: [address] [place] [address] [place] FOLLOW UP 08/19/2019 Visit Diagnosis Plan: Essential (primary) hypertension Discussion: Stable on current meds Recheck 1month ICD-9 : 401.9 ICD-10 : I10 07/22/2019 Appointment: Landy Garcia WPtel: [address] [place], [place] [phone] [place] FOLLOW UP 07/22/2019 Appointment: Landy Garcia WPtel: [address] [place] [address] US CANCELED 07/08/2019 Appointment: Landy Garciatel: [address] [place], [place] [address] US BP CHECK 07/01/2019 Visit Diagnosis Plan: [...] : I10 06/13/2019 Appointment: Landy Garcia WPtel: [address] [place] [address] [place] ACUTE ILLNESS 06/13/2019 Patient Education: metoprolol succinate- Opt[employer] Co upon [id number] https://www.[employer]/Platform Solutions/resources/getResource/61/xm5621x3-w6cq-0084-j1 Completed 06/13/2019 Visit Diagnosis Plan: Essential (primary) hypertension Discussion: Stable Monitor BP Recheck 3mos ICD-9 : 401.9 ICD-10 : I10 05/28/2019 Appointment: Landy Garcia WPtel: [address] [place] [address] US FOLLOW UP 05/28/2019 Visit Diagnosis Plan: Essential (primary) hypertension Discussion: Stable with increased dose Follow Up: 1 months ICD-9 : 401.9 ICD-10 : I10 04/24/2019 Visit Diagnosis Plan: Nontoxic single thyroid nodule D iscussion: Recheck US in 6mos ICD-9 : 241.0 ICD-10 : E04.1 04/24/2019 Appointment: Landy Garcia WPtel: [address] [place], [place] [address] [place] FOLLOW UP 04/24/2019 [facility]ment[facility] [address] [facility] [place] CANC[facility]ED 04/23/2019 Visit Diagnosis Plan: Essential [...] : F41.1 04/16/2019 Appointment: [facility] [address] [facility] [place] CANCELED 04/16/2019 Appointment: Alexia Theodore [address] [facility]66[facility] Follow Up 04/16/2019 Patient Education: venlafaxine- [employer] Coupon [phone] https://www.[employer]/samplemd/resources/getResource/61/4d0i6606-289o-34os-39 Completed 04/16/2019 Patient Education: lisinopril- [employer] Coupon [phone] https://www.[employer]/samplemd/resources/getResource/61/cl477vsg-325w-29ak-qm Completed 04/16/2019 Patient Education: High Blood Pressure [...] E04.1 04/04/2019 Appointment: Landy Garcia WPtel: [address] [facility] [place] FOLLOW UP 04/04/2019 Appointment: Landy Garcia WPtel: [address] [facility] [place] BP CHECK 03/29/2019 Visit Diagnosis [...] ICD-10 : E07.9 03/27/2019 Appointment: Alexia Theodore [address] [place], [place] [id number] ACUTE ILLNESS 03/27/2019 Patient Education: High Blood Pressure Co mpleted 03/27/2019 Care Plan: US EXAM OF HEAD AND NECK thyroid NANI C : 69749-3 Pending 03/27/2019 Visit Diagnosis Plan: Essential (primary) hypertension Discussion: Stable ICD-9 : 401.9 ICD-10 : I10 01/28/2019 Visit Diagnosis Plan: Mixed hyperlipidemia Discussion: Mediterranean diet Combination of cardio and weight bearing exercise Check lipids with fwup in 2mos ICD-9 : 272.4 ICD-10 : E78.2 01/28/2019 Appointment: Landy Garcia WPtel: [address] [place] [address] FOLLOW UP 01/28/2019 Visit Diagnosis Plan: Essential (primary) hypertension Discussion: Increase lisinopril to 20mg daily Recheck 4 weeks ICD-9 : 401.9 ICD-10 : I10 12/27/2018 Visit Diagnosis Plan: Benign neoplasm of cerebral meni nges Discussion: Will be following with neurosurgery at ICD-9 : 225.2 ICD-10 : D32.0 12/27/2018 Appointment: Landy Garcia WPtel: [address] [place] [place] [address] Follow Up 12/27/2018 Patient Education: venlafaxine- [employer] Coupon [phone] https://www.[employer]/Platform Solutions/resources/getResource/61/zp9a2o02-2550-4e5c-54 Completed 12/27/2018 Appointment: Landy Garcia WPtel: [address] [place] [address] [place] CANCELED 12/24/2018 Appointment: Landy Garcia WPtel: [address] [place], [place] [phone] [place] LAB 10/29/2018 Visit Diagnosis Plan: Follicular cyst of the skin and subcutaneous tissue, unspecified Discussion: Reassurance given Will monit or Did offer dermatology referral ICD-9 : 706.2 ICD-10 : L72.9 10/02/2018 Appointment: Landy Garcia WPtel: [address] [place], [place] [phone] [place] LAB 10/02/2018 Appointment: Landy Garcia WPtel: [address] [place] [address] ACUTE ILLNESS 10/02/2018 Visit Diagnosis Plan: Mixed [...] 10/01/2018 Appointment: Land[facility] [address] [facility] NEW PATIENT 10/01/2018 Instructions No Instructions Medical Equipment No Medical Equipment data Health Concerns Section Health Concerns data not found Goals Section Goals data not found Interventions Section Interventions data not found Health Status Evaluations/Outcomes Section Health Status Evaluations/Outcomes data not found Advance Directives No Advance Directive data
--- OUTSIDE RECORDS SUMMARY | 2021-08-06 09:31 | XMS REPORT | CCD ---
Author Author Va Garcia D.O. 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 Name Role Phone PP Unavailable CCM Unavailable Summary Purpose Interface Exchange Insurance Providers Payer name Policy type / Coverage type Covered republican ID Effective Begin Date Effective End Date WPS MEDICARE PART B [place] Medicare Part B [id number] 2018 Unknown [employer] [place] Medicare Part B [id number] 2018 Unknown Family History Family History data not found Social History Social History Element Codes Description Effective Dates Marital status Unknown 10/01/2018 Number of children Unknown 1 10/01/2018 Employment Unknown 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/01/[address]: 1215862 Former smoker 10/01/[address]: 562853608 Never drinks alcohol 2018 Has the patient [...] Start Date Stop Date Status Fill Instructions atorvastatin 20 mg tablet RxNorm: 141155 Take 1 Tablet(s) Oral QD 1 09/06/2021 Active levothyroxine 50 mcg tablet RxNorm: 577702 Take 1 Tablet(s) Oral QD 06/09/2021 09/06/2021 Active metoprolol succinate ER 25 mg tablet,extended release 24 hr RxNorm: 861952 TAKE 1 TABLET BY MOUTH EVERY EVENING 06/09/2021 09/06/2021 Active lisinopril 20 mg tablet RxNorm: 315097 Take 1 Tablet(s) Oral QAM 06/25/2021 Active metoprolol succinate ER 25 mg tablet,extended release 24 hr RxNorm: 923376 TAKE 1 TABLET BY MOUTH EVERY EVENING 03/15/2021 03/15/2021 Inactive atorvastatin 20 mg tablet RxNorm: 703595 Take 1 Tablet(s) Oral QD 0 03/12/2021 03/12/2021 Inactive levothyroxine 50 mcg tablet RxNorm: 588168 Take 1 Tablet(s) Oral QD 2021 2021 Inactive venlafaxine ER 150 mg capsule,extended release 24 hr RxNorm: 833696 1 Capsule(s) Oral QD 12/23/2020 06/20/2021 Active atorvastatin 20 mg tablet RxNorm: 623693 TAKE 1 TABLET BY MOUTH EVERY DAY 12/14/2020 12/14/2020 Inactive levothyroxine 50 mcg tablet RxNorm: 166973 TAKE 1 TABLE T BY MOUTH DAILY. TO REPLACE THE 25MCG. NEED UPDATED LABS 12/10/2020 12/10/2020 Inactive Patient requests 90 days supply levothyroxine 50 mcg tablet RxNorm: 503122 TAKE 1 TABLE T BY MOUTH DAILY: TO REPLACE THE 25MCG Need updated Labs 12/10/2020 12/09/2020 Inactive lisinopril 20 mg tablet RxNorm: 613572 1 Tablet(s) Oral QAM Patient needs appointment before next refill 12/02/2020 12/02/2020 Inactive N eeds follow up appointment/updated fasting labs lisinopril 20 mg tablet RxNorm: 332274 1 Tablet(s) Oral QAM Patient needs appointment before next refill 12/02/2020 12/01/2020 Inactive N eeds follow up appointment/updated fasting labs lisinopril 20 mg tablet RxNorm: 370350 1 Tablet(s) Oral QAM Patient needs appointment before next refill 10/30/2020 12/01/2020 Inactive baclofen 10 mg tablet RxNorm: 699472 TAKE 1/2 TABLET BY MOUTH EVERY EVENING NEEDED FOR MUSCLE SPASM 10/23/2020 12/21/2020 Inactive baclofen 10 mg tablet RxNorm: 503078 TAKE 1/2 TABLET BY MOUTH EVERY EVENING NEEDED FOR MUSCLE SPASM 09/27/2020 10/22/2020 Inactive venlafaxine ER 150 mg capsule,extended release 24 hr RxNorm: 657828 TAKE 1 CAPSULE BY MOUTH EVERY DAY 09/24/2020 12/22/2020 Inactive meloxicam 7.5 mg tablet RxNorm: 428117 TAKE 1 TABLET BY MOUTH DAILY NEEDED FOR PAIN; REPLACES 15 MG DOSE 09/22/2020 12/20/2020 Inactive metoprolol succinate ER 25 mg tablet,extended release 24 hr RxNorm: 215743 TAKE 1 TABLET BY MOUTH EVERY EVENING 09/21/2020 09/21/2020 Inactive levothyroxine 50 mcg tablet RxNorm: 014488 TAKE 1 TABLE T BY MOUTH DAILY: TO REPLACE THE 25MCG 09/14/2020 12/09/2020 Inactive atorvastatin 20 mg tablet RxNorm: 778756 TAKE 1 TABLET BY MOUTH EVERY DAY 09/11/2020 12/09/2020 Inactive baclofen 10 mg tablet RxNorm: 856432 TAKE 1/2 TABLET BY MOUTH EVERY EVENING NEEDED FOR MUSCLE SPASM 08/30/2020 09/26/2020 Inactive meloxicam 7.5 mg tablet RxNorm: 598468 1 Tablet(s) Oral QD as needed for pain replaces 15mg dose 08/25/2020 08/24/2020 Inactive meloxicam 7.5 mg tablet RxNorm: 008086 1 Tablet(s) Oral QD as needed for pain replaces 15mg dose 08/25/2020 08/25/2020 Inactive baclofen 10 mg tablet RxNorm: 483015 TAKE 1/2 TABLET BY MOUTH EVERY EVENING NEEDED FOR MUSCLE SPASM 08/03/2020 08/29/2020 Inactive meloxicam 15 mg tablet RxNorm: 619999 TAKE 1 TABLET BY MOUTH EVERY MORNING FOR PAIN 08/03/2020 08/24/2020 Inactive baclofen 10 mg tablet RxNorm: 749786 1/2 Tablet(s) Oral QPM as needed for muscle spasm 07/07/2020 08/02/2020 Inactive meloxicam 15 mg tablet RxNorm: 515393 1 Tablet(s) Oral QAM for pain 07/07/2020 08/02/2020 Inactive venlafaxine ER 150 mg capsule,extended release 24 hr RxNorm: 198932 TAKE 1 CAPSULE BY MOUTH EVERY DAY 06/29/202009/23/2020 Inactive metoprolol succinate ER 25 mg tablet,extended release 24 hr RxNorm: 730976 TAKE 1 TABLET BY MOUTH EVERY EVENING 06/23/2020 09/20/2020 Inactive levothyroxine 50 mcg tablet RxNorm: 231079 TAKE 1 TABLE T BY MOUTH DAILY: TO REPLACE THE 25MCG 06/19/2020 09/13/2020 Inactive atorvastatin 20 mg tablet RxNorm: 581943 TAKE 1 TABLET BY MOUTH EVERY DAY 06/15/2020 09/10/2020 Inactive levothyroxine 50 mcg tablet RxNorm: 098661 1 Tablet(s) Oral QD replaces 25mcg day 03/25/2020 06/18/2020 Inactive atorvastatin 20 mg tablet RxNorm: 846530 TAKE 1 TABLET BY MOUTH EVERY DAY 03/16/2020 06/13/2020 Inactive lisinopril 20 mg tablet RxNorm: 529420 1 Tablet(s) Oral QAM 020 10/29/2020 Inactive venlafaxine ER 150 mg capsule,extended release 24 hr RxNorm: 497192 TAKE 1 CAPSULE BY MOUTH EVERY DAY 01/06/2020 06/28/2020 Inactive metoprolol succinate ER 25 mg tablet,extended release 24 hr RxNorm: 205849 TAKE 1 TABLET BY MOUTH EVERY EVENING 12/30/2019 06/22/2020 Inactive atorvastatin 20 mg tablet RxNorm: 745628 1 Tablet(s) Oral QD 201907/06/2020 Inactive levothyroxine 25 mcg tablet RxNorm: 419845 1 Tablet(s) Oral QD 11/2703/24/2020 Inactive lisinopril 20 mg tablet RxNorm: 309811 1 Tablet(s) Oral QAM rep laces 40mg dose 11/18/2019 02/11/2020 Inactive levothyroxine 25 mcg tablet RxNorm: 840984 1 Tablet(s) Oral QD 12/201912/22/2019 Inactive levothyroxine 25 mcg tablet RxNorm: 268549 1 Tablet(s) Oral QD 12/201910/30/2019 Inactive lisinopril 20 mg tablet RxNorm: 710589 1 Tablet(s) Oral QAM rep laces 40mg dose 09/11/2019 02/12/2020 Inactive venlafaxine ER 150 mg capsule,extended release 24 hr RxNorm: 053785 1 CAPSULE(S) PO QD 07/15/2019 01/05/2020 Inactive atorvastatin 20 mg tablet RxNorm: 863501 1 Tablet(s) Oral QD 201812/22/2019 Inactive atorvastatin 20 mg tablet RxNorm: 577810 1 Tablet(s) Oral QD 201806/24/2019 Inactive metoprolol succinate ER 25 mg tablet,extended release 24 hr RxNorm: 674994 1 Tablet(s) Oral QPM 06/13/2019 06/12/2019 Inactive metoprolol succinate ER 25 mg tablet,extended release 24 hr RxNorm: 598369 1 TABLET(S) ORAL QPM 06/13/2019 12/10/2019 Inactive Patient req uests 90 days supply lisinopril 20 mg tablet RxNorm: 170635 1 Tablet(s) Oral QAM rep laces 40mg dose 06/13/2019 09/10/2019 Inactive lisinopril 40 mg tablet RxNorm: 356809 1 Tablet(s) PO QD 04/16/2019 1 Inactive venlafaxine ER 150 mg capsule,extended release 24 hr RxNorm: 484551 1 Capsule(s) PO QD 04/16/2019 07/14/2019 Inactive atorvastatin 20 mg tablet RxNorm: 975035 1 Tablet(s) PO QD 12/28/1912/26/2018 Inactive lisinopril 20 mg tablet RxNorm: 767497 1 Tablet(s) PO QD replac es 10mg dose 12/27/2018 04/03/2019 Inactive atorvastatin 20 mg tablet RxNorm: 952823 1 Tablet(s) PO QD 12/28/1906/23/2019 Inactive venlafaxine ER 75 mg capsule,extended release 24 hr RxNorm: 460567 1 Capsule(s) PO QD 12/27/2018 04/15/2019 Inactive lisinopril 20 mg tablet RxNorm: 735465 1 Tablet(s) PO QD replac es 10mg dose 12/27/2018 12/26/2018 Inactive venlafaxine ER 75 mg capsule,extended release 24 hr RxNorm: 105824 1 Capsule(s) PO QD 12/27/2018 12/26/2018 Inactive Benadryl 25 mg capsule RxNorm: 2181372 Capsule(s) PO as needed 2018 Active melatonin 5 mg tablet RxNorm: 994490 1 Tablet(s) PO QHS 01/28/2019 Active docusate sodium 100 mg tablet RxNorm: 6239951 Tablet(s) PO as neede d 10/01/2018 Active Vitamin D3 5,000 unit tablet RxNorm: 067607 1 Tablet(s) PO QD 019 Active Prolia 60 mg/mL subcutaneous syringe RxNorm: 774810 1 M illiliter(s) SQ every 6 months 10/01/2018 Active lisinopril 10 mg tablet RxNorm: 774948 1 Tablet(s) PO QD 12/27/2018 0 12/26/2018 Inactive venlafaxine ER 75 mg capsule,extended release 24 hr RxNorm: 293737 1 Capsule(s) PO QD 12/27/2018 12/26/2018 Inactive lisinopril 20 mg tablet RxNorm: 767867 2 Tablet(s) PO QD 04/16/2019 0 04/15/2019 Inactive atorvastatin 20 mg tablet RxNorm: 993030 1 Tablet(s) PO QD 12/28/19 19 12/26/2018 Inactive Medication Administered No Medication Administered data Immunizations Vaccine Codes Date Status Shingrix CVX: 141 04/05/2019 Results Observation Observation Code Item Item Code Result Date S ervice Location COMPREHENSIVE METABOLIC 80822 AST 12 U/L 2019 Unknown COMPREHENSIVE METABOLIC 12733 ALT 11 U/L 2019 Unknown COMPREHENSIVE METABOLIC 99449 BUN 11 mg/dL 2019 Unknown COMPREHENSIVE METABOLIC 83537 ALBUMIN 4.3 g/dL 2019 Unknown COMPREHENSIVE METABOLIC 22407 CHLORIDE 100 mmol/L 07/16 Unknown COMPREHENSIVE METABOLIC 61246 Bili Total 0.4 mg/dL 07/16 Unknown COMPREHENSIVE METABOLIC 29021 ALK PHOS 75 U/L 2019 Unknown COMPREHENSIVE METABOLIC 83046 SODIUM 136 mmol/L 07/16 Unknown COMPREHENSIVE METABOLIC 88259 CREATININE 0.79 mg/dL 06/28 Unknown COMPREHENSIVE METABOLIC 21431 CALCIUM 9.6 mg/dL 2019 Unknown COMPREHENSIVE METABOLIC 99053 POTASSIUM 4.5 mmol/L 07/16 Unknown COMPREHENSIVE METABOLIC 05768 Total Protein 6.7 g/dL Unknown COMPREHENSIVE METABOLIC 13974 Glucose 74 mg/dL 2019 Unknown COMPREHENSIVE METABOLIC 63157 Bicarbonate 26 mmol/L 06/28 Unknown COMPREHENSIVE METABOLIC 22891 AGAP 10 mmol/L 2019 Unknown COMPLETE BLOOD COUNT 2049943 WBC 7.4 10e9/L 07/16/20 20 Unknown COMPLETE BLOOD COUNT [id number] RBC 4.29 10e12/L 2019 Unknown COMPLETE BLOOD COUNT 6079342 HEMOGLOBIN 13.2 g/dL 07/16/20 Unknown COMPLETE BLOOD COUNT 4167489 HEMATOCRIT 40.2 % 07/16/20 20 Unknown COMPLETE BLOOD COUNT [id number] MCV 93.7 fL 0 Unknown COMPLETE BLOOD COUNT 1415853 MCH 30.8 pg 0 Unknown COMPLETE BLOOD COUNT 8920370 MCHC 32.8 g/dL 0 Unknown COMPLETE BLOOD COUNT [id number] PLATELET COUNT 294 10e9/L Unknown COMPLETE BLOOD COUNT 3625519 Mean Plt Volume 8.3 fL Unknown COMPLETE BLOOD COUNT 5489999 Neut Auto 64.6 % 0 Unknown COMPLETE BLOOD COUNT [id number] Lymph Auto 24.0 % 07/16/20 Unknown COMPLETE BLOOD COUNT 0471691 Warren Auto 9.5 % 0 Unknown COMPLETE BLOOD COUNT 9541593 RDW 12.6 % 0 Unknown COMPLETE BLOOD COUNT 5917679 Eos Auto 1.5 % 0 Unknown COMPLETE BLOOD COUNT 2437459 Baso Auto 0.4 % 0 Unknown COMPLETE BLOOD COUNT 9379554 Neutrophil Abs 4.78 10e9/L Unknown COMPLETE BLOOD COUNT 0834990 Lymphocyte Abs 1.78 10e9/L Unknown COMPLETE BLOOD COUNT [id number] Monocyte Abs 0.70 10e9/L 06/28 Unknown COMPLETE BLOOD COUNT 3358179 Eosinophil Abs 0.11 10e9/L Unknown COMPLETE BLOOD COUNT 7792840 RDW-SD 42.5 fL 0 Unknown COMPLETE BLOOD COUNT 9457138 Basophil Abs 0.03 10e9/L 06/28 Unknown GFR CALC 2210194 GFR Non Afr Amr >60 mL/min 07/16/2020 Un known GFR CALC 4239613 GFR Afr Amr >60 mL/min 07/16/2020 Unknow n C-REACTIVE PROTEIN (CRP) QUANT 76607 C-Reactive Prot 0.3 mg/dL 07/16/2020 Unknown ERYTHROCYTE SEDIMENTATION RATE 20626 Sed Rate 9 mm/hr 07/16/2020 Unknown VITAMIN D TOTAL (25 HYDROXY) 06279 Vitamin D 25 [place] 72.1 ng/mL 07/16/2020 Unknown GLYCOSYLATED HEMOGLOBIN TEST 12050 Hgb A1c 69278-3 5.9 % 0 03/28/2019 Unknown MEAN GLUC 0705324 Calc Mean Gluc 123 mg/dL 03/28/2019 Unkn own GFR CALC [id number] GFR Non Afr Amr >60 mL/min 03/27/2019 Un known GFR CALC 0869572 GFR Afr Amr >60 mL/min 03/27/2019 Unknow n ASSAY TRIIODOTHYRONINE (T3) 26380 T3 Total 0.98 ng/mL 0 03/27/2019 Unknown LIPID GROUP 89665 Cholesterol 175 mg/dL 03/27/2019 Unkno wn LIPID GROUP 61464 Triglyceride 61 mg/dL 03/27/2019 Unkn own LIPID GROUP 12232 HDL CHOLESTEROL 67 mg/dL 03/27/2019 U nknown LIPID GROUP 94671 Chol/HDL Ratio 2.61 ratio 03/27/2019 U nknown LIPID GROUP 73956 NON-HDL Chol 108 mg/dL 03/27/2019 Unkn own LIPID GROUP 42728 LDL Cholesterol 96 mg/dL 03/27/2019 U nknown FREE T4 69216 T4 Free 0.85 ng/dL 03/27/2019 Unknown COMPLETE BLOOD COUNT 9884776 WBC 8.8 10e9/L 03/27/20 19 Unknown COMPLETE BLOOD COUNT 6569403 RBC 4.76 10e12/L 2018 Unknown COMPLETE BLOOD COUNT 5667199 HEMOGLOBIN 14.7 g/dL 03/27/20 19 Unknown COMPLETE BLOOD COUNT 1649042 HEMATOCRIT 43.9 % 03/27/20 19 Unknown COMPLETE BLOOD COUNT 8321730 MCV 92.2 fL 9 Unknown COMPLETE BLOOD COUNT 9907072 MCH 30.9 pg 9 Unknown COMPLETE BLOOD COUNT 3872536 MCHC 33.5 g/dL 9 Unknown COMPLETE BLOOD COUNT 8669658 PLATELET COUNT 245 10e9/L Unknown COMPLETE BLOOD COUNT 4568548 Mean Plt Volume 8.3 fL Unknown COMPLETE BLOOD COUNT 8646058 Neut Auto 86.8 % 9 Unknown COMPLETE BLOOD COUNT 4395365 Lymph Auto 10.8 % 03/27/20 19 Unknown COMPLETE BLOOD COUNT 0204528 Warren Auto 2.1 % 9 Unknown COMPLETE BLOOD COUNT 3879111 RDW 12.9 % 9 Unknown COMPLETE BLOOD COUNT 3165824 Eos Auto 0.1 % 9 Unknown COMPLETE BLOOD COUNT 4305891 Baso Auto 0.2 % 9 Unknown COMPLETE BLOOD COUNT 8225527 Neutrophil Abs 7.64 10e9/L Unknown COMPLETE BLOOD COUNT 0342276 Lymphocyte Abs 0.95 10e9/L Unknown COMPLETE BLOOD COUNT 2157630 Monocyte Abs 0.18 10e9/L 02/27 Unknown COMPLETE BLOOD COUNT 2153929 Eosinophil Abs 0.01 10e9/L Unknown COMPLETE BLOOD COUNT 0878453 RDW-SD 42.6 fL 9 Unknown COMPLETE BLOOD COUNT 1354791 Basophil Abs 0.02 10e9/L 02/27 Unknown COMPREHENSIVE METABOLIC 08661 AST 16 U/L 2018 Unknown COMPREHENSIVE METABOLIC 71914 ALT 17 U/L 2018 Unknown COMPREHENSIVE METABOLIC 59901 BUN 8 mg/dL 2018 Unknown COMPREHENSIVE METABOLIC 34428 ALBUMIN 4.5 g/dL 2018 Unknown COMPREHENSIVE METABOLIC 51935 CHLORIDE 105 mmol/L 03/27 Unknown COMPREHENSIVE METABOLIC 23944 Bili Total 1.0 mg/dL 03/27 Unknown COMPREHENSIVE METABOLIC 92234 ALK PHOS 64 U/L 2018 Unknown COMPREHENSIVE METABOLIC 36865 SODIUM 139 mmol/L 03/27 Unknown COMPREHENSIVE METABOLIC 10390 CREATININE 0.70 mg/dL 02/27 Unknown COMPREHENSIVE METABOLIC 60921 CALCIUM 9.8 mg/dL 2018 Unknown COMPREHENSIVE METABOLIC 36107 POTASSIUM 4.0 mmol/L 03/27 Unknown COMPREHENSIVE METABOLIC 71384 Total Protein 6.7 g/dL Unknown COMPREHENSIVE METABOLIC 10859 Glucose 134 mg/dL 2018 Unknown COMPREHENSIVE METABOLIC 83657 Bicarbonate 26 mmol/L 02/27 Unknown COMPREHENSIVE METABOLIC 82087 AGAP 8 mmol/L 2018 Unknown THYROID STIMULATING HORMONE 56896 TSH 3.564 uIU/mL 03/27/2019 Unknown FREE T4 58954 T4 Free 0.80 ng/dL 10/29/2018 Unknown THYROID STIMULATING HORMONE 82451 TSH 5.703 uIU/mL 10/29/2018 Unknown THYROID STIMULATING HORMONE 97102 TSH 4.956 uIU/mL 10/02/2018 Unknown LIPID GROUP 87665 Cholesterol 164 mg/dL 10/02/2018 Unkno wn LIPID GROUP 05110 Triglyceride 71 mg/dL 10/02/2018 Unkn own LIPID GROUP 14378 HDL CHOLESTEROL 65 mg/dL 10/02/2018 U nknown LIPID GROUP 11128 Chol/HDL Ratio 2.52 ratio 10/02/2018 U nknown LIPID GROUP 22600 NON-HDL Chol 99 mg/dL 10/02/2018 Unkn own LIPID GROUP 19480 LDL Cholesterol 85 mg/dL 10/02/2018 U nknown GFR CALC 6433058 GFR Non Afr Amr >60 mL/min 10/02/2018 Un known GFR CALC 6065275 GFR Afr Amr >60 mL/min 10/02/2018 Unknow n COMPREHENSIVE METABOLIC 72128 AST 16 U/L 2018 Unknown COMPREHENSIVE METABOLIC 67762 ALT 15 U/L 2018 Unknown COMPREHENSIVE METABOLIC 27794 BUN 13 mg/dL 2018 Unknown COMPREHENSIVE METABOLIC 40432 ALBUMIN 4.5 g/dL 2018 Unknown COMPREHENSIVE METABOLIC 06158 CHLORIDE 107 mmol/L 10/02 Unknown COMPREHENSIVE METABOLIC 35191 Bili Total 0.8 mg/dL 10/02 Unknown COMPREHENSIVE METABOLIC 72475 ALK PHOS 57 U/L 2018 Unknown COMPREHENSIVE METABOLIC 56161 SODIUM 143 mmol/L 10/02 Unknown COMPREHENSIVE METABOLIC 16223 CREATININE 0.79 mg/dL 12/2018 Unknown COMPREHENSIVE METABOLIC 75392 CALCIUM 9.6 mg/dL 2018 Unknown COMPREHENSIVE METABOLIC 77832 POTASSIUM 4.3 mmol/L 10/02 Unknown COMPREHENSIVE METABOLIC 76932 Total Protein 6.4 g/dL Unknown COMPREHENSIVE METABOLIC 25973 Glucose 86 mg/dL 2018 Unknown COMPREHENSIVE METABOLIC 22701 Bicarbonate 28 mmol/L 12/2018 Unknown COMPREHENSIVE METABOLIC 65562 AGAP 8 mmol/L 2018 Unknown FREE T4 91608 T4 Free 0.91 ng/dL 10/02/2018 Unknown COMPLETE BLOOD COUNT 1542268 WBC 6.1 10e9/L 10/02/19 19 Unknown COMPLETE BLOOD COUNT 3331358 RBC 4.80 10e12/L 2018 Unknown COMPLETE BLOOD COUNT 1292512 HEMOGLOBIN 14.8 g/dL 10/02/19 19 Unknown COMPLETE BLOOD COUNT 5750709 HEMATOCRIT 44.0 % 10/02/19 19 Unknown COMPLETE BLOOD COUNT 2664212 MCV 91.7 fL 9 Unknown COMPLETE BLOOD COUNT 7357055 MCH 30.8 pg 9 Unknown COMPLETE BLOOD COUNT 4028804 MCHC 33.6 g/dL 9 Unknown COMPLETE BLOOD COUNT 5563105 PLATELET COUNT 203 10e9/L 12/2018 Unknown COMPLETE BLOOD COUNT 6215063 Mean Plt Volume 8.9 fL 12/2018 Unknown COMPLETE BLOOD COUNT 0669144 Neut Auto 66.7 % 9 Unknown COMPLETE BLOOD COUNT 2906445 Lymph Auto 24.8 % 10/02/19 19 Unknown COMPLETE BLOOD COUNT 9309008 Warren Auto 4.4 % 9 Unknown COMPLETE BLOOD COUNT 6193247 RDW 12.8 % 9 Unknown COMPLETE BLOOD COUNT 2254579 Eos Auto 3.8 % 9 Unknown COMPLETE BLOOD COUNT 3455523 Baso Auto 0.3 % 9 Unknown COMPLETE BLOOD COUNT 3927037 Neutrophil Abs 4.07 10e9/L Unknown COMPLETE BLOOD COUNT 0349213 Lymphocyte Abs 1.51 10e9/L Unknown COMPLETE BLOOD COUNT 5408239 Monocyte Abs 0.27 10e9/L 12/2018 Unknown COMPLETE BLOOD COUNT 4352043 Eosinophil Abs 0.23 10e9/L Unknown COMPLETE BLOOD COUNT 0352353 RDW-SD 41.7 fL 9 Unknown COMPLETE BLOOD COUNT 9864322 Basophil Abs 0.02 10e9/L 12/2018 Unknown VITAMIN D TOTAL (25 HYDROXY) 35042 Vitamin D 25 [place] 54.1 ng/mL 10/02/2018 Unknown Procedures Procedure Codes Date ROUTINE VENIPUNCTURE CPT-4: 28929 07/16/2020 COMPREHEN METABOLIC PANEL CPT-4: 29006 07/16/2020 COMPLETE CBC W/AUTO DIFF WBC CPT-4: 20731 07/16/2020 RBC SED RATE AUTOMATED CPT-4: 19772 07/16/2020 VITAMIN D TOTAL (25 HYDROXY) CPT-4: 09214 07/16/2020 C-REACTIVE PROTEIN CPT-4: 12557 07/16/2020 ROUTINE VENIPUNCTURE CPT-4: 98433 03/27/2019 COMPLETE CBC W/AUTO DIFF WBC CPT-4: 33366 03/27/2019 COMPREHEN METABOLIC PANEL CPT-4: 22008 03/27/2019 ASSAY THYROID STIM HORMONE CPT-4: 46115 03/27/2019 ASSAY OF FREE THYROXINE CPT-4: 14018 03/27/2019 LIPID PANEL CPT-4: 45697 03/27/2019 ASSAY TRIIODOTHYRONINE (T3) CPT-4: 66760 03/27/2019 A1C HPLC CPT-4: 16146 03/27/2019 ROUTINE VENIPUNCTURE CPT-4: 63614 12/27/2018 ASSAY OF FREE THYROXINE CPT-4: 25806 12/27/2018 ASSAY THYROID STIM HORMONE CPT-4: 25872 12/27/2018 ROUTINE VENIPUNCTURE CPT-4: 64900 10/29/2018 ASSAY THYROID STIM HORMONE CPT-4: 91586 10/29/2018 ASSAY OF FREE THYROXINE CPT-4: 97931 10/29/2018 ROUTINE VENIPUNCTURE CPT-4: 21840 10/02/2018 ASSAY OF FREE THYROXINE CPT-4: 73039 10/02/2018 ASSAY THYROID STIM HORMONE CPT-4: 09033 10/02/2018 COMPREHEN METABOLIC PANEL CPT-4: 92505 10/02/2018 COMPLETE CBC W/AUTO DIFF WBC CPT-4: 25087 10/02/2018 LIPID PANEL CPT-4: 64184 10/02/2018 VITAMIN D TOTAL (25 HYDROXY) CPT-4: 11469 10/02/2018 Vital Signs Date Vital 12/22/2020 Blood Pressure 1: 125/62 Code: 8480-6 Heart Rate 1: 72 bpm Respiratory Rate: 15 bpm SpO2: 98% Temperature: 36.2 (C) / 97.1 (F) We ight: 150 lbs Code: 19016-5 07/16/2020 Blood Pressure 1: 136/82 Code: 8480-6 Heart Rate 1: 76 bpm Respiratory Rate: 20 bpm SpO2: 96% Temperature: 36.2 (C) / 97.2 (F) We ight: 152 lbs Code: 23965-1 03/25/2020 Blood Pressure 1: 116/76 Code: 8480-6 He art Rate 1: 79 bpm 10/08/2019 Blood Pressure 1: 124/80 Code: 8480-6 Heart Rate 1: 84 bpm Respiratory Rate: 20 bpm SpO2: 98% Temperature: 36.9 (C) / 98.4 (F) We ight: 158 lbs Code: 77857-6 08/19/2019 Blood Pressure 1: 126/80 Code: 8480-6 Heart Rate 1: 72 bpm Respiratory Rate: 20 bpm SpO2: 98% Temperature: 36.7 (C) / 98.1 (F) We ight: 156 lbs Code: 12979-2 07/22/2019 Blood Pressure 1: 126/76 Code: 8480-6 Heart Rate 1: 80 bpm Respiratory Rate: 18 bpm SpO2: 95% Temperature: 36.8 (C) / 98.2 (F) We ight: 153 lbs Code: 65294-9 07/01/2019 Blood Pressure 1: 124/82 Code: 8480-6 Heart Rate 1: 74 bpm SpO2: 99% 06/13/2019 Blood Pressure 1: 144/90 Code: 8480-6 Heart Rate 1: 96 bpm Respiratory Rate: 18 bpm SpO2: 96% Temperature: 36.8 (C) / 98.2 (F) We ight: 152 lbs Code: 25900-2 05/28/2019 Blood Pressure 1: 114/66 Code: 8480-6 Heart Rate 1: 100 bpm Respiratory Rate: 20 bpm SpO2: 95% Temperature: 36.7 (C) / 98.1 (F) We ight: 150 lbs Code: 75216-4 04/24/2019 Blood Pressure 1: 134/80 Code: 8480-6 Heart Rate 1: 96 bpm Respiratory Rate: 20 bpm SpO2: 97% Temperature: 36.6 (C) / 97.8 (F) We ight: 152 lbs Code: 91293-5 04/16/2019 Blood Pressure 1: 162/98 Code: 8480-6 Heart Rate 1: 95 bpm SpO2: 97% Temperature: 36.4 (C) / 97.6 (F) Weight: 149 lbs Code: 36824-1 04/04/2019 Blood Pressure 1: 142/78 Code: 8480-6 Heart Rate 1: 92 bpm Respiratory Rate: 20 bpm SpO2: 96% Temperature: 36.8 (C) / 98.2 (F) We ight: 152 lbs Code: 26892-0 03/29/2019 Blood Pressure 1: 142/98 Code: 8480-6 Heart Rate 1: 113 bpm SpO2: 97% Temperature: 36.8 (C) / 98.2 (F) 03/27/2019 Blood Pressure 1: 158/100 Code: 8480-6 Heart Rat e 1: 115 bpm SpO2: 93% Temperature: 36.8 (C) / 98.3 (F) Weight: 150 lbs Code : 96441-7 01/28/2019 Blood Pressure 1: 134/84 Code: 8480-6 Heart Rate 1: 92 bpm Respiratory Rate: 20 bpm SpO2: 96% Temperature: 36.7 (C) / 98.0 (F) We ight: 153 lbs Code: 63116-4 12/27/2018 Blood Pressure 1: 148/86 Code: 8480-6 Heart Rate 1: 84 bpm Respiratory Rate: 20 bpm SpO2: 95% Temperature: 36.7 (C) / 98.0 (F) We ight: 154 lbs Code: 05251-7 10/02/2018 Blood Pressure 1: 150/90 Code: 8480-6 Heart Rate 1: 93 bpm Respiratory Rate: 18 bpm SpO2: 98% Temperature: 36.2 (C) / 97.1 (F) We ight: 150 lbs Code: 26089-7 10/01/2018 Blood Pressure 1: 136/74 Code: 8480-6 BMI: 27.4 Code: 09009-6 Heart Rate 1: 92 bpm Height: 5'2" Code: 8302-2 Respiratory Rate: 20 bpm SpO2: 96% Temperature: 36.9 (C) / 98.4 (F) Weight: 150 lbs Code: 86661-2 Functional Status No Functional Status data Reason [...] follow up 01/28/2019 follow up 12/27/2018 Hospital fw lab draw 10/29/2018 mole check 10/02/2018 unsure if this is a mole or just benign ~generic 10/01/2018 New Patient---establ ishing visit Encounters Encounter Performer Location Codes Date ([id number]) OFFICE/OUTPATIENT VISIT EST Diagnosis: Essential (primary) hypertension[ICD10: I10] Diagnosis: Hypothyroidism[ICD10: E03.9] Diagnosis: Hyperglycemia, unspecified[ICD10: R73.9] Diagnosis: Mixed hyperlipidemia[ICD10: E78.2] Diagnosis: Thyroid nodule[ICD10: E04.1] 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] Landy Dominguez [facility] CPT-4: 83987 12/22/2020 ([id number]) OFFICE/OUTPATIENT VISIT EST Diagnosis: Upper leg pain[ICD10: M79.659] Diagnosis: Upper arm pain[ICD10: M79.629] Diagnosis: Vitamin D deficiency[ICD10: E55.9] Landy Dominguez [facility] CPT-4: 00172 07/16/2020 ([id number]) OFFICE/OUTPATIENT VISIT EST Diagnosis: Muscle cramping[ICD10: R25.2] Diagnosis: Hypothyroidism[ICD10: E03.9] Landy GARCIA [facility] CPT-4: 64333 07/07/2020 ([id number]) OFFICE/OUTPATIENT VISIT EST Diagnosis: Essential hypertension[ICD10: I10] Diagnosis: Mixed hyperlipidemia[ICD10: E78.2] Landy Garcia [facility] CPT-4: 93070 03/25/2020 ([id number]) OFFICE/OUTPATIENT VISIT EST Diagnosis: Essential (primary) hypertension[ICD10: I10] Diagnosis: 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] Landy Garcia [facility] CPT-4: 47239 12/23/2019 ([id number]) OFFICE/OUTPATIENT VISIT EST Diagnosis: Essential (primary) hypertension[ICD10: I10] Diagnosis: Thyroid nodule[ICD10: E04.1] Landy GARCIA DO [facility] CPT-4: 84744 10/08/2019 ([id number]) OFFICE/OUTPATIENT VISIT EST Diagnosis: Essential (primary) hypertension[ICD10: I10] Landy GARCIA DO [facility] CPT-4: 04074 08/19/2019 ([id number]) OFFICE/OUTPATIENT VISIT EST Diagnosis: Essential (primary) hypertension[ICD10: I10] Landy GARCIA DO [facility] CPT-4: 13359 07/22/2019 ([id number]) NURSE/OUTPATIENT VISIT EST Diagnosis: Essential (primary) hypertension[ICD10: I10] Landy GARCIA DO [facility] CPT-4: 32761 07/01/2019 ([id number]) OFFICE/OUTPATIENT VISIT EST Diagnosis: Essential (primary) hypertension[ICD10: I10] Diagnosis: Dizziness and giddiness[ICD10: R42] Landy GARCIA DO [facility] CPT-4: 95057 06/13/2019 ([id number]) OFFICE/OUTPATIENT VISIT EST Diagnosis: Essential (primary) hypertension[ICD10: I10] Landy GARCIA DO [facility] CPT-4: 45875 05/28/2019 ([id number]) OFFICE/OUTPATIENT VISIT EST Diagnosis: Essential (primary) hypertension[ICD10: I10] Diagnosis: 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] Landy GARCIA DO [facility] CPT-4: 50818 04/24/2019 ([id number]) OFFICE/OUTPATIENT VISIT EST Diagnosis: Essential (primary) hypertension[ICD10: I10] Diagnosis: Generalized anxiety disorder[ICD10: F41.1] Alexia Arben LANDY GARCIA DO [facility] CPT-4: 56410 04/16/2019 ([id number]) OFFICE/OUTPATIENT VISIT EST Diagnosis: Essential (primary) hypertension[ICD10: I10] Diagnosis: 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] Landy GARCIA [facility] CPT-4: 71271 04/04/2019 ([id number]) NURSE/OUTPATIENT VISIT EST Diagnosis: Essential (primary) hypertension[ICD10: I10] Landy GARCIA [facility] CPT-4: 11284 03/29/2019 ([id number]) OFFICE/OUTPATIENT VISIT EST Diagnosis: Essential (primary) hypertension[ICD10: I10] 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] Diagnosis: Mixed hyperlipidemia[ICD10: E78.2] Diagnosis: Headache[ICD10: R51] Diagnosis: Generalized anxiety disorder[ICD10: F41.1] Diagnosis: Disorder of thyroid, unspecified[ICD10: E07.9] Diagnosis: Hyperglycemia, unspecified[ICD10: R73.9] Alexia VALLEJORONITKISHORE [facility] CPT-[facility]: 83588 03/27/2019 ([id number]) OFFICE/OUTPATIENT VISIT EST Diagnosis: Essential (primary) hypertension[ICD10: I10] Diagnosis: Mixed hyperlipidemia[ICD10: E78.2] Landy HERMOSILLO TEA [facility]to [facility] CPT-4: 23754 01/28/2019 ([id number]) OFFICE/OUTPATIENT VISIT EST Diagnosis: Essential (primary) hypertension[ICD10: I10] 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] Diagnosis: Other fatigue[ICD10: R53.83] Landy GARCIA GrowYo [facility] CPT-4: 16414 12/27/2018 ([id number]) NURSE/OUTPATIENT VISIT EST Diagnosis: Other specified abnormal findings of blood chemistry[ICD10: R79.89] Landy GARCIA [facility] CPT-4: 42672 10/29/2018 ([id number]) OFFICE/OUTPATIENT VISIT EST Diagnosis: Mixed hyperlipidemia[ICD10: E78.2] Diagnosis: Essential (primary) hypertension[ICD10: I10] Diagnosis: Age-related osteoporosis without current pathological fracture[ICD10: M81.0] Diagnosis: Follicular cyst of the skin and subcutaneous tissue, unspecified[ICD10: L72.9] Landy GARCIA [facility] CPT-4 : 60981 10/02/2018 OFFICE/OUTPATIENT VISIT NEW Diagnosis: Essential (primary) hypertension[ICD10: I10] Diagnosis: Mixed hyperlipidemia[ICD10: E78.2] Diagnosis: Age-related osteoporosis without current pathological fracture[ICD10: M81.0] Landy GARCIA [facility] CPT-4: 91565 10/01/2018 Plan of Care Planned Activity Notes [...] Benign neoplasm of cerebral meni nges Discussion: Following with doctor in --next fwup in February ICD-9 : 225.2 ICD-10 : D32.0 12/22/2020 Visit Diagnosis Plan: Thyroid nodule Discussion: Ranjana price with Dr. Munguia ICD-9 : 241.0 ICD-10 : E04.1 12/22/2020 Visit Diagnosis Plan: Mixed hyperlipidemia Discussion: Continue atorvastatin and repeat CMP, lipids in 6mos ICD-9 : 272.4 ICD-10 : E78.2 12/22/2020 Appointment: Landy Garcia WPtel: [phone] [facility] [place] MEDICATION REVIEW 12/22/2020 Appointment: Landy Garcia WPtel: [address] [facility] US RESCHEDULED 07/20/2020 Visit Diagnosis Plan: Upper leg pain Discussion: Updat e lab--CBC, CMP, ESR, CRP, Vitamin D ICD-9 : 729.5 ICD-10 : M79.659 07/16/2020 Appointment: Landy Garcia WPtel: [address] [place] [address] ACUTE ILLNESS 07/16/2020 Visit Diagnosis Plan: Muscle [...] : E03.9 07/07/2020 Appointment: Landy Garcia WPtel: [address] [place] [address] TELEMEDICINE 07/07/2020 Patient Education: meloxicam- [employer] Coupon [phone] https://www.f4samurai/samplemd/resources/getResource/61/0g42glvy-h244-5934-m4 Completed 07/07/2020 Patient Education: baclofen- [employer] Coupon [id number] https://www.f4samurai/samplemd/resources/getResource/61/53456816-0lx8-6573-hj Completed 07/07/2020 Visit Diagnosis Plan: Mixed hyperlipidemia Discussion: Mediterranean diet Combination of cardio and weight bearing exercise Recheck lipids in 6mos ICD-9 : 272.4 ICD-10 : E78.2 03/25/2020 Visit Diagnosis Plan: Essential hypertension Discussio n: Stable Lab discussed ICD-9 : 401.9 ICD-10 : I10 03/25/2020 Appointment: Landy Garcia WPtel: [address] [place] [address] TELEMEDICINE 03/25/2020 Patient Education: levothyroxine- [employer] Coupon 12 [id number] https://www.f4samurai/samplemd/resources/getResource/61/68719091-64m2-7490-kq Completed 03/25/2020 Visit Diagnosis Plan: Essential (primary) hypertension Discussion: Doxy. video visit done Stable on current meds Follow Up: 3 months ICD-9 : 401.9 ICD-10 : I10 12/23/2019 Visit Diagnosis Plan: Nontoxic single thyroid nodule D iscussion: Feels better with the low dose thyroid--will check lab and fwup in 3mos ICD-9 : 241.0 ICD-10 : E04.1 12/23/2019 Appointment: Landy Garcia WPtel: [address] [place] [address] [place] confirmed TELEMEDICINE 12/23/2019 Patient Education: levothyroxine- [employer] Coupon 10 [id number] https://www.f4samurai/samplemd/resources/getResource/61/x5879688-ae4a-9d9z-k2 Completed 12/23/2019 Referral: Mike Munguia WPtel: [address] [place] [address] [place] Referral Initiated 10/26/2019 Visit Diagnosis Plan: Essential (primary) hypertension Discussion: Stable Recheck 2mos with lab ICD-9 : 401.9 ICD-10 : I10 10/08/2019 Visit Diagnosis Plan: Thyroid nodule Discussion: Updat e thyroid nodule ICD-9 : 241.0 ICD-10 : E04.1 10/08/2019 Appointment: Landy Garcia WPtel: [address] [place] [address] US MEDICATION REVIEW 10/08/2019 Care Plan: MAMMOGRAM SCREENING LOINC : 2 6347-5 Pending 10/08/2019 Appointment: Landy Garcia WPtel: [address] [place] [address] US CANCELED 09/09/2019 Visit Diagnosis Plan: Essential (primary) hypertension Discussion: Stable on current meds Lab in 2mos then fwup Follow Up: 2 months Discussion: Stable on current meds Follow Up: 2 months ICD-9 : 401.9 ICD-10 : I10 08/19/2019 Appointment: Landy Garcia WPtel: [address] [place] [address] US FOLLOW UP 08/19/2019 Visit Diagnosis Plan: Essential (primary) hypertension Discussion: Stable on current meds Recheck 1month ICD-9 : 401.9 ICD-10 : I10 07/22/2019 Appointment: Landy Garcia WPtel: [address] [place] [address] US FOLLOW UP 07/22/2019 Appointment: Landy Garcia WPtel: [address] [place] [address] US CANCELED 07/08/2019 Appointment: Landy Garcia WPtel: [address] [place] [address] US BP CHECK 07/01/2019 Visit Diagnosis Plan: [...] : I10 06/13/2019 Appointment: Landy Garcia WPtel: [address] [place] [address] US ACUTE ILLNESS 06/13/2019 Patient Education: metoprolol succinate- [employer] Co upon [id number] https://www.Peonut.com/samplemd/resources/getResource/61/cs7744e0-h4jt-1483-l2 Completed 06/13/2019 Visit Diagnosis Plan: Essential (primary) hypertension Discussion: Stable Monitor BP Recheck 3mos ICD-9 : 401.9 ICD-10 : I10 05/28/2019 Appointment: Landy Garcia WPtel: [address] [place] [address] US FOLLOW UP 05/28/2019 Visit Diagnosis Plan: Essential (primary) hypertension Discussion: Stable with increased dose Follow Up: 1 months ICD-9 : 401.9 ICD-10 : I10 04/24/2019 Visit Diagnosis Plan: Nontoxic single thyroid nodule D iscussion: Recheck US in 6mos ICD-9 : 241.0 ICD-10 : E04.1 04/24/2019 Appointment: Landy Garcia WPtel: [address] [place] [address] FOLLOW UP 04/24/2019 Appointment: Landy Garcia WPtel: [address] [place] [address] US CANCELED 04/23/2019 Visit Diagnosis Plan: Essential [...] : F41.1 04/16/2019 Appointment: Landy Garcia WPtel: [address] [place] [address] US CANCELED 04/16/2019 Appointment: Alexia Theodore [address] [place] [address] Follow Up 04/16/2019 Patient Education: venlafaxine- [employer] Coupon [phone] https://www.Peonut.[employer]/samplemd/resources/getResource/61/0f2z9397-779l-15jh-74 Completed 04/16/2019 Patient Education: lisinopril- [employer] Coupon [phone] https://www.Peonut.com/samplemd/resources/getResource/61/gg964csb-843v-56gn-ux Completed 04/16/2019 Patient Education: High Blood Pressure [...] E04.1 04/04/2019 Appointment: Landy Garcia WPtel: [address] [facility] US FOLLOW UP 04/04/2019 Appointment: Landy Garcia WPtel: [address] [place] [id number] US BP CHECK 03/29/2019 Visit Diagnosis Plan: [...] ICD-10 : E07.9 03/27/2019 Appointment: Alexia Theodore [address] [place] [address] ACUTE ILLNESS 03/27/2019 Patient Education: High Blood Pressure Co mpleted 03/27/2019 Care Plan: US EXAM OF HEAD AND NECK thyroid LOIN C : 64237-7 Pending 03/27/2019 Visit Diagnosis Plan: Essential (primary) hypertension Discussion: Stable ICD-9 : 401.9 ICD-10 : I10 01/28/2019 Visit Diagnosis Plan: Mixed hyperlipidemia Discussion: Mediterranean diet Combination of cardio and weight bearing exercise Check lipids with fwup in 2mos ICD-9 : 272.4 ICD-10 : E78.2 01/28/2019 Appointment: Landy Garcia WPtel: [address] [place] [address] US FOLLOW UP 01/28/2019 Visit Diagnosis Plan: Essential (primary) hypertension Discussion: Increase lisinopril to 20mg daily Recheck 4 weeks ICD-9 : 401.9 ICD-10 : I10 12/27/2018 Visit Diagnosis Plan: Benign neoplasm of cerebral meni nges Discussion: Will be following with neurosurgery at ICD-9 : 225.2 ICD-10 : D32.0 12/27/2018 Appointment: Landy Garcia WPtel: [address] [place] [address] Hospital Follow Up 12/27/2018 Patient Education: venlafaxine- [employer] Coupon [phone] https://www.Peonut.com/samplemd/resources/getResource/61/ti3k6b22-7879-9b9w-59 Completed 12/27/2018 Appointment: Landy Garcia WPtel: [address] [place] [address] CANCELED 12/24/2018 Appointment: Landy Garcia WPtel: [address] [place] [address] US LAB 10/29/2018 Visit Diagnosis Plan: Follicular cyst of the skin and subcutaneous tissue, unspecified Discussion: Reassurance given Will monit or Did offer dermatology referral ICD-9 : 706.2 ICD-10 : L72.9 10/02/2018 Appointment: Landy Garcia WPtel: [address] [place], [place] [id number] LAB 10/02/2018 Appointment: Landy Garcia WPtel: [address] [place] [address] ACUTE ILLNESS 10/02/2018 Visit Diagnosis Plan: Mixed [...] : I10 10/01/2018 Appointment: Landy Garcia WPtel: [address] [place], [place] [id number] NEW PATIENT 10/01/2018 Instructions No Instructions Medical Equipment No Medical Equipment data Health Concerns Section Health Concerns data not found Goals Section Goals data not found Interventions Section Interventions data not found Health Status Evaluations/Outcomes Section Health Status Evaluations/Outcomes data not found Advance Directives No Advance Directive data
--- NOTE | 2021-08-06 09:34 | ED Fall/Injury ---
General Stated Complaint: FALL History of Present Illness Date Seen by Provider: Aug 06, 2021 Time Seen by Provider: 09:31 Initial Comments 76-year-old female presents following a fall. Patient reports that she was putting up [place] lights when she stepped backwards tripped over something and fell landing on her right hip. Patient reports she had quite a bit of pain. Patient was able to ambulate on it has full but painful range of motion. The injury happened just prior to arrival. Allergies and Home Medications Allergies Coded Allergies: Sulfa (Sulfonamide Antibiotics) (Verified Allergy, Unknown, ITCHING, 02/15/19) codeine (Verified Allergy, Unknown, HALLUCINATION, 02/15/19) Patient Home Medication List Home Medication List Reviewed: Yes Atorvastatin Calcium (Atorvastatin Calcium) 20 Mg Tablet, 20 MG PO HS, (Reported) Entered as Reported by: NICKIE ROA on 11/18/18 0919 Lisinopril (Lisinopril) 40 Mg Tablet, 40 MG PO DAILY, (Reported) Entered as Reported by: MARY LARKIN on 06/09/19 1035 Venlafaxine HCl (Venlafaxine HCl ER) 150 Mg Cap.er.24h, 150 MG PO DAILY, (Reported) Entered as Reported by: MARY LARKIN on 06/09/19 1035 Review of Systems Review of Systems Constitutional: see HPI Eyes: No Symptoms Reported Respiratory: no symptoms reported Cardiovascular: no symptoms reported Gastrointestinal: no symptoms reported Genitourinary: no symptoms reported Musculoskeletal: see HPI Skin: no symptoms reported Psychiatric/Neurological: No Symptoms Reported Past Zwsxygi-Ydiice-Ldcxqq Hx Seasonal Allergies Seasonal Allergies: No Past Medical History Surgeries: Yes (Suboccipital craniotomy, Meningioma removal, Thyroid needle biopsy) Tonsillectomy Respiratory: No Cardiac: Yes Hypertension Neurological: Yes Headaches /Migraines Genitourinary: No Gastrointestinal: No Musculoskeletal: No Endocrine: No HEENT: No Cancer: No Psychosocial: Yes Anxiety Integumentary: No Blood Disorders: No Physical Exam Vital Signs Vital Signs - First Documented 08/06/21 09:28 Temp 36.8 Pulse 63 Resp 16 B/P (MAP) 127/77 (94) Pulse Ox 96 O2 Delivery Room Air Capillary Refill : Height, Weight, BMI Height: 5'2.00" Weight: 145lbs. 0oz. 65.021503nb; 27.00 BMI Method:Stated General Appearance: WD/WN, no apparent distress HEENT: PERRL/EOMI Neck: full range of motion, supple Cardiovascular: normal peripheral pulses, regular rate, rhythm Respiratory: lungs clear, normal breath sounds Gastrointestinal: non tender, soft Extremities: other (Tenderness to right hip with painful range of motion, no shortening or rotation noted) Neurologic/Psychiatric: alert, normal mood/affect, oriented x 3 Skin: normal color, warm/dry Progress/Results/Core Measures Results/Orders Lab Results Laboratory Tests Test 08/06/21 10:06 Range/Units White Blood Count 7.2 4.3-11.0 10^3/uL Red Blood Count 4.68 3.80-5.11 10^6/uL Hemoglobin 14.1 11.5-16.0 g/dL Hematocrit 42 35-52 % Mean Corpuscular Volume 89 80-99 fL Mean Corpuscular Hemoglobin 30 25-34 pg Mean Corpuscular Hemoglobin Concent 34 32-36 g/dL Red Cell Distribution Width 12.4 10.0-14.5 % Platelet Count 253 130-400 10^3/uL Mean Platelet Volume 8.3 L 9.0-12.2 fL Immature Granulocyte % (Auto) 1 % Neutrophils (%) (Auto) 72 42-75 % Lymphocytes (%) (Auto) 20 12-44 % Monocytes (%) (Auto) 6 0-12 % Eosinophils (%) (Auto) 0 0-10 % Basophils (%) (Auto) 1 0-10 % Neutrophils # (Auto) 5.2 1.8-7.8 X 10^3 Lymphocytes # (Auto) 1.5 1.0-4.0 X 10^3 Monocytes # (Auto) 0.5 0.0-1.0 X 10^3 Eosinophils # (Auto) 0.0 0.0-0.3 10^3/uL Basophils # (Auto) 0.0 0.0-0.1 10^3/uL Immature Granulocyte # (Auto) 0.0 0.0-0.1 10^3/uL Sodium Level 137 135-145 MMOL/L Potassium Level 3.8 3.6-5.0 MMOL/L Chloride Level 104 98-107 MMOL/L Carbon Dioxide Level 22 21-32 MMOL/L Anion Gap 11 5-14 MMOL/L Blood Urea Nitrogen 10 7-18 MG/DL Creatinine 0.89 0.60-1.30 MG/DL Estimat Glomerular Filtration Rate 62 BUN/Creatinine Ratio 11 Glucose Level 125 H 70-105 MG/DL Calcium Level 9.4 8.5-10.1 MG/DL Corrected Calcium 9.7 8.5-10.1 MG/DL Total Bilirubin 0.7 0.1-1.0 MG/DL Aspartate Amino Transf (AST/SGOT) 16 5-34 U/L Alanine Aminotransferase (ALT/SGPT) 14 0-55 U/L Alkaline Phosphatase 122 40-136 U/L Total Protein 6.5 6.4-8.2 GM/DL Albumin 3.6 3.2-4.5 GM/DL My Orders Orders - SANCHEZ,JANUSZ L DO Pelvis With Right Hip 2-3 View (08/06/21 09:34) Chest 1 View Ap/Pa Only (08/06/21 09:43) Cbc With Automated Diff (08/06/21 09:43) Comprehensive Metabolic Panel (08/06/21 09:43) Fentanyl Inj (Sublimaze Injection) (08/06/21 10:09) Ondansetron Injection (Zofran Injectio (08/06/21 11:30) Ns Iv 1000 Ml (Sodium Chloride 0.9%) (08/06/21 11:22) Fentanyl Inj (Sublimaze Injection) (08/06/21 11:45) Smith Cath (08/06/21 12:17) Medications Given in ED Current Medications Medications Dose Ordered Sig/Jr Route Start Time Stop Time Status Last Admin Dose Admin Fentanyl Citrate 50 mcg ONCE ONCE IVP 08/06/21 11:45 08/06/21 11:46 DC 08/06/21 12:00 50 MCG Ondansetron HCl 4 mg ONCE ONCE IVP 08/06/21 11:30 08/06/21 11:31 DC 08/06/21 11:28 4 MG Vital Signs/I&O 08/06/21 08/06/21 09:28 12:19 Temp 36.8 36.8 Pulse 63 83 Resp 16 16 B/P (MAP) 127/77 (94) 156/85 Pulse Ox 96 95 O2 Delivery Room Air Room Air Progress Progress Note : Progress Note Patient with right hip fracture. Called and discussed with Dr. Diaz on-call orthopedic surgeon at [facility]. He accepted patient. Patient to be transferred to [facility] via EMS. We will keep her n.p.o. as requested. Diagnostic Imaging Diagonstic Imaging: Xray Plain Films/CT/US/NM/MRI: hip Comments Date of Exam:08/06/21 PELVIS WITH RIGHT HIP 2-3 VIEW Indication: Fall, right hip pain. Comparison: None Findings: Single view of the pelvis, 2 views of the right hip demonstrate nondisplaced subcapital fracture of the right hip. There is no dislocation. The bony pelvis and left hip are intact. Impression: Subcapital fracture right hip Dictated on workstation # [id number] Reviewed: Reviewed by Me, Reviewed/Discussed Diagonstic Imaging: Xray Plain Films/CT/US/NM/MRI: chest Comments Date of Exam:08/06/21 CHEST 1 VIEW AP/PA ONLY INDICATION: Fall, right hip pain. COMPARISON: None. FINDINGS: Single view of the chest demonstrates clear lungs bilaterally. The heart size is slightly enlarged. There is no pneumothorax. Osseous structures normal. IMPRESSION: No acute cardiopulmonary findings. Reviewed: Reviewed by Me, Reviewed/Discussed Departure Communication (Admissions) Time/Spoke to Admitting Phy: 11:14 okay to admit, keep npo Impression Primary Impression: Closed right hip fracture Qualified Codes: S72.001A - Fracture of unspecified part of neck of right femur, initial encounter for closed fracture Disposition: 30 STILL A PATIENT Condition: Stable Admissions Decision to Admit Reason: Admit from ER (General) Decision to Admit/Date: Aug 06, 2021 Time/Decision to Admit Time: 11:19 Departure-Patient Inst. Referrals: LANDY MARQUEZ DO (PCP/Family) Primary Care Physician JANUSZ SANCHEZ DO Aug 06, 2021 09:34
--- NOTE | 2021-08-06 09:54 | Diagnostic Imaging Report ---
Indication: Fall, right hip pain. Comparison: None Findings: Single view of the pelvis, 2 views of the right hip demonstrate nondisplaced subcapital fracture of the right hip. There is no dislocation. The bony pelvis and left hip are intact. Impression: Subcapital fracture right hip Dictated by: Dictated on workstation # [id number]
--- NOTE | 2021-08-06 09:56 | Diagnostic Imaging Report ---
INDICATION: Fall, right hip pain. COMPARISON: None. FINDINGS: Single view of the chest demonstrates clear lungs bilaterally. The heart size is slightly enlarged. There is no pneumothorax. Osseous structures normal. IMPRESSION: No acute cardiopulmonary findings. Dictated by: Dictated on workstation # [id number]
[2021-08-06] MEDS ORDERED: fentaNYL INJ 100 MCG/2 ML AMP IVP STA (10:09)
[2021-08-06 10:15] LABS: HEMATOCRIT 42 % (35-52); HEMOGLOBIN 14.1 g/dL (11.5-16.0); MEAN CORPUSCULAR HEMOGLOBIN 30 pg (25-34); MEAN CORPUSCULAR HGB CONC 34 g/dL (32-36); MEAN CORPUSCULAR VOLUME 89 fL (80-99); WHITE BLOOD COUNT 7.2 10^3/uL (4.3-11.0)
[2021-08-06 10:16] LABS: BASOPHILS % (AUTO) 1 % (0-10); EOSINOPHILS % (AUTO) 0 % (0-10); LYMPHOCYTES # (AUTO) 1.5 X 10^3 (1.0-4.0); LYMPHOCYTES % (AUTO) 20 % (12-44); MEAN PLATELET VOLUME 8.3 fL (9.0-12.2); MONOCYTES # (AUTO) 0.5 X 10^3 (0.0-1.0); MONOCYTES % (AUTO) 6 % (0-12); NEUTROPHILS # (AUTO) 5.2 X 10^3 (1.8-7.8); NEUTROPHILS % (AUTO) 72 % (42-75); PLATELET COUNT 253 10^3/uL (130-400)
[2021-08-06 10:46] LABS: BILIRUBIN,TOTAL 0.7 MG/DL (0.1-1.0); CALCIUM 9.4 MG/DL (8.5-10.1); CREATININE SERUM 0.89 MG/DL (0.60-1.30); POTASSIUM 3.8 MMOL/L (3.6-5.0)
[2021-08-06 10:47] LABS: ALBUMIN 3.6 GM/DL (3.2-4.5); TOTAL PROTEIN 6.5 GM/DL (6.4-8.2)
[2021-08-06] MEDS ORDERED: NS IV 1000 ML 1,000 ML IV STA (11:22)
[2021-08-06] MEDS ORDERED: ONDANSETRON 4 MG/2 ML (SDV) Z0FRAN IVP ONE (11:30)
[2021-08-06] MEDS ORDERED: fentaNYL INJ 100 MCG/2 ML AMP IVP ONE ×2 (11:45→16:00)
--- NOTE | 2021-08-06 13:59 | HISTORY AND PHYSICAL ---
DATE OF SERVICE: ADMISSION HISTORY AND PHYSICAL REASON FOR CONSULTATION: Right subcapital femoral neck fracture. HISTORY OF PRESENT ILLNESS: The patient is a 76-year-old female, who fell while putting up [place] lights this morning. She stepped backwards and fell landing on her right hip. She reports pain in the right groin. She was able to ambulate on it initially, but was noted to have painful range of motion. Radiographs were obtained, which revealed an impacted nondisplaced right femoral neck fracture. She denied antecedent pain. ALLERGIES: SULFA and CODEINE. MEDICATIONS: Atorvastatin, lisinopril, and venlafaxine. PAST MEDICAL HISTORY: Significant for hypertension. PAST SURGICAL HISTORY: Thyroid needle biopsy, suboccipital craniotomy, and tonsillectomy. PHYSICAL EXAMINATION: GENERAL: The patient is well-developed, well-nourished, in no acute distress. HEENT: Normocephalic and atraumatic. Pupils are equal, round, and reactive to light. Oropharynx is clear. NECK: Supple with no lymphadenopathy. LUNGS: Clear to auscultation bilaterally. HEART: Regular rate and rhythm. ABDOMEN: Soft, nontender, and nondistended. EXTREMITIES: The patient has pain with internal and external rotation of the right hip. Sensation is intact distally. She has intact dorsiflexion and plantarflexion of the toes. RADIOGRAPHS: As above. IMPRESSION: Impacted right femoral neck fracture. PLAN: Open reduction and internal fixation of the right femoral neck. The risks, benefits, options, ramifications, and recovery were discussed at length with the patient. She understands and wishes to proceed. Job ID: [id number] DocumentID: [id number] Dictated Date: 08/06/2021 13:38:24 Physics Department Chair Date: 08/06/2021 13:59:09 Dictated By: JELLY HENDRIX MD
[2021-08-06] MEDS ORDERED: fentaNYL INJ 100 MCG/2 ML AMP IV PRN (14:15)
[2021-08-06] MEDS ORDERED: CATHETER FLUSH 10 ML SYR IV PRN (14:15)
[2021-08-06] MEDS ORDERED: fentaNYL INJ 100 MCG/2 ML AMP ONE (14:27)
[2021-08-06] MEDS ORDERED: LIDOCAINE PF 2% 5 ML (XYLOCAINE) VIAL ONE ×2 (14:27→15:29)
[2021-08-06] MEDS ORDERED: proPOfol 200 MG/20 ML (DIPRIVAN) VIAL IV ONE (14:27)
[2021-08-06] MEDS: LACTATED RINGERS 1,000 ML IV PRN ×2 (14:28→15:41)
[2021-08-06] MEDS ORDERED: ceFAZolin 2 GM IV Premixed 50 ML ONE (14:40)
[2021-08-06] MEDS: ceFAZolin 2 GM IV Premixed 50 ML IV SCH ×2 (14:41→23:05)
--- NOTE | 2021-08-06 14:43 | Progress Note-Pre Operative ---
Pre-Operative Progress Note H&P Reviewed The H&P was reviewed, patient examined and no changes noted. Date Seen by Provider: Aug 06, 2021 Time Seen by Provider: 14:33 Date H&P Reviewed: Aug 06, 2021 Time H&P Reviewed: 14:29 Pre-Operative Diagnosis: right femoral neck fracture closed, nondisplaced JELLY HENDRIX MD Aug 06, 2021 14:43
--- NOTE | 2021-08-06 14:44 | Progress Note-Post Operative ---
Post-Operative Progess Note Surgeon (s)/Pantry Worker (s) Surgeon JELLY HENDRIX MD Pantry Worker: Yovani Martin Pre-Operative Diagnosis right femoral neck fracture closed, nondisplaced Post-Operative Diagnosis right femoral neck fracture closed, nondisplaced Procedure & Operative Findings Date of Procedure 08/06/21 Procedure Performed/Findings percutaneous screw fixation right hip Anesthesia Type GETA Estimated Blood Loss Estimated blood loss (mL): 100 ml Specimens/Packing Specimens Removed none Packing: none JELLY HENDRIX MD Aug 06, 2021 14:44
[2021-08-06] MEDS ORDERED: ONDANSETRON 4 MG/2 ML (SDV) Z0FRAN IVP PRN ×2 (14:45→16:00)
[2021-08-06] MEDS ORDERED: NALOXONE 0.4 MG/ML 1 ML (NARCAN) VIAL IV PRN (14:45)
[2021-08-06] MEDS ORDERED: diphenhydrAMINE 50 MG/ML INJ (BENADRYL) IVP PRN (14:45)
[2021-08-06] MEDS ORDERED: SEVOFLURANE (ULTANE) 15 ML INHAL SOLN ONE (15:29)
[2021-08-06] MEDS ORDERED: ONDANSETRON 4 MG/2 ML (SDV) Z0FRAN ONE (15:34)
[2021-08-06] MEDS ORDERED: BUPIVACAINE 0.5% 30 ML (SENSORCAINE) VIAL ONE (15:39)
--- NOTE | 2021-08-06 15:56 | Anesthesia-General Post-Op ---
General Patient Condition Mental Status/LOC: Same as Preop Cardiovascular: Satisfactory Nausea/Vomiting: Absent Respiratory: Satisfactory Pain: Controlled Complications: Absent Post Op Complications Complications None Follow Up Care/Instructions Patient Instructions None needed. Anesthesia/Patient Condition Patient Condition Patient is doing well, no complaints, stable vital signs, no apparent adverse anesthesia problems. No complications reported per nursing. MARCI OLIVO CRNA Aug 06, 2021 15:56
--- NOTE | 2021-08-06 16:44 | Diagnostic Imaging Report ---
INDICATION: Right hip fracture. ORIF. TOTAL FLUOROSCOPY TIME: 41 seconds. TOTAL NUMBER OF FLUOROSCOPIC IMAGES SAVED: 4. FINDINGS: Multiple intraoperative image intensifier views of the right hip were obtained during ORIF. Images provided show orthopedic screw traversing the femoral head and neck. Distal anchor screw is noted. There does appear to be appropriate alignment of the fracture fragments and appropriate appearance to the femoroacetabular joint space. Please note, interpreting radiologist was not present during the procedure. IMPRESSION: 1. Fluoroscopic guidance provided during right hip ORIF. Dictated by: Dictated on workstation # [id number]
[2021-08-06] MEDS: fentaNYL INJ 100 MCG/2 ML AMP IVP PRN ×2 (17:08→18:37)
[2021-08-06] MEDS: NS IV 1000 ML 1,000 ML IV SCH (17:15)
[2021-08-06] MEDS: HYDROcodone/APAP 7.5 MG/325 MG (LORTAB, LORCET PLUS) TABLET PO PRN (19:48)
[2021-08-06] MEDS ORDERED: MTP25TSR PO (20:05)
[2021-08-06] MEDS ORDERED: LEVO50TA6 PO (20:05)
[2021-08-06] MEDS ORDERED: MELA5TAB14 PO (20:05)
--- NOTE | 2021-08-06 21:50 | OPERATIVE REPORT ---
DATE OF SERVICE: 08/06/2021 PREOPERATIVE DIAGNOSIS: Impacted right femoral neck fracture. POSTOPERATIVE DIAGNOSIS: Impacted right femoral neck fracture. PROCEDURE: Internal fixation of the right femoral neck. SURGEON: Mike Hendrix MD HAND SINGER: Yovani Martin, who assisted throughout the procedure and closed the incision. ANESTHESIA: General endotracheal by Yovani Palacios CRNA. ESTIMATED BLOOD LOSS: 100 mL. DRAINS: None. COMPLICATIONS: None. POSTOPERATIVE PLAN: A 50% weightbearing right lower extremity. The patient was transferred to the recovery room awake and stable condition. MATERIALS: Synthes femoral neck system with 85 mm barrel and derotation screw. STATEMENT OF MEDICAL NECESSITY: The patient is a 76-year-old female who fell this morning and presented to an outside facility where she was found to have an impacted right femoral neck fracture. She reports no antecedent pain. The patient was counseled regarding treatment options and elected to proceed with screw fixation. DESCRIPTION OF PROCEDURE: After risks and benefits of procedure were discussed and questions were answered, an informed consent was signed and placed on chart. The operative site was confirmed in the preoperative holding area initialed by the surgeon. The patient was then transferred to the operating room and after adequate levels of general endotracheal anesthetic were obtained, a timeout was called, confirming the operative site. The patient was then carefully placed on the fracture table and fluoroscopy in the AP and lateral planes revealed anatomic alignment of the fracture. The right hip was then prepped and draped in the usual sterile fashion. A limited incision was made on the lateral aspect of the hip. The iliotibial band was incised in line with the incision. A derotation pin was placed under fluoroscopic visualization. This was felt to be in excellent position. The guidewire was then passed through the guide to the central portion of the femoral head and slightly distal. This was then measured and overreamed to 85 mm depth. The barrel was then placed. The derotation screw was then drilled and an 85 mm derotation screw was placed with good purchase obtained. The locking screw was then placed again with excellent fixation obtained. Fluoroscopy in the AP and lateral planes revealed anatomic reduction of the fracture with well-placed hardware. The wound was copiously irrigated. The iliotibial band was closed with #0 Vicryl in xxizqb-jk-pnsul interrupted fashion, 2-0 Vicryl was used to reapproximate subcutaneous tissue and the skin was closed with aditya. Incision was infiltrated with plain Marcaine. A soft dressing was applied, and the patient was transferred to the recovery room awake and in stable condition. Job ID: [id number] DocumentID: [id number] Dictated Date: 08/06/2021 15:48:00 Painter And Decorator Date: 08/06/2021 21:49:57 Dictated By: MIKE HENDRIX MD
[2021-08-07] VITALS (7 sets, daily range): BP systolic 118–168; BP diastolic 66–83
[2021-08-07] MEDS: HYDROcodone/APAP 7.5 MG/325 MG (LORTAB, LORCET PLUS) TABLET PO PRN ×8 (00:07→23:33)
[2021-08-07 06:07] LABS: HEMOGLOBIN 11.9 g/dL (11.5-16.0)
[2021-08-07] MEDS: ASPIRIN E.C. 81 MG (ECOTRIN) TAB PO SCH (08:02)
[2021-08-07] MEDS: ENOXAPARIN 40 MG/0.4 ML (LOVENOX) SYR SC SCH (08:02)
[2021-08-07] MEDS: NS IV 1000 ML 1,000 ML IV SCH ×2 (08:06→16:55)
--- NOTE | 2021-08-07 10:21 | Progress Note ---
Standard Progress Note Progress Notes/Assess & Plan Date Seen by a Provider: Aug 07, 2021 Time Seen by a Provider: 10:19 Progress/Assessment & Plan no complaints Vital Signs Date Time Temp Pulse Resp B/P (MAP) Pulse Ox O2 Delivery O2 Flow Rate FiO2 08/07/21 08:05 37.1 102 20 137/75 (95) 92 Room Air 08/07/21 04:10 37.5 97 18 118/69 (85) 91 Room Air 08/07/21 00:00 37.3 93 18 131/66 (87) 91 Room Air 08/06/21 20:00 Room Air 08/06/21 19:54 37.2 90 18 167/85 (112) 96 Room Air 08/06/21 16:44 36.9 87 20 160/88 (112) 91 Room Air 08/06/21 16:40 Room Air 08/06/21 16:40 36.4 18 154/88 (110) 93 Room Air 08/06/21 16:30 18 163/92 (115) 94 Room Air 08/06/21 16:28 Room Air 08/06/21 16:26 OxyMask 1 08/06/21 16:20 18 155/94 (114) 94 Nasal Cannula 2 08/06/21 16:20 OxyMask 3 08/06/21 16:10 18 166/95 (118) 94 OxyMask 3 08/06/21 16:05 OxyMask 6 08/06/21 16:00 18 163/94 (117) 97 OxyMask 6 08/06/21 15:51 36.3 16 162/95 (117) 97 OxyMask 6 08/06/21 15:51 OxyMask 6 08/06/21 14:10 36.4 85 22 145/77 (99) 95 Room Air 08/06/21 14:00 Room Air 08/06/21 12:19 36.8 83 16 156/85 95 Room Air I & O 08/07/21 07:00 Intake Total 2740 ml Output Total 1015 ml Balance 1725 ml Laboratory Tests Test 08/07/21 05:43 Range/Units Hemoglobin 11.9 11.5-16.0 g/dL Hematocrit 36 35-52 % R hip dressing intact. Intact DF and PF of toes and ankle. intact sensation throughout. 2 plus DP pulse s/p ORIF R hip PT/OT JELLY HENDRIX MD Aug 07, 2021 10:21
--- NOTE | 2021-08-07 12:53 | Physical Therapy Evaluation ---
PT Evaluation-General Medical Diagnosis Admission Date Aug 06, 2021 at 13:53 Medical Diagnosis: R femur fracture Onset Date: Aug 06, 2021 Therapy Diagnosis Therapy Diagnosis: decreased mobility Height/Weight Height (Feet): 5 Height (Inches): 2.00 Weight (Pounds): 145 Weight (Ounces): 0 Precautions Precautions/Isolations: Fall Prevention, Standard Precautions Weight Bear Status Right Lower Extremity: Right Partial Weight Bearing Left Lower Extremity: Left Full Weight Bearing Referral Physician: Dr. Diaz Reason for Referral: Evaluation/Treatment Medical History Pertinent Medical History: HTN Current History Pt. fell backwards at home while hanging Raquel lights on the mantel, sustained R femoral neck fracture. Reviewed History: Yes Social History Home: Multilevel Current Living Status: Alone Entry Into Home: Stairs With Railing several stairs to enter home and inside the home Prior Prior Level of Function SCALE: Activities may be completed with or without assistive devices. 0-Kvzeivlpri-ooyntwg completes the activity by him/herself with no assistance from a helper. 5-Set-up or Clean-up Assistance-helper sets up or cleans up; patient completes activity. [place] assists only prior to or following the activity. 4-Supervision or Touching Assistance-helper provides verbal cues and/or touching/steadying and/or contact guard assistance as patient completes activity. Assistance may be provided throughout the activity or intermittently. 3-Partial/Moderate Assistance-helper does LESS THAN HALF the effort. [place] lifts, holds or supports trunk or limbs, but provides less than half the effort. 2-Substantial/Maximal Assistance-helper does MORE THAN HALF the effort. [place] lifts or holds trunk or limbs and provides more than half the effort. 6-Bvniwquqg-rjljdi does ALL the effort. Patient does none of the effort to complete the activity. Or, the assistance of 2 or more helpers is required for the patient to complete the activity. If activity was not attempted, code reason: 7-Patient Refused. 9-Not Applicable-not attempted and the patient did not perform the activity before the current illness, exacerbation or injury. 10-Not Attempted due to Environmental Limitations-(lack of equipment, weather restraints, etc.). 88-Not Attempted due to Medical Conditions or Safety Concerns. Bed Mobility: 6 Transfers (B,C,W/C): 6 Gait: 6 Stairs: 6 Indoor Mobility (Ambulation): Independent Stairs: Independent PT Evaluation-Current Subjective Pt. in bed, agrees to therapy. States she had pain medication about 30 minutes ago. Pt/Family Goals home with daughter staying to assist Objective Patient Orientation: Person, Place, Time, Situation Attachments: IV ROM/Strength ROM Upper Extremities WNL ROM Lower Extremities WNL except focal deficit of the R hip Strength Upper Extremities WNL Strength Lower Extremities n/t R LE, WNL L LE Integumentary/Posture Integumentary bandages at R hip Bowel Incontinence: No Bladder Incontinence: Smith Cath Posture generally upright Neuromuscular (Tone, Coordination, Reflexes) intact Sensory Vision: Functional Hearing: Functional Sensation Right Upper Extremit: Intact Sensation Left Upper Extremity: Intact Sensation Right Lower Extremit: Intact Sensation Left Lower Extremity: Intact Transfers Lying to Sitting/Side of Bed(Q: 1 (min A x 2) Sit to Stand (QC): 3 Chair/Khq-sd-Vftjv Xfer(QC): 4 Gait Does the Patient Walk?: Yes Mode of Locomotion: Walk Anticipated Mode of Locomotion: Walk Distance: 2 ft to chair Gait Assistive Device: FWW Comments/Gait Description able to maintain PWB on R Balance Sitting Static: Good Sitting Dynamic: Good Standing Static: Good Standing Dynamic: Fair Assessment/Needs Pt. is an active 76 y.o. female s/p R femoral neck fracture and who presents with decreased mobility. Pt. is able to maintain PWB during transfers and short distance gait to chair this date. She did well with transfers but had difficulty moving the R LE. Pt. would benefit from skilled PT to improve mobility and safety for return home. Rehab Potential: Good PT Short Term Goals Short Term Goals Time Frame: Aug 14, 2021 Sit to lyin Lying to sitting on side of be: 4 Sit to stand: 6 Chair/yrp-im-kpexq transfer: 6 Walk 10 feet: 6 Walk 50 feet with two turns: 6 4 steps: 4 PT Plan Problem List Problem List: Activity Tolerance, Functional Strength, Safety, Balance, Gait, Transfer, Bed Mobility, ROM Treatment/Plan Treatment Plan: Continue Plan of Care Treatment Plan: Bed Mobility, Education, Functional Activity Mallory, Functional Strength, Gait, Safety, Therapeutic Exercise, Transfers Treatment Duration: Aug 14, 2021 Frequency: 11 times per week Estimated Hrs Per Day: .25 hour per day Patient and/or Family Agrees t: Yes Time/GCodes Time In: 819 Time Out: 844 Total Billed Treatment Time: 25 Total Billed Treatment 1, EVL 10', FA 15' SANDER WOOD PT Aug 07, 2021 12:53
--- NOTE | 2021-08-07 13:44 | History & Physical ---
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 THE PATIENT REPORTS THAT SHE WAS AT HOME, FIXING UP HER HOUSE FOR A PLANNED EVENT AND WAS "STEPPING BACK TO TAKE A LOOK AT THE LIGHTS ON MY MANTLE WHEN I DID A BACK FLIP OVER THE COFFEE TABLE AND DID NOT LAND WELL". SHE REPORTS THAT SHE IMMEDIATELY KNEW SOMETHING WAS WRONG, WAS UNABLE TO STAND AND CALLED A FRIEND TO HELP AND THEY CALLED 911 TO GET HER TO THE [facility], THEN WAS TRANSFERRED TO [facility] AND WENT STRAIGHT TO THE OPERATING ROOM FOR SURGICAL FIXATION OF THE RIGHT HIP (CLOSED FEMORAL NECK FRACTURE, NON DISPLACED, RIGHT HIP). Date of Admission Aug 06, 2021 at 13:53 Date Seen by a Provider: Aug 07, 2021 Time Seen by a Provider: 10:45 I consulted on this patient on 08/07/21 13:38 Attending Physician Mike Diaz MD Admitting Physician Shayy Garcia DO Consult Allergies and Home Medications Allergies Coded Allergies: Sulfa (Sulfonamide Antibiotics) (Verified Allergy, Unknown, ITCHING, 02/15/19) codeine (Verified Allergy, Unknown, HALLUCINATION, 02/15/19) Patient Home Medication List Home Medication List Reviewed: Yes Atorvastatin Calcium (Atorvastatin Calcium) 20 Mg Tablet, 20 MG PO HS, (Reported) Entered as Reported by: NICKIE ROA on 11/18/18 0919 Last Action: Continued Levothyroxine Sodium (Levothyroxine Sodium) 50 Mcg Tablet, 25 MCG PO DAILY, (Reported) Entered as Reported by: CAILIN AGUILERA on 08/06/212004 Last Action: Continued Lisinopril (Lisinopril) 40 Mg Tablet, 20 MG PO DAILY, (Reported) Entered as Reported by: MARY LARKIN on 06/09/19 1035 Last Action: Continued Melatonin (Melatonin) 5 Mg Tablet, 5 MG PO HS, (Reported) Entered as Reported by: CAILIN AGUILERA on 08/06/212004 Last Action: Converted Metoprolol Succinate (Metoprolol Succinate) 25 Mg Tab.er.24h, 25 MG PO HS, (Reported) Entered as Reported by: CAILIN AGUILERA on 08/06/212004 Last Action: Continued Venlafaxine HCl (Venlafaxine HCl ER) 150 Mg Cap.er.24h, 150 MG PO HS, (Reported) Entered as Reported by: MARY LARKIN on 06/09/19 1035 Last Action: Converted Past Rblzhmg-Muraxx-Jwmszp Hx Patient Social History Living Status: LIVES IN [place] ALONE Employed/Student: part-time employed ([employer]) Tobacco Use?: No Use of E-Cig and/or Vaping dev: No Substance use?: No Alcohol Use?: No Pt feels they are or have been: No Immunizations Up To Date Date of Influenza Vaccine: Apr 02, 2019 First/Initial COVID19 Vaccinat: Yes Second COVID19 Vaccination Chris: Yes Seasonal Allergies Seasonal Allergies: No Current Status status: No status: No Advance Directives: No Communicates: Verbally Primary Language: Turkish Preferred Spoken Language: Turkish Is interpretation needed?: No Implanted or Applied Medical D: None Past Medical History Surgeries: Tonsillectomy High Cholesterol, Hypertension Headaches /Migraines Sexually Transmitted Disease: No HIV/AIDS: No Fractures (RIGHT HIP) Hypothyroidsim Loss of Vision: Denies Hearing Impairment: Denies Anxiety, Depression Blood Disorders: No Adverse Reaction/Blood Tranf: No Family Medical History Reviewed and Corrections made Hypertension Review of Systems Constitutional: No chills, No fever, No malaise, No weakness EENTM: No hoarseness, No throat pain Respiratory: No cough, No dyspnea on exertion, No short of breath Cardiovascular: No palpitations Gastrointestinal: No abdominal pain, No constipation, No nausea, No vomiting Genitourinary: no symptoms reported Musculoskeletal: No back pain; joint pain (RIGHT HIP); No muscle pain Skin: no symptoms reported Psychiatric/Neurological: Denies Anxiety, Denies Depressed; Weakness All Other Systems Reviewed Negative Unless Noted: Yes Physical Exam Vital Signs Vital Signs - First Documented 08/06/21 09:28 Temp 36.8 Pulse 63 Resp 16 B/P (MAP) 127/77 (94) Pulse Ox 96 O2 Delivery Room Air Capillary Refill : Less Than 3 Seconds Height, Weight, BMI Height: 5'2.00" Weight: 145lbs. 0oz. [id number]; 27.72 BMI Method:Stated General Appearance: No Apparent Distress, WD/WN HEENT: PERRL/EOMI, Pharynx Normal Neck: Full Range of Motion, Normal Inspection, Non Tender, Supple Respiratory: Chest Non Tender, Lungs Clear, Normal Breath Sounds, No Accessory Muscle Use, No Respiratory Distress Cardiovascular: Regular Rate, Rhythm, No Murmur, Normal Peripheral Pulses Gastrointestinal: Normal Bowel Sounds, No Organomegaly, No Pulsatile Mass, Non Tender, Soft Rectal: Deferred Genital/Rectal: Other Back: Normal Inspection Extremity: Normal Capillary Refill, Non Tender, No Calf Tenderness, No Pedal Edema Neurologic/Psychiatric: Alert, Oriented x3, No Motor/Sensory Deficits, Normal 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, 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 Norm as Tested Skin: Normal Color, Warm/Dry Lymphatic: No Adenopathy Assessment/Plan Assessment and Plan CLOSED FEMORAL NECK FRACTURE, NON DISPLACED, RIGHT HIP HYPERTENSION HEADACHE HYPOTHYROIDISM ANXIETY DEPRESSION POST OP ANEMIA CLOSED FEMORAL NECK FRACTURE, NON DISPLACED, RIGHT HIP - STATUS POST FRACTURE OF HIP WITH SURGICAL FIXATION ON 08/06/2021 - PT RECEIVING PHYSICAL THERAPY HYPERTENSION - RESUME HOME REGIMEN, MONITOR PRESSURES HEADACHE - PRN TYLENOL - RESTART CAFFEINE INTAKE HYPOTHYROIDISM - RESUME HOME THYROID REGIMEN ANXIETY AND DEPRESSION - RESUME VENLAFAXINE POST-OP ANEMIA - CHECK LABS IN MORNING APPRECIATE THE CONSULT, PT WILL NEED AT LEAST 2-3 DAYS IN HOSPITAL FOR STABILIZATION, CONTROL OF PAIN AND FOR PLANS TO BE MADE FOR SAFE DISCHARGE TO HOME. Admission Diagnosis CLOSED FEMORAL NECK FRACTURE, NON DISPLACED, RIGHT HIP HYPERTENSION HEADACHE HYPOTHYROIDISM ANXIETY DEPRESSION POST OP ANEMIA Admission Status: Inpatient Order (span 2 midnights) Reason for Inpatient Admission: INPT ADMISSION FOR HIP FRACTURE WILL REQUIRE AT LEAST 48 - 72 HOURS FOR PAIN CONTROL AND STABILIZATION NAN FIELDS MD Aug 07, 2021 13:43
[2021-08-07] MEDS: MELATONIN 10 MG TABLET PO SCH (20:29)
[2021-08-07] MEDS: VENlafaxine XR 75 MG (EFFEXOR XR) CAP PO SCH (20:29)
[2021-08-08 04:09] VITALS: BP 152/90
[2021-08-08] MEDS: NS IV 1000 ML 1,000 ML IV SCH (05:19)
[2021-08-08] MEDS: HYDROcodone/APAP 7.5 MG/325 MG (LORTAB, LORCET PLUS) TABLET PO PRN ×7 (05:44→23:21)
[2021-08-08] MEDS: LEVOTHYROXINE 25 MCG (LEVOTHROID) TAB PO SCH (05:44)
[2021-08-08 07:15] VITALS: BP 128/83
--- NOTE | 2021-08-08 09:08 | Physical Therapy Daily Note ---
PT Daily Note-Current Subjective Pt. in bed and agrees to therapy. States she was up a lot yesterday. Reports she had a pain pill early this morning and hopes it is still working. Mental Status Patient Orientation: Person, Place, Time, Situation Attachments: IV Transfers SCALE: Activities may be completed with or without assistive devices. 1-Sgrcvzrifp-xvvgndi completes the activity by him/herself with no assistance from a helper. 5-Set-up or Clean-up Assistance-helper sets up or cleans up; patient completes a ctivity. [place] assists only prior to or following the activity. 4-Supervision or Touching Assistance-helper provides verbal cues and/or touching/steadying and/or contact guard assistance as patient completes activity. Assistance may be provided throughout the activity or intermittently. 3-Partial/Moderate Assistance-helper does LESS THAN HALF the effort. [place] lifts, holds or supports trunk or limbs, but provides less than half the effort. 2-Substantial/Maximal Assistance-helper does MORE THAN HALF the effort. [place] lifts or holds trunk or limbs and provides more than half the effort. 4-Pjbtzcxxy-adatlj does ALL the effort. Patient does none of the effort to complete the activity. Or, the assistance of 2 or more helpers is required for the patient to complete the activity. If activity was not attempted, code reason: 7-Patient Refused. 9-Not Applicable-not attempted and the patient did not perform the activity before the current illness, exacerbation or injury. 10-Not Attempted due to Environmental Limitations-(lack of equipment, weather restraints, etc.). 88-Not Attempted due to Medical Conditions or Safety Concerns. Lying to Sitting/Side of Bed(Q: 6 Sit to Stand (QC): 4 Weight Bearing Right Lower Extremity: Right Partial Weight Bearing Left Lower Extremity: Left Full Weight Bearing Gait Training Does the Patient Walk?: Yes Distance: 15' Walk 10 feet (QC): 4 Gait Persons Needed: 1 Gait Assistive Device: FWW cues needed for gait sequence with FWW, able to maintain PWB on R. Treatments gait training, transfers Assessment Current Status: Good Progress Pt. able to ambulate to/from bathroom today while maintaining PWB on R. She was (I) getting out of bed this date and had no increased pain during session. Pt. is progressing very well with therapy thus far. She will like to attempt stairs prior to discharge due to bedroom/bathroom upstairs in her home. Pt. up in chair post session with call light and all needs met. PT Short Term Goals Short Term Goals Time Frame: Aug 14, 2021 Sit to lyin Lying to sitting on side of be: 4 Sit to stand: 6 Chair/onh-yh-nmqps transfer: 6 Walk 10 feet: 6 Walk 50 feet with two turns: 6 4 steps: 4 PT Plan Treatment/Plan Treatment Plan: Continue Plan of Care Treatment Plan: Bed Mobility, Education, Functional Activity Mallory, Functional Strength, Gait, Safety, Therapeutic Exercise, Transfers Treatment Duration: Aug 14, 2021 Frequency: 11 times per week Estimated Hrs Per Day: .25 hour per day Patient and/or Family Agrees t: Yes Time/GCodes Time In: 820 Time Out: 843 Total Billed Treatment Time: 23 Total Billed Treatment 1, GT 13', FA 10' SANDER WOOD PT Aug 08, 2021 09:08
--- NOTE | 2021-08-08 09:13 | Progress Note ---
Standard Progress Note Progress Notes/Assess & Plan Date Seen by a Provider: Aug 08, 2021 Time Seen by a Provider: 09:12 Progress/Assessment & Plan no complaints Vital Signs Date Time Temp Pulse Resp B/P (MAP) Pulse Ox O2 Delivery O2 Flow Rate FiO2 08/07/21 08:05 37.1 102 20 137/75 (95) 92 Room Air 08/07/21 04:10 37.5 97 18 118/69 (85) 91 Room Air 08/07/21 00:00 37.3 93 18 131/66 (87) 91 Room Air 08/06/21 20:00 Room Air 08/06/21 19:54 37.2 90 18 167/85 (112) 96 Room Air 08/06/21 16:44 36.9 87 20 160/88 (112) 91 Room Air 08/06/21 16:40 Room Air 08/06/21 16:40 36.4 18 154/88 (110) 93 Room Air 08/06/21 16:30 18 163/92 (115) 94 Room Air 08/06/21 16:28 Room Air 08/06/21 16:26 OxyMask 1 08/06/21 16:20 18 155/94 (114) 94 Nasal Cannula 2 08/06/21 16:20 OxyMask 3 08/06/21 16:10 18 166/95 (118) 94 OxyMask 3 08/06/21 16:05 OxyMask 6 08/06/21 16:00 18 163/94 (117) 97 OxyMask 6 08/06/21 15:51 36.3 16 162/95 (117) 97 OxyMask 6 08/06/21 15:51 OxyMask 6 08/06/21 14:10 36.4 85 22 145/77 (99) 95 Room Air 08/06/21 14:00 Room Air 08/06/21 12:19 36.8 83 16 156/85 95 Room Air I & O 08/07/21 07:00 Intake Total 2740 ml Output Total 1015 ml Balance 1725 ml Laboratory Tests Test 08/07/21 05:43 Range/Units Hemoglobin 11.9 11.5-16.0 g/dL Hematocrit 36 35-52 % R hip dressing intact. Intact DF and PF of toes and ankle. intact sensation throughout. 2 plus DP pulse s/p ORIF R hip PT/OT Final Diagnosis no complaints Vital Signs Date Time Temp Pulse Resp B/P (MAP) Pulse Ox O2 Delivery O2 Flow Rate FiO2 08/08/21 07:15 36.4 89 18 128/83 (98) 96 Room Air 08/08/21 04:10 93 Nasal Cannula 2.00 08/08/21 04:09 37.2 100 18 152/90 (110) 87 Room Air 08/07/21 23:41 37.5 109 18 163/83 (109) 93 Room Air 08/07/21 20:10 Room Air 08/07/21 20:00 37.1 105 18 161/81 (107) 94 Room Air 08/07/21 16:00 37.5 105 18 168/79 (108) 96 Room Air 08/07/21 12:16 37.4 86 20 147/78 (101) 94 Room Air I & O 08/08/21 07:00 Intake Total 2102 ml Output Total 3740 ml Balance -1638 ml Laboratory Tests Test 08/08/21 08:20 Range/Units Hemoglobin 12.0 11.5-16.0 g/dL Hematocrit 37 35-52 % R hip incision with sl bloody DC no erythema no calf tenderness s/p R hip ORIF mobilize JELLY HENDRIX MD Aug 08, 2021 09:13
[2021-08-08] MEDS ORDERED: OXYC1TAB11 PO (09:15)
[2021-08-08] MEDS: ASPIRIN E.C. 81 MG (ECOTRIN) TAB PO SCH (09:17)
[2021-08-08] MEDS: lisINopril 20 MG (PRINIVIL) TABLET PO SCH (09:17)
[2021-08-08] MEDS: ENOXAPARIN 40 MG/0.4 ML (LOVENOX) SYR SC SCH (09:18)
--- NOTE | 2021-08-08 09:18 | D/C HH Face to Face Order ---
D/C Face to Face Orders Reconcile Patient Problems Problems Reviewed?: Yes Instructions for Patient Via [employer], Patient Instructions/FollowUp: three weeks Physician to follow Patient: three weeks Discharge Diet for Home: Regular Diet Patient Data-Allergies,Ht & Wt Patient Allergies: Coded Allergies: Sulfa (Sulfonamide Antibiotics) (Verified Allergy, Unknown, ITCHING, 02/15/19) codeine (Verified Allergy, Unknown, HALLUCINATION, 02/15/19) Height (Feet): 5 Height (Inches): 2.00 Weight (Pounds): 145 Weight (Ounces): 0 Home Health Need/Face to Face Date of Face to Face: Aug 08, 2021 Clinical Findings: Muscle weakness, Non or partial weight bearing, Pain with ambulation, Unsteady gait I have seen Pt fzuc-yu-wryw: Yes Discharged To: Home Diagnosis/Conditions: right femoral neck ORIF Patient is Homebound due to: Ketty fall risk due to instabilty, Pain w/ambulation Homebound Status Due to the above stated illness, injury or surgical procedure (medical condition or diagnosis) and associated clinical findings, the patient is homebound because of his/her inability to leave home except with aid of a supportive device and/or person AND leaving the home requires a considerable and taxing effort or is medically contraindicated. Pt req the following assistanc: [facility] Home Health Nursing Orders Home Health Services Order: Physical Therapy-Evaluate & Treat DC right hip aditya and apply steri strips 08/23/21 Home Health Infusion Therapy Line Start Date: Aug 06, 2021 Therapy Orders Therapy Orders: Physical Therapy, PT to assess for OT Therapy Specific Orders: Eval assistive deivces, Teach enviro modifications/safety, Gait training, Increase strength/endurance, Provider maintenance therapy, Restore ROM Certify Stmt I certify that this patient is under my care and that I, a nurse practitioner or a physician; a assistant auto center manager working with me, had a face to face encounter that - meets the physician face to face encounter requirements with this patient as dated. JELLY HENDRIX MD Aug 08, 2021 09:18
--- NOTE | 2021-08-08 09:36 | Progress Note ---
Subjective Subjective Date Seen by Provider: Aug 08, 2021 Time Seen by Provider: 09:50 PT IS A 76 Y/O FEMALE WHO IS A CLINIC PATIENT OF DR. MAQRUEZ. SHE HAS A RIGHT HIP FRACTURE - S/P SURGICAL FIXATION ON 08/06/2021. SHE REPORTS SOME HEADACHE YESTERDAY - RESOLVED WITH MEDICATION. PT REPORTS CONSTIPATION TODAY WELL SOME NAUSEA. SHE HAS PAIN IN HER HIP, BUT IT IS BETTER WITH MEDICATION, SHE IS MOVING AROUND IN THE ROOM WITH THERAPY AND STAFF. PT'S DTR COMING IN TOWN THIS WEEK. Review of Systems General: No Chills; Fatigue HEENT: No Head Aches Pulmonary: No Dyspnea, No Cough Cardiovascular: No: Chest Pain, Palpitations Gastrointestinal: Nausea, Constipation; No: Abdominal Pain Musculoskeletal: leg pain Neurological: Weakness; No: Confusion All Other Systems Reviewed All Other Systems Reviewed: Yes Objective Exam Vital Signs Vital Signs Date Time Temp Pulse Resp B/P (MAP) Pulse Ox O2 Delivery O2 Flow Rate FiO2 08/08/21 07:15 36.4 89 18 128/83 (98) 96 Room Air 08/08/21 04:10 93 Nasal Cannula 2.00 08/08/21 04:09 37.2 100 18 152/90 (110) 87 Room Air 08/07/21 23:41 37.5 109 18 163/83 (109) 93 Room Air 08/07/21 20:10 Room Air 08/07/21 20:00 37.1 105 18 161/81 (107) 94 Room Air 08/07/21 16:00 37.5 105 18 168/79 (108) 96 Room Air 08/07/21 12:16 37.4 86 20 147/78 (101) 94 Room Air I & O 08/08/21 07:00 Intake Total 2102 ml Output Total 3740 ml Balance -1638 ml General Appearance: No Apparent Distress, WD/WN HEENT: PERRL/EOMI, Pharynx Normal Neck: Full Range of Motion, Normal Inspection, Non Tender, Supple Respiratory: Chest Non Tender, Lungs Clear, Normal Breath Sounds, No Accessory Muscle Use, No Respiratory Distress Cardiovascular: Regular Rate, Rhythm, No Murmur, Normal Peripheral Pulses Gastrointestinal: Normal Bowel Sounds, No Organomegaly, No Pulsatile Mass, Non Tender, Soft Rectal: Deferred Genital/Rectal: Other Back: Normal Inspection Extremity: Normal Capillary Refill, Non Tender, No Calf Tenderness, No Pedal Edema Neurologic/Psychiatric: Alert, Oriented x3, No Motor/Sensory Deficits, Normal Mood/Affect, panel maker II-XII Norm as Tested Skin: Normal Color, Warm/Dry Lymphatic: No Adenopathy Results Lab Laboratory Tests 08/08/21 08:20: Hemoglobin 12.0, Hematocrit 37 Assessment/Plan Assessment/Plan Admission Dx CLOSED FEMORAL NECK FRACTURE, NON DISPLACED, RIGHT HIP HYPERTENSION HEADACHE HYPOTHYROIDISM ANXIETY DEPRESSION POST OP ANEMIA Assessment and Plan CLOSED FEMORAL NECK FRACTURE, NON DISPLACED, RIGHT HIP HYPERTENSION HEADACHE HYPOTHYROIDISM ANXIETY DEPRESSION POST OP ANEMIA CLOSED FEMORAL NECK FRACTURE, NON DISPLACED, RIGHT HIP - STATUS POST FRACTURE OF HIP WITH SURGICAL FIXATION ON 08/06/2021 - PT RECEIVING PHYSICAL THERAPY HYPERTENSION - RESUMED HOME REGIMEN, BP ELEVATED YESTERDAY - IMPROVED TODAY - MONITOR AND WILL ADD MEDS IF NEEDED FOR BETTER BP CONTROL. HEADACHE - PRN TYLENOL - RESTARTED CAFFEINE INTAKE HYPOTHYROIDISM - RESUMED HOME THYROID REGIMEN ANXIETY AND DEPRESSION - RESUMED VENLAFAXINE MILD POST-OP ANEMIA - CHECKED REPEAT LABS, HGB STABLE APPRECIATE THE CONSULT, PT WILL NEED AT LEAST 2-3 DAYS IN HOSPITAL FOR STABILIZATION, CONTROL OF PAIN AND FOR PLANS TO BE MADE FOR SAFE DISCHARGE TO HOME. Admission Dx CLOSED FEMORAL NECK FRACTURE, NON DISPLACED, RIGHT HIP HYPERTENSION HEADACHE HYPOTHYROIDISM ANXIETY DEPRESSION POST OP ANEMIA Clinical Quality Measures Admission Status Admission Dx CLOSED FEMORAL NECK FRACTURE, NON DISPLACED, RIGHT HIP HYPERTENSION HEADACHE HYPOTHYROIDISM ANXIETY DEPRESSION POST OP ANEMIA NAN FIELDS MD Aug 08, 2021 09:36
[2021-08-08] MEDS ORDERED: SENNA W/DOCUSATE (SENOKOT S) TABLET PO ONE (11:00)
[2021-08-08] MEDS ORDERED: ONDANSETRON 4 MG (ZOFRAN) ORAL DISSOLVE TAB PO PRN (11:15)
[2021-08-08 11:42] VITALS: BP 129/76
[2021-08-08 16:00] VITALS: BP 157/78
[2021-08-08 20:00] VITALS: BP 140/77
[2021-08-08] MEDS: SENNA W/DOCUSATE (SENOKOT S) TABLET PO SCH (21:00)
[2021-08-08] MEDS: VENlafaxine XR 75 MG (EFFEXOR XR) CAP PO SCH (21:00)
[2021-08-08] MEDS: MELATONIN 10 MG TABLET PO SCH (21:00)
[2021-08-09] VITALS (7 sets, daily range): BP systolic 128–167; BP diastolic 64–118
[2021-08-09] MEDS: HYDROcodone/APAP 7.5 MG/325 MG (LORTAB, LORCET PLUS) TABLET PO PRN ×4 (05:49→20:40)
[2021-08-09] MEDS: LEVOTHYROXINE 25 MCG (LEVOTHROID) TAB PO SCH (05:49)
--- NOTE | 2021-08-09 07:58 | Progress Note ---
Standard Progress Note Progress Notes/Assess & Plan Date Seen by a Provider: Aug 09, 2021 Time Seen by a Provider: 07:56 Progress/Assessment & Plan no complaints Vital Signs Date Time Temp Pulse Resp B/P (MAP) Pulse Ox O2 Delivery O2 Flow Rate FiO2 08/07/21 08:05 37.1 102 20 137/75 (95) 92 Room Air 08/07/21 04:10 37.5 97 18 118/69 (85) 91 Room Air 08/07/21 00:00 37.3 93 18 131/66 (87) 91 Room Air 08/06/21 20:00 Room Air 08/06/21 19:54 37.2 90 18 167/85 (112) 96 Room Air 08/06/21 16:44 36.9 87 20 160/88 (112) 91 Room Air 08/06/21 16:40 Room Air 08/06/21 16:40 36.4 18 154/88 (110) 93 Room Air 08/06/21 16:30 18 163/92 (115) 94 Room Air 08/06/21 16:28 Room Air 08/06/21 16:26 OxyMask 1 08/06/21 16:20 18 155/94 (114) 94 Nasal Cannula 2 08/06/21 16:20 OxyMask 3 08/06/21 16:10 18 166/95 (118) 94 OxyMask 3 08/06/21 16:05 OxyMask 6 08/06/21 16:00 18 163/94 (117) 97 OxyMask 6 08/06/21 15:51 36.3 16 162/95 (117) 97 OxyMask 6 08/06/21 15:51 OxyMask 6 08/06/21 14:10 36.4 85 22 145/77 (99) 95 Room Air 08/06/21 14:00 Room Air 08/06/21 12:19 36.8 83 16 156/85 95 Room Air I & O 08/07/21 07:00 Intake Total 2740 ml Output Total 1015 ml Balance 1725 ml Laboratory Tests Test 08/07/21 05:43 Range/Units Hemoglobin 11.9 11.5-16.0 g/dL Hematocrit 36 35-52 % R hip dressing intact. Intact DF and PF of toes and ankle. intact sensation throughout. 2 plus DP pulse s/p ORIF R hip PT/OT Final Diagnosis no complaints Vital Signs Date Time Temp Pulse Resp B/P (MAP) Pulse Ox O2 Delivery O2 Flow Rate FiO2 08/09/21 04:00 36.2 72 16 128/71 (90) 96 Nasal Cannula 1.00 08/09/21 00:23 36.5 101 18 142/64 (90) 92 Nasal Cannula 08/08/21 20:59 Room Air 08/08/21 20:00 36.4 96 18 140/77 (98) 92 Room Air 08/08/21 16:00 36.2 90 18 157/78 (104) 92 Room Air 08/08/21 11:42 36.5 82 18 129/76 (93) 93 Room Air 08/08/21 09:00 Room Air I & O 08/09/21 07:00 Intake Total 3160 ml Output Total 2400 ml Balance 760 ml Laboratory Tests Test 08/08/21 08:20 Range/Units Hemoglobin 12.0 11.5-16.0 g/dL Hematocrit 37 35-52 % R hip incision with mild bloody DC no erythema or warmth no calf tenderness neg Ralph's s/p ORIF R hip PT/OT today likely DC tomorrow JELLY HENDRIX MD Aug 09, 2021 07:58
--- NOTE | 2021-08-09 08:57 | Progress Note ---
Subjective Subjective Date Seen by Provider: Aug 09, 2021 Time Seen by Provider: 08:47 Upon follow-up--post-op day 3 s/p R ORIF for R subcapital fracture--Va is doing well; she is conversational and pleasant. She states her pain is well controlled, and that she is able to ambulate to the bathroom. She reports she has not had a bowel movement today. Hemoglobin and hematocrit are stable; incision on R lateral thigh is clean, dry, and intact. She states understanding regarding the use of IS every hour for pneumonia prevention. Is currently receiving 1 L/min O2 via NC, and on Lovenox for DVT prophylaxis. Va continues to work with PT during her stay, and expresses that she will thinks she will be able to go home tomorrow (08/10/21). Review of Systems General: No Chills; Fatigue HEENT: No Head Aches Pulmonary: No Dyspnea, No Cough Cardiovascular: No: Chest Pain, Palpitations Gastrointestinal: Constipation; No: Abdominal Pain Musculoskeletal: leg pain Neurological: Weakness; No: Confusion All Other Systems Reviewed All Other Systems Reviewed: Yes Objective Exam Vital Signs Vital Signs Date Time Temp Pulse Resp B/P (MAP) Pulse Ox O2 Delivery O2 Flow Rate FiO2 08/09/21 08:00 36.4 78 18 156/81 (106) 94 Nasal Cannula 1.00 08/09/21 04:00 36.2 72 16 128/71 (90) 96 Nasal Cannula 1.00 08/09/21 00:23 36.5 101 18 142/64 (90) 92 Nasal Cannula 08/08/21 20:59 Room Air 08/08/21 20:00 36.4 96 18 140/77 (98) 92 Room Air 08/08/21 16:00 36.2 90 18 157/78 (104) 92 Room Air 08/08/21 11:42 36.5 82 18 129/76 (93) 93 Room Air 08/08/21 09:00 Room Air I & O 08/09/21 07:00 Intake Total 3160 ml Output Total 2400 ml Balance 760 ml General Appearance: No Apparent Distress, WD/WN Eyes: Bilateral Eye Normal Inspection, Bilateral Eye PERRL, Bilateral Eye EOMI HEENT: PERRL/EOMI, Pharynx Normal Neck: Full Range of Motion, Normal Inspection, Non Tender, Supple Respiratory: Chest Non Tender, Lungs Clear, Normal Breath Sounds, No Accessory Muscle Use, No Respiratory Distress Cardiovascular: Regular Rate, Rhythm, No Murmur Gastrointestinal: No Pulsatile Mass, Non Tender, Soft Rectal: Deferred Genital/Rectal: Other Extremity: Normal Capillary Refill, Non Tender, No Calf Tenderness, No Pedal Edema Neurologic/Psychiatric: Alert, Oriented x3, No Motor/Sensory Deficits, Normal 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/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, 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 Norm as Tested Skin: Normal Color, Warm/Dry Lymphatic: No Adenopathy Results Meds Item Value Date Time Senna 1 ea 08/08/21 2100 (Senokot S BID/PO 08/08/21 2100 Tablet) Ondansetron HCl 4 mg 08/08/21 1115 (Zofran Oral Q6H PRN/PO Dissolve Tablet) Lisinopril 20 mg 08/08/21 0900 (Zestril Tablet) DAILY@0900/PO 08/08/21 0917 Levothyroxine 25 mcg 08/08/21 0630 Sodium DAILY@0630/PO 08/09/21 0549 (Synthroid Tablet) Venlafaxine HCl 150 mg 08/07/21 2100 (Effexor Xr HS/PO 08/08/21 2100 Capsule) Melatonin 5 mg 08/07/21 2100 (Melatonin HS/PO 08/08/21 2100 Tablet) Metoprolol 25 mg 08/07/21 2100 Succinate HS/PO 08/08/21 2100 (Toprol Xl Tablet) Atorvastatin 20 mg 08/07/21 2100 Calcium HS/PO 08/08/21 2100 (Lipitor Tablet) Aspirin 81 mg 08/07/21 0900 (Ecotrin Tablet) DAILY/PO 08/08/21 0917 Enoxaparin Sodium 40 mg 08/07/21 0800 (Lovenox Q24H/SC 08/08/21 0918 Injection) Diphenhydramine 25 mg 08/06/21 1445 HCl Q4H PRN/IVP (Benadryl Injection) Acetaminophen/ 1 ea 08/06/21 1445 Hydrocodone Bitart Q2HR PRN/PO 08/09/21 0549 (Lortab 7.5 Mg Tablet) Fentanyl Citrate 25 mcg 08/06/21 1445 (Sublimaze Q1H PRN/IVP 08/06/21 1837 Injection) Naloxone HCl 0.1 mg 08/06/21 1445 (Narcan PRN PRN/IV Injection) Ondansetron HCl 4 mg 08/06/21 1445 (Zofran Q2H PRN/IVP 08/07/21 1152 Injection (Sdv)) Sodium Chloride 10-40 ML 08/06/21 1415 (Catheter Flush NEEDED PRN/IV Syringe) Assessment/Plan Assessment/Plan Assessment and Plan 1. Right Subcaptial hip fracture S/P ORIF -Continue pain management and bowel regimen -Continue Lovenox for DVT prophylaxis and zofran PRN nausea -Incentive spirometer every hour for PNA prevention -Consider weaning oxygen -Continue to monitor H/H -Continue physical therapy -D/C tomorrow 2. Hypertension 3. Headache 4. Hypothyroidism 5. Anxiety 6. Depression -Home meds have been resumed Supervisory-Addendum Brief Verification & Attestation Participated in pt care: history, physical, procedure Personally performed: exam, history, supervision of care Care discussed with: Medical Student Procedures: n/a Results interpretation: Verified all documentation Patient seen and assessed. Agree with above treatment and plan. Her daughter arrived in [facility] late last night to be there when she got home. HENOK CHAHAL Aug 09, 2021 08:57 LANDY MARQUEZ DO Aug 09, 2021 13:03
[2021-08-09] MEDS: ENOXAPARIN 40 MG/0.4 ML (LOVENOX) SYR SC SCH (09:15)
[2021-08-09] MEDS: ASPIRIN E.C. 81 MG (ECOTRIN) TAB PO SCH (09:16)
[2021-08-09] MEDS: SENNA W/DOCUSATE (SENOKOT S) TABLET PO SCH ×2 (09:16→20:40)
[2021-08-09] MEDS: lisINopril 20 MG (PRINIVIL) TABLET PO SCH (09:17)
--- NOTE | 2021-08-09 09:50 | Physical Therapy Daily Note ---
PT Daily Note-Current Subjective Patient in bed pre tx, agrees to PT, has no pain at rest but she says severe pain with activity Appearance Patient in recliner post tx with nurse call, phone, tray, all needs met. Mental Status Patient Orientation: Person, Place, Situation Transfers SCALE: Activities may be completed with or without assistive devices. 3-Exnxqhibkq-mqioizr completes the activity by him/herself with no assistance from a helper. 5-Set-up or Clean-up Assistance-helper sets up or cleans up; patient completes activity. [place] assists only prior to or following the activity. 4-Supervision or Touching Assistance-helper provides verbal cues and/or touching/steadying and/or contact guard assistance as patient completes activity. Assistance may be provided throughout the activity or intermittently. 3-Partial/Moderate Assistance-helper does LESS THAN HALF the effort. [place] lifts, holds or supports trunk or limbs, but provides less than half the effort. 2-Substantial/Maximal Assistance-helper does MORE THAN HALF the effort. [place] lifts or holds trunk or limbs and provides more than half the effort. 3-Vozayiezk-vxzohx does ALL the effort. Patient does none of the effort to complete the activity. Or, the assistance of 2 or more helpers is required for the patient to complete the activity. If activity was not attempted, code reason: 7-Patient Refused. 9-Not Applicable-not attempted and the patient did not perform the activity before the current illness, exacerbation or injury. 10-Not Attempted due to Environmental Limitations-(lack of equipment, weather restraints, etc.). 88-Not Attempted due to Medical Conditions or Safety Concerns. Roll Left & Right (QC): 6 Lying to Sitting/Side of Bed(Q: 4 Sit to Stand (QC): 4 Chair/Rnc-sr-Tzxkd Xfer(QC): 4 Weight Bearing Right Lower Extremity: Right Partial Weight Bearing Left Lower Extremity: Left Full Weight Bearing Gait Training Distance: 20' Walk 10 feet (QC): 4 Gait Persons Needed: 1 Gait Assistive Device: FWW slow but steady ambulation, she is compliant with PWB of right leg Exercises Seated Therapy Exercises: Ankle pumps, Long arc quads Seated Reps: 20 Treatments bed mobility and transfers, ambulation, LE exercise Assessment Current Status: Fair Progress improving general mobility PT Short Term Goals Short Term Goals Time Frame: Aug 14, 2021 Sit to lyin Lying to sitting on side of be: 4 Sit to stand: 6 Chair/vqy-bj-hvvht transfer: 6 Walk 10 feet: 6 Walk 50 feet with two turns: 6 4 steps: 4 PT Plan Problem List Problem List: Activity Tolerance, Functional Strength, Safety, Balance, Gait, T ransfer, Bed Mobility, ROM Treatment/Plan Treatment Plan: Continue Plan of Care Treatment Plan: Bed Mobility, Education, Functional Activity Mallory, Functional Strength, Gait, Safety, Therapeutic Exercise, Transfers Treatment Duration: Aug 14, 2021 Frequency: 11 times per week Estimated Hrs Per Day: .25 hour per day Patient and/or Family Agrees t: Yes Safety Risks/Education Patient Education: Gait Training, Transfer Techniques, Reviewed Precautions, Correct Positioning, Safety Issues Teaching Recipient: Patient Teaching Methods: Demonstration, Discussion Response to Teaching: Reinforcement Needed Time/GCodes Time In: 914 Time Out: 936 Total Billed Treatment Time: 22 Total Billed Treatment 1 visit FA 22' ESTRELLITA CINTRON PT Aug 09, 2021 09:50
--- NOTE | 2021-08-09 15:14 | Physical Therapy Daily Note ---
PT Daily Note-Current Subjective Pt reports she is ready for therapy. Very talkative, concerned about being able to do stairs when she discharges. Transfers SCALE: Activities may be completed with or without assistive devices. 1-Caxdvavrkf-rwaanxo completes the activity by him/herself with no assistance from a helper. 5-Set-up or Clean-up Assistance-helper sets up or cleans up; patient completes activity. [place] assists only prior to or following the activity. 4-Supervision or Touching Assistance-helper provides verbal cues and/or touching/steadying and/or contact guard assistance as patient completes activity. Assistance may be provided throughout the activity or intermittently. 3-Partial/Moderate Assistance-helper does LESS THAN HALF the effort. [place] lifts, holds or supports trunk or limbs, but provides less than half the effort. 2-Substantial/Maximal Assistance-helper does MORE THAN HALF the effort. [place] lifts or holds trunk or limbs and provides more than half the effort. 9-Fzstnpcqi-gymjpb does ALL the effort. Patient does none of the effort to complete the activity. Or, the assistance of 2 or more helpers is required for the patient to complete the activity. If activity was not attempted, code reason: 7-Patient Refused. 9-Not Applicable-not attempted and the patient did not perform the activity before the current illness, exacerbation or injury. 10-Not Attempted due to Environmental Limitations-(lack of equipment, weather restraints, etc.). 88-Not Attempted due to Medical Conditions or Safety Concerns. Performed bed mobility with supervision. Weight Bearing Right Lower Extremity: Right Partial Weight Bearing Left Lower Extremity: Left Full Weight Bearing Gait Training Gait Assistive Device: FWW Ambulate 75ft in room with FWW at PWB status including right and left turns. Exercises Supine Ex: LE Protocol Supine Reps: 10 Assessment Pt showing improve strength and gait stability. PT Short Term Goals Short Term Goals Time Frame: Aug 14, 2021 Sit to lyin Lying to sitting on side of be: 4 Sit to stand: 6 Chair/kmr-tz-mwwmx transfer: 6 Walk 10 feet: 6 Walk 50 feet with two turns: 6 4 steps: 4 PT Plan Treatment/Plan Treatment Plan: Continue Plan of Care Treatment Plan: Bed Mobility, Education, Functional Activity Mallory, Functional Strength, Gait, Safety, Therapeutic Exercise, Transfers Treatment Duration: Aug 14, 2021 Frequency: 11 times per week Estimated Hrs Per Day: .25 hour per day Patient and/or Family Agrees t: Yes Time/GCodes Time In: 1430 Time Out: 1500 Total Billed Treatment Time: 30 Total Billed Treatment visit, gait 15min, ex 15 min JONO SHEPPARD PT Aug 09, 2021 15:14
[2021-08-09] MEDS: VENlafaxine XR 75 MG (EFFEXOR XR) CAP PO SCH (20:40)
[2021-08-09] MEDS: MELATONIN 10 MG TABLET PO SCH (20:40)
[2021-08-10 00:10] VITALS: BP 163/84
--- NOTE | 2021-08-10 03:30 | DISCHARGE SUMMARY ---
DATE OF SERVICE: DIAGNOSES: 1. Right femoral neck fracture. 2. Hypertension. PROCEDURE: Right hip internal fixation. HISTORY: The patient is a 76-year-old female who underwent a right hip internal fixation following a fall in which she sustained an impacted femoral neck fracture. Postoperatively, she advanced well. At time of discharge, her wound was clean and dry. She had no calf tenderness. Negative Homans sign. CONDITION AT DISCHARGE: Good. DISCHARGE DIET: Regular. FOLLOWUP: Followup is in three weeks. Home physical therapy has been arranged. ACTIVITIES: A 50% weightbearing right lower extremity with a walker. DISCHARGE MEDICATIONS: Home medications, Percocet as needed for pain and one baby aspirin per day for 30 days. Job ID: [id number] DocumentID: [id number] Dictated Date: 08/09/2021 07:56:28 Repairer Maintenance Building Date: 08/10/2021 03:29:35 Dictated By: JELLY HENDRIX MD
[2021-08-10] MEDS: HYDROcodone/APAP 7.5 MG/325 MG (LORTAB, LORCET PLUS) TABLET PO PRN ×3 (04:53→11:38)
[2021-08-10] MEDS: LEVOTHYROXINE 25 MCG (LEVOTHROID) TAB PO SCH (04:53)
--- NOTE | 2021-08-10 07:08 | Progress Note ---
Standard Progress Note Progress Notes/Assess & Plan Date Seen by a Provider: Aug 10, 2021 Time Seen by a Provider: 07:07 Progress/Assessment & Plan no complaints Vital Signs Date Time Temp Pulse Resp B/P (MAP) Pulse Ox O2 Delivery O2 Flow Rate FiO2 08/07/21 08:05 37.1 102 20 137/75 (95) 92 Room Air 08/07/21 04:10 37.5 97 18 118/69 (85) 91 Room Air 08/07/21 00:00 37.3 93 18 131/66 (87) 91 Room Air 08/06/21 20:00 Room Air 08/06/21 19:54 37.2 90 18 167/85 (112) 96 Room Air 08/06/21 16:44 36.9 87 20 160/88 (112) 91 Room Air 08/06/21 16:40 Room Air 08/06/21 16:40 36.4 18 154/88 (110) 93 Room Air 08/06/21 16:30 18 163/92 (115) 94 Room Air 08/06/21 16:28 Room Air 08/06/21 16:26 OxyMask 1 08/06/21 16:20 18 155/94 (114) 94 Nasal Cannula 2 08/06/21 16:20 OxyMask 3 08/06/21 16:10 18 166/95 (118) 94 OxyMask 3 08/06/21 16:05 OxyMask 6 08/06/21 16:00 18 163/94 (117) 97 OxyMask 6 08/06/21 15:51 36.3 16 162/95 (117) 97 OxyMask 6 08/06/21 15:51 OxyMask 6 08/06/21 14:10 36.4 85 22 145/77 (99) 95 Room Air 08/06/21 14:00 Room Air 08/06/21 12:19 36.8 83 16 156/85 95 Room Air I & O 08/07/21 07:00 Intake Total 2740 ml Output Total 1015 ml Balance 1725 ml Laboratory Tests Test 08/07/21 05:43 Range/Units Hemoglobin 11.9 11.5-16.0 g/dL Hematocrit 36 35-52 % R hip dressing intact. Intact DF and PF of toes and ankle. intact sensation throughout. 2 plus DP pulse s/p ORIF R hip PT/OT Final Diagnosis no complaints Vital Signs Date Time Temp Pulse Resp B/P (MAP) Pulse Ox O2 Delivery O2 Flow Rate FiO2 08/10/21 00:10 36.9 100 18 163/84 (110) 94 Room Air 08/09/21 20:54 Room Air 08/09/21 20:42 36.4 79 18 167/118 (134) 91 Room Air 08/09/21 16:18 36.5 72 18 132/87 (102) 95 Room Air 08/09/21 12:00 35.1 58 16 131/82 (98) 93 Nasal Cannula 1.50 08/09/21 09:00 37.0 92 18 145/78 (100) 97 Nasal Cannula 1.50 08/09/21 08:00 Room Air 08/09/21 08:00 36.4 78 18 156/81 (106) 94 Nasal Cannula 1.00 I & O 08/10/21 07:00 Intake Total 1210 ml Output Total 1900 ml Balance -690 ml Bloody DC from inferior aspect of incision no erythema or warmth no calf tenderness s/p R hip ORIF PT DC after PT today JELLY HENDRIX MD Aug 10, 2021 07:08
[2021-08-10 07:22] VITALS: BP 182/85
[2021-08-10] MEDS: lisINopril 20 MG (PRINIVIL) TABLET PO SCH (08:06)
[2021-08-10] MEDS: ASPIRIN E.C. 81 MG (ECOTRIN) TAB PO SCH (08:06)
[2021-08-10] MEDS: SENNA W/DOCUSATE (SENOKOT S) TABLET PO SCH (08:07)
[2021-08-10] MEDS: ENOXAPARIN 40 MG/0.4 ML (LOVENOX) SYR SC SCH (08:07)
[2021-08-10] MEDS ORDERED: BISACODYL 10 MG SUPP (DULCOLAX) PR NR (09:00)
--- NOTE | 2021-08-10 09:13 | Progress Note ---
Subjective Subjective Date Seen by Provider: Aug 10, 2021 Time Seen by Provider: 09:08 Upon follow-up--post-op day 3 s/p R ORIF for R subcapital fracture--Va continues to do well, and is conversational and pleasant. She states her pain is well-controlled with medication and is no longer nauseous. She denies having a bowel movement, but has an appetite. Va reports that she is using her incentive spirometer. There was increased sero-sanguineous fluid apparent on her wound dressing. She is to go home today with her daughter, and will be receiving home health. Review of Systems General: No Chills; Fatigue HEENT: No Head Aches Pulmonary: No Dyspnea, No Cough Cardiovascular: No: Chest Pain, Palpitations Gastrointestinal: Constipation; No: Nausea, Abdominal Pain Musculoskeletal: leg pain Neurological: Weakness; No: Confusion All Other Systems Reviewed All Other Systems Reviewed: Yes Objective Exam Vital Signs Vital Signs Date Time Temp Pulse Resp B/P (MAP) Pulse Ox O2 Delivery O2 Flow Rate FiO2 08/10/21 00:10 36.9 100 18 163/84 (110) 94 Room Air 08/09/21 20:54 Room Air 08/09/21 20:42 36.4 79 18 167/118 (134) 91 Room Air 08/09/21 16:18 36.5 72 18 132/87 (102) 95 Room Air 08/09/21 12:00 35.1 58 16 131/82 (98) 93 Nasal Cannula 1.50 I & O 08/10/21 07:00 Intake Total 1210 ml Output Total 1900 ml Balance -690 ml General Appearance: No Apparent Distress, WD/WN Eyes: Bilateral Eye Normal Inspection, Bilateral Eye PERRL, Bilateral Eye EOMI HEENT: PERRL/EOMI, Pharynx Normal Neck: Full Range of Motion, Normal Inspection, Non Tender, Supple Respiratory: Chest Non Tender, Lungs Clear, Normal Breath Sounds, No Accessory Muscle Use, No Respiratory Distress, Rales (bibasilar) Cardiovascular: Regular Rate, Rhythm, No Murmur Gastrointestinal: No Pulsatile Mass, Non Tender, Soft Rectal: Deferred Genital/Rectal: Other Extremity: Normal Capillary Refill, Non Tender, No Calf Tenderness, No Pedal Edema Neurologic/Psychiatric: Alert, Oriented x3, No Motor/Sensory Deficits, Normal 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 Right Subcaptial hip fracture S/P ORIF -Continue pain management and bowel regimen -has started dulcolax suppository for constipation -Continue Lovenox for DVT prophylaxis and zofran PRN nausea -Incentive spirometer hourly for PNA prevention -Continue to monitor H/H -Continue physical therapy -D/C home with home health 2. Hypertension 3. Headache 4. Hypothyroidism 5. Anxiety 6. Depression -Home meds have been resumed Supervisory-Addendum Brief Verification & Attestation Participated in pt care: history, physical Personally performed: exam, history, supervision of care Care discussed with: Medical Student Procedures: n/a Results interpretation: Verified all documentation Patient seen and assessed. Still no BM so given dulcolax suppository prior to DC. Her daughter has taken off a month and will be staying with her at her home with home health. She states she has 8 stairs total to go up to her bedroom but they are wide with a handrail and it is 4 steps up then a landing then another 4 steps up so she feels confident she can safely go home. HENOK CHAHAL Aug 10, 2021 09:13 LANDY MARQUEZ DO Aug 10, 2021 19:26
--- NOTE | 2021-08-10 10:16 | Physical Therapy Daily Note ---
PT Daily Note-Current Subjective Patient in bed pre tx, agrees to PT, has unrated but minor left leg pain. Appearance Patient in recliner post tx with nurse call, phone, tray, all needs met. Mental Status Patient Orientation: Person, Place, Situation Transfers SCALE: Activities may be completed with or without assistive devices. 9-Kuieijzdvj-mkyiqul completes the activity by him/herself with no assistance from a helper. 5-Set-up or Clean-up Assistance-helper sets up or cleans up; patient completes activity. Fords assists only prior to or following the activity. 4-Supervision or Touching Assistance-helper provides verbal cues and/or touching/steadying and/or contact guard assistance as patient completes activity. Assistance may be provided throughout the activity or intermittently. 3-Partial/Moderate Assistance-helper does LESS THAN HALF the effort. Fords lifts, holds or supports trunk or limbs, but provides less than half the effort. 2-Substantial/Maximal Assistance-helper does MORE THAN HALF the effort. Fords lifts or holds trunk or limbs and provides more than half the effort. 5-Emvtkbsim-bflaus does ALL the effort. Patient does none of the effort to complete the activity. Or, the assistance of 2 or more helpers is required for the patient to complete the activity. If activity was not attempted, code reason: 7-Patient Refused. 9-Not Applicable-not attempted and the patient did not perform the activity before the current illness, exacerbation or injury. 10-Not Attempted due to Environmental Limitations-(lack of equipment, weather restraints, etc.). 88-Not Attempted due to Medical Conditions or Safety Concerns. Roll Left & Right (QC): 6 Lying to Sitting/Side of Bed(Q: 4 Sit to Stand (QC): 4 Chair/Djb-nr-Carej Xfer(QC): 4 Weight Bearing Right Lower Extremity: Right Partial Weight Bearing Left Lower Extremity: Left Full Weight Bearing Gait Training Distance: 150' Walk 10 feet (QC): 4 Walk 50 ft with 2 Turns(QC): 4 Walk 150 ft (QC): 4 Gait Persons Needed: 1 Gait Assistive Device: FWW CGA, step-to gait pattern with right leg leading, slow but steady ambulation, compliant with PWB of right leg. Treatments bed mobility and transfers, ambulation Assessment Current Status: Fair Progress improving endurance PT Short Term Goals Short Term Goals Time Frame: Aug 14, 2021 Sit to lyin Lying to sitting on side of be: 4 Sit to stand: 6 Chair/yad-cy-tilqc transfer: 6 Walk 10 feet: 6 Walk 50 feet with two turns: 6 4 steps: 4 PT Plan Problem List Problem List: Activity Tolerance, Functional Strength, Safety, Balance, Gait, Transfer, Bed Mobility, ROM Treatment/Plan Treatment Plan: Continue Plan of Care Treatment Plan: Bed Mobility, Education, Functional Activity Mallory, Functional Strength, Gait, Safety, Therapeutic Exercise, Transfers Treatment Duration: Aug 14, 2021 Frequency: 11 times per week Estimated Hrs Per Day: .25 hour per day Patient and/or Family Agrees t: Yes Safety Risks/Education Patient Education: Gait Training, Transfer Techniques, Reviewed Precautions, Correct Positioning, Safety Issues Teaching Recipient: Patient Teaching Methods: Demonstration, Discussion Response to Teaching: Reinforcement Needed Time/GCodes Time In: 0940 Time Out: 0954 Total Billed Treatment Time: 14 Total Billed Treatment 1 visit FA ESTRELLITA ROCK PT Aug 10, 2021 10:16
[2021-08-10 11:55] VITALS: BP 182/85
== END 2021-08-10 11:55 | disposition home health service (06) | DRG 482 ==
LOC: EDUNIT# 09:22 → ER FS 09:25 → 4TH 13:53
PROVIDERS: ADMIT Orthopaedic Surgery; ATTEND Orthopaedic Surgery
PROC: 0QS604Z Reposition Right Upper Femur with Internal Fixation Device, Open Approach (ICD-10-PCS; principal; 2021-08-06 14:41)
DX: S72.001A Fracture of unspecified part of neck of right femur, initial encounter for closed fracture (principal); W18.30XA Fall on same level, unspecified, initial encounter; I10 Essential (primary) hypertension; E03.9 Hypothyroidism, unspecified; F41.9 Anxiety disorder, unspecified; F32.A Depression, unspecified; E78.00 Pure hypercholesterolemia, unspecified; G43.909 Migraine, unspecified, not intractable, without status migrainosus; D64.9 Anemia, unspecified; Z88.2 Allergy status to sulfonamides; Z88.5 Allergy status to narcotic agent
CPT/HCPCS: 36415; 51702; 71045; 73502; 76000; 80053; 85014; 85018; 85025; 96374; 96375; 96376

== ENCOUNTER → 2021-09-10 | Outpatient (CLI) | payer MEDICARE, OTHER ==
[~2021-09-10] MED LIST changes: +LEVO50TA6 PO; +MELA5TAB14 PO; +MTP25TSR PO; +OXYC1TAB11 PO
[2021-09-10 12:20] LABS: BILIRUBIN,URINE NEGATIVE (NEGATIVE); CLARITY,URINE CLEAR; COLOR,URINE YELLOW; GLUCOSE, URINE (UA) NEGATIVE (NEGATIVE); KETONES,URINE NEGATIVE (NEGATIVE); LEUKOCYTE ESTERASE ,URINE NEGATIVE (NEGATIVE); NITRITE,URINE NEGATIVE (NEGATIVE); PH,URINE 5.5 (5-9); PROTEIN,URINE NEGATIVE (NEGATIVE)
[2021-09-10 12:36] LABS: BACTERIA,URINE NEGATIVE /HPF; SQUAMOUS EPITHELIAL CELL,UR RARE /HPF
[2021-09-10 12:38] LABS: HEMOGLOBIN 13.4 g/dL (11.5-16.0); MEAN CORPUSCULAR HEMOGLOBIN 30 pg (25-34); WHITE BLOOD COUNT 7.7 10^3/uL (4.3-11.0)
[2021-09-10 12:41] LABS: HEMATOCRIT 40 % (35-52); LYMPHOCYTES % (AUTO) 21 % (12-44); MEAN CORPUSCULAR HGB CONC 33 g/dL (32-36); MEAN CORPUSCULAR VOLUME 91 fL (80-99); MEAN PLATELET VOLUME 8.4 fL (9.0-12.2); NEUTROPHILS % (AUTO) 67 % (42-75); PLATELET COUNT 206 10^3/uL (130-400)
[2021-09-10 12:42] LABS: BASOPHILS # (AUTO) 0.1 10^3/uL (0.0-0.1); BASOPHILS % (AUTO) 1 % (0-10); EOSINOPHILS # (AUTO) 0.3 10^3/uL (0.0-0.3); EOSINOPHILS % (AUTO) 3 % (0-10); LYMPHOCYTES # (AUTO) 1.6 X 10^3 (1.0-4.0); MONOCYTES # (AUTO) 0.7 X 10^3 (0.0-1.0); MONOCYTES % (AUTO) 9 % (0-12); NEUTROPHILS # (AUTO) 5.1 X 10^3 (1.8-7.8)
[2021-09-10 12:53] LABS: CALCIUM 10.1 MG/DL (8.5-10.1); CREATININE SERUM 0.85 MG/DL (0.60-1.30); POTASSIUM 3.9 MMOL/L (3.6-5.0)
[2021-09-10 12:54] LABS: BILIRUBIN,TOTAL 0.8 MG/DL (0.1-1.0); TOTAL PROTEIN 6.4 GM/DL (6.4-8.2)
== END ==
LOC: IHC 12:01
PROVIDERS: ATTEND Family Medicine
DX: I10 Essential (primary) hypertension (principal); Z79.891 Long term (current) use of opiate analgesic
CPT/HCPCS: 80053; 81000; 84443; 85025

== ENCOUNTER → 2022-04-19 | Outpatient (CLI) | payer MEDICARE, OTHER ==
--- NOTE | 2022-04-19 12:19 | Diagnostic Imaging Report ---
INDICATION: Postmenopausal screening COMPARISON: None FINDINGS: AP Spine L1-L4: [BMD (g/cm2): 1.048] [T-Score: -1.3] [Z-Score: 0.4] [BMD Previous: na] [BMD % Change: na] LT Hip Neck: [BMD (g/cm2): 0.625] [T-Score: -3.0] [Z-Score: -1.1] LT Hip Total: [BMD (g/cm2):0.] [T-Score:702] [Z-Score: -2.4] [BMD Previous: -0.7] [BMD % Change: na] RT Hip Neck: [BMD (g/cm2):na] [T-Score:na] [Z-Score:na] RT Hip Total: [BMD (g/cm2):na] [T-score:na] [Z-Score:na] [BMD Previous:na] [BMD % Change:na] *Indicates significant change from prior examination based on 95% confidence level. World Health Organization criteria for BMD interpretation classify patients as Normal (T-score at or above -1.0), Osteopenic (T-score between -1.0 and -2.5) or Osteoporotic (T-score at or below -2.5). LIMITATIONS AND MODIFICATION: None. FRACTURE RISK (FRAX SCORE): The ten year probability of (%): Major Osteoporotic Fracture: [31.0] Hip Fracture: [11.6] IMPRESSION: 1. Osteopenia (Low bone mass). 2. Baseline examination. 3. See below National Osteoporosis Foundation guidelines on when to potentially initiate pharmacologic therapy. Based on the National Osteoporosis Foundation Guidelines, pharmacologic treatment should be initiated in any of the following, unless clinical conditions suggest otherwise: * Any patient with prior fragility fracture of the hip or vertebrae. A spine fracture indicates 5X risk for subsequent spine fracture and 2X risk for subsequent hip fracture. * Osteoporosis (T-score <-2.5). * Postmenopausal women and men age 50 and older with low bone mass/osteopenia (T-score between -1.0 and -2.5) by DXA and 10-year major osteoporotic fracture greater than 20% or a 10-year probability of hip fracture greater than 3%. These fracture risks are supplied above in the FRAX score, if applicable. * Clinician judgement and/or patient preferences may indicate treatment for people with 10-year fracture probabilities above or below these levels. Dictated by: Dictated on workstation # [id number]
--- NOTE | 2022-04-19 12:59 | Diagnostic Imaging Report ---
INDICATION: Routine screening. COMPARISON: 01/12/2021 and 10/17/2019. TECHNIQUE: 2D and 3D bilateral screening mammography was performed with CAD. FINDINGS: Scattered fibroglandular densities are identified bilaterally. A benign-appearing nodule in the retroareolar left breast appears stable. No new mass or malignant-appearing microcalcifications are seen. There are benign calcifications present. The axillae are unremarkable. IMPRESSION: No mammographic features suspicious for malignancy are identified. ACR BI-RADS Category 2: Benign findings. Result letter will be mailed to the patient. Note: At least 10% of breast cancer is not imaged by mammography. Dictated by: Dictated on workstation # [id number]
== END ==
LOC: RAD 09:37
PROVIDERS: ATTEND Family Medicine
DX: Z12.31 Encounter for screening mammogram for malignant neoplasm of breast (principal); M85.80 Other specified disorders of bone density and structure, unspecified site; Z78.0 Asymptomatic menopausal state
CPT/HCPCS: 77063; 77067; 77080

== ENCOUNTER → 2022-06-30 | Outpatient (CLI) | payer MEDICARE, OTHER ==
--- NOTE | 2022-06-30 17:02 | Diagnostic Imaging Report ---
PROCEDURE: US Thyroid. TECHNIQUE: Multiple real-time grayscale images were obtained of the thyroid in various projections. INDICATION: Multinodular goiter COMPARISON: 07/05/2021 FINDINGS: Right thyroid lobe: The right thyroid lobe measures 4.2 x 1.7 x 1.8 cm. In the mid right thyroid lobe, there is a stable 1.4 cm solid, isoechoic nodule that is wider than tall, has no echogenic foci and circumscribed margins (TI-RADS 3). A smaller solid nodule is also TI RADS 3, is stable, measuring 0.7 cm. An adjacent simple cyst is stable at 0.6 cm (TI-RADS 1). Isthmus: The thyroid isthmus measures 0.3 cm and has no nodule. Left thyroid lobe: The left thyroid lobe measures 4.2 x 2.0 x 1.4 cm. Stable solid isoechoic, circumscribed nodule with no echogenic foci in the inferior left thyroid lobe measuring up to 0.9 cm (TI-RADS 3). IMPRESSION:Stable bilateral mildly suspicious thyroid nodules. These do not meet criteria for fine-needle aspiration or follow-up imaging. ACR TI-RADS: TR3 . TI-RADS Recommendations:TR3 - Mildly Suspicious. FNA if > 2.5 cm. Follow if > 1.5 cm at 1, 3, 5 years. Dictated by: Dictated on workstation # [id number]
== END ==
LOC: RAD FS 09:56
PROVIDERS: ATTEND Otolaryngology Otolaryngology/Facial Plastic Surgery
DX: E04.2 Nontoxic multinodular goiter (principal)
CPT/HCPCS: 76536

== ENCOUNTER 2022-12-01 17:20 | Emergency (ER) | payer MEDICARE, OTHER ==
[~2022-12-01] VITALS: Ht 157 cm; Wt 72.0 kg
--- NOTE | 2022-12-01 17:23 | ED General ---
General Chief Complaint: General Problems/Pain Stated Complaint: FALL SYNCOPE History of Present Illness Date Seen by Provider: Dec 01, 2022 Time Seen by Provider: 17:23 Initial Comments 77-year-old female had A syncopal type event. Patient reports that she was at home felt she had to go the bathroom, went to the bathroom like she needed to have a bowel movement and then got up without having a bowel movement and got cannot sweaty and had like it presyncopal event. Patient cannot sit down or went down to the floor. She called EMS. EMS reports when they got there she had 1 episode of a low blood pressure but otherwise no acute findings. She is complaining of some abdominal pain in the lower abdomen. She is unsure if she was straining when she went to the restroom. She denies any chest pain, vomiting, cough or shortness of breath Allergies and Home Medications Allergies Coded Allergies: Sulfa (Sulfonamide Antibiotics) (Verified Allergy, Unknown, 12/01/22) codeine (Verified Allergy, Unknown, HALLUCINATION, 02/15/19) Patient Home Medication List Home Medication List Reviewed: Yes Atorvastatin Calcium (Atorvastatin Calcium) 20 Mg Tablet, 20 MG PO HS, (Reported) Entered as Reported by: NICKEI ROA on 11/18/18 0919 Ciprofloxacin HCl (Ciprofloxacin HCl) 500 Mg Tablet, 500 MG PO BID Prescribed by: JANUSZ SANCHEZ on 12/01/221955 Hyoscyamine Sulfate (Levsin-Sl) 0.125 Mg Tab.subl, 0.125 MG SL Q4H PRN for CRAMPS Prescribed by: JANUSZ SANCHEZ on 12/01/221955 Levothyroxine Sodium (Levothyroxine Sodium) 50 Mcg Tablet, 25 MCG PO DAILY, (Reported) Entered as Reported by: CAILIN AGUILERA on 08/06/212004 Lisinopril (Lisinopril) 40 Mg Tablet, 20 MG PO DAILY, (Reported) Entered as Reported by: MARY LARKIN on 06/09/19 103 Melatonin (Melatonin) 5 Mg Tablet, 5 MG PO HS, (Reported) Entered as Reported by: CAILIN AGULIERA on 08/06/212004 Metoprolol Succinate (Metoprolol Succinate) 25 Mg Tab.er.24h, 25 MG PO HS, (Reported) Entered as Reported by: CAILIN AGUILERA on 08/06/212004 Ondansetron (Ondansetron Odt) 4 Mg Tab.rapdis, 4 MG PO Q6H PRN for NAUSEA/VOMITING Prescribed by: JANUSZ SANCHEZ on 12/01/221955 Oxycodone HCl/Acetaminophen (Oxycodone-Acetaminophen 5-325) 1 Each Tablet, 1 EACH PO Q4H PRN for PAIN-SEVERE Prescribed by: JELLY HENDRIX on 08/08/21 0916 Venlafaxine HCl (Venlafaxine HCl ER) 150 Mg Cap.er.24h, 150 MG PO HS, (Reported) Entered as Reported by: MARY LARKIN on 06/09/19 1035 Review of Systems Review of Systems Constitutional: see HPI; No chills, No fever Cardiovascular: see HPI; No chest pain Gastrointestinal: abdominal pain Genitourinary: no symptoms reported Musculoskeletal: no symptoms reported Skin: no symptoms reported Psychiatric/Neurological: No Symptoms Reported Past Scsxbvu-Mjhznx-Vibjan Hx Immunizations Up To Date First/Initial COVID19 Vaccinat: Yes Second COVID19 Vaccination Chris: Yes Seasonal Allergies Seasonal Allergies: No Past Medical History Surgery/Hospitalization HX: brain meningioma (removed) Surgeries: Yes (Suboccipital craniotomy, Meningioma removal, Thyroid needle biopsy) Tonsillectomy Respiratory: No Cardiac: Yes High Cholesterol, Hypertension Neurological: Yes Headaches /Migraines Sexually Transmitted Disease: No HIV/AIDS: No Genitourinary: No Gastrointestinal: No Musculoskeletal: No Fractures Endocrine: No Hypothyroidsim HEENT: No Loss of Vision: Denies Hearing Impairment: Denies Cancer: No Psychosocial: Yes Anxiety, Depression Integumentary: No Blood Disorders: No Adverse Reaction/Blood Tranf: No Family Medical History Hypertension Physical Exam Vital Signs Vital Signs - First Documented 12/01/22 17:27 Temp 35.6 Pulse 85 Resp 18 B/P (MAP) 89/53 (65) Pulse Ox 94 O2 Delivery Room Air Capillary Refill : Height, Weight, BMI Height: 5'2.00" Weight: 145lbs. 0oz. 65.823848kj; 27.72 BMI Method:Stated General Appearance: No Apparent Distress, WD/WN Neck: Non Tender, Supple Respiratory: Lungs Clear, Normal Breath Sounds Cardiovascular: Regular Rate, Rhythm, No Edema Gastrointestinal: Soft; No Distended, No Guarding; Tenderness (mild lower abd ) Extremity: Normal Capillary Refill, Normal Inspection, Normal Range of Motion Neurologic/Psychiatric: Alert, Oriented x3, No Motor/Sensory Deficits, sailor II- XII Norm as Tested Skin: Normal Color, Warm/Dry Focused Exam Lactate Level 12/01/22 17:42: Lactic Acid Level 3.11*H Lactic Acid Level Laboratory Tests Test 12/01/22 17:42 Lactic Acid Level 3.11 MMOL/L (0.50-2.00) *H Progress/Results/Core Measures Suspected Sepsis SIRS Temperature: Pulse: Respiratory Rate: Laboratory Tests 12/01/22 17:25: White Blood Count 4.9 Blood Pressure / Mean: 12/01/22 17:42: Lactic Acid Level 3.11*H Laboratory Tests 12/01/22 17:25: Creatinine 0.86, Platelet Count 194, Total Bilirubin 0.5 Results/Orders Lab Results Laboratory Tests Test 12/01/22 17:25 12/01/22 17:42 12/01/22 19:32 Range/Units White Blood Count 4.9 4.3-11.0 10^3/uL Red Blood Count 4.86 3.80-5.11 10^6/uL Hemoglobin 14.3 11.5-16.0 g/dL Hematocrit 43 35-52 % Mean Corpuscular Volume 89 80-99 fL Mean Corpuscular Hemoglobin 29 25-34 pg Mean Corpuscular Hemoglobin Concent 33 32-36 g/dL Red Cell Distribution Width 12.6 10.0-14.5 % Platelet Count 194 130-400 10^3/uL Mean Platelet Volume 8.6 L 9.0-12.2 fL Immature Granulocyte % (Auto) 0 % Neutrophils (%) (Auto) 56 42-75 % Lymphocytes (%) (Auto) 37 12-44 % Monocytes (%) (Auto) 6 0-12 % Eosinophils (%) (Auto) 0 0-10 % Basophils (%) (Auto) 1 0-10 % Neutrophils # (Auto) 2.7 1.8-7.8 10^3/uL Lymphocytes # (Auto) 1.8 1.0-4.0 10^3/uL Monocytes # (Auto) 0.3 0.0-1.0 10^3/uL Eosinophils # (Auto) 0.0 0.0-0.3 10^3/uL Basophils # (Auto) 0.0 0.0-0.1 10^3/uL Immature Granulocyte # (Auto) 0.0 0.0-0.1 10^3/uL Sodium Level 138 135-145 MMOL/L Potassium Level 3.5 L 3.6-5.0 MMOL/L Chloride Level 102 98-107 MMOL/L Carbon Dioxide Level 20 L 21-32 MMOL/L Anion Gap 16 H 5-14 MMOL/L Blood Urea Nitrogen 9 7-18 MG/DL Creatinine 0.86 0.60-1.30 MG/DL Estimat Glomerular Filtration Rate 70 BUN/Creatinine Ratio 10 Glucose Level 169 H 70-105 MG/DL Calcium Level 9.2 8.5-10.1 MG/DL Corrected Calcium 9.4 8.5-10.1 MG/DL Magnesium Level 2.1 1.6-2.4 MG/DL Total Bilirubin 0.5 0.1-1.0 MG/DL Aspartate Amino Transf (AST/SGOT) 20 5-34 U/L Alanine Aminotransferase (ALT/SGPT) 15 0-55 U/L Alkaline Phosphatase 106 40-136 U/L Troponin I < 0.30 <0.30 NG/ML C-Reactive Protein < 0.30 <0.50 MG/DL Total Protein 6.5 6.4-8.2 GM/DL Albumin 3.8 3.2-4.5 GM/DL Lactic Acid Level 3.11 *H 0.50-2.00 MMOL/L Influenza Type A (RT-PCR) Not Detected Not Detecte Influenza Type B (RT-PCR) Not Detected Not Detecte SARS-CoV-2 RNA (RT-PCR) Not Detected Not Detecte Urine Color DARK YELLOW Urine Clarity SL CLOUDY Urine pH 6.0 5-9 Urine Specific [place] <=1.005 1.016-1.022 Urine Protein NEGATIVE NEGATIVE Urine Glucose (UA) NEGATIVE NEGATIVE Urine Ketones NEGATIVE NEGATIVE Urine Nitrite NEGATIVE NEGATIVE Urine Bilirubin NEGATIVE NEGATIVE Urine Urobilinogen 0.2 < = 1.0 MG/DL Urine Leukocyte Esterase TRACE H NEGATIVE Urine RBC (Auto) 2+ H NEGATIVE Urine RBC 0-2 /HPF Urine WBC 2-5 /HPF Urine Squamous Epithelial Cells 0-2 /HPF Urine Crystals NONE /LPF Urine Bacteria LARGE H /HPF Urine Casts NONE /LPF Urine Mucus NEGATIVE /LPF Urine Culture Indicated YES My Orders Orders - SANCHEZ,JANUSZ L DO Cbc With Automated Diff (12/01/22 17:24) Comprehensive Metabolic Panel (12/01/22 17:24) Lactic Acid Analyzer (12/01/22 17:24) Magnesium (12/01/22 17:24) Ua Culture If Indicated (12/01/22 17:24) Crp Fs (12/01/22 17:24) Troponin I Fs (12/01/22 17:24) Ekg Tracing (12/01/22 17:24) Monitor-Rhythm Ecg Trace Only (12/01/22 17:24) Influenza A And B By Pcr (12/01/22 17:43) Covid 19 Inhouse Test (12/01/22 17:43) Acute Abd Series (12/01/22 17:44) Ns Iv 1000 Ml (Sodium Chloride 0.9%) (12/01/22 18:21) Ct Abdomen/Pelvis W (12/01/22 18:21) Iohexol Injection (Omnipaque 350 Mg/Ml 1 (12/01/22 18:30) Received Contrast (Hold Metformin- Contr (12/01/22 18:30) Ns (Ivpb) (Sodium Chloride 0.9% Ivpb Bag (12/01/22 18:30) Urine Culture (12/01/22 19:32) Ciprofloxacin Tablet (Cipro Tablet) (12/01/22 20:00) Hyoscyamine Sl Tablet (Levsin Sl Tablet) (12/01/22 20:00) Ketorolac Injection (Toradol Injection) (12/01/22 20:00) Ondansetron Injection (Zofran Injectio (12/01/22 20:15) Medications Given in ED Current Medications Medications Dose Ordered Sig/Jr Route Start Time Stop Time Status Last Admin Dose Admin Ciprofloxacin 500 mg ONCE ONCE PO 12/01/22 20:00 12/01/22 20:01 DC 12/01/22 20:09 500 MG Hyoscyamine Sulfate 0.125 mg ONCE ONCE PO 12/01/22 20:00 12/01/22 20:01 DC 12/01/22 20:09 0.125 MG Iohexol 100 ml ONCE ONCE IV 12/01/22 18:30 12/01/22 18:38 DC 4/6/23 18:34 75 ML Ketorolac Tromethamine 15 mg ONCE ONCE IVP 12/01/22 20:00 12/01/22 20:01 DC 12/01/22 20:09 15 MG Ondansetron HCl 4 mg ONCE ONCE IVP 12/01/22 20:15 12/01/22 20:16 DC 12/01/22 20:14 4 MG Sodium Chloride 100 ml ONCE ONCE IV 12/01/22 18:30 12/01/22 18:38 DC 12/01/22 18:34 100 ML Vital Signs/I&O 12/01/22 12/01/22 17:27 20:49 Temp 35.6 Pulse 85 86 Resp 18 16 B/P (MAP) 89/53 (65) 132/61 Pulse Ox 94 97 O2 Delivery Room Air Room Air 12/02/22 00:00 Intake Total 1100 ml Balance 1100 ml Capillary Refill : Progress Note : Progress Note Patient's diagnostic studies were ordered reviewed and interpreted by me. Patient lab work showed mild elevated lactic acid, negative troponin, UA that was suggestive of a urinary tract infection. Patient's x-rays and CTs were ordered reviewed with initial interpretation by me with final interpretation per radiology report. Patient's chest and abdominal x-rays showed no acute findings. Patient CT showed a colitis. She did have multiple loose stools while she was here in the ER. Patient received IV fluids along with Zofran and medication for cramping while in the ER. Discussed admission for observation IV fluids and treatment with patient however she would prefer to try to go home and see how she would do on outpatient basis to begin with. Patient will be pr escribed antibiotics for the urinary tract infection. I will use Cipro since it may also help with her colitis. We will give her some Levsin to help with abdominal cramping along with Zofran to help with any nausea vomiting. Patient with return precautions and voices that she will return with any worsening of her symptoms. I did also discuss with her the incidental finding of the pancreatic abnormality on CT and recommend she follow-up with her primary care provider next week to review this and at that time they can decide if she wants to pursue further imaging and work-up with MRI etc. Patient is stable and discharged home. ECG Initial ECG Impression Date: Dec 01, 2022 Initial ECG Impression Time: 17:27 Initial ECG Rate: 78 Initial ECG Rhythm: Normal Sinus Initial ECG Intervals: VA Initial ECG Intervals VA 163, QRS 98, QTC 449 Initial ECG Impression: Normal Comment no acute changes. Diagnostic Imaging Diagonstic Imaging: CT Plain Films/CT/US/NM/MRI: abdomen, pelvis Comments Date of Exam:12/01/22 CT ABDOMEN/PELVIS W EXAMINATION: CT abdomen and pelvis with intravenous contrast. TECHNIQUE: Multiple contiguous axial images were obtained through the abdomen and pelvis after the uneventful administration of intravenous contrast. All CT scans use one or more of the following dose optimizing techniques: automated exposure control, MA and/or KvP adjustment based on patient size and exam type or iterative reconstruction. HISTORY: Abdominal pain. COMPARISON: None available. FINDINGS: Limited views of the lower thorax are unremarkable. There is a cyst in the liver. No suspicious liver lesion. There is no biliary ductal dilation. Gallbladder is normal. There is a 2.1 x 2.1 cm hyperenhancing masslike area in the head of the pancreas. Spleen is normal. Adrenal glands are normal. The kidneys are normal. There is no hydronephrosis. Urinary bladder is normal. There is rectal wall thickening and mucosal hyperenhancement with surrounding stranding. There is liquid stool in the colon. There is wall thickening of the colon extending to the splenic flexure. No free fluid or air. No abdominal or pelvic lymphadenopathy. Aorta is normal in caliber without aneurysm. There is no suspicious osseus lesion. There is a moderate compression fracture of T12, likely chronic. IMPRESSION: 1. Wall thickening extending from the rectum to the splenic flexure with mucosal hyperenhancement and surrounding stranding in keeping with colitis. 2. Masslike area of enhancement in the pancreatic head. Follow-up outpatient MRI of the pancreas with and without contrast recommended. Reviewed: Reviewed by Me, Reviewed/Discussed Diagonstic Imaging: Xray Plain Films/CT/US/NM/MRI: abdomen Comments Date of Exam:12/01/22 ACUTE ABD SERIES EXAMINATION: Abdominal series and chest radiograph. HISTORY: Abdominal pain and cough. COMPARISON: None available. FINDINGS: Bowel gas pattern is normal. No free air is seen. There is a right femoral neck fixation. The lungs are clear. No edema. No pneumonia. No pleural effusion. No pneumothorax. Heart is normal in size. IMPRESSION: 1. Clear lungs. 2. Normal bowel gas pattern. Departure Impression Primary Impression: Colitis Additional Impression: Cystitis Disposition: HOME, SELF-CARE Condition: Stable Departure-Patient Inst. Referrals: LANDY MARQUEZ DO (PCP) Primary Care Physician Patient Instructions: Colitis, Acute Cystitis (DC), Diarrhea, Adult ED Add. Discharge Instructions: follow up with your pcp next week for recheck and review of CT results. return to ER with any concerns. All discharge instructions reviewed with patient and/or family. Voiced un derstanding. Scripts Ondansetron (Ondansetron Odt) 4 Mg Tab.rapdis 4 MG PO Q6H PRN for NAUSEA/VOMITING, #20 TAB 0 Refills Prov: JANUSZ SANCHEZ DO 12/01/22 Hyoscyamine Sulfate (Levsin-Sl) 0.125 Mg Tab.subl 0.125 MG SL Q4H PRN for CRAMPS, #10 TAB 0 Refills Prov: JANUSZ SANCHEZ DO 12/01/22 Ciprofloxacin HCl (Ciprofloxacin HCl) 500 Mg Tablet 500 MG PO BID, #14 TAB Prov: JANUSZ SANCHEZ DO 12/01/22 JANUSZ SANCHEZ DO Dec 01, 2022 17:23
[2022-12-01 17:44] LABS: BASOPHILS % (AUTO) 1 % (0-10); EOSINOPHILS % (AUTO) 0 % (0-10); HEMATOCRIT 43 % (35-52); HEMOGLOBIN 14.3 g/dL (11.5-16.0); LYMPHOCYTES # (AUTO) 1.8 10^3/uL (1.0-4.0); LYMPHOCYTES % (AUTO) 37 % (12-44); MEAN CORPUSCULAR HEMOGLOBIN 29 pg (25-34); MEAN CORPUSCULAR HGB CONC 33 g/dL (32-36); MEAN CORPUSCULAR VOLUME 89 fL (80-99); MEAN PLATELET VOLUME 8.6 fL (9.0-12.2); MONOCYTES # (AUTO) 0.3 10^3/uL (0.0-1.0); MONOCYTES % (AUTO) 6 % (0-12); NEUTROPHILS # (AUTO) 2.7 10^3/uL (1.8-7.8); NEUTROPHILS % (AUTO) 56 % (42-75); PLATELET COUNT 194 10^3/uL (130-400); WHITE BLOOD COUNT 4.9 10^3/uL (4.3-11.0)
[2022-12-01 18:05] LABS: CARBON DIOXIDE 20 MMOL/L (21-32); CHLORIDE 102 MMOL/L (98-107); POTASSIUM 3.5 MMOL/L (3.6-5.0); SODIUM 138 MMOL/L (135-145)
[2022-12-01 18:06] LABS: ALANINE AMINOTRANSFERASE 15 U/L (0-55); ALBUMIN 3.8 GM/DL (3.2-4.5); ALKALINE PHOSPHATASE 106 U/L (40-136); BILIRUBIN,TOTAL 0.5 MG/DL (0.1-1.0); BUN/CREATININE RATIO 10; CALCIUM 9.2 MG/DL (8.5-10.1); CREATININE SERUM 0.86 MG/DL (0.60-1.30); GFR ESTIMATED 70; GLUCOSE 169 MG/DL (70-105); MAGNESIUM 2.1 MG/DL (1.6-2.4); TOTAL PROTEIN 6.5 GM/DL (6.4-8.2)
--- NOTE | 2022-12-01 18:14 | Diagnostic Imaging Report ---
EXAMINATION: Abdominal series and chest radiograph. HISTORY: Abdominal pain and cough. COMPARISON: None available. FINDINGS: Bowel gas pattern is normal. No free air is seen. There is a right femoral neck fixation. The lungs are clear. No edema. No pneumonia. No pleural effusion. No pneumothorax. Heart is normal in size. IMPRESSION: 1. Clear lungs. 2. Normal bowel gas pattern. Dictated by: Dictated on workstation # [id number]
[2022-12-01] MEDS ORDERED: NS IV 1000 ML 1,000 ML IV STA (18:21)
[2022-12-01] MEDS ORDERED: NS 100 ML (IVPB) BAG IV ONE (18:30)
[2022-12-01] MEDS ORDERED: HOLD METFORMIN - RECEIVED CONTRAST 20 ML VIAL IV SCH (18:30)
[2022-12-01] MEDS ORDERED: IOHEXOL 350 MG/ML 100 ML (OMNIPAQUE 350) VIAL IV ONE (18:30)
--- NOTE | 2022-12-01 19:21 | Diagnostic Imaging Report ---
EXAMINATION: CT abdomen and pelvis with intravenous contrast. TECHNIQUE: Multiple contiguous axial images were obtained through the abdomen and pelvis after the uneventful administration of intravenous contrast. All CT scans use one or more of the following dose optimizing techniques: automated exposure control, MA and/or KvP adjustment based on patient size and exam type or iterative reconstruction. HISTORY: Abdominal pain. COMPARISON: None available. FINDINGS: Limited views of the lower thorax are unremarkable. There is a cyst in the liver. No suspicious liver lesion. There is no biliary ductal dilation. Gallbladder is normal. There is a 2.1 x 2.1 cm hyperenhancing masslike area in the head of the pancreas. Spleen is normal. Adrenal glands are normal. The kidneys are normal. There is no hydronephrosis. Urinary bladder is normal. There is rectal wall thickening and mucosal hyperenhancement with surrounding stranding. There is liquid stool in the colon. There is wall thickening of the colon extending to the splenic flexure. No free fluid or air. No abdominal or pelvic lymphadenopathy. Aorta is normal in caliber without aneurysm. There is no suspicious osseus lesion. There is a moderate compression fracture of T12, likely chronic. IMPRESSION: 1. Wall thickening extending from the rectum to the splenic flexure with mucosal hyperenhancement and surrounding stranding in keeping with colitis. 2. Masslike area of enhancement in the pancreatic head. Follow-up outpatient MRI of the pancreas with and without contrast recommended. Dictated by: Dictated on workstation # [id number]
[2022-12-01 19:36] LABS: BILIRUBIN,URINE NEGATIVE (NEGATIVE); CLARITY,URINE SL CLOUDY; GLUCOSE, URINE (UA) NEGATIVE (NEGATIVE); KETONES,URINE NEGATIVE (NEGATIVE); LEUKOCYTE ESTERASE ,URINE TRACE (NEGATIVE); NITRITE,URINE NEGATIVE (NEGATIVE); PROTEIN,URINE NEGATIVE (NEGATIVE)
[2022-12-01 19:44] LABS: BACTERIA,URINE LARGE /HPF; COLOR,URINE DARK YELLOW; RBC,URINE 0-2 /HPF; SQUAMOUS EPITHELIAL CELL,UR 0-2 /HPF
[2022-12-01] MEDS ORDERED: HYOS0.1283 SL (19:56)
[2022-12-01] MEDS ORDERED: ONDA4TAB11 PO (19:56)
[2022-12-01] MEDS ORDERED: CIPR500T5 PO (19:56)
[2022-12-01] MEDS ORDERED: CIPROFLOXACIN 500 MG (CIPRO) TABLET PO ONE (20:00)
[2022-12-01] MEDS ORDERED: KETOROLAC 15 MG/ML VIAL IVP ONE (20:00)
[2022-12-01] MEDS ORDERED: HYOSCYAMINE 0.125 MG (LEVSIN) TAB PO ONE (20:00)
[2022-12-01] MEDS ORDERED: ONDANSETRON 4 MG/2 ML (SDV) Z0FRAN IVP ONE (20:15)
[2022-12-01 20:49] VITALS: BP 132/61
== END 2022-12-01 20:50 | disposition home or self-care (01) ==
LOC: EDUNIT# 17:20 → ER FS 17:22
DX: K52.9 Noninfective gastroenteritis and colitis, unspecified (principal); N30.90 Cystitis, unspecified without hematuria; R74.02 Elevation of levels of lactic acid dehydrogenase [LDH]; I10 Essential (primary) hypertension; Z20.822 Contact with and (suspected) exposure to COVID-19; Z88.1 Allergy status to other antibiotic agents
CPT/HCPCS: 36415; 74022; 74177; 80053; 81000; 83605; 83735; 84484; 85025; 86141; 87088; 87636; 93005; 96361; 96374; 96375

== ENCOUNTER → 2022-12-20 | Outpatient (CLI) | payer MEDICARE, OTHER ==
--- NOTE | 2022-12-15 15:17 | HISTORY AND PHYSICAL ---
DATE OF SERVICE: 12/20/2022 COLONOSCOPY HISTORY AND PHYSICAL HISTORY OF PRESENT ILLNESS: The patient is a 77-year-old white female referred for colonoscopic evaluation due to the history of bloody diarrhea. She reports two weeks ago, she had rather abrupt onset of bright red blood per rectum with urgency. She reports that she has had a longstanding history of vagal reactions. She became weak, lightheaded and nearly passed out while having the bowel movement with lower quadrant abdominal cramping. She denies chills or fever. She went to the Emergency Room, where a CT scan she reports revealed findings suspicious for colitis. She did not think it was diverticular in etiology and had no further bleeding. They did find a pancreatic mass and she is scheduled next week to undergo further investigation with pancreatic MRI protocol. She had been feeling well. Previous, no weight loss. No night sweats, chills, fever, abdominal pain and no previous rectal bleeding. She had a colonoscopy over 5 years ago. Does not believe any polyps were found at that time. She has had her usual difficulty with weight maintenance, but there has been again no change in weights. PAST MEDICAL HISTORY: Significant for hypertension, thyroid replacement for hypothyroidism, generalized anxiety and hyperlipidemia with no known history of coronary artery disease or other vascular related disease. PAST SURGICAL HISTORY: Significant for craniotomy for left meningioma over 10 years ago. She had a D and C in the 1969's and right hip replacement per Dr. Diaz with tonsillectomy in 1975. 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 Distant past history of smoking with no alcohol consumption. FAMILY HISTORY: She is not aware of any family history for pancreatic cancer or GI tract malignancy. REVIEW OF SYSTEMS: CONSTITUTIONAL: Denies night sweats, chills, fever or change in weight. GASTROINTESTINAL: As noted in the HPI. CARDIOVASCULAR: Denies chest discomfort, orthopnea, PND, or pedal edema. PULMONARY: Denies cough, wheezing or shortness of breath. PHYSICAL EXAMINATION: GENERAL: Reveals a pleasant white female, anxious, but in no acute distress. VITAL SIGNS: Weight 153 pounds, blood pressure 130/84. HEENT: Unremarkable. Sclerae nonicteric. No evidence for pallor. CHEST: Clear to auscultation. CARDIOVASCULAR: Reveals a regular rate and rhythm without murmur, S3, or S4. ABDOMEN: Soft, supple without mass, organomegaly, or tenderness. EXTREMITIES: No cyanosis, clubbing or edema. ASSESSMENT AND PLAN: The patient is being set up for diagnostic colonoscopy due to diarrhea with rectal bleeding. This is being set up in 4 weeks, so that it will be roughly 6 weeks after onset of the bleeding episode. It was requested that they send me a copy of her MRI being done next week for evaluation of a reported mass in the head of the pancreas. Prep instructions were given and questions were answered. I thank you for the referral of this pleasant lady. Job ID: [id number] DocumentID: [id number] Dictated Date: 12/15/2022 14:56:05 Workers Compensation Adjuster Date: 12/15/2022 15:14:00 Dictated By: JESSY AVALOS MD MTDD
[~2022-12-20] MED LIST changes: +CIPR500T5 PO; +GADOTERATE 0.5 MMOL/ML (CLARISCAN) 15 ML VIAL IV ONE; +HYOS0.1283 SL; +ONDA4TAB11 PO
--- NOTE | 2022-12-20 12:31 | Diagnostic Imaging Report ---
PROCEDURE: MR imaging abdomen with and without contrast. TECHNIQUE: Multiplanar, multisequence MR imaging of the abdomen was performed with and without contrast. INDICATION: Pancreatic mass. COMPARISON: Study is interpreted in correlation with abdominopelvic CT 12/01/2022. FINDINGS: Inferomedial to the unobstructed distal common bile duct is an enhancing solid mass within the pancreatic head/uncinate process, intrinsically hypointense on T1 pulse sequences, heterogeneous and mildly hyperintense on T2 images, and showing enhancement as well as abnormal diffusion restriction suspicious for a neoplasm. This mass measures approximately 2.3 cm AP x 2.1 cm transverse with a cephalocaudal height of 2.8 cm. The remaining pancreatic parenchyma had normal volume. Its duct was nondilated. There was a cyst, simple and benign, in the left hepatic lobe with no solid suspicious or complex liver mass. No appreciable extrapancreatic extension of the suspected tumor, and no MR findings of regional or distant metastatic disease. No pathological biliary ductal dilatation. The adrenals and spleen are negative. There is no ileus or bowel obstruction kidneys are unobstructed. The aorta is nonaneurysmal. The visible left colon did not appear thickened today and showed no appreciable mucosal hyperemia or hyperenhancement. There was no evidence for an abdominal abscess. There is no suspicious marrow lesion visualized. IMPRESSION: 1. Enhancing mass in the pancreatic head without ductal obstruction or visible metastatic lesion. 2. Likely resolution of prior left-sided colitis. 3. No vascular obstruction or pancreatic atrophy. No findings of acute pancreatitis. Dictated by: Dictated on workstation # [id number]
== END ==
LOC: RAD 09:04
PROVIDERS: ATTEND Family Medicine
DX: K86.89 Other specified diseases of pancreas (principal)
CPT/HCPCS: 74183

== ENCOUNTER → 2023-01-02 | Outpatient (CLI) | payer MEDICARE, OTHER ==
[~2023-01-02] MED LIST changes: -GADOTERATE 0.5 MMOL/ML (CLARISCAN) 15 ML VIAL IV ONE
--- NOTE | 2023-01-02 11:17 | Diagnostic Imaging Report ---
INDICATION: Pancreatic mass; initial staging examination. After intravenous administration of 9.7 mCi F-18 fluorodeoxyglucose into the right antecubital fossa, the patient underwent 1 hour activation. PET/CT imaging is performed from head to upper thighs. There is normal biodistribution of activity throughout the visualized portions of the body. Uptake in the visible head and neck regions is unremarkable. There is physiologic uptake within the heart and mediastinum without evidence of pathologic pulmonary parenchymal activity. Note is made of atherosclerotic calcification within coronary arteries. Below the diaphragm, there is a focal region of hypermetabolism in the uncinate process with maximum standard uptake value reaching 9.5. No other hypermetabolic mass or adenopathy is identified within the abdomen. There is physiologic excretion of activity from both kidneys with accumulation in the bladder. IMPRESSION: Solitary hypermetabolic focus corresponds to uncinate mass. Findings are consistent with pancreatic neoplasm although no PET/CT evidence of metastatic disease is seen. Dictated by: Dictated on workstation # [id number]
== END ==
LOC: RAD 07:29
PROVIDERS: ATTEND Family Medicine
DX: K86.89 Other specified diseases of pancreas (principal)
CPT/HCPCS: 78815; 82947; A9552

== ENCOUNTER 2023-01-04 05:42 | Outpatient (CLI) | payer MEDICARE, OTHER ==
[~2023-01-04] VITALS: Ht 157.5 cm; Wt 69.5 kg
== END 2023-01-04 11:06 | disposition home or self-care (01) ==
LOC: PREOP 05:42
PROVIDERS: ATTEND Internal Medicine
DX: Z01.818 Encounter for other preprocedural examination (principal)

== ENCOUNTER 2023-01-13 07:25 | Day surgery (SDC) | payer MEDICARE, OTHER ==
[~2023-01-13] VITALS: Ht 157.5 cm; Wt 69.5 kg
[2023-01-13 07:45] VITALS: BP 168/103
--- NOTE | 2023-01-13 07:55 | Pre-Op Note & Conscious Sedat ---
Pre-Operative Progress Note Date H&P Reviewed: January 13, 2023 Time H&P Reviewed: 07:54 History & Physical: H&P Reviewed, Patient Examed, No changes noted Pre-Op Diagnosis: bloody diarrhea Moderate Sedation PreProcedure ASA Score 2 Airway Lungs Heart ASA score ASA 1: a normal healthy patient ASA 2: a patient with a mild systemic disease (mid diabetes, controlled hypertension, obesity ASA 3: a patient with a severe systemic disease that limits activity (angina, COPD, prior Myocardial infarction) ASA 4: a patient with an incapacitating disease that is a constant threat to life (CHF, renal failure) ASA 5: a moribund patient not expected to survive 24 hrs. (ruptured aneurysm) ASA 6: a declared brain- patient whose organs are being harvested. For emergent operations, add the letter E after the classification Mallampati Classification Grade 2 Sedation Plan Analgesia, Amnesia, Plan communicated to team members, Discussed options with patient/fam, Discussed risks with patient/fam The patient is an appropriate candidate to undergo the planned procedure, sedation, and anesthesia. The patient immediately re-assessed prior to indication. JESSY AVALOS MD January 13, 2023 07:55
[2023-01-13] MEDS ORDERED: LACTATED RINGERS 1,000 ML IV STA (07:56)
[2023-01-13] MEDS ORDERED: LACTATED RINGERS 1,000 ML IV ONE (08:00)
[2023-01-13] MEDS ORDERED: PROPOFOL INJECTION 50 ML IV ONE (08:22)
[2023-01-13 08:55] VITALS: BP 113/61
[2023-01-13 09:00] VITALS: BP 132/73
[2023-01-13 09:21] VITALS: BP 132/73
--- NOTE | 2023-01-13 12:02 | Anesthesia-General Post-Op ---
MAC Patient Condition Mental Status/LOC: Same as Preop Cardiovascular: Satisfactory Nausea/Vomiting: Absent Respiratory: Satisfactory Pain: Controlled Complications: Absent Post Op Complications Complications None Follow Up Care/Instructions Patient Instructions None needed. Anesthesiology Discharge Order Discharge Order Patient is doing well, no complaints, stable vital signs, no apparent adverse anesthesia problems. No complications reported per nursing. JIE HERNANDEZ CRNA January 13, 2023 12:02
--- NOTE | 2023-01-18 17:06 | HISTORY AND PHYSICAL ---
DATE OF SERVICE: 01/13/2023 COLONOSCOPY HISTORY AND PHYSICAL HISTORY OF PRESENT ILLNESS: The patient is a 77-year-old white female referred for colonoscopic evaluation due to the history of bloody diarrhea. She reports two weeks ago, she had rather abrupt onset of bright red blood per rectum with urgency. She reports that she has had a longstanding history of vagal reactions. She became weak, lightheaded and nearly passed out while having the bowel movement with lower quadrant abdominal cramping. She denies chills or fever. She went to the Emergency Room, where a CT scan she reports revealed findings suspicious for colitis. She did not think it was diverticular in etiology and had no further bleeding. They did find a pancreatic mass and she is scheduled next week to undergo further investigation with pancreatic MRI protocol. She had been feeling well. Previous, no weight loss. No night sweats, chills, fever, abdominal pain and no previous rectal bleeding. She had a colonoscopy over 5 years ago. Does not believe any polyps were found at that time. She has had her usual difficulty with weight maintenance, but there has been again no change in weights. PAST MEDICAL HISTORY: Significant for hypertension, thyroid replacement for hypothyroidism, generalized anxiety and hyperlipidemia with no known history of coronary artery disease or other vascular related disease. PAST SURGICAL HISTORY: Significant for craniotomy for left meningioma over 10 years ago. She had a D and C in the 1969's and right hip replacement per Dr. Diaz with tonsillectomy in 1975. 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 Distant past history of smoking with no alcohol consumption. FAMILY HISTORY: She is not aware of any family history for pancreatic cancer or GI tract malignancy. REVIEW OF SYSTEMS: CONSTITUTIONAL: Denies night sweats, chills, fever or change in weight. GASTROINTESTINAL: As noted in the HPI. CARDIOVASCULAR: Denies chest discomfort, orthopnea, PND, or pedal edema. PULMONARY: Denies cough, wheezing or shortness of breath. PHYSICAL EXAMINATION: GENERAL: Reveals a pleasant white female, anxious, but in no acute distress. VITAL SIGNS: Weight 153 pounds, blood pressure 130/84. HEENT: Unremarkable. Sclerae nonicteric. No evidence for pallor. CHEST: Clear to auscultation. CARDIOVASCULAR: Reveals a regular rate and rhythm without murmur, S3, or S4. ABDOMEN: Soft, supple without mass, organomegaly, or tenderness. EXTREMITIES: No cyanosis, clubbing or edema. ASSESSMENT AND PLAN: The patient is being set up for diagnostic colonoscopy due to diarrhea with rectal bleeding. This is being set up in 4 weeks, so that it will be roughly 6 weeks after onset of the bleeding episode. It was requested that they send me a copy of her MRI being done next week for evaluation of a reported mass in the head of the pancreas. Prep instructions were given and questions were answered. I thank you for the referral of this pleasant lady. Job ID: [id number] DocumentID: [id number] Dictated Date: 12/15/2022 14:56:05 Program Planner Date: 12/15/2022 15:14:00 Dictated By: JESSY AVALOS MD <Dictated by JESSY AVALOS MD> <Electronically signed by JESSY AVALOS MD> 12/16/22 [id number] MTDD
== END 2023-01-13 09:38 | disposition home or self-care (01) ==
LOC: ENDO 07:25
PROVIDERS: ATTEND Internal Medicine
DX: D12.0 Benign neoplasm of cecum (principal); K57.30 Diverticulosis of large intestine without perforation or abscess without bleeding; K62.5 Hemorrhage of anus and rectum; R19.7 Diarrhea, unspecified; Z87.891 Personal history of nicotine dependence
CPT/HCPCS: 88305

== ENCOUNTER → 2023-07-03 | Outpatient (CLI) | payer MEDICARE, OTHER ==
--- NOTE | 2023-07-03 16:32 | Diagnostic Imaging Report ---
PROCEDURE: US Thyroid. TECHNIQUE: Multiple real-time grayscale images were obtained of the thyroid in various projections. INDICATION: Nontoxic multinodular goiter. COMPARISON: June 30, 2022, October 05, 2020, and March 29, 2019. FINDINGS: The right lobe of the thyroid gland measures 4.7 x 2.3 x 1.8 cm. Three similar-appearing solid hypoechoic nodules with circumscribed smooth margins are again identified within the right thyroid lobe. The largest measures 1.7 x 1.5 cm. The next largest measures 1.2 x 0.9 cm. These have not significantly changed since prior imaging dating back to 2018. No new right thyroid nodule. The left lobe of the thyroid gland measures 4.8 x 2.0 x 1.2 cm. A 0.9 x 0.8 cm solid hyperechoic nodule within the inferior left thyroid lobe is again identified, stable. A 2.6 cm heterogeneous region which is mildly hypoechoic with indistinct margins is identified within the mid to superior pole of the left thyroid lobe. This appears similar to the prior examinations. IMPRESSION: Stable bilateral thyroid nodules without new thyroid nodule. Findings are favored to relate to multinodular goiter. Follow-up thyroid ultrasound in one year is recommended. Dictated by: Dictated on workstation # [id number]
== END ==
LOC: RAD 09:04
PROVIDERS: ATTEND Nurse Practitioner Family
DX: E04.2 Nontoxic multinodular goiter (principal)
CPT/HCPCS: 76536

== ENCOUNTER 2023-07-10 16:06 | Emergency (ER) | payer MEDICARE, OTHER ==
[~2023-07-10] VITALS: Ht 157 cm; Wt 57.0 kg
[2023-07-10 16:19] VITALS: BP 144/73
[2023-07-10] MEDS ORDERED: NS IV 1000 ML 1,000 ML IV STA (16:22)
[2023-07-10 16:28] LABS: CLARITY,URINE CLEAR; COLOR,URINE YELLOW; GLUCOSE, URINE (UA) TRACE (NEGATIVE); KETONES,URINE TRACE (NEGATIVE); LEUKOCYTE ESTERASE ,URINE NEGATIVE (NEGATIVE); NITRITE,URINE NEGATIVE (NEGATIVE); PROTEIN,URINE TRACE (NEGATIVE)
--- NOTE | 2023-07-10 16:28 | ED Abdominal Pain ---
General Chief Complaint: Abdominal/GI Problems Stated Complaint: ABNORMAL HEARTRATE Source of Information: Patient History of Present Illness Date Seen by Provider: Jul 10, 2023 Time Seen by Provider: 16:11 Initial Comments 78 yo female presenting by private vehicle from PCP office. She reports having severe cramping pain around noon today. 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 She had similar abdominal symptoms earlier this year and was told she had colitis when she was seen here in the ED. She has had an episode of diarrhea that just started this afternoon. At her pcp office she was noted to be ort hostatic and they placed an IV and gave her 500 mL of NS for hydration. She reports she is feeling better now. She had an ECG done at the clinic as well and states they were concerned about that and told her she had to come to the ED because of the abnormal ECG. She denies vomiting, fever, pain with urination, blood in urine, blood in stool. She had eaten a lot of different foods Monday night and then today had a Premier protein drink followed by a protein bar. Timing/Duration: 4-6 Hours Severity/Quality: Moderate, Cramping Location: Periumbilical Radiation: No Radiation Activities at Onset: None Modifying Factors: Worsens With Eating Associated Symptoms: No Back Pain, No Chest Pain, No Diaphoresis, No Fever/Chills, No Fatigue, No Headache, No Heartburn, No Rash, No Shortness of Air, No Swelling/Mass in Abdomen, No Syncope, No Weakness Allergies and Home Medications Allergies Coded Allergies: Sulfa (Sulfonamide Antibiotics) (Verified Allergy, Unknown, 12/01/22) codeine (Verified Allergy, Unknown, HALLUCINATION, 02/15/19) Patient Home Medication List Home Medication List Reviewed: Yes Atorvastatin Calcium (Atorvastatin Calcium) 20 Mg Tablet, 20 MG PO HS, (Reported) Entered as Reported by: NICKIE ROA on 11/18/18 0919 Ciprofloxacin HCl (Ciprofloxacin HCl) 500 Mg Tablet, 500 MG PO BID Prescribed by: RUDY DOSHI on 07/10/231804 Hyoscyamine Sulfate (Hyoscyamine Sulfate) 0.125 Mg Tab.subl, 0.125 MG SL Q4H PRN for ABDOMINAL PAIN Prescribed by: RUDY DOSHI on 07/10/231804 Levothyroxine Sodium (Levothyroxine Sodium) 50 Mcg Tablet, 25 MCG PO DAILY, (Reported) Entered as Reported by: CAILIN AGUILERA on 08/06/212004 Lisinopril (Lisinopril) 40 Mg Tablet, 20 MG PO DAILY, (Reported) Entered as Reported by: MARY LARKIN on 06/09/19 1035 Metoprolol Succinate (Metoprolol Succinate) 25 Mg Tab.er.24h, 25 MG PO HS, (Reported) Entered as Reported by: CAILIN AGUILERA on 08/06/212004 Venlafaxine HCl (Venlafaxine HCl ER) 150 Mg Cap.er.24h, 150 MG PO HS, (Reported) Entered as Reported by: MARY LARKIN on 06/09/19 1035 Review of Systems Review of Systems Constitutional: No chills, No fever EENTM: No Symptoms Reported Respiratory: No Symptoms Reported Cardiovascular: No Symptoms Reported Gastrointestinal: See HPI Genitourinary: No Symptoms Reported Musculoskeletal: no symptoms reported Skin: no symptoms reported Psychiatric/Neurological: No Symptoms Reported Past Fhyznxm-Eilsnj-Jucljk Hx Patient Social History Tobacco Use?: No Tobacco type used: Cigarettes Use of E-Cig and/or Vaping dev: No Substance use?: No Alcohol Use?: No Immunizations Up To Date First/Initial COVID19 Vaccinat: Yes Second COVID19 Vaccination Chris: Yes Third COVID19 Vaccination Date: Yes Seasonal Allergies Seasonal Allergies: No Past Medical History Surgery/Hospitalization HX: brain meningioma (removed), Pancreatitis, Whipple procedure, Hypothyroid, Hypertension, Hyperlipidemia Surgeries: Yes (Suboccipital craniotomy, Meningioma removal, Thyroid needle biopsy) Orthopedic, Tonsillectomy Respiratory: No Cardiac: Yes High Cholesterol, Hypertension Neurological: Yes Headaches /Migraines Sexually Transmitted Disease: No HIV/AIDS: No Genitourinary: No Gastrointestinal: No Musculoskeletal: No Fractures Endocrine: Yes Hypothyroidsim HEENT: No Loss of Vision: Denies Hearing Impairment: Denies Cancer: No Psychosocial: Yes Anxiety, Depression Integumentary: No Blood Disorders: No Adverse Reaction/Blood Tranf: No Family Medical History Hypertension Physical Exam Vital Signs Vital Signs - First Documented 07/10/23 16:19 Temp 36.4 Pulse 85 Resp 16 B/P (MAP) 144/73 (96) Pulse Ox 100 O2 Delivery Room Air Capillary Refill : Height/Weight/BMI Height: 5'2.00" Weight: 145lbs. 0oz. [id number]; 28.01 BMI Method:Stated General Appearance: WD/WN, no apparent distress HEENT: PERRL/EOMI, pharynx normal Neck: non-tender, full range of motion, supple Respiratory: chest non-tender, lungs clear, normal breath sounds, no respiratory distress, no accessory muscle use Cardiovascular: normal peripheral pulses, regular rate, rhythm Gastrointestinal: normal bowel sounds, non tender, soft, no pulsatile mass Rectal: deferred Extremities: normal range of motion, non-tender, normal capillary refill Neurologic/Psychiatric: alert, oriented x 3 Skin: normal color, warm/dry Progress/Results/Core Measures Results/Orders Lab Results Laboratory Tests Test 07/10/23 16:13 07/10/23 16:18 Range/Units Urine Color YELLOW Urine Clarity CLEAR Urine pH 5.0 5-9 Urine Specific [place] >=1.030 1.016-1.022 Urine Protein TRACE H NEGATIVE Urine Glucose (UA) TRACE H NEGATIVE Urine Ketones TRACE H NEGATIVE Urine Nitrite NEGATIVE NEGATIVE Urine Bilirubin 2+ H NEGATIVE Urine Urobilinogen 1.0 < = 1.0 MG/DL Urine Leukocyte Esterase NEGATIVE NEGATIVE Urine RBC (Auto) NEGATIVE NEGATIVE Urine RBC NONE /HPF Urine WBC NONE /HPF Urine Squamous Epithelial Cells 10-25 H /HPF Urine Crystals NONE /LPF Urine Bacteria TRACE /HPF Urine Casts PRESENT /LPF Urine Hyaline Casts >50 H /LPF Urine Mucus LARGE H /LPF Urine Culture Indicated NO White Blood Count 18.7 H 4.3-11.0 10^3/uL Red Blood Count 4.90 3.80-5.11 10^6/uL Hemoglobin 13.4 11.5-16.0 g/dL Hematocrit 43 35-52 % Mean Corpuscular Volume 88 80-99 fL Mean Corpuscular Hemoglobin 27 25-34 pg Mean Corpuscular Hemoglobin Concent 31 L 32-36 g/dL Red Cell Distribution Width 15.2 H 10.0-14.5 % Platelet Count 222 130-400 10^3/uL Mean Platelet Volume 8.6 L 9.0-12.2 fL Immature Granulocyte % (Auto) 0 % Neutrophils (%) (Auto) 85 H 42-75 % Lymphocytes (%) (Auto) 8 L 12-44 % Monocytes (%) (Auto) 6 0-12 % Eosinophils (%) (Auto) 0 0-10 % Basophils (%) (Auto) 0 0-10 % Neutrophils # (Auto) 15.8 H 1.8-7.8 10^3/uL Lymphocytes # (Auto) 1.6 1.0-4.0 10^3/uL Monocytes # (Auto) 1.2 H 0.0-1.0 10^3/uL Eosinophils # (Auto) 0.1 0.0-0.3 10^3/uL Basophils # (Auto) 0.1 0.0-0.1 10^3/uL Immature Granulocyte # (Auto) 0.1 0.0-0.1 10^3/uL Neutrophils % (Manual) 81 % Lymphocytes % (Manual) 10 % Monocytes % (Manual) 7 % Platelet Estimate ADEQUATE Blood Morphology Comment OK Prothrombin Time 13.5 12.2-14.7 SEC INR Comment 1.0 0.8-1.4 Activated Partial Thromboplast Time 24 24-35 SEC Sodium Level 140 135-145 MMOL/L Potassium Level 3.6 3.6-5.0 MMOL/L Chloride Level 103 98-107 MMOL/L Carbon Dioxide Level 24 21-32 MMOL/L Anion Gap 21 H 5-14 MMOL/L Blood Urea Nitrogen 22 H 7-18 MG/DL Creatinine 0.80 0.60-1.30 MG/DL Estimat Glomerular Filtration Rate 76 BUN/Creatinine Ratio 28 Glucose Level 138 H 70-105 MG/DL Calcium Level 10.2 H 8.5-10.1 MG/DL Corrected Calcium 10.2 H 8.5-10.1 MG/DL Magnesium Level 2.2 1.6-2.4 MG/DL Total Bilirubin 0.9 0.1-1.0 MG/DL Aspartate Amino Transf (AST/SGOT) 18 5-34 U/L Alanine Aminotransferase (ALT/SGPT) 15 0-55 U/L Alkaline Phosphatase 145 H 40-136 U/L Troponin I < 0.30 <0.30 NG/ML Pro-B-Type Natriuretic Peptide 377.1 <450.0 PG/ML Total Protein 7.1 6.4-8.2 GM/DL Albumin 4.0 3.2-4.5 GM/DL Lipase 21 8-78 U/L My Orders Orders - RUDY DOSHI MD Ua Culture If Indicated (07/10/23 16:14) Cbc And Automated Diff (07/10/23 16:21) Magnesium (07/10/23 16:21) Ekg Tracing (07/10/23 16:21) Comprehensive Metabolic Panel (07/10/23 16:21) Protime With Inr (07/10/23 16:21) Partial Thromboplastin Time (07/10/23 16:21) O2 (07/10/23 16:21) Monitor-Rhythm Ecg Trace Only (07/10/23 16:21) Ed Iv/Invasive Line Start (07/10/23 16:21) Lipase (07/10/23 16:21) Troponin I Fs (07/10/23 16:21) Probnp Fs (07/10/23 16:21) Ct Abdomen/Pelvis W (07/10/23 16:21) Ns Iv 1000 Ml (Ns Iv 1000 Ml) (07/10/23 16:22) Manual Differential (07/10/23 16:18) Iohexol Injection (Omnipaque 350 Mg/Ml 1 (07/10/23 16:45) Received Contrast (Hold Metformin- Contr (07/10/23 16:45) Ns (Ivpb) 100 Ml (Sodium Chloride 0.9% 1 (07/10/23 16:45) Ciprofloxacin Tablet (Ciprofloxacin Tabl (07/10/23 18:01) Medications Given in ED Current Medications Medications Dose Ordered Sig/Jr Route Start Time Stop Time Status Last Admin Dose Admin Iohexol 80 ml ONCE ONCE IV 07/10/23 16:45 07/10/23 17:08 DC 07/10/23 17:05 80 ML Sodium Chloride 100 ml ONCE ONCE IV 07/10/23 16:45 07/10/23 17:08 DC 07/10/23 17:04 80 ML Vital Signs/I&O 07/10/23 16:19 Temp 36.4 Pulse 85 Resp 16 B/P (MAP) 144/73 (96) Pulse Ox 100 O2 Delivery Room Air Progress Progress Note #1: Progress Note Differential diagnosis of colitis, pancreatitis, diverticulitis, UTI, bowel obstruction, gastritis, GERD. Obtain labs from peripheral IV that was started by clinic. Send complete blood count, comprehensive metabolic profile, lipase, troponin, proBNP, magnesium PT/INR, PTT, UA. CT scan of abdomen pelvis with IV contrast to look for patholog y to be causing her symptoms. Administer NS 1 L IVF bolus for hydration as her urine was dark colored. ECG to look for ischemia or arrhythmia. Cardiac paleobotanist to watch her heart rate and rhythm. My initial interpretation of paleobotanist is that she is in a sinus rhythm with rate in the 80s without ischemia or ectopy. Progress Note #2: Progress Note Labs shows elevated white blood cell count 13.7 with her left shift with 81% neutrophils. Hemoglobin low normal at 13.4. Comprehensive metabolic profile showed mild elevation of the BUN to 22. Creatinine was okay at 0.8. Glucose slightly elevated 138. Troponin was negative at less than 0.3. proBNP is 377. Lipase was normal at 21. Coagulation factors were normal. Urinalysis was concentrated with specific gravity greater than 1.030 with trace ketones and 10- 25 epithelial cells. She did not have Esterase or nitrites for UTI. Awaiting CT scan of the abdomen and pelvis with IV contrast. Progress Note #3: Time: 17:[address] scan of the abdomen and pelvis with IV contrast showed postop surgical changes and some mild bowel wall thickening and inflammation to the left upper quadrant with concern for colitis. She does not have any signs of perforation or bowel obstruction. This patient has been feeling better and has been hemodynamically stable will discuss discharge options with her and could provide medication to help with spasms and inflammation as well as nausea medicine if needed. When she had similar symptoms in November of this year she did improve with Levsin, Zofran, Cipro. Could plan to do the same treatment tonight and counseled on follow-up and return precautions. Currently her blood pressure is 145/72 She satting 98% on room air with heart rate of 92. After discussing with the patient she felt that she did not need the Zofran and did not think she would need the Levsin. Will do the ciprofloxacin and give her first dose here since her pharmacy is already closed for the night. We will send a prescription for the Levsin so that if she was having pain, spasms, c ramping she could at least flower buncher or picker the medicine to take rather than having to do a whole new ER visit. Encourage fluids and hydration. Check back with primary care and she might need GI to do colonoscopy or additional testing if she has continued symptoms. Initial ECG Impression Date: Jul 10, 2023 Initial ECG Impression Time: 16:24 Initial ECG Rate: 79 Initial ECG Rhythm: Normal Sinus Initial ECG Comparisson: Unchanged (12/01/2022) Comment Sinus Rhythm with rate 79 bpm. AK interval [address] elevation. QT interval 388 ms and QTc interval 422 ms. Similar to tracing from 12/01/2022. Diagnostic Imaging Diagonstic Imaging: CT Plain Films/CT/US/NM/MRI: abdomen, pelvis Comments NAME: MELISSA [facility]LETON [facility] REC#: [id number] PT STATUS: REG ER : 1945 PHYSICIAN: RUDY DOSHI MD ADMIT DATE: 07/10/23/ER FS Draft Date of Exam:07/10/23 CT ABDOMEN/PELVIS W PROCEDURE: CT abdomen and pelvis with contrast. TECHNIQUE: Multiple contiguous axial images were obtained through the abdomen and pelvis after administration of intravenous contrast. Auto Exposure Controls were utilized during the CT exam to meet ALARA standards for radiation dose reduction. All CT scans use one or more of the following dose optimizing techniques: Automated exposure control, MA and/or KvP adjustment based on patient size and exam type or iterative reconstruction. INDICATION: Diarrhea, abdominal pain, and cramping; history of Whipple and colitis; nausea. COMPARISON: 12/01/2022. FINDINGS: There is dependent atelectasis in the lung bases. The heart is normal in size. There is no pericardial effusion. The liver demonstrates no enhancing lesions. There is a well-circumscribed cystic lesion in the left lobe. The portal vein is patent. The spleen has calcified granulomas. The pancreatic head is resected, postsurgical changes are noted. The adrenal glands appear normal. The kidneys demonstrate no enhancing lesions or hydronephrosis. There are postsurgical changes of the stomach. No bowel obstruction is seen. The cecum appears to be displaced and folded anterior to the liver. There is mild wall thickening about the transverse, descending, and splenic flexure colon with mild surrounding edema. There is moderate stool in the colon. There is diverticulosis of the distal colon without diverticulitis seen. The aorta is normal in caliber. There is no lymphadenopathy. No acute osseous abnormality is seen. There are degenerative changes in the spine. There is chronic compression deformity of T12. IMPRESSION: 1. Postsurgical changes in the abdomen. No free fluid or rim-enhancing fluid collection is identified. 2. Wall thickening and mild edema about the colon in the left upper quadrant, may represent a mild colitis. Dictated on workstation # [id number] Dict: 07/10/23 1725 Trans: 07/10/231737 [id number] Interpreted by: LUIS MANUEL IBARRA MD Electronically signed by: Reviewed: Reviewed by Me Departure Impression Primary Impression: Colitis Additional Impression: Dehydration Disposition: 01 HOME, SELF-CARE Condition: Stable Departure-Patient Inst. Decision time for Depature: 18:02 Referrals: NICKIE ALVARADO APRN (PCP) Primary Care Physician LANDY MARQUEZ DO (Family) Primary Care Physician Patient Instructions: Dehydration, Adult ED, Colitis (DC) Add. Discharge Instructions: Take the antibiotic to try and help with the colitis and inflammation of the colon. If needed you could also take the Levsin for abdominal pain, spasms, cramping. Try to drink more water and stay well-hydrated. Follow-up with the clinic for continued concerns. If your pain and symptoms are worsening instead of improving or you develop fever over 101 Fahrenheit or unable to keep anything down then you should return or seek medical care for further evaluation. He might require IV antibiotics and IV fluids to control the colitis if your symptoms are worsening. All discharge instructions reviewed with patient and/or family. Voiced understanding. Scripts Hyoscyamine Sulfate (Hyoscyamine Sulfate) 0.125 Mg Tab.subl 0.125 MG SL Q4H PRN for ABDOMINAL PAIN for 2 Days, #12 TAB 0 Refills Prov: RUDY DOSHI MD 07/10/23 Ciprofloxacin HCl (Ciprofloxacin HCl) 500 Mg Tablet 500 MG PO BID for colitis for 5 Days, #10 TAB 0 Refills Prov: RUDY DOSHI MD 07/10/23 RUDY DOSHI MD Jul 10, 2023 16:28
[2023-07-10 16:31] LABS: BASOPHILS # (AUTO) 0.1 10^3/uL (0.0-0.1); BASOPHILS % (AUTO) 0 % (0-10); EOSINOPHILS # (AUTO) 0.1 10^3/uL (0.0-0.3); EOSINOPHILS % (AUTO) 0 % (0-10); HEMATOCRIT 43 % (35-52); HEMOGLOBIN 13.4 g/dL (11.5-16.0); LYMPHOCYTES # (AUTO) 1.6 10^3/uL (1.0-4.0); LYMPHOCYTES % (AUTO) 8 % (12-44); MEAN CORPUSCULAR HEMOGLOBIN 27 pg (25-34); MEAN CORPUSCULAR HGB CONC 31 g/dL (32-36); MEAN CORPUSCULAR VOLUME 88 fL (80-99); MEAN PLATELET VOLUME 8.6 fL (9.0-12.2); MONOCYTES # (AUTO) 1.2 10^3/uL (0.0-1.0); MONOCYTES % (AUTO) 6 % (0-12); NEUTROPHILS # (AUTO) 15.8 10^3/uL (1.8-7.8); NEUTROPHILS % (AUTO) 85 % (42-75); PLATELET COUNT 222 10^3/uL (130-400); WHITE BLOOD COUNT 18.7 10^3/uL (4.3-11.0)
[2023-07-10 16:41] LABS: BACTERIA,URINE TRACE /HPF
[2023-07-10 16:42] LABS: HYALINE CASTS, URINE >50 /LPF
[2023-07-10 16:43] LABS: BILIRUBIN,URINE 2+ (NEGATIVE)
[2023-07-10] MEDS ORDERED: HOLD METFORMIN - RECEIVED CONTRAST 20 ML VIAL IV SCH (16:45)
[2023-07-10] MEDS ORDERED: NS 100 ML (IVPB) BAG IV ONE (16:45)
[2023-07-10] MEDS ORDERED: IOHEXOL 350 MG/ML 100 ML (OMNIPAQUE 350) VIAL IV ONE (16:45)
[2023-07-10 16:54] LABS: POTASSIUM 3.6 MMOL/L (3.6-5.0)
[2023-07-10 16:55] LABS: CARBON DIOXIDE 24 MMOL/L (21-32); CHLORIDE 103 MMOL/L (98-107); LYMPHOCYTES % (MANUAL) 10 %; MONOCYTES % (MANUAL) 7 %; NEUTROPHILS % (MANUAL) 81 %; PLATELET ESTIMATE ADEQUATE; PROTHROMBIN TIME PATIENT 13.5 SEC (12.2-14.7); RBC MORPH OK; SODIUM 140 MMOL/L (135-145)
[2023-07-10 16:56] LABS: ALANINE AMINOTRANSFERASE 15 U/L (0-55); ALKALINE PHOSPHATASE 145 U/L (40-136); BILIRUBIN,TOTAL 0.9 MG/DL (0.1-1.0); BUN/CREATININE RATIO 28; CALCIUM 10.2 MG/DL (8.5-10.1); GFR ESTIMATED 76; GLUCOSE 138 MG/DL (70-105); LIPASE 21 U/L (8-78); MAGNESIUM 2.2 MG/DL (1.6-2.4); TOTAL PROTEIN 7.1 GM/DL (6.4-8.2)
--- NOTE | 2023-07-10 17:38 | Diagnostic Imaging Report ---
PROCEDURE: CT abdomen and pelvis with contrast. TECHNIQUE: Multiple contiguous axial images were obtained through the abdomen and pelvis after administration of intravenous contrast. Auto Exposure Controls were utilized during the CT exam to meet ALARA standards for radiation dose reduction. All CT scans use one or more of the following dose optimizing techniques: Automated exposure control, MA and/or KvP adjustment based on patient size and exam type or iterative reconstruction. INDICATION: Diarrhea, abdominal pain, and cramping; history of Whipple and colitis; nausea. COMPARISON: 12/01/2022. FINDINGS: There is dependent atelectasis in the lung bases. The heart is normal in size. There is no pericardial effusion. The liver demonstrates no enhancing lesions. There is a well-circumscribed cystic lesion in the left lobe. The portal vein is patent. The spleen has calcified granulomas. The pancreatic head is resected, postsurgical changes are noted. The adrenal glands appear normal. The kidneys demonstrate no enhancing lesions or hydronephrosis. There are postsurgical changes of the stomach. No bowel obstruction is seen. The cecum appears to be displaced and folded anterior to the liver. There is mild wall thickening about the transverse, descending, and splenic flexure colon with mild surrounding edema. There is moderate stool in the colon. There is diverticulosis of the distal colon without diverticulitis seen. The aorta is normal in caliber. There is no lymphadenopathy. No acute osseous abnormality is seen. There are degenerative changes in the spine. There is chronic compression deformity of T12. IMPRESSION: 1. Postsurgical changes in the abdomen. No free fluid or rim-enhancing fluid collection is identified. 2. Wall thickening and mild edema about the colon in the left upper quadrant, may represent a mild colitis. Dictated by: Dictated on workstation # [id number]
[2023-07-10] MEDS ORDERED: CIPROFLOXACIN 500 MG TABLET PO STA (18:01)
[2023-07-10] MEDS ORDERED: CIPR500T5 PO (18:05)
[2023-07-10] MEDS ORDERED: HYOS-19 SL (18:05)
== END 2023-07-10 18:15 | disposition home or self-care (01) ==
LOC: EDUNIT# 16:06 → ER FS 16:07
DX: K52.9 Noninfective gastroenteritis and colitis, unspecified (principal); E86.0 Dehydration; F17.210 Nicotine dependence, cigarettes, uncomplicated; Z88.2 Allergy status to sulfonamides
CPT/HCPCS: 36415; 74177; 80053; 81000; 83690; 83735; 83880; 84484; 85007; 85027; 85610; 85730; 93005; 93041; 96360; Q9967